=== PATIENT | female | born 1950 | race Caucasian/White ===

== ENCOUNTER 2017-04-06 11:09 | Inpatient (IN) | payer MEDICARE, SELFPAY ==
[2017-04-06] VITALS (12 sets, daily range): BP systolic 121–173; BP diastolic 50–71; PULSE 65–90; RESP 14–18; TEMP 36.4–37.3; O2SAT 91–98; BMI 51.0; BMI 53.0
--- NOTE | 2017-04-06 11:35 | CT_ITS ---
STUDY: CT ABDOMEN AND PELVIS WITH CONTRAST REASON FOR EXAM: Female, 67 years old. Right lower quadrant pain x3 days RADIATION DOSAGE (If Supplied By Facility): CTDIvol = ( 36.17 ) mGy, DLP = ( 1554.38 ) mGycm TECHNIQUE: Transaxial images were obtained from the dome of the diaphragm to the symphysis pubis without oral contrast. 100 ml of Isovue 300 contrast was administered. Sagittal and coronal images were reconstructed. Individualized dose optimization techniques were used for this CT. COMPARISON: Prior study of 12/05/2016 FINDINGS: The visualized lung bases are unremarkable. The visualized portions of the heart are within normal limits. Normal liver. There is non-visualization of the gallbladder, which may be secondary to either contraction or a prior cholecystectomy. Normal spleen. Normal pancreas. There is a 2.0 cm right adrenal nodule similar to the previous study. The left adrenal is normal. There is a 2.1 cm cyst of the posterior midpole of the right kidney. Normal left kidney. Normal visualized stomach. Normal small intestine. There are scattered colonic diverticuli with no evidence of associated diverticulitis. There is an umbilical hernia containing a knuckle of bowel. The bowel is nonobstructed, but there is noted edema of the hernia fat suggestive of strangulation. There is non-visualization of the appendix. Normal abdominal aorta. Normal inferior vena cava. Normal retroperitoneum. Normal urinary bladder. Normal visualized uterus. There is a grade 1 L5-S1 spondylolisthesis with bilateral L5 spondylolysis. There are diffuse degenerative changes of the visualized thoracolumbar spine. CT/Abdomen/Pelvis WITH Contrast IMPRESSION: Umbilical hernia containing nondistended knuckle of bowel as well as edematous fat. Findings are suggestive of strangulation. The gallbladder and appendix are not identified. Stable right adrenal nodule and right renal cyst. Scattered colonic diverticuli with no evidence of associated diverticulitis. There is no evidence of free intra-abdominal or intrapelvic air or fluid. Electronically Signed: Hai Alicea MD at 13:56 EST , Service support ,
--- NOTE | 2017-04-06 11:53 | ED.DCSUM_ITS ---
- ER Visit Summary Date of Service: 04/06/17 Chief Complaint: Abdominal pain History of Present Illness: The patient is a 67 F who states that last week she had an increase in the amount of reflux symptoms. She was using famotidine and Pepto-Bismol. On Friday she began to have vomiting. Today she woke with continued nausea vomiting as well as a right lower quadrant burning pain. Is worse with movement and touch. She notes that she has a large umbilical hernia and she tells me that is nontender. No fevers. No significant diarrhea. Physical Examination: Afebrile vital signs are stable Gen: Well-nourished well-developed morbidly obese Head: Normocephalic atraumatic Eyes: Perrl EOMI ENT: TMs clear no rhinorrhea moist mucous membranes Neck: Supple no lymphadenopathy no JVD nontender CVS: Regular rate rhythm no murmurs normal S1-S2 Respiratory: No distress clear to auscultation bilaterally chest nontender Abdomen: Soft mild tenderness to palpation in the right lower quadrant. There is a large umbilical hernia that is tender. I am able to partially reduce it though it is painful for the patient. It does come back. Nondistended normal bowel sounds no masses Back: Nontender Extremity: Nontender no edema Skin: Normal color no rash Neuro: alert orientated ?3 CN II-XII intact normal strength sensation reflexes gait cerebellar Psych: Normal affect normal mood Test Results: Basic labs were negative including lactate 1.3 and white blood cell count 6.9. CT the abdomen pelvis was concerning for a strangulated hernia. Please see radiology read for final details. Emergency Department Course and Treatment: Patient received IV fluids, morphine , Zofran. Clinically I think the patient's hernia abdominal wall were injured by vomiting. I spoke with Dr. Liz is come to the emergency department to evaluate the patient. She is planning to take the patient to the operating room. Impression: 1. Strangulated umbilical hernia This note was generated with [employer] dictation software. It may contain incorrect words, spelling, and punctuation that were not noted in review of the chart prior to signing ED Disposition - Plan for ED Patient: Chief Complaint: Abd Pain
[2017-04-06] MEDS: 0.9% Normal Saline 1,000 ML 125 ML IV ×2 (11:58→19:15)
[2017-04-06] MEDS: Ondansetron 4 MG/2 ML Vial IV (11:58)
[2017-04-06 12:09] LABS: Absolute Lymphocyte Count 1.65 X10^3/ul (0.83-4.51); Absolute Neutrophil Count 4.6 X10^3/uL (2.0-7.7); Basophil# 0.04 X10^3/uL; Basophil% 0.6 % (0-1); Eosinophil# 0.14 X10^3/uL; Hematocrit 41.1 % (37-47); Hemoglobin 13.2 g/dl (12.0-15.0); Lymphocyte # 1.65 X10^3/ul (4.0); Lymphocyte % 23.8 % (19-41); Mean Corp Hgb Conc 32.1 g/gl (32-36); Mean Corpuscular Hgb 29.1 pg (27.0-32.0); Mean Corpuscular Volume 90.7 fL (81-99); Monocyte# 0.49 X10^3/uL; Monocyte% 7.1 % (0-10); Neutrophil # 4.58 X10^3/uL (2.7-7.7); Neutrophil % 66.2 % (47-70); Platelet Count 234 K/mm3 (150-450); RBC Distribution Width CV 12.9 % (11.6-14.6); RBC Distribution Width SD 42.5 fl (35.1-43.9); Red Blood Count 4.53 M/mm3 (4.2-5.4); White Blood Count 6.9 K/mm3 (4.4-11.0)
[2017-04-06 12:10] LABS: POSITIVE COUNT NO; POSITIVE DIFFERENTIAL NO; POSITIVE MORPHOLOGY NO
[2017-04-06 12:24] LABS: ALB/GLOB Ratio 0.9 RATIO (0.9-2.4); AST(SGOT) 30 U/L (15-37); Alanine Aminotransfer ALT/SGPT 51 U/L (12-78); Albumin, Serum 3.5 g/dL (3.4-5.0); Alkaline Phosphatase 108 U/L (45-117); Anion Gap 9 (5-15); BUN 11 mg/dL (7-18); BUN/Creat Ratio 11.2 RATIO (10-20); Calcium,Total 9.2 mg/dL (8.5-10.1); Chloride 105 mmol/L (98-107); Creatinine, Serum 0.98 mg/dL (0.55-1.02); EST Glomerular Filtration Rate 60 mL/min (>60); Est Glom Filt Rate - Afr Amer 73 mL/min (>60); Estimated Creatinine Clearance 98.15 ml/min; Globulin 4.1 g/dL (2.2-4.2); Glucose 118 mg/dL (70-110); Lipase 103 U/L (73-393); Potassium 4.1 mmol/L (3.5-5.1); Protein, Total 7.6 g/dL (6.4-8.2); Sodium Level 139 mmol/L (136-145)
[2017-04-06 12:28] LABS: Lactic Acid 1.3 mmol/L (0.4-2.0)
[2017-04-06 15:08] LABS: Bacteria 0 SEEN /hpf (None Seen); Mucous, Urine 0 SEEN /hpf (<or=2+); Red Blood Cells-Urine 0 SEEN /hpf (0-5); White Blood Cells 0 SEEN /hpf (0-5)
[2017-04-06 15:18] LABS: Color, Urine Yellow (Yellow); Glucose, Dipstick Normal (Normal); Ketone-Dipstick Negative (Negative); Leukocyte Esterase-Dipstick Negative /ul (Negative); Nitrite-Dipstick Negative (Negative); Occult Blood-Urine Negative /ul (Negative); Protein-Dipstick Negative (Negative); Urine Bilirubin Dipstick Negative (Negative); Urine Clarity Clear (Clear); Urine Urobilinogen Normal (Normal)
--- NOTE | 2017-04-06 15:26 | EKG12_ITS ---
Test Reason : PREOP Blood Pressure : / mmHG Vent. Rate : 073 BPM Atrial Rate : 073 BPM P-R Int : 192 ms QRS Dur : 164 ms QT Int : 468 ms P-R-T Axes : 007 -05 088 degrees QTc Int : 515 ms Normal sinus rhythm Left bundle branch block Abnormal ECG Confirmed by SANDHYA OBRIEN, ALAINA ([id number]), makeup editor ETHEL CAMERON ([id number]) on 04/08/2017 10:41:21 AM Referred By: Confirmed By:ALAINA ARTHUR MD
[2017-04-06 15:27] LABS: Squamous Epithelial Cells - UA 0-5 SEEN /hpf (5-10)
--- NOTE | 2017-04-06 15:53 | HP.PCM_ITS ---
History and Physical Date of Admission: 04/06/17 Chief Complaint: abdominal pain History of Present Illness: 67 y/o WF presents with abdominal pain, nausea/emesis. Has pain to the right of the hernia - burning, aching pain. She has noted an umbilical hernia for years. Also complains of increased reflux symptoms Complains of increased intestinal gas Has had diarrhea for the past 2 weeks - 2-3 loose bowel movements per day. Has had nausea and dry retching in the past several days. 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 Past Surgical History: cholecystectomy csections appendectomy umbilical hernia repair Medications: norvasc eliquis lipitor vitamins famotidine losartan metformin potassium venlafaxine Allergies: Has no known drug allergies Social history: TOB use quit 40 years ago Review of Systems: General - denies fevers, denies weight loss, denies anorexia Cardiovascular denies chest pain, denies history of heart attack Pulmonary has shortness of breath with exertion, denies coughing up blood Gastrointestinal as per HPI, denies blood in stools, had colonoscopy 2015 Neurological denies numbness/weakness of extremities, denies seizures, denies history of stroke Genitourinary denies blood in urine Hematological denies spontaneous/prolonged bleeding, history of PE, factor V deficiency Skin denies open non healing wounds Musculoskeletal denies chronic back pain Endocrine has diabetes Psychological denies hallucinations Physical examination: Vital signs Ht: 4'11 Wt 251# Temp 99.1F RR 14 BP 165/62 HR 96 General WD/WN morbidly obese WF in apparent abdominal discomfort, alert and oriented, not septic appearing HEENT Normocephalic. EOM intact with sclera clear and no icterus noted. Neck is supple with no jugular venous distention noted. Trachea is midline. Lungs clear to auscultation. normal breath sounds in all lung gavin. No rales/rhonchi/wheezing noted. No labored breathing noted, such as retractions. . Heart normal S1 and S2 auscultated. No rubs/clicks/murmurs noted. Abdomen soft and obese, periumbilical tenderness to palpation with slight rebound. decreased bowel sounds. obvious ventral hernia that is not completely reducible, overlying skin is stretched out but not tense and slight erythematous in coloration, difficult to determine if any masses or organomegaly due to patient's body habitus Extremities no calf tenderness noted. No pitting edema noted. Genitourinary/Rectal deferred Skin normal skin integrity. Neurological non focal Psychological normal affect, patient is calm and appropriate WBC 6.9K, normal differential, lactic acid normal Impression: recurrent ventral hernia - incarcerated periumbilical abdominal pain morbid obesity multiple medical problems - hypertension, diabetes, hx of PE, factor V def Discussion/Plan: I have discussed the above with the patient and her son who is present with her. The patient has had this hernia for years, however, she states that the pain at present is worse than at any other time and that it also feels different. She states that she feels worse and that the pain is primarily centered around the hernia. This may be due to tension applied to the omentum in the area. Also there are inflammatory/strangulation changes noted on the CT scan. Therefore I have offered patient urgent recurrent ventral hernia repair today. I have counseled the patient as to the risks of the procedure, including but not limited to: infection, bleeding, injury to any blood vessels/nerves, scar tissue, injury to any intrabdominal organs, injury to kidney/ureters, injury to bowel/bladder, intraabdominal abscess/bleeding, recurrent hernia, wound infections, leaving the wound to heal by secondary intention, complications of anesthesia, postoperative pneumonia/cardiac problems/blood clots etc. the patient understands. At first, patient states that she wished to consult with her family physician. I counseled her that her family physician was not available at this time, and that her family physician would not be able to advise her on this surgical case. Also that if she delayed her surgery, she could possibly due greater harm to herself. The patient agrees to proceed with surgery. I will consult with the hospitalist for perioperative medical management of the patient's multiple medical problems I have answered all questions to the patient?s satisfaction and the patient has no further questions.
[2017-04-06 16:16] LABS: Bedside Glucose 115 mg/dL (70-110)
[2017-04-06] MEDS: Bupivacaine Mpf 0.5% 30 ML VIAL (16:20)
--- NOTE | 2017-04-06 16:33 | PCM.CONS.GEN ---
Problem List (1) CAD (coronary artery disease) Status: Acute (2) Incarcerated hernia Status: Chronic (3) Heterozygous factor V Leiden mutation Status: Chronic (4) LBBB (left bundle branch block) Status: Chronic (5) Pulmonary embolism Status: Chronic Reason for Consult Date of Consultation: 04/06/17 Reason for Consultation: consult requested by Dr. Liz for medical mgmt History of Present Illness: The patient is a 67 year old F who has a known h/o umbilical hernia. Since Friday, has been having vomiting and increased abdominal pain. Pt presented to ED and had a CT scan concerning for a strangulated hernia. Dr. Liz notified and being taken to surgery today. We were asked to see the patient in consultation for medical mgmt.[] Past Medical History Past Medical History (Chronic Problems): Chronic Problems LBBB (left bundle branch block) (Chronic) Pulmonary embolism (Chronic) Incarcerated hernia (Chronic) Heterozygous factor V Leiden mutation (Chronic) Allergies No Known Allergies Allergy (Verified 04/06/17 11:14) Home Medications: Ambulatory Orders Medication Instructions Recorded Amlodipine Besylate [Norvasc] 10 mg PO DAILY 07/05/16 Losartan Potassium [Cozaar] 50 mg PO BID 07/05/16 Metformin HCl [Glucophage] 500 mg PO BIDCM 07/05/16 Venlafaxine HCl [Venlafaxine HCl 75 mg PO DAILY 07/05/16 ER] Ergocalciferol [Vitamin D] 50,000 unit PO QMONTH 07/09/16 Apixaban [Eliquis] 5 mg PO BID #60 tablet 10/04/16 Atorvastatin Calcium [Lipitor] 40 mg PO QHS 04/06/17 Famotidine 40 mg PO DAILY 04/06/17 Famotidine/Ca Carb/Mag Hydrox 1 each PO 04/06/17 [Pepcid Complete Tablet Chew] Potassium Chloride [Klor-Con M20] 20 meq PO DAILY 04/06/17 Psychiatric History: No pertinent psych hx Smoking Status: Never smoker Tobacco Use: Non-smoker Alcohol: None Drugs: None - *Family History Maternal History Items: Heart Disease, - - 4 blokec arteries Paternal History Items: - - father 59 lung cancer Offspring History Items: - - PE and Factor V Leiden Deficiency in her son. Review of Systems Constitutional: Denies: Chills, Fever, Weight Change Eyes: Denies: Blurred vision, Double vision HEENT: Denies: Head Aches, Sinus Congestion, Sinus Drainage Cardiovascular: Denies: Chest Pain, Palpitations Respiratory: Denies: Cough, Shortness of breath at rest, Sputum production Gastrointestinal: Denies: Abdominal Pain, Nausea, Vomiting Genitourinary: Denies: Dysuria Musculoskeletal: Denies: Joint Pain, Joint Tenderness Skin: Denies: Rash, Wounds Neurological: Denies: Numbness, Tingling, Focal weakness Psychiatric: Reports: Homicidal Ideations, Suicidal Ideations. Denies: Anxiety, Depression Hematologic/ Lymphatic: Reports: Hx of blood clot. Denies: Easy Bruising, Easy Bleeding Patient Problems: Active and Suspected Problems CAD (coronary artery disease) (Acute) - Physical Exam General: Alert, Cooperative, No apparent distress HEENT: Atraumatic, Normocephalic Neck: No Nodes, Thyroid Normal Size and Texture Lungs: Clear to auscultation, Normal air movement, No rhonchi, No wheeze Cardiovascular: Regular rate, Regular Rhythm, Normal S1, Normal S2, No murmurs Abdomen: Non-Distended, Hypoactive Bowel Sounds, Obese, Tender Extremities: No edema, No Calf Tenderness Skin: No rashes, No breakdown Psych/Mental Status: Normal Affect, Appropriate Vital Signs Temp Pulse Resp BP Pulse Ox 37.3 C 69 16 121/50 H 93 04/06/17 11:10 04/06/17 16:13 04/06/17 16:13 04/06/17 16:13 04/06/17 16:13 Oxygen Delivery Method Room Air Weight: 114.759 kg Body Mass Index (BMI) 51.0 POC Glucose 04/06/17 16:04 POC Glucose 115 H Assessment/Plan Active and Suspected Problems CAD (coronary artery disease) (Acute) 1. Strangulated hernia emergent surgery and going today. further mgmt per Dr. Liz Pt with fair performance status and able to perform >4 METS of activity 2. DM2 hold metformin will place pt on Moderate dosing SSI (Novolog) Q6h, may change to QAC once diet initiated 3. VTE on chronic eliquis, which is being held for surgery. resume once ok'd by Dr. Liz. 4. DVT proph: SCDs until able to resume eliquis. Code Visit Inpatient E&M: 50969 Init Hosp L2
--- NOTE | 2017-04-06 16:43 | CON.PCM_ITS ---
Problem List (1) CAD (coronary artery disease) Status: Acute (2) Incarcerated hernia Status: Chronic (3) Heterozygous factor V Leiden mutation Status: Chronic (4) LBBB (left bundle branch block) Status: Chronic (5) Pulmonary embolism Status: Chronic Reason for Consult Date of Consultation: 04/06/17 Reason for Consultation: consult requested by Dr. Liz for medical mgmt History of Present Illness: The patient is a 67 year old F who has a known h/o umbilical hernia. Since Friday, has been having vomiting and increased abdominal pain. Pt presented to ED and had a CT scan concerning for a strangulated hernia. Dr. Liz notified and being taken to surgery today. We were asked to see the patient in consultation for medical mgmt.[] Past Medical History Past Medical History (Chronic Problems): Chronic Problems LBBB (left bundle branch block) (Chronic) Pulmonary embolism (Chronic) Incarcerated hernia (Chronic) Heterozygous factor V Leiden mutation (Chronic) Allergies No Known Allergies Allergy (Verified 04/06/17 11:14) Home Medications: Ambulatory Orders Medication Instructions Recorded Amlodipine Besylate [Norvasc] 10 mg PO DAILY 07/05/16 Losartan Potassium [Cozaar] 50 mg PO BID 07/05/16 Metformin HCl [Glucophage] 500 mg PO BIDCM 07/05/16 Venlafaxine HCl [Venlafaxine HCl 75 mg PO DAILY 07/05/16 ER] Ergocalciferol [Vitamin D] 50,000 unit PO QMONTH 07/09/16 Apixaban [Eliquis] 5 mg PO BID #60 tablet 10/04/16 Atorvastatin Calcium [Lipitor] 40 mg PO QHS 04/06/17 Famotidine 40 mg PO DAILY 04/06/17 Famotidine/Ca Carb/Mag Hydrox 1 each PO 04/06/17 [Pepcid Complete Tablet Chew] Potassium Chloride [Klor-Con M20] 20 meq PO DAILY 04/06/17 Psychiatric History: No pertinent psych hx Smoking Status: Never smoker Tobacco Use: Non-smoker Alcohol: None Drugs: None - *Family History Maternal History Items: Heart Disease, - - 4 blokec arteries Paternal History Items: - - father 59 lung cancer Offspring History Items: - - PE and Factor V Leiden Deficiency in her son. Review of Systems Constitutional: Denies: Chills, Fever, Weight Change Eyes: Denies: Blurred vision, Double vision HEENT: Denies: Head Aches, Sinus Congestion, Sinus Drainage Cardiovascular: Denies: Chest Pain, Palpitations Respiratory: Denies: Cough, Shortness of breath at rest, Sputum production Gastrointestinal: Denies: Abdominal Pain, Nausea, Vomiting Genitourinary: Denies: Dysuria Musculoskeletal: Denies: Joint Pain, Joint Tenderness Skin: Denies: Rash, Wounds Neurological: Denies: Numbness, Tingling, Focal weakness Psychiatric: Reports: Homicidal Ideations, Suicidal Ideations. Denies: Anxiety , Depression Hematologic/ Lymphatic: Reports: Hx of blood clot. Denies: Easy Bruising, Easy Bleeding Patient Problems: Active and Suspected Problems CAD (coronary artery disease) (Acute) - Physical Exam General: Alert, Cooperative, No apparent distress HEENT: Atraumatic, Normocephalic Neck: No Nodes, Thyroid Normal Size and Texture Lungs: Clear to auscultation, Normal air movement, No rhonchi, No wheeze Cardiovascular: Regular rate, Regular Rhythm, Normal S1, Normal S2, No murmurs Abdomen: Non-Distended, Hypoactive Bowel Sounds, Obese, Tender Extremities: No edema, No Calf Tenderness Skin: No rashes, No breakdown Psych/Mental Status: Normal Affect, Appropriate Vital Signs Temp Pulse Resp BP Pulse Ox 37.3 C 69 16 121/50 H 93 04/06/17 11:10 04/06/17 16:13 04/06/17 16:13 04/06/17 16:13 04/06/17 16:13 Oxygen Delivery Method Room Air Weight: 114.759 kg Body Mass Index (BMI) 51.0 POC Glucose 04/06/17 16:04 POC Glucose 115 H Assessment/Plan Active and Suspected Problems CAD (coronary artery disease) (Acute) 1. Strangulated hernia * emergent surgery and going today. * further mgmt per Dr. Liz * Pt with fair performance status and able to perform >4 METS of activity 2. DM2 * hold metformin * will place pt on Moderate dosing SSI (Novolog) Q6h, may change to QAC once diet initiated 3. VTE * on chronic eliquis, which is being held for surgery. * resume once ok'd by Dr. Liz. 4. DVT proph: * SCDs until able to resume eliquis. Code Visit Inpatient E&M: 92592 Init Hosp L2
--- NOTE | 2017-04-06 16:45 | HERN_PTH ---
PATIENT: CLARENCE CONNOR LOC: [facility]3 U#:[id number] AGE/SX: 67/F ROOM: MS305 RE04/06/[address]: Dr. Rosita Lim DO : 1950 BED: 1 DIS: 04/07/2017 SPEC #: [id number] RECD: 04/07/17 12:23 STATUS: MICHELINE REQ #: [id number] STEPHANIE: 04/06/17 16:[address]: Lorri Liz DEPT: SURGICAL PATHOLOGY RECD BY: Sedrick Rudolph ENTERED: 04/07/17 12:24 SP TYPE: Hernia OTHR DR: DO Dr. Luis Gil DO Dr. Tai Chi Kwok, MD Tissues: A - HERNIA B - HERNIA Procedures: Surgery Specimen Level II Surgery Specimen Level III Comments: @ Ordering doctor for [facility] edited from to DR.LWANG Beltran by CICI at 04/07/17 1524 @ Submitting doctor edited from to DR.LWANG Beltran by CICI at 04/07/17 1524 HEADER OPERATION: Recurrent strangulated hernia repair PRE-OP DIAGNOSIS: Recurrent ventral hernia ? strangulated TISSUE SUBMITTED: A ? Hernia sac, B ? Hernia skin MICROSCOPIC DIAGNOSIS A. Hernia sac: Mesothelial-lined fibroadipose and fibroconnective tissue, consistent with hernia sac with focal chronic inflammation and hemorrhage. B. Hernia skin: Pieces of skin, no pathologic diagnosis. JENNIFER:yousif 04/08/17 MICROSCOPIC DESCRIPTION Slides are reviewed. GROSS DESCRIPTION A - Received in fixative is one container labeled with the patient's name and designated hernia sac. The specimen consists of a glistening fragment of pink-yellow soft tissue measuring 5.5 x 3.5 x 1 cm. Dissection does not reveal mass lesions. Ross Lift Operator sections are submitted in one cassette. B - Received in fixative is one container labeled with the patient's name and designated hernia skin. The specimen consists of two irregular fragments of glistening, light pink-clifton skin. One fragment measures 7 x 3.5 x 0.3 cm. The other fragment measures 8 x 3.5 x 0.5 cm. No cutaneous lesions are identified. Ross Lift Operator sections from both fragments are submitted in one cassette. / AM:yousif 04/07/17 TC:5 CPT: 13006, 08386
[2017-04-06] MEDS: Cefazolin 2 GM in 0.9% Normal Saline 100 ML IV (16:50)
--- NOTE | 2017-04-06 18:00 | OP.PN_ITS ---
Immediate Post-Op Note Date of Procedure: 04/06/17 Primary Surgeon/Physician: Lorri Liz physician practice coordinator: NOT,DEFINED Pre-Operative Diagnosis: incarcerated recurrent ventral hernia, abdominal pain Post-Operative Diagnosis: same Surgery/Procedure Performed:: repair of incarcerated recurrent ventral hernia Description of Surgical Findings:: incarcerated recurrent ventral hernia, no necrotic bowel noted Estimated Blood Loss: 20 ml Specimen's removed: hernia sac, excess skin from hernia Drains: none Type of Anesthesia:: General ASA Class: ASA3 Plus Emergency - Admit VTE Documentation VTE Present on Admission: Yes VTE Mechan Device Prophylaxis: SCD's
--- NOTE | 2017-04-06 18:00 | PCM.OPRPT ---
Report of Operation Date of Procedure: 04/06/17 Pre-Operative Diagnosis: incarcerated recurrent ventral hernia, abdominal pain Post-Operative Diagnosis: same Surgery/Procedure Performed:: repair of incarcerated recurrent ventral hernia Description of Surgical Findings:: incarcerated recurrent ventral hernia, no necrotic bowel noted library services coordinator: NOT,DEFINED Type of Anesthesia:: General Anesthesiologist: Kasie Jeter Specimen's removed: hernia sac, excess skin from hernia Drains: none Estimated Blood Loss (mL): 20 ml Fluids Replaced: 1300 ml RL Description of Procedure: After informed consent was obtained, the patient was brought to the Operating Room and placed in the supine position. Appropriate time out protocol was followed. The patient was then placed under anesthesia. The abdomen was then prepped with a sterile surgical skin preparation. Sterile surgical drapes were placed. This skin and subcutaneous tissues were then widely infiltrated with the local anesthetic. A skin incision was then made with a 15 blade scalpel over the hernia site in a vertical fashion and carried down to the subcutaneous tissues using sharp dissection. Patient had redundant skin from the long standing hernia. Any hemorrhage was adequately controlled with electrocautery. Blunt dissection was done to separate the subcutaneous tissues from the hernia sac. The sac once freed of the subcutaneous tissues was then freed up from the fascial surface. The fascial defect was then properly outlined. The fascial defect was slightly superior to the umbilicus. The patient had attenuated fascia in this location. Her abdomen is obese. She has rectus diastasis. The sac was from the fascial opening. It was opened. There were incarcerated omentum and small bowel that were adhesed to the sac. These were using blunt dissection. Any hemorrhage was controlled with electrocoagulation. The patient did have oozing due to being on eliquis. The excess sac was transected. The opening in the peritoneum was then closed with running 3-0 vicryl. The fascial defect was then closed transversely with interrupted #1 prolene suture. Hemostasis was controlled with electrocautery. There was excess skin due to the redundant tissue that was resected. The subdermis was reapproximated with interrupted 3-0 vicryl sutures. The skin incision was reapproximated using skin chip. Sterile dressing was applied. Abdominal binder was placed. The patient was brought from to the Recovery Room in stable condition - Complications none noted - Admit VTE Documentation VTE Present on Admission: Yes VTE Mechan Device Prophylaxis: SCD's
[2017-04-06 18:10] LABS: Bedside Glucose 141 mg/dL (70-110)
[2017-04-06] MEDS: Losartan Potassium 50 MG Tablet PO (22:44)
[2017-04-06 23:51] LABS: Bedside Glucose 164 mg/dL (70-110)
[2017-04-07] MEDS: Scopolamine 1mg/72hr Patch 1 PATCH TD (00:18)
[2017-04-07] MEDS: 0.9% Normal Saline 1,000 ML 125 ML IV ×2 (02:55→10:57)
[2017-04-07 05:39] VITALS: BP 142/61; PULSE 61; RESP 18; TEMP 36.8; O2SAT 95
[2017-04-07 05:41] LABS: Bedside Glucose 129 mg/dL (70-110)
[2017-04-07 06:18] LABS: Absolute Lymphocyte Count 0.75 X10^3/ul (0.83-4.51); Absolute Neutrophil Count 8.6 X10^3/uL (2.0-7.7); Hematocrit 36.4 % (37-47); Hemoglobin 11.8 g/dl (12.0-15.0); Lymphocyte # 0.75 X10^3/ul (4.0); Lymphocyte % 7.7 % (19-41); Mean Corp Hgb Conc 32.4 g/gl (32-36); Mean Corpuscular Hgb 29.9 pg (27.0-32.0); Mean Corpuscular Volume 92.4 fL (81-99); Mean Platelet Vol. 11.3 fl (6.2-12.0); Monocyte# 0.45 X10^3/uL; Monocyte% 4.6 % (0-10); Neutrophil # 8.55 X10^3/uL (2.7-7.7); Neutrophil % 87.6 % (47-70); Platelet Count 257 K/mm3 (150-450); RBC Distribution Width CV 12.9 % (11.6-14.6); RBC Distribution Width SD 42.3 fl (35.1-43.9); Red Blood Count 3.94 M/mm3 (4.2-5.4); White Blood Count 9.8 K/mm3 (4.4-11.0)
[2017-04-07 06:28] LABS: POSITIVE COUNT NO; POSITIVE DIFFERENTIAL NO; POSITIVE MORPHOLOGY NO
[2017-04-07 06:36] LABS: Anion Gap 8 (5-15); BUN 9 mg/dL (7-18); BUN/Creat Ratio 11.3 RATIO (10-20); Calcium,Total 8.2 mg/dL (8.5-10.1); Chloride 105 mmol/L (98-107); EST Glomerular Filtration Rate 76 mL/min (>60); Est Glom Filt Rate - Afr Amer 92 mL/min (>60); Glucose 115 mg/dL (70-110); Potassium 4.5 mmol/L (3.5-5.1); Sodium Level 140 mmol/L (136-145)
--- NOTE | 2017-04-07 07:40 | PCM.PN.SRG ---
Patient Problems: Active and Suspected Problems CAD (coronary artery disease) (Acute) Subjective: Patient states that she only has incisional pain, initial presentation pain is resolved passing small amounts of flatus this morning feels hungry, wants to eat - Physical Exam General: Alert, Oriented x3 Oral: Moist Mucosa Neck: Supple Lungs: Normal air movement Abdomen: Soft, - - has abdominal binder in place, dressing intact Vital Signs Temp Pulse Resp BP Pulse Ox 98.2 F 61 18 142/61 H 95 04/07/17 05:39 04/07/17 05:39 04/07/17 05:39 04/07/17 05:39 04/07/17 05:39 Oxygen Flow Rate 2 Oxygen Delivery Method Nasal Cannula Weight: 119.4 kg Body Mass Index (BMI) 53.0 Finger Stick Blood Glucose 141 Intake and Output for Last 24 Hours 04/05/17 04/06/17 04/07/17 23:59 23:59 23:59 Intake Total 2175 / 2175 740 / 740 Balance 2175 / 2175 740 / 740 Laboratory Tests Past 24 Hrs 04/07/17 04/07/17 05:40 05:40 WBC 9.8 RBC 3.94 L Hgb 11.8 L Hct 36.4 L MCV 92.4 MCH 29.9 MCHC 32.4 RDW 12.9 RDW Differential 42.3 Plt Count 257 MPV 11.3 Immature Gran % (Auto) 0.100 Neut % (Auto) 87.6 H Lymph % (Auto) 7.7 L [place] % (Auto) 4.6 Eos % (Auto) 0.0 Baso % (Auto) 0.0 Absolute Neuts (auto) 8.6 H Absolute Lymphs (auto) 0.75 L Total Counted Not Reportable Sodium 140 Potassium 4.5 Chloride 105 Carbon Dioxide 27.0 Anion Gap 8 BUN 9 Creatinine 0.80 Estim Creat Clear Calc 125.10 Est GFR (MDRD) Af Amer 92 Est GFR (MDRD) Non-Af 76 BUN/Creatinine Ratio 11.3 Glucose 115 H Calcium 8.2 L POC Glucose 04/07/17 04/06/17 04/06/17 05:34 23:39 18:05 POC Glucose 129 H 164 H 141 H 04/06/17 16:04 POC Glucose 115 H Assessment/Plan Active and Suspected Problems CAD (coronary artery disease) (Acute) Impression: POD#1 s/p repair of incarcerated recurrent ventral hernia Plan: discharge to home
--- NOTE | 2017-04-07 07:54 | NURSING ---
BOWEL SOUNDS HEARD ONLY IN UPPER QUADS-ABDOMEN IS ROUNDED AND SLIGHTLY FIRM-ABDOMINAL BINDER IN PLACE-ABDOMINAL DRESSING D&I-ASSISTED TO BR SBA-INSTRUCTED AND STARTED USING I.S.
[2017-04-07] MEDS: Losartan Potassium 50 MG Tablet PO (08:21)
[2017-04-07] MEDS: HYDROcodone Bitartrate/Apap 5/325 Tablet PO ×2 (08:21→17:47)
[2017-04-07] MEDS: amLODIPine 10 MG Tablet PO (08:21)
--- NOTE | 2017-04-07 09:24 | CASEMGMT ---
SARTHAK BALL Face to Face with patient for initial transition planning/care coordination assessment. SARTHAK BALL introduced self and role at [facility]. Patient sitting in chair, alert and oriented, family at bedside. Patient willing to participate in assessment and is able to answer all questions appropriately. Care providers, pharmacy, and demographics verified. See link attached. Patient wishes to discharge home, denies need for home health at this time. Patient state that she will need a shower chair and requested script and family stated they would take care of it. SARTHAK BALL will obtain script for patient but informed patient that not sure if insurance would cover cost of shower chair. Patient states she has no further needs or concerns at this time. SARTHAK BALL obtained script for doctor and gave to patient. CM to follow for discharge planning needs that may arise. Disposition Plan: Patient to discharge home with family support and follow-up plans in place.
--- NOTE | 2017-04-07 09:34 | PCM.DC.HER ---
Discharge Diet: 1800 Calorie Control Diet - drink plenty of fluids Discharge Activity: Return to Normal Activity, May not drive while taking narcotic pain medications. Lifting Restrictions: no lifting greater than 10 pounds for one month Call your doctor if your incision/area has: Continuous Slow Oozing, Foul Smelling Discharge Additional Dressing/Incision Instructions:: Leave dressing in place. If want to shower, cover dressing with towel or plastic to avoid getting it wet. Otherwise, sponge bathe. Reapply abdominal binder as per needed Allergies/Adverse Reactions: Allergies No Known Allergies Allergy (Verified 04/06/17 11:14) Medications to take at Discharge Amlodipine Besylate [Norvasc] 10 mg PO DAILY 07/05/16 Losartan Potassium [Cozaar] 50 mg PO BID 07/05/16 Metformin HCl [Glucophage] 500 mg PO BIDCM 07/05/16 Venlafaxine HCl [Venlafaxine HCl ER] 75 mg PO DAILY 07/05/16 Ergocalciferol [Vitamin D] 50,000 unit PO QMONTH 07/09/16 Apixaban [Eliquis] 5 mg PO BID #60 tablet 10/04/16 Atorvastatin Calcium [Lipitor] 40 mg PO QHS 04/06/17 Famotidine 40 mg PO DAILY 04/06/17 Famotidine/Ca Carb/Mag Hydrox [Pepcid Complete Tablet Chew] 1 each PO 04/06/17 Potassium Chloride [Klor-Con M20] 20 meq PO DAILY 04/06/17 Hydrocodone/Acetaminophen [[place] 5-325 Tablet] 1 ea PO Q6H PRN PRN #20 tab 04/07/17 The following prescriptions were given: Hydrocodone/Acetaminophen [[place] 5-325 Tablet] 1 ea PO Q6H PRN PRN #20 tab PRN Reason: Pain Primary Care Physician: Duong Borja Chi, MD [Primary Care Provider] - Please Follow Up With: Lorri Liz MD - call When: to be seen in 7-10 days, please call for date and time, thank you
[2017-04-07 11:00] VITALS: PULSE 60
[2017-04-07 11:30] VITALS: BP 131/55; PULSE 60; RESP 18; TEMP 36.7; O2SAT 93
--- NOTE | 2017-04-07 11:34 | NURSING ---
PT TOLERATED CLEARS THIS AM AND RECENTLY HAD 1/2 BOWL OATMEAL AND IS TOLERATING OK-ENCOURAGED TO GET OUT AND WALK IN [place] D/T BLOATED FEELING
[2017-04-07 11:40] LABS: Bedside Glucose 124 mg/dL (70-110)
[2017-04-07 16:09] VITALS: BP 163/82; PULSE 73; RESP 18; TEMP 38.4; O2SAT 95
[2017-04-07 16:56] LABS: Bedside Glucose 155 mg/dL (70-110)
== END 2017-04-07 19:15 | disposition home or self-care (01) | DRG 354 ==
LOC: ED 11:38 → SDC 15:25 → AC 15:27 → MS3 15:53 → SDC 15:53
PROVIDERS: Admitting Provider Surgery; Emergency Provider Emergency Medicine; Family Provider Family Medicine Geriatric Medicine; PCP Family Medicine Geriatric Medicine; Visit Provider Internal Medicine
PROC: 0WQF0ZZ Repair Abdominal Wall, Open Approach (ICD-10-PCS; principal; 2017-04-06 16:45)
DX: K43.0 Incisional hernia with obstruction, without gangrene (principal); Z68.43 Body mass index [BMI] 50.0-59.9, adult; D68.51 Activated protein C resistance; D68.2 Hereditary deficiency of other clotting factors; E66.01 Morbid (severe) obesity due to excess calories; Z86.711 Personal history of pulmonary embolism; I10 Essential (primary) hypertension; E11.9 Type 2 diabetes mellitus without complications; Z79.02 Long term (current) use of antithrombotics/antiplatelets; Z79.84 Long term (current) use of oral hypoglycemic drugs; Z87.891 Personal history of nicotine dependence
CPT/HCPCS: 36415; 74177; 80048; 80053; 81001; 82962; 83605; 83690; 85025; 88302; 88304; 93005; 97802; 99284; J7030; Q9967; A4216; J2405

== ENCOUNTER → 2017-07-04 10:35 | Outpatient (CLI) | payer MEDICARE, SELFPAY ==
[2017-07-04 13:05] LABS: Vitamin D,25 Hydroxy 22.3 ng/mL (29.95-100.01)
[2017-07-04 13:11] LABS: ALB/GLOB Ratio 0.9 RATIO (0.9-2.4); AST(SGOT) 26 U/L (15-37); Alanine Aminotransfer ALT/SGPT 39 U/L (13-56); Albumin, Serum 3.6 g/dL (3.2-5.0); Alkaline Phosphatase 108 U/L (45-117); Anion Gap 11 (5-15); BUN 19 mg/dL (7-18); BUN/Creat Ratio 18.6 RATIO (10-20); Chloride 106 mmol/L (98-107); Creatinine, Serum 1.02 mg/dL (0.55-1.02); EST Glomerular Filtration Rate 57 mL/min (>60); Est Glom Filt Rate - Afr Amer 69 mL/min (>60); Globulin 3.9 g/dL (2.2-4.2); Glucose 148 mg/dL (74-106); Potassium 3.7 mmol/L (3.5-5.1); Protein, Total 7.5 g/dL (6.4-8.2); Sodium Level 141 mmol/L (136-145); Thyroid Stim Hormone (TSH) 1.38 uIU/mL (0.358-3.74)
[2017-07-04 13:24] LABS: Absolute Lymphocyte Count 2.01 X10^3/ul (0.83-4.51); Absolute Neutrophil Count 5.1 X10^3/uL (2.0-7.7); Basophil# 0.07 X10^3/uL; Basophil% 0.8 % (0-1); Eosinophil# 0.42 X10^3/uL; Eosinophils% 5.1 % (0-5); Hematocrit 39.2 % (37-47); Lymphocyte # 2.01 X10^3/ul (4.0); Lymphocyte % 24.3 % (19-41); Mean Corp Hgb Conc 33.2 g/gl (32-36); Mean Corpuscular Volume 90.3 fL (81-99); Mean Platelet Vol. 12.1 fl (6.2-12.0); Monocyte% 7.3 % (0-10); Neutrophil # 5.13 X10^3/uL (2.7-7.7); Neutrophil % 62.1 % (47-70); Platelet Count 290 K/mm3 (150-450); RBC Distribution Width CV 12.4 % (11.6-14.6); RBC Distribution Width SD 40.7 fl (35.1-43.9); Red Blood Count 4.34 M/mm3 (4.2-5.4); White Blood Count 8.3 K/mm3 (4.4-11.0)
[2017-07-04 13:28] LABS: POSITIVE COUNT NO; POSITIVE DIFFERENTIAL NO; POSITIVE MORPHOLOGY NO
[2017-07-07 12:29] LABS: Hep C Antibodies <0.1 s/co ratio (0.0-0.9)
== END ==
PROVIDERS: Family Provider Family Medicine Geriatric Medicine; PCP Family Medicine Geriatric Medicine; Visit Provider Family Medicine Geriatric Medicine
DX: E11.9 Type 2 diabetes mellitus without complications (principal); I10 Essential (primary) hypertension; E55.9 Vitamin D deficiency, unspecified; Z13.89 Encounter for screening for other disorder
CPT/HCPCS: 36415; 80053; 82306; 84443; 85025; 86803

== ENCOUNTER → 2017-11-12 12:53 | Outpatient (CLI) | payer MEDICARE, SELFPAY | PROVIDERS: Family Provider Family Medicine Geriatric Medicine; PCP Family Medicine Geriatric Medicine; Visit Provider Family Medicine Geriatric Medicine | DX: R06.02 Shortness of breath (principal) | CPT/HCPCS: 71275; Q9967 ==

== ENCOUNTER → 2017-12-31 16:29 | Outpatient (CLI) | payer MEDICARE, SELFPAY ==
--- NOTE | 2017-12-31 16:33 | RAD_ITS ---
STUDY: X-RAY - PELVIS AND RIGHT HIP REASON FOR EXAM: Female, 67 years old. Pain TECHNIQUE: Radiological exam, hip, unilateral, with pelvis when performed; 2 or 3 views. 3 views. COMPARISON: None. FINDINGS: There is a non-specific bowel gas pattern. Normal visualized soft tissue structures. There is diffuse demineralization of the osseous structures. There is narrowing with cortical sclerosis and osteophyte formation of the sacroiliac joint consistent with degenerative osteoarthritic changes. Normal bilateral superior and inferior pubic rami. Normal pubic symphysis. Normal bilateral ischial tuberosities. Normal visualized femoral head. Normal acetabulum. There is moderate articular joint space narrowing of the hip. RAD/HIP, UNI W/ Pelvis 2-3 Views IMPRESSION: Degenerative arthrosis, no demonstrated fracture or suspicious osseous lesion. Electronically Signed: Jeremy Rosales MD at 19:00 EDT , Service support ,
== END ==
PROVIDERS: Family Provider Family Medicine Geriatric Medicine; PCP Family Medicine Geriatric Medicine; Referring Provider Family Medicine Geriatric Medicine; Visit Provider Family Medicine Geriatric Medicine
DX: M25.551 Pain in right hip (principal)
CPT/HCPCS: 73502

== ENCOUNTER → 2018-01-02 10:08 | Outpatient (CLI) | payer MEDICARE, SELFPAY ==
[2018-01-02 12:03] LABS: Absolute Neutrophil Count 12.1 X10^3/uL (2.0-7.7); Basophil# 0.01 X10^3/uL; Basophil% 0.1 % (0-1); Eosinophil# 0.01 X10^3/uL; Eosinophils% 0.1 % (0-5); Hemoglobin 11.8 g/dl (12.0-15.0); Lymphocyte % 14.1 % (19-41); Mean Corp Hgb Conc 31.9 g/gl (32-36); Mean Corpuscular Hgb 29.1 pg (27.0-32.0); Mean Corpuscular Volume 91.4 fL (81-99); Mean Platelet Vol. 12.3 fl (6.2-12.0); Monocyte# 1.12 X10^3/uL; Monocyte% 7.2 % (0-10); Neutrophil % 77.8 % (47-70); Platelet Count 304 K/mm3 (150-450); RBC Distribution Width CV 12.7 % (11.6-14.6); RBC Distribution Width SD 41.2 fl (35.1-43.9); Red Blood Count 4.05 M/mm3 (4.2-5.4); White Blood Count 15.6 K/mm3 (4.4-11.0)
[2018-01-02 12:19] LABS: Vitamin D,25 Hydroxy 24.2 ng/mL (29.95-100.01)
[2018-01-02 12:25] LABS: POSITIVE COUNT NO; POSITIVE DIFFERENTIAL NO; POSITIVE MORPHOLOGY NO
[2018-01-02 12:28] LABS: ALB/GLOB Ratio 0.9 RATIO (0.9-2.4); AST(SGOT) 21 U/L (15-37); Alanine Aminotransfer ALT/SGPT 34 U/L (13-56); Albumin, Serum 3.6 g/dL (3.2-5.0); Alkaline Phosphatase 104 U/L (45-117); Anion Gap 9 (5-15); BUN 25 mg/dL (7-18); Calcium,Total 8.9 mg/dL (8.5-10.1); Chloride 106 mmol/L (98-107); Creatinine, Serum 1.04 mg/dL (0.55-1.02); EST Glomerular Filtration Rate 56 mL/min (>60); Est Glom Filt Rate - Afr Amer 67 mL/min (>60); Globulin 3.9 g/dL (2.2-4.2); Glucose 219 mg/dL (74-106); Potassium 4.1 mmol/L (3.5-5.1); Protein, Total 7.5 g/dL (6.4-8.2); Sodium Level 138 mmol/L (136-145); Thyroid Stim Hormone (TSH) 0.36 uIU/mL (0.358-3.74)
== END ==
PROVIDERS: Family Provider Family Medicine Geriatric Medicine; PCP Family Medicine Geriatric Medicine; Visit Provider Family Medicine Geriatric Medicine
DX: E55.9 Vitamin D deficiency, unspecified (principal); R53.83 Other fatigue
CPT/HCPCS: 36415; 80053; 82306; 84443; 85025

== ENCOUNTER 2018-03-20 12:00 | Outpatient (RCR) | payer MEDICARE, SELFPAY ==
--- NOTE | 2018-01-09 08:12 | HP.PTEVAL_ITS ---
Patient's Visit Information CLARENCE CONNOR is a 67 year old F referred to Physical Therapy by Duong Borja with a diagnosis of R hip OA. Date of Evaluation: 01/09/18 Physical Therapist: Brady Means, PT, - Visit Plan Frequency: 3x /Week Duration: 4 Weeks Plan: RFIL, R hip stretching and strengthening, core stab ex's, nustep, and HEP - Subjective Subjective: Pt reports her R hip has been sore for about 3 weeks. She has been taking 8-11 advil a day to control her pain. Pt reports she watches her grandson, and his house has a lot of steps which may have caused her pain. Pt also notes she waws sitting on the ground one day when her grandchild climbed on her back, which may have also contributed to her pain. Pt notes she has had xrays taken which revealed OA. Pt reports her pain is located in her R gluteal region, and down the lateral aspect of her R thigh. Pt denies LBP at this time. Pt notes sleep difficulty secondary to pain. Pt reports getting in/out of her car causes pain. Pt also notes getting dressed and in/out of her tub increases pain. pt reports icy hot helps to decrease her pain. 1/10 pain at rest, 9/10 pain at worst (walking after sitting down) - Pain R hip Pain Intensity (Out of 10): 1 Pain Intensity Range: 9 - Objective Neuro: B LE sensation is WNL to light touch. B Achilles reflex 1/3. Palpation: No pain with palpation. MMT: R hip flexion 4-/5, all other B LE motions are 5/5 throughout. ROM: L/S flexion and R SB are both moderately limited. Other LB motions are WNL. Repeated movements: RFIL decreased pain - Goals Goal 1:: Decrease R hip pain x 50% to aid with sleep Goal Time Frame: 2-4 Weeks Goal 2:: ncrease R LE flexibility x 1 grade to aid with decreasing R hip pain Goal Time Frame: 4-6 Weeks Goal 3:: Increase R hip strength to 5/5 throughout to aid with stair negotiation Goal Time Frame: 2-4 Weeks Goal 4:: I with HEP - Rehabilitation Potential Physical Therapy Diagnosis: R hip pain, limited flexibility, and limited L/S ROM secondary to deg changes in L/S and R hip Rehabilitation Potential: Good - Anticipated Interventions Patient/Client Instruction: Educate patient on: Condition, Plan of Care For the Purpose of:: To improve self management Therapeutic Exercise to Include: Strength training, Endurance training, Balance training, Postural training, Flexibilty training, Dynamic Lumbar Stabilization For the Purpose of:: To decrease pain, To increase ROM, To improve muscle performance and motor function IF ES: Yes For the Purpose of:: To decrease pain Thank you for the opportunity to evaluate your patient. For Medicare and Medicare HMO plans, please review the plan of care and approve it. It will need to be FAXED BACK to us at [phone] for Medicare purposes. Please let me know if there are questions or concerns regarding this plan of care. Physician Signature: Date:
[2018-02-18 15:54] LABS: Absolute Lymphocyte Count 1.26 X10^3/ul (0.83-4.51); Absolute Neutrophil Count 3.9 X10^3/uL (2.0-7.7); Basophil# 0.05 X10^3/uL; Basophil% 0.8 % (0-1); Eosinophil# 0.34 X10^3/uL; Eosinophils% 5.7 % (0-5); Hematocrit 37.8 % (37-47); Hemoglobin 11.8 g/dl (12.0-15.0); Lymphocyte # 1.26 X10^3/ul (4.0); Lymphocyte % 21.1 % (19-41); Mean Corp Hgb Conc 31.2 g/gl (32-36); Mean Corpuscular Hgb 28.5 pg (27.0-32.0); Mean Corpuscular Volume 91.3 fL (81-99); Mean Platelet Vol. 12.3 fl (6.2-12.0); Monocyte# 0.43 X10^3/uL; Monocyte% 7.2 % (0-10); Neutrophil # 3.87 X10^3/uL (2.7-7.7); Neutrophil % 64.9 % (47-70); Platelet Count 260 K/mm3 (150-450); RBC Distribution Width CV 13.2 % (11.6-14.6); RBC Distribution Width SD 43.6 fl (35.1-43.9); Red Blood Count 4.14 M/mm3 (4.2-5.4)
[2018-02-18 16:14] LABS: POSITIVE COUNT NO; POSITIVE DIFFERENTIAL NO; POSITIVE MORPHOLOGY NO
[2018-02-18 16:34] LABS: Anion Gap 6 (5-15); BUN 15 mg/dL (7-18); BUN/Creat Ratio 13.5 RATIO (10-20); Calcium,Total 9.4 mg/dL (8.5-10.1); Chloride 105 mmol/L (98-107); Creatinine, Serum 1.11 mg/dL (0.55-1.02); EST Glomerular Filtration Rate 52 mL/min (>60); Est Glom Filt Rate - Afr Amer 63 mL/min (>60); Glucose 193 mg/dL (74-106); Potassium 3.3 mmol/L (3.5-5.1); Sodium Level 141 mmol/L (136-145)
--- NOTE | 2018-02-20 15:28 | HP.PTREVAL ---
Duong Borja, It has been my pleasure to treat CLARENCE CONNOR over the last 4 visits for R hip OA. Please see the progress note below for an update on the physical therapy plan of care! Subjective: Pt reports a dull ache in her R hip today. Pt reports she thinks she would benefit from further PT Objective/Function: R hip MMT: 4+/5 throughout. R LE flexibility has remained about the same secondary to lack of compliancy with HEP. R post hip pain ranges from 3-7/10. Pt is now I with HEP Plan Plan: Attempt to get 12 more PT visits for helping to increase L LE and core strength to aid with decreasing pain Goals Goal 1:: Decrease R hip pain x 50% to aid with sleep Goal Time Frame: 2-4 Weeks Goal Progress: Progressing Goal 2:: ncrease R LE flexibility x 1 grade to aid with decreasing R hip pain Goal Time Frame: 4-6 Weeks Goal Progress: Progressing Goal 3:: Increase R hip strength to 5/5 throughout to aid with stair negotiation Goal Time Frame: 2-4 Weeks Goal Progress: Progressing Goal 4:: I with HEP Goal Progress: Goal Met Anticipated Interventions Patient/Client Instruction: Educate patient on: Condition, Plan of Care For the Purpose of:: To improve self management Therapeutic Exercise to Include: Strength training, Endurance training, Balance training, Postural training, Flexibilty training, Dynamic Lumbar Stabilization For the Purpose of:: To decrease pain, To increase ROM, To improve muscle performance and motor function IF ES: Yes For the Purpose of:: To decrease pain Please do not hesitate to contact me at [phone] by phone or if you have questions or concerns regarding this new plan of care! Sincerely, Brady Means, PT, ATC
--- NOTE | 2018-05-20 14:07 | HP.PT.NRP ---
HP - Discharge Summary (1) - Patient Information CLARENCE CONNOR was seen in my office for initial evaluation on 01/09/18. The following Plan of Care was established for this patient: Initial Frequency: 3x /Week Initial Duration: 4 Weeks - Anticipated Interventions Patient/Client Instruction: Educate patient on: Condition, Plan of Care For the Purpose of:: To improve self management Therapeutic Exercise to Include: Strength training, Endurance training, Balance training, Postural training, Flexibilty training, Dynamic Lumbar Stabilization For the Purpose of:: To decrease pain, To increase ROM, To improve muscle performance and motor function IF ES: Yes For the Purpose of:: To decrease pain This patient was last seen in our office . Pertinent comments regarding their Physical therapy will appear below: Pt was treated for R hip OA for 7 PT visits through the date of 03/20/18. Pt has not returned through todays date and is therefore discontinued at this time. At this point I will be discontinuing this patient from physical therapy. I would be happy to see this patient again in the future if found appropriate by the physician. Thank you! Brady Means, PT, ATC
== END 2018-03-20 17:00 | disposition home or self-care (01) ==
LOC: PT 12:00
PROVIDERS: Family Provider Family Medicine Geriatric Medicine; PCP Family Medicine Geriatric Medicine; Referring Provider Family Medicine Geriatric Medicine; Visit Provider Family Medicine Geriatric Medicine
DX: M25.559 Pain in unspecified hip (principal)
CPT/HCPCS: 36415; 80048; 85025; 97110; 97161; 97530

== ENCOUNTER → 2018-05-27 16:08 | Outpatient (CLI) | payer MEDICARE, SELFPAY ==
--- NOTE | 2018-05-27 16:35 | RAD_ITS ---
STUDY: X-RAY CHEST REASON FOR EXAM: Female, 68 years old. Shortness of breath TECHNIQUE: PA and lateral chest COMPARISON: 10/02/2016 x-ray chest. CT chest 11/12/2017. FINDINGS: The lungs are clear and expanded. Normal cardiomediastinal silhouette, alexsandra and pleural margins. No acute osseous or upper abdominal process. RAD/Chest PA and Lateral IMPRESSION: No acute cardiopulmonary process. Electronically Signed: Margarito Stokes MD at 17:45 EDT Tel , Service support ,
[2018-05-27 17:04] LABS: Basophil% 0.8 % (0-1); Eosinophils% 2.7 % (0-5); Hematocrit 39.1 % (37-47); Hemoglobin 12.3 g/dl (12.0-15.0); Lymphocyte % 26.2 % (19-41); Mean Corp Hgb Conc 31.5 g/gl (32-36); Mean Corpuscular Hgb 29.1 pg (27.0-32.0); Mean Corpuscular Volume 92.7 fL (81-99); Mean Platelet Vol. 11.1 fl (6.2-12.0); Monocyte% 7.1 % (0-10); Neutrophil % 62.9 % (47-70); POSITIVE COUNT NO; POSITIVE DIFFERENTIAL NO; POSITIVE MORPHOLOGY NO; Platelet Count 303 K/mm3 (150-450); RBC Distribution Width CV 12.6 % (11.6-14.6); RBC Distribution Width SD 41.2 fl (35.1-43.9); Red Blood Count 4.22 M/mm3 (4.2-5.4); White Blood Count 9.1 K/mm3 (4.4-11.0)
[2018-05-27 17:05] LABS: Absolute Lymphocyte Count 2.39 X10^3/ul (0.83-4.51); Absolute Neutrophil Count 5.7 X10^3/uL (2.0-7.7); Anion Gap 4 (5-15); BUN 16 mg/dL (7-18); BUN/Creat Ratio 16.2 RATIO (10-20); Basophil# 0.07 X10^3/uL; Calcium,Total 9.3 mg/dL (8.5-10.1); Chloride 106 mmol/L (98-107); Creatinine, Serum 0.99 mg/dL (0.55-1.02); EST Glomerular Filtration Rate 59 mL/min (>60); Eosinophil# 0.25 X10^3/uL; Est Glom Filt Rate - Afr Amer 72 mL/min (>60); Glucose 127 mg/dL (74-106); Lymphocyte # 2.39 X10^3/ul (4.0); Monocyte# 0.65 X10^3/uL; Neutrophil # 5.73 X10^3/uL (2.7-7.7); Potassium 3.9 mmol/L (3.5-5.1); Sodium Level 140 mmol/L (136-145)
[2018-05-27 17:12] LABS: BNP,B-Type NATRIURETIC PEPTIDE 45.3 pg/mL (0-100)
== END ==
LOC: POLAB3 16:08 → RAD 16:34
PROVIDERS: Family Provider Family Medicine Geriatric Medicine; PCP Family Medicine Geriatric Medicine; Referring Provider Family Medicine Geriatric Medicine; Visit Provider Family Medicine Geriatric Medicine
DX: I10 Essential (primary) hypertension (principal); R06.89 Other abnormalities of breathing
CPT/HCPCS: 36415; 71046; 80048; 83880; 85025

== ENCOUNTER → 2018-07-10 | Outpatient (CLI) | payer MEDICARE, SELFPAY ==
[2018-07-10 10:32] LABS: Absolute Lymphocyte Count 2.08 X10^3/ul (0.83-4.51); Absolute Neutrophil Count 5.4 X10^3/uL (2.0-7.7); Basophil# 0.07 X10^3/uL; Basophil% 0.8 % (0-1); Eosinophil# 0.33 X10^3/uL; Hemoglobin 12.1 g/dl (12.0-15.0); Lymphocyte # 2.08 X10^3/ul (4.0); Lymphocyte % 24.9 % (19-41); Mean Corp Hgb Conc 31.8 g/gl (32-36); Mean Corpuscular Hgb 28.8 pg (27.0-32.0); Mean Corpuscular Volume 90.5 fL (81-99); Mean Platelet Vol. 11.3 fl (6.2-12.0); Monocyte# 0.41 X10^3/uL; Monocyte% 4.9 % (0-10); Neutrophil # 5.43 X10^3/uL (2.7-7.7); Neutrophil % 65.2 % (47-70); Platelet Count 319 K/mm3 (150-450); RBC Distribution Width CV 12.9 % (11.6-14.6); RBC Distribution Width SD 42.4 fl (35.1-43.9); White Blood Count 8.3 K/mm3 (4.4-11.0)
[2018-07-10 10:36] LABS: POSITIVE COUNT NO; POSITIVE DIFFERENTIAL NO; POSITIVE MORPHOLOGY NO
[2018-07-10 10:53] LABS: AST(SGOT) 24 U/L (15-37); Alanine Aminotransfer ALT/SGPT 35 U/L (13-56); Albumin, Serum 3.7 g/dL (3.2-5.0); Alkaline Phosphatase 115 U/L (45-117); Anion Gap 6 (5-15); BUN 17 mg/dL (7-18); BUN/Creat Ratio 16.7 RATIO (10-20); Calcium,Total 9.1 mg/dL (8.5-10.1); Chloride 106 mmol/L (98-107); Creatinine, Serum 1.02 mg/dL (0.55-1.02); EST Glomerular Filtration Rate 57 mL/min (>60); Est Glom Filt Rate - Afr Amer 69 mL/min (>60); Globulin 3.8 g/dL (2.2-4.2); Glucose 169 mg/dL (74-106); Potassium 4.1 mmol/L (3.5-5.1); Protein, Total 7.5 g/dL (6.4-8.2); Sodium Level 140 mmol/L (136-145); Thyroid Stim Hormone (TSH) 2.39 uIU/mL (0.358-3.74)
[2018-07-10 11:11] LABS: Vitamin D,25 Hydroxy 27.1 ng/mL (29.95-100.01)
== END | disposition home or self-care (01) ==
LOC: POLAB3 09:19
PROVIDERS: Family Provider Family Medicine Geriatric Medicine; PCP Family Medicine Geriatric Medicine; Visit Provider Family Medicine Geriatric Medicine
DX: E11.9 Type 2 diabetes mellitus without complications (principal); E55.9 Vitamin D deficiency, unspecified; I10 Essential (primary) hypertension
CPT/HCPCS: 36415; 80053; 82306; 84443; 85025

== ENCOUNTER 2019-01-09 05:50 | Inpatient (IN) | payer MEDICARE, SELFPAY ==
[2019-01-09] VITALS (18 sets, daily range): BP systolic 115–156; BP diastolic 44–73; PULSE 61–74; RESP 16–18; TEMP 36.4–37.1; O2SAT 94–99; BMI 55.8; BMI 55.2
--- NOTE | 2019-01-09 05:58 | EKG12_ITS ---
Test Reason : Blood Pressure : / mmHG Vent. Rate : 066 BPM Atrial Rate : 066 BPM P-R Int : 186 ms QRS Dur : 176 ms QT Int : 520 ms P-R-T Axes : 049 004 107 degrees QTc Int : 545 ms Normal sinus rhythm Left bundle branch block Abnormal ECG Confirmed by SANDHYA OBRIEN, ALAINA ([id number]), school photograph editor MARIANELA SHEPHERD ([id number]) on 01/11/2019 9:48:35 AM Referred By: WILLI Confirmed By:ALAINA ARTHUR MD
--- NOTE | 2019-01-09 06:12 | ED.DCSUM_ITS ---
- ER Visit Summary Date of Service: 01/09/19 Chief Complaint: Fall, syncope History of Present Illness: The patient is a 68 F who presents after syncopal episode. She states that she felt nauseated and hot so she got up out of bed started walking on the hallway. States she remembers she was on the ground. Her current complains of some mild back pain. No chest pain or shortness of breath before or after the incident. She does feel little bit nauseous. She has a history of hypertension and diabetes. She denies a headache. No slurred speech or facial droop. No weakness of her arms or legs. Physical Examination: Vital signs reviewed. HEENT exam unremarkable. Heart is regular rate and rhythm without murmurs. Lungs are clear to auscultation bilaterally. Abdomen soft nontender. Extremities reveal no edema. Back exam reveals right thoracic paraspinal tenderness to palpation. Extremities have no edema. Neurologic exam normal. GCS 15. Test Results: [] Emergency Department Course and Treatment: Patient is back to her her normal state of health. EKG was sinus rhythm with a left bundle branch block. Rate of 66. Unchanged from previous from 2018. She was hydrated with normal saline. Laboratory studies are pending. Her back is tender in the muscular areas and I do not feel that xray is necessary at this time. She will take nsaids for this at home. Treatment Plan: [] Disposition: Pending Impression: Syncope, right thoracic strain This note was generated with PocketGuide dictation software. It may contain incorrect words, spelling, and punctuation that were not noted in review of the chart prior to signing ED Disposition - Plan for ED Patient: Disposition: Home or Assisted Living Instructions: SYNCOPE, Vasovagal Referrals: Duong Borja Chi, MD [Primary Care Provider] -
--- NOTE | 2019-01-09 06:32 | ED.DEP ---
ED Disposition - Plan for ED Patient: Disposition: Home or Assisted Living Instructions: SYNCOPE, Vasovagal Referrals: Duong Borja Chi, MD [Primary Care Provider] -
[2019-01-09 06:45] LABS: Absolute Lymphocyte Count 1.77 X10^3/uL (0.83-4.51); Absolute Neutrophil Count 6.6 X10^3/uL (2.0-7.7); Basophil# 0.06 X10^3/uL; Basophil% 0.6 % (0-1); Eosinophil# 0.21 X10^3/uL; Eosinophils% 2.3 % (0-5); Hematocrit 23.1 % (37-47); Hemoglobin 7.2 g/dL (12.0-15.0); Lymphocyte # 1.77 X10^3/ul (4.0); Lymphocyte % 19.1 % (19-41); Mean Corp Hgb Conc 31.2 g/dL (32-36); Mean Corpuscular Hgb 29.4 pg (27.0-32.0); Mean Corpuscular Volume 94.3 fL (81-99); Mean Platelet Vol. 11.4 fl (6.2-12.0); Monocyte# 0.44 X10^3/uL; Monocyte% 4.7 % (0-10); NRBC Flagged by Analyzer 0.3 % (0-5); Neutrophil # 6.62 X10^3/uL (2.7-7.7); Neutrophil % 71.3 % (47-70); Platelet Count 241 K/mm3 (150-450); RBC Distribution Width CV 13.3 % (11.6-14.6); Red Blood Count 2.45 M/mm3 (4.2-5.4); White Blood Count 9.3 K/mm3 (4.4-11.0)
[2019-01-09 07:02] LABS: Anion Gap 11 (5-15); BUN 46 mg/dL (7-18); BUN/Creat Ratio 42.6 RATIO (10-20); Calcium,Total 8.5 mg/dL (8.5-10.1); Chloride 103 mmol/L (98-107); Creatinine, Serum 1.08 mg/dL (0.55-1.02); EST Glomerular Filtration Rate 53 mL/min (>60); Est Glom Filt Rate - Afr Amer 64 mL/min (>60); Glucose 249 mg/dL (74-106); Potassium 3.7 mmol/L (3.5-5.1); Sodium Level 141 mmol/L (136-145)
--- NOTE | 2019-01-09 07:38 | ED.VISSUMM ---
- ER Visit Summary Date of Service: 01/09/19 Chief Complaint: [] History of Present Illness: The patient is a 68 F [] Physical Examination: [] Test Results: [ Laboratory Data 01/09/19 01/09/19 06:25 06:25 WBC 9.3 RBC 2.45 L Hgb 7.2 L Hct 23.1 L MCV 94.3 MCH 29.4 MCHC 31.2 L RDW Std Deviation 45.0 H RDW Coeff of [place] 13.3 Plt Count 241 MPV 11.4 Immature Gran % (Auto) 2.000 H Neut % (Auto) 71.3 H Lymph % (Auto) 19.1 [place] % (Auto) 4.7 Eos % (Auto) 2.3 Baso % (Auto) 0.6 Absolute Neuts (auto) 6.6 Absolute Lymphs (auto) 1.77 Nucleated RBC % 0.3 Sodium 141 Potassium 3.7 Chloride 103 Carbon Dioxide 27.0 Anion Gap 11 BUN 46 H Creatinine 1.08 H Estim Creat Clear Calc 89.60 Est GFR (MDRD) Af Amer 64 Est GFR (MDRD) Non-Af 53 L BUN/Creatinine Ratio 42.6 H Glucose 249 H Calcium 8.5 Troponin I 0.026 ] Emergency Department Course and Treatment: [Patient signed out to me by night physician. She had a syncopal episode and screening labs were ordered. Patient currently feels well. Patient is found to have anemia with hemoglobin of 7.2. She had a normal hemoglobin earlier this year. Patient is on Eliquis for history of PE. She notes for the past few days she has had darker stools and yesterday developed black stools. She denies any history of GI bleed. She denies ever requiring a blood transfusion. She is never had a colonoscopy but states that she had the mail in kit which came back normal. Patient is already receiving a liter of fluid. She is hemodynamically stable. On rectal exam she does have melena. Patient is typed and crossed for 2 units of packed red blood cells. She will require admission.] Treatment Plan: [Patient ordered 2 units of blood. Discussed case with her surgeon, Dr. Liz, who is comfortable with admission. Patient accepted by Dr. Raygoza to PCU. She is hemodynamically stable throughout her stay in the emergency room.] Disposition: Admission to PCU Impression: 1. Syncope 2. GI bleed 3. Symptomatic anemia 4. Chronic anticoagulation This note was generated with Fastnote dictation software. It may contain incorrect words, spelling, and punctuation that were not noted in review of the chart prior to signing ED Disposition - Plan for ED Patient: Disposition: Acute Care Hospital [facility] Referrals: Duong Borja Chi, MD [Primary Care Provider] -
[2019-01-09] MEDS: 0.9% Normal Saline 1,000 ML 75 ML IV (09:42)
[2019-01-09 11:31] LABS: Bedside Glucose 146 mg/dL (70-110)
--- NOTE | 2019-01-09 11:52 | PCM.CONS.B ---
- Consult Date of Consult: 01/09/19 - Reason for Consult Chief Complaint: fainting, low hgb, melena History of Present Illness: 68 y/o WF presents with diaphoresis and lightheadedness and fainting and fell. She was brought to the ED by family. Vital signs were stable in ED. She was found to have Hgb of 7.2, with previous Hgb around 12, several months ago. She states that she has several episodes of melena for the past few days. She does admit that she has been taking about 800 mg ibuprofen about 4 times per day. Denies obvious rectal bleeding. Never had a colonoscopy, but had a cologard test about 2 years ago which was negative. No colon cancer in the family known. She does have acid indigestion and heartburn for which she takes famotidine on a regular basis. Denies abdominal pain. 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 hyperlipidemia super morbid obesity hypertension LBBB obstructive sleep apnea history of PE Past Surgical History: incarcerated ventral hernia repair csection cholecystectomy Medications: amlodipine eliquis lipitor pepcid hctz ibuprofen losartan metformin paxil postassium supplementation Allergies: Has no known drug allergies Social history: TOB use denies Review of Systems: General - denies fevers, denies weight loss, denies anorexia Cardiovascular denies chest pain Pulmonary has shortness of breath with exertion, denies coughing up blood Gastrointestinal as per HPI, denies blood in stools Neurological had fainting/light headedness, denies seizures Genitourinary denies burning with urination, denies blood in urine Hematological hypercoagulable syndrome, on eliquis Skin denies open non healing wounds Musculoskeletal has back and joint pain Endocrine has diabetes, super morbid obesity with BMI of 55 Psychological denies hallucinations Physical examination: Vital signs Temp 98.2F RR 16 BP 150/54 Ht: 4'10 Wt: 255# BMI 55 General WD/WN obese WF in no apparent distress, alert and oriented, not septic appearing HEENT Normocephalic. EOM intact with sclera clear and no icterus noted. Neck is supple with no jugular venous distention noted. Trachea is midline. Lungs normal breath sounds in all lung gavin. No rales/rhonchi/wheezing noted. No labored breathing noted, such as retractions. No cough heard. Heart normal heart sounds. No rubs/clicks/murmurs noted. Abdomen soft and benign and obese. Normal bowel sounds. Difficult to determine if any masses or organomegaly due to body habitus Extremities no pitting edema noted. Genitourinary/Rectal deferred Skin normal skin integrity. Neurological no focal deficits noted. Psychological normal affect, patient is calm and appropriate Impression: melena anemia morbid obesity on eliquis Discussion/Plan: I have discussed the above with the patient. I have offered the patient the procedure of EGD, possible biopsies I have explained the procedure to the patient. I have counseled the patient as to the risks of the procedure, including but not limited to: infection, bleeding, injury to any blood vessels/nerves, scar tissue, injury to any intraabdominal such as the liver/spleen, perforation of the GI tract, complications of anesthesia, etc. the patient understands. The patient agrees. I have answered all questions to the patient?s satisfaction and the patient has no further questions. Discussed case with Dr. Morelos - will plan for EGD, possible biopsies on Friday. If precipitous drop in Hgb or clinically significant GI bleeding, will proceed with EGD urgently.
--- NOTE | 2019-01-09 15:59 | PCM.HP.STD ---
History of Present Illness Date of Admission: 01/09/19 Chief Complaint: Syncope The patient is a 68 year old F with a PMH as below who presents with an episode of syncope and melena. She states that she been feeling hot and nauseated today and she was a little bit nauseated yesterday, and she had noticed black stools on Friday and then just continued to be black. She never noticed any bright red blood per rectum and she has not had any hematemesis. Today she got up from bed and was walking on hallway and she got lightheaded and next remembers is that she wakes up on the ground. She does not think she hit her head but does have some back pain. She denies any headaches, or blurry vision. And she has no weakness in her upper or lower extremities. In the ER her hemoglobin came back at 7.21 and may have been above 12. Otherwise the remainder of her lab work was unremarkable. Past Medical History Past Medical History (Chronic Problems): Chronic Problems (Last Reviewed 12/16/17 @ 17:11 by Margarita Johnson) GERD (gastroesophageal reflux disease) (Chronic) Factor V deficiency (Chronic) Obstructive sleep apnea (Chronic) Hypertension (Chronic) Hyperlipidemia (Chronic) Atherosclerosis of coronary artery of [place] heart without angina pectoris (Chronic 10/04/16) Per [facility] done @[facility] by Dr. Marshall: Nonobstructive CAD: 50% prox D2, 30-40% Prox RCA Incarcerated hernia (Chronic) Pulmonary embolism (Chronic) LBBB (left bundle branch block) (Chronic) Heterozygous factor V Leiden mutation (Chronic) Medical History: Medical History (Last Reviewed 12/16/17 @ 17:11 by Margarita Johnson) GERD (gastroesophageal reflux disease) (Chronic) K21.9 Factor V deficiency (Chronic) D68.2 Obstructive sleep apnea (Chronic) G47.33 Hypertension (Chronic) I10 Hyperlipidemia (Chronic) E78.5 Atherosclerosis of coronary artery of [place] heart without angina pectoris (Chronic) Onset Date: 10/04/16 I25.10 Per [facility] done @[facility] by Dr. Marshall: Nonobstructive CAD: 50% prox D2, 30-40% Prox RCA Incarcerated hernia (Chronic) K46.0 Pulmonary embolism (Chronic) I26.99 LBBB (left bundle branch block) (Chronic) I44.7 Superficial thrombophlebitis of right leg (Acute) I80.01 Heterozygous factor V Leiden mutation (Chronic) D68.51 Morbid obesity E66.01 Allergies No Known Allergies Allergy (Verified 01/09/19 05:51) Home Medications: Ambulatory Orders Medication Instructions Recorded Amlodipine Besylate [Norvasc] 10 mg PO DAILY 01/09/19 Apixaban [Eliquis] 5 mg PO BID 01/09/19 Atorvastatin Calcium [Lipitor] 40 mg PO QHS 01/09/19 Famotidine [Pepcid] 40 mg PO DAILY 01/09/19 Hydrochlorothiazide [Hctz] 25 mg PO DAILY 01/09/19 Ibuprofen 4 tab PO 4X/DAY 01/09/19 Losartan Potassium 50 mg PO BID 01/09/19 Metformin HCl [Glucophage] 2 tab PO DAILY 01/09/19 Paroxetine [Paxil] 20 mg PO QHS 01/09/19 Potassium Chloride [Klor-Con M20] 20 meq PO DAILY 01/09/19 Surgical History: Surgical History (Last Reviewed 12/16/17 @ 17:11 by Margarita Johnson) H/O umbilical hernia repair Onset Date: ~03/2017 Z98.890, Z87.19 History of Z98.891 History of left heart catheterization Onset Date: 10/04/16 Z98.890 50% prox D2 and 30-40% Prox RCA Hx of cholecystectomy Z98.890, Z90.49 Psychiatric History: No pertinent psych hx Smoking Status: Former smoker Tobacco Use: Cigarettes Alcohol: None Drugs: None - *Family History Maternal Family History: Family History (Last Updated 12/16/17 @ 17:12 by Margarita Johnson) Mother Hypertension Heart disease Diabetes Father Cancer Sister Cancer Diabetes Thyroid disorder History Items: Heart Disease, - - 4 blokec arteries Paternal Family History: Family History (Last Updated 12/16/17 @ 17:12 by Margarita Johnson) Mother Hypertension Heart disease Diabetes Father Cancer Sister Cancer Diabetes Thyroid disorder History Items: - - father 59 lung cancer Offspring Family History: Family History (Last Updated 12/16/17 @ 17:12 by Margarita Johnson) Mother Hypertension Heart disease Diabetes Father Cancer Sister Cancer Diabetes Thyroid disorder History Items: - - PE and Factor V Leiden Deficiency in her son. Review of Systems Constitutional: Denies: Chills, Fever, Weight Change HEENT: Denies: Head Aches, Sinus Congestion, Sinus Drainage Cardiovascular: Reports: Syncope. Denies: Chest Pain, Palpitations Respiratory: Denies: Cough, Shortness of breath at rest, Sputum production Gastrointestinal: Reports: Melena. Denies: Abdominal Pain, Hematemesis, Hematochezia, Nausea, Vomiting Genitourinary: Denies: Dysuria Musculoskeletal: Denies: Joint Pain, Joint Tenderness Skin: Denies: Rash, Wounds Neurological: Denies: Numbness, Tingling, Focal weakness Psychiatric: Denies: Anxiety, Depression Hematologic/ Lymphatic: Denies: Easy Bruising, Easy Bleeding VTE Information - Inpt Only VTE Present on Admission: No - Physical Exam Vitals/I&O's: Vital Signs Temp Pulse Resp BP Pulse Ox 98.6 F 70 18 142/62 H 94 01/09/19 15:45 01/09/19 15:45 01/09/19 15:45 01/09/19 15:45 01/09/19 15:45 Oxygen Delivery Method Room Air Weight: 255 lb 15.307 oz Body Mass Index (BMI) 55.2 Finger Stick Blood Glucose 141 Intake and Output for Last 24 Hours 01/07/19 01/08/19 01/09/19 23:59 23:59 23:59 Intake Total 997.5 / 997.5 Balance 997.5 / 997.5 General: Alert, Oriented x3, Cooperative, No apparent distress HEENT: Atraumatic, PERRLA, EOMI, Normocephalic Oral: Moist Mucosa Neck: Supple, No JVD Lungs: Clear to auscultation, Normal air movement, No rhonchi, No wheeze, No rales, Diminished Cardiovascular: Regular rate, Regular Rhythm, Normal S1, Normal S2, No murmurs Abdomen: Soft, Non Tender, Non-Distended, No Hepato-splenomegaly, Obese Extremities: No edema, Capillary Refill Less than 3 Seconds Skin: No rashes, No breakdown Neurological: Neuro grossly intact, Sensory exam intact to light touch and pain Psych/Mental Status: Normal Affect, Appropriate Microbiology Past 72 Hours 01/09/19 07:30 Stool Stool Occult Blood (SABINO) - Final Occult Blood Positive Laboratory Results 01/09/19 06:25: WBC 9.3, RBC 2.45 L, Hgb 7.2 L, Hct 23.1 L, MCV 94.3, MCH 29.4, MCHC 31.2 L, RDW Std Deviation 45.0 H, RDW Coeff of Louis 13.3, Plt Count 241, MPV 11.4, Immature Gran % (Auto) 2.000 H, Neut % (Auto) 71.3 H, Lymph % (Auto) 19.1, [place] % (Auto) 4.7, Eos % (Auto) 2.3, Baso % (Auto) 0.6, Absolute Neuts (auto) 6.6, Absolute Lymphs (auto) 1.77, Nucleated RBC % 0.3 01/09/19 06:25: Sodium 141, Potassium 3.7, Chloride 103, Carbon Dioxide 27.0, Anion Gap 11, BUN 46 H, Creatinine 1.08 H, Estim Creat Clear Calc 89.60, Est GFR (MDRD) Af Amer 64, Est GFR (MDRD) Non-Af 53 L, BUN/Creatinine Ratio 42.6 H, Glucose 249 H, Calcium 8.5, Troponin I 0.026 01/09/19 07:46: Blood Type O POSITIVE, Antibody Screen NEGATIVE, Crossmatch See Detail 01/09/19 11:24: POC Glucose 146 H Current Medications Amlodipine Besylate (Norvasc) 10 mg PO DAILY [facility] Atorvastatin Calcium (Lipitor) 40 mg PO QHS [facility] Dextrose (D50w Syringe) 0 gm IV X1 PRN; Protocol PRN Reason: Hypoglycemia Glucagon () 1 mg IM .X1 PRN PRN Reason: Hypoglycemia Sodium Chloride () 1,000 mls @ 75 mls/hr IV .[id number] [facility] Last Infusion: 01/09/19 11:00 Dose: 0 mls/hr Documented by: Sodium Chloride () 500 mls @ 15 mls/hr IV PRN PRN PRN Reason: Blood Transfusion Pantoprazole Sodium 80 mg/ (Sodium Chloride) 100 mls @ 10 mls/hr CONT INF Q10H [facility] Last Admin: 01/09/19 12:20 Dose: 10 mls/hr Documented by: Insulin Human Lispro (Humalog Kwikpen (Bkc)) 0 unit SC ACHS [facility]; Protocol Last Admin: 01/09/19 12:25 Dose: Not Given Documented by: Losartan Potassium (Cozaar) 50 mg PO BID [facility] Paroxetine HCl (Paxil) 20 mg PO QHS I[facility] Sodium Chloride () 10 - 40 ml IV UD PRN PRN Reason: SALINE FLUSH Assessment/Plan All Active Problems (Last Reviewed 12/16/17 @ 17:11 by Margarita Johnson) Superficial thrombophlebitis of right leg (Acute) Abnormal stress test (Resolved) Chest pain (Resolved) 1. GI bleeding/acute blood loss anemia/syncope -Her BUN is elevated but it has been normal. This could either be secondary to an upper GI bleed or dehydration -Syncope is likely related to her blood loss -We will continue to resuscitate with IV fluids -She is receiving 2 units of packed red blood cells, will monitor with every 6 H&H -Continue with a PPI drip -Hold Eliquis and provide SCDs -Continue with clear liquid diet 2. Heterozygous factor V Leiden -Since she is heterozygous her risks are lower -Monitor with SCDs and restart anticoagulation when able 3. CAD/HTN/HLD -We will continue with Lipitor, losartan, Norvasc -Blood pressures are stable 4. Depression/anxiety -Stable -Continue with Paxil 5. DM 2/morbid obesity -BMI is 55.2, discussed weight loss and lifestyle modifications -Hold metformin and continue sliding scale insulin -Dariusu-[place] BRYANT at bedtime DVT: SCDs Code Visit Inpatient E&M: 15876 Init Hosp L3
[2019-01-09 16:35] LABS: Bedside Glucose 125 mg/dL (70-110)
[2019-01-09 18:30] LABS: Hematocrit 28.4 % (37-47); Hemoglobin 9.4 g/dL (12.0-15.0)
[2019-01-09] MEDS: Losartan Potassium 50 MG Tablet PO (21:44)
[2019-01-09] MEDS: Atorvastatin Calcium 40 MG Tablet PO (21:44)
[2019-01-09] MEDS: Paroxetine 20 MG Tablet PO (21:45)
[2019-01-09 22:25] LABS: Bedside Glucose 140 mg/dL (70-110)
[2019-01-10] VITALS (15 sets, daily range): BP systolic 103–150; BP diastolic 43–67; PULSE 56–65; RESP 16–20; TEMP 36.5–36.9; O2SAT 93–97; BMI 55.2
--- NOTE | 2019-01-10 | IMM_PTH ---
PATIENT: CLARENCE CONNOR LOC: [facility] U#:[id number] AGE/SX: 68/F ROOM: [facility] RE01/09/[address]: Dr. Letitia Roman MD : 1950 BED: 1 DIS: 01/12/2019 SPEC #: [id number] RECD: 01/12/19 11:29 STATUS: MICHELINE REQ #: [id number] STEPHANIE: 01/10/19 00:[address]: Lorri Liz DEPT: IMMUNOHISTOCHEMISTRY RECD BY: Allyssa Waller ENTERED: 01/12/19 11:30 SP TYPE: IMMUNO OTHR DR: MD Dr. Rachid Duarte MD Dr. Tai Chi Kwok, MD Tissues: Stomach, NOS Procedures: H Pylori (initial) PHYSICIAN & INSTITUTION [place] [id number] SPECIMEN INFORMATION: Tissue Source: Ulcer crater site, biopsy Clinical Info: GI bleed Specimen Number: [id number] CPT code: 78902 METHODOLOGY: Deparaffinized sections of prefer/formalin-fixed tissue or PAP/DQ stained slides are incubated with monoclonal/polyclonal antibodies/oligonucleotide probes. Localization is made via biotin free immunoperoxidase method. Appropriate controls are performed and reacted as expected. Results on target cell population are indicated in the following table: RESULTS: ANTIBODY / CLONE RESULT H Pylori (polyclonal) negative These tests were developed and their performance characteristics determined by [facility]. They may not have been cleared or approved by the [place]. Food and Drug Administration. The FDA has determined that such clearance or approval is not necessary. The above immunohistochemical/dualISH markers are ordered and reviewed by the Pathologist. INTERPRETATION: Ulcer crater site, biopsy: Negative for Helicobacter pylori organisms. SJ:yousif 01/13/19
[2019-01-10 00:28] LABS: Hematocrit 25.7 % (37-47); Hemoglobin 8.5 g/dL (12.0-15.0)
[2019-01-10 06:33] LABS: Absolute Lymphocyte Count 1.98 X10^3/uL (0.83-4.51); Absolute Neutrophil Count 4.5 X10^3/uL (2.0-7.7); Basophil# 0.06 X10^3/uL; Basophil% 0.8 % (0-1); Eosinophil# 0.15 X10^3/uL; Eosinophils% 2.1 % (0-5); Hematocrit 24.6 % (37-47); Hemoglobin 7.9 g/dL (12.0-15.0); Lymphocyte # 1.98 X10^3/ul (4.0); Lymphocyte % 27.3 % (19-41); Mean Corp Hgb Conc 32.1 g/dL (32-36); Mean Corpuscular Hgb 29.3 pg (27.0-32.0); Mean Corpuscular Volume 91.1 fL (81-99); Mean Platelet Vol. 11.5 fl (6.2-12.0); Monocyte# 0.54 X10^3/uL; Monocyte% 7.4 % (0-10); NRBC Flagged by Analyzer 0.3 % (0-5); Neutrophil # 4.45 X10^3/uL (2.7-7.7); Neutrophil % 61.3 % (47-70); Platelet Count 188 K/mm3 (150-450); RBC Distribution Width CV 14.8 % (11.6-14.6); RBC Distribution Width SD 46.7 fl (35.1-43.9); White Blood Count 7.3 K/mm3 (4.4-11.0)
[2019-01-10] MEDS: Acetaminophen 325 MG Tablet 650 MG PO (06:38)
[2019-01-10 06:40] LABS: Bedside Glucose 126 mg/dL (70-110)
[2019-01-10 06:47] LABS: Anion Gap 7 (5-15); BUN 22 mg/dL (7-18); BUN/Creat Ratio 25.6 RATIO (10-20); Calcium,Total 8.1 mg/dL (8.5-10.1); Chloride 110 mmol/L (98-107); Creatinine, Serum 0.86 mg/dL (0.55-1.02); EST Glomerular Filtration Rate 69 mL/min (>60); Est Glom Filt Rate - Afr Amer 84 mL/min (>60); Estimated Creatinine Clearance 111.56 ml/min; Glucose 137 mg/dL (74-106); Potassium 3.6 mmol/L (3.5-5.1); Sodium Level 146 mmol/L (136-145)
--- NOTE | 2019-01-10 08:17 | PN_ITS ---
Subjective: Feels better, no issues overnight. No abdominal pain Vitals/I&O's: Vital Signs Temp Pulse Resp BP Pulse Ox 98.4 F 57 L 18 131/47 H 93 01/10/19 03:30 01/10/19 06:55 01/10/19 03:30 01/10/19 03:30 01/10/19 03:30 Oxygen Delivery Method Room Air Weight: 255 lb 15.307 oz Body Mass Index (BMI) 55.2 Finger Stick Blood Glucose 141 Intake and Output for Last 24 Hours 01/08/19 01/09/19 01/10/19 23:59 23:59 22:59 Intake Total 1916.50 / 1916.50 45.17 / 45.17 Output Total 450 / 450 500 / 500 Balance 1466.50 / 1466.50 -454.83 / -454.83 General: Alert, Oriented x3, Cooperative, No apparent distress HEENT: Atraumatic, PERRLA, EOMI, Normocephalic Oral: Moist Mucosa Neck: Supple, No JVD Lungs: Clear to auscultation, Normal air movement, No rhonchi, No wheeze, No rales, Diminished Cardiovascular: Regular rate, Regular Rhythm, Normal S1, Normal S2, No murmurs Abdomen: Soft, Non Tender, Non-Distended, No Hepato-splenomegaly, Obese Extremities: No edema, Capillary Refill Less than 3 Seconds Skin: No rashes, No breakdown Neurological: Neuro grossly intact, Sensory exam intact to light touch and pain Psych/Mental Status: Normal Affect, Appropriate Microbiology Past 72 Hours 01/09/19 07:30 Stool Stool Occult Blood (SABINO) - Final Occult Blood Positive Laboratory Results 01/09/19 07:46: Blood Type O POSITIVE, Antibody Screen NEGATIVE, Crossmatch See Detail 01/09/19 11:24: POC Glucose 146 H 01/09/19 16:27: POC Glucose 125 H 01/09/19 18:00: Hgb 9.4 L, Hct 28.4 L 01/09/19 21:30: POC Glucose 140 H 01/09/19 23:58: Hgb 8.5 L, Hct 25.7 L 01/10/19 05:40: WBC 7.3, RBC 2.70 L, Hgb 7.9 L, Hct 24.6 L, MCV 91.1, MCH 29.3, MCHC 32.1, RDW Std Deviation 46.7 H, RDW Coeff of Louis 14.8 H, Plt Count 188, MPV 11.5, Immature Gran % (Auto) 1.100 H, Neut % (Auto) 61.3, Lymph % (Auto) 27.3, [place] % (Auto) 7.4, Eos % (Auto) 2.1, Baso % (Auto) 0.8, Absolute Neuts (auto) 4.5, Absolute Lymphs (auto) 1.98, Nucleated RBC % 0.3 01/10/19 05:40: Sodium 146 H, Potassium 3.6, Chloride 110 H, Carbon Dioxide 29.0, Anion Gap 7, BUN 22 H, Creatinine 0.86, Estim Creat Clear Calc 111.56, Est GFR (MDRD) Af Amer 84, Est GFR (MDRD) Non-Af 69, BUN/Creatinine Ratio 25.6 H, Glucose 137 H, Calcium 8.1 L 01/10/19 06:34: POC Glucose 126 H Current Medications Acetaminophen (Tylenol) 650 mg PO Q6H PRN PRN PRN Reason: Pain (-12/17) Last Admin: 01/10/19 06:38 Dose: 650 mg Documented by: Amlodipine Besylate (Norvasc) 10 mg PO DAILY [facility] Atorvastatin Calcium (Lipitor) 40 mg PO QHS [facility] Last Admin: 01/09/19 21:44 Dose: 40 mg Documented by: Dextrose (D50w Syringe) 0 gm IV X1 PRN; Protocol PRN Reason: Hypoglycemia Glucagon () 1 mg IM .X1 PRN PRN Reason: Hypoglycemia Sodium Chloride () 1,000 mls @ 75 mls/hr IV .[id number] [facility] Last Admin: 01/10/19 00:30 Dose: Not Given Documented by: Sodium Chloride () 500 mls @ 15 mls/hr IV PRN PRN PRN Reason: Blood Transfusion Pantoprazole Sodium 80 mg/ (Sodium Chloride) 100 mls @ 10 mls/hr CONT INF Q10H [facility] Last Admin: 01/10/19 03:30 Dose: 10 mls/hr Documented by: Insulin Human Lispro (Humalog Kwikpen (Bkc)) 0 unit SC ACHS [facility]; Protocol Last Admin: 01/10/19 06:39 Dose: Not Given Documented by: Losartan Potassium (Cozaar) 50 mg PO BID [facility] Last Admin: 01/09/19 21:44 Dose: 50 mg Documented by: Paroxetine HCl (Paxil) 20 mg PO QHS [facility] Last Admin: 01/09/19 21:45 Dose: 20 mg Documented by: Sodium Chloride () 10 - 40 ml IV UD PRN PRN Reason: SALINE FLUSH STROKE Vital Signs/Narrative: Vital Signs Pulse 01/10/19 06:55 57 L Medical Necessity - Tobacco Use Smoking Status: Former smoker Tobacco Use: Cigarettes Assessment/Plan All Active Problems (Last Reviewed 12/16/17 @ 17:11 by Margarita Johnson) Superficial thrombophlebitis of right leg (Acute) Abnormal stress test (Resolved) Chest pain (Resolved) 1. GI bleeding/acute blood loss anemia/syncope -Her BUN is elevated but it has been normal. This could either be secondary to an upper GI bleed or dehydration -Syncope is likely related to her blood loss -We will continue to resuscitate with IV fluids -She is received 2 units of packed red blood cells, Hgb increased to 9.4 and is down to 7.9 -Continue with a PPI drip -Hold Eliquis and provide SCDs -Make NPO for anticipated scopes today 2. Heterozygous factor V Leiden -Since she is heterozygous her risks are lower -Monitor with SCDs and restart anticoagulation when able 3. CAD/HTN/HLD -We will continue with Lipitor, losartan, Norvasc -Blood pressures are stable 4. Depression/anxiety -Stable -Continue with Paxil 5. DM 2/morbid obesity -BMI is 55.2, discussed weight loss and lifestyle modifications -Hold metformin and continue sliding scale insulin -Accu-Cheks AC at bedtime DVT: SCDs Code Visit Inpatient E&M: 60518 Subs Hosp L2
[2019-01-10] MEDS: 0.9% Normal Saline 1,000 ML 75 ML IV ×2 (08:58→21:31)
[2019-01-10 11:11] LABS: Bedside Glucose 128 mg/dL (70-110)
--- NOTE | 2019-01-10 11:35 | EGD_PTH ---
PATIENT: CLARENCE CONNOR LOC: [facility] U#:[id number] AGE/SX: 68/F ROOM: [facility] RE01/09/[address]: Dr. Letitia Roman MD : 1950 BED: 1 DIS: 01/12/2019 SPEC #: [id number] RECD: 01/10/19 12:26 STATUS: MICHELINE FLORIAN #: [id number] STEPHANIE: 01/10/19 11:[address]: Lorri Liz DEPT: SURGICAL PATHOLOGY RECD BY: Salome Rodriguez ENTERED: 01/11/19 08:50 SP TYPE: EGD BIOP[facility] DR: MD Dr. Duong Bradford Chi, MD Tissues: Gastric mucous membrane Procedures: Surgery Specimen Level IV HEADER OPERATION: EGD ([facility]) PRE-OP DIAGNOSIS: GI bleed TISSUE SUBMITTED: Biopsy of ulcer crater site MICROSCOPIC DIAGNOSIS Biopsy of ulcer crater site: Fragments of gastric mucosa with acute and chronic inflammation, congestion and reactive changes. A detached fragment of fibrinous exudate with acute inflammation, consistent with ulceration. See comment. JENNIFER:yousif 01/12/19 COMMENT The results of immunohistochemistry for Helicobacter pylori will be reported separately ([id number]). MICROSCOPIC DESCRIPTION Slides are reviewed. GROSS DESCRIPTION Received in fixative is one container labeled with the patient's name and designated biopsy of ulcer crater site. The specimen consists of multiple irregular fragments of light [place] soft tissue that in aggregate measure 0.3 x 0.3 x 0.1 cm. The specimen is totally submitted in one cassette. / JENNIFER:yousif 01/11/19 TC:2 CPT: 31736
[2019-01-10 11:36] LABS: Bedside Glucose 118 mg/dL (70-110)
--- NOTE | 2019-01-10 12:01 | OP.ENDO_ITS ---
01/10/2019 Duong Borja MD [address] [place] [address] Re : Upper GI endoscopy procedure for Joyce Bernard Dear Dr. Borja This procedure was performed on Thursday, January 10, 2019. My impressions and recommendations are as follows: Impressions : - Normal first portion of the duodenum and second portion of the duodenum. - Non-bleeding gastric ulcers with no stigmata of bleeding. Biopsied. - Small hiatal hernia. Recommendations : - Return patient to [facility] for ongoing care. - Continue present medications. My findings are described in the full procedure note, which is enclosed. If I can be of further assistance, please feel free to contact me at Doctor phone number(s): , Work: . Sincerely, MD Lorri Ramirez MD 01/10/2019 12:01:10 PM This report has been signed electronically.
--- NOTE | 2019-01-10 12:04 | PCM.PN.BLA ---
Progress Note EGD done - small craterous-appearing antral ulcers, biopsied However, no stigmata of bleeding. It may be that this is the source of the blood loss and that the PPI IV is working very well, however, I am not certain. Therefore, will proceed to colonoscopy tomorrow. Continue clear liquid diet, will start colon cleansing preparation, this afternoon I have discussed this with patient and she understands and wishes to proceed. Procedure tentatively around 3pm tomorrow afternoon. STROKE Vital Signs/Narrative: Vital Signs Temp Pulse Resp BP Pulse Ox 01/10/19 12:02 58 L 16 103/52 L 96 01/10/19 11:58 97.7 F L 57 L 16 124/58 H 97 01/10/19 11:15 98.0 F 65 16 150/56 H 97 01/10/19 08:52 98.3 F 58 L 16 143/67 H 97
[2019-01-10] MEDS: Losartan Potassium 50 MG Tablet PO ×2 (13:34→22:30)
[2019-01-10] MEDS: amLODIPine 10 MG Tablet PO (13:34)
[2019-01-10] MEDS: Electrolyte Solution/Peg's 4000 ML PO (15:58)
[2019-01-10 16:11] LABS: Bedside Glucose 108 mg/dL (70-110)
[2019-01-10 20:41] LABS: Hematocrit 27.7 % (37-47); Hemoglobin 8.9 g/dL (12.0-15.0)
[2019-01-10 21:08] LABS: Hemoglobin A1c 5.7 % (4.2-6.3)
[2019-01-10] MEDS: Paroxetine 20 MG Tablet PO (22:31)
[2019-01-10] MEDS: Atorvastatin Calcium 40 MG Tablet PO (22:32)
[2019-01-10 22:46] LABS: Bedside Glucose 119 mg/dL (70-110)
[2019-01-11] VITALS (19 sets, daily range): BP systolic 114–174; BP diastolic 35–72; PULSE 55–64; RESP 16–20; TEMP 36.1–37.3; O2SAT 94–97; BMI 55.2
--- NOTE | 2019-01-11 02:00 | NURSING ---
Pt completed Embuely.
[2019-01-11 06:10] LABS: Absolute Lymphocyte Count 1.71 X10^3/uL (0.83-4.51); Absolute Neutrophil Count 3.7 X10^3/uL (2.0-7.7); Basophil# 0.04 X10^3/uL; Basophil% 0.6 % (0-1); Eosinophil# 0.32 X10^3/uL; Eosinophils% 5.1 % (0-5); Hematocrit 23.6 % (37-47); Hemoglobin 7.6 g/dL (12.0-15.0); Lymphocyte # 1.71 X10^3/ul (4.0); Lymphocyte % 27.3 % (19-41); Mean Corp Hgb Conc 32.2 g/dL (32-36); Mean Corpuscular Hgb 29.9 pg (27.0-32.0); Mean Corpuscular Volume 92.9 fL (81-99); Mean Platelet Vol. 10.9 fl (6.2-12.0); Monocyte# 0.47 X10^3/uL; Monocyte% 7.5 % (0-10); NRBC Flagged by Analyzer 0.3 % (0-5); Neutrophil # 3.69 X10^3/uL (2.7-7.7); Neutrophil % 58.9 % (47-70); Platelet Count 173 K/mm3 (150-450); RBC Distribution Width CV 14.3 % (11.6-14.6); RBC Distribution Width SD 47.2 fl (35.1-43.9); Red Blood Count 2.54 M/mm3 (4.2-5.4); White Blood Count 6.3 K/mm3 (4.4-11.0)
[2019-01-11 06:20] LABS: International Normalized Ratio 1.1; Partial Thromboplast Time 23.5 Seconds (24.1-36.2); Prothrombin Time (Protime)PT. 14.1 SECONDS (11.7-14.9)
[2019-01-11 06:39] LABS: Anion Gap 6 (5-15); BUN 12 mg/dL (7-18); BUN/Creat Ratio 16.2 RATIO (10-20); Calcium,Total 7.5 mg/dL (8.5-10.1); Chloride 114 mmol/L (98-107); Creatinine, Serum 0.74 mg/dL (0.55-1.02); EST Glomerular Filtration Rate 82 mL/min (>60); Est Glom Filt Rate - Afr Amer 100 mL/min (>60); Estimated Creatinine Clearance 95.94 ml/min; Glucose 113 mg/dL (74-106); Potassium 3.3 mmol/L (3.5-5.1); Sodium Level 147 mmol/L (136-145)
[2019-01-11 06:51] LABS: Bedside Glucose 109 mg/dL (70-110)
--- NOTE | 2019-01-11 07:59 | PN_ITS ---
Subjective: Feels better, no issues overnight denies any abdominal pain. Had a EGD yesterday which she tolerated. Vitals/I&O's: Vital Signs Temp Pulse Resp BP Pulse Ox 98.8 F 64 18 124/35 H 94 01/11/19 03:53 01/11/19 07:10 01/11/19 03:53 01/11/19 03:53 01/11/19 03:53 Oxygen Delivery Method Room Air Weight: 255 lb 15.307 oz Body Mass Index (BMI) 55.2 Finger Stick Blood Glucose 141 Intake and Output for Last 24 Hours 01/10/19 01/10/19 01/11/19 00:59 23:59 23:59 Intake Total Output Total Balance General: Alert, Oriented x3, Cooperative, No apparent distress HEENT: Atraumatic, PERRLA, EOMI, Normocephalic Oral: Moist Mucosa Neck: Supple, No JVD Lungs: Clear to auscultation, Normal air movement, No rhonchi, No wheeze, No rales, Diminished Cardiovascular: Regular rate, Regular Rhythm, Normal S1, Normal S2, No murmurs Abdomen: Soft, Non Tender, Non-Distended, No Hepato-splenomegaly, Obese Extremities: No edema, Capillary Refill Less than 3 Seconds Skin: No rashes, No breakdown Neurological: Neuro grossly intact, Sensory exam intact to light touch and pain Psych/Mental Status: Normal Affect, Appropriate Microbiology Past 72 Hours 01/09/19 07:30 Stool Stool Occult Blood (SABINO) - Final Occult Blood Positive Laboratory Results 01/10/19 11:03: POC Glucose 128 H 01/10/19 11:23: POC Glucose 118 H 01/10/19 16:04: POC Glucose 108 01/10/19 20:20: Hgb 8.9 L, Hct 27.7 L 01/10/19 20:20: Hemoglobin A1c 5.7 01/10/19 22:18: POC Glucose 119 H 01/11/19 05:45: WBC 6.3, RBC 2.54 L, Hgb 7.6 L, Hct 23.6 L, MCV 92.9, MCH 29.9, MCHC 32.2, RDW Std Deviation 47.2 H, RDW Coeff of Louis 14.3, Plt Count 173, MPV 10.9, Immature Gran % (Auto) 0.600, Neut % (Auto) 58.9, Lymph % (Auto) 27.3, [place] % (Auto) 7.5, Eos % (Auto) 5.1 H, Baso % (Auto) 0.6, Absolute Neuts (auto) 3.7, Absolute Lymphs (auto) 1.71, Nucleated RBC % 0.3 01/11/19 05:45: Sodium 147 H, Potassium 3.3 L, Chloride 114 H, Carbon Dioxide 27.0, Anion Gap 6, BUN 12, Creatinine 0.74, Estim Creat Clear Calc 95.94, Est GFR (MDRD) Af Amer 100, Est GFR (MDRD) Non-Af 82, BUN/Creatinine Ratio 16.2, Glucose 113 H, Calcium 7.5 L 01/11/19 05:45: PT 14.1, INR 1.1, APTT 23.5 L 01/11/19 06:43: POC Glucose 109 Current Medications Acetaminophen (Tylenol) 650 mg PO Q6H PRN PRN PRN Reason: Pain () Last Admin: 01/10/19 06:38 Dose: 650 mg Documented by: Amlodipine Besylate (Norvasc) 10 mg PO DAILY [facility] Last Admin: 01/10/19 13:34 Dose: 10 mg Documented by: Atorvastatin Calcium (Lipitor) 40 mg PO QHS [facility] Last Admin: 01/10/19 22:32 Dose: 40 mg Documented by: Dextrose (D50w Syringe) 0 gm IV X1 PRN; Protocol PRN Reason: Hypoglycemia Glucagon () 1 mg IM .X1 PRN PRN Reason: Hypoglycemia Sodium Chloride () 1,000 mls @ 75 mls/hr IV .[id number] [facility] Last Admin: 01/10/19 21:31 Dose: 75 mls/hr Documented by: Sodium Chloride () 500 mls @ 15 mls/hr IV PRN PRN PRN Reason: Blood Transfusion Pantoprazole Sodium 80 mg/ (Sodium Chloride) 100 mls @ 10 mls/hr CONT INF Q10H [facility] Last Admin: 01/10/19 23:20 Dose: 10 mls/hr Documented by: Insulin Human Lispro (Humalog Kwikpen (Bkc)) 0 unit SC ACHS [facility]; Protocol Last Admin: 01/11/19 07:34 Dose: Not Given Documented by: Losartan Potassium (Cozaar) 50 mg PO BID [facility] Last Admin: 01/10/19 22:30 Dose: 50 mg Documented by: Paroxetine HCl (Paxil) 20 mg PO QHS [facility] Last Admin: 01/10/19 22:31 Dose: 20 mg Documented by: Sodium Chloride () 10 - 40 ml IV UD PRN PRN Reason: SALINE FLUSH STROKE Vital Signs/Narrative: Vital Signs Pulse 01/11/19 07:10 64 Medical Necessity - Tobacco Use Smoking Status: Former smoker Tobacco Use: Cigarettes Assessment/Plan All Active Problems (Last Reviewed 12/16/17 @ 17:11 by Margarita Johnson) Superficial thrombophlebitis of right leg (Acute) Abnormal stress test (Resolved) Chest pain (Resolved) 1. GI bleeding/acute blood loss anemia/syncope -Her BUN is elevated but it has been normal. This could either be secondary to an upper GI bleed or dehydration -Syncope is likely related to her blood loss -We will continue to resuscitate with IV fluids -She is received 2 units of packed red blood cells, Hgb increased to 9.4 and is down to 7.6 -Continue with a PPI drip -Hold Eliquis and provide SCDs -EGD showed ulcers but no recent stigmata of bleeding, this could potentially be a source however we will proceed with a colonoscopy since she is never had one. 2. Heterozygous factor V Leiden -Since she is heterozygous her risks are lower -Monitor with SCDs and restart anticoagulation when able 3. CAD/HTN/HLD -We will continue with Lipitor, losartan, Norvasc -Blood pressures are stable 4. Depression/anxiety -Stable -Continue with Paxil 5. DM 2/morbid obesity -BMI is 55.2, discussed weight loss and lifestyle modifications -Hold metformin and continue sliding scale insulin -Accu-Cheks AC at bedtime DVT: SCDs
[2019-01-11] MEDS: 0.9% Normal Saline 1,000 ML 75 ML IV (09:02)
--- NOTE | 2019-01-11 10:46 | CASEMGMT ---
RN CM Assessment Presentation: GIB Intro role of CM and purpose of RN CM assessment to patient in room. Pt is awake, alert, able to partcipate in assessment. Demographics, PCP and Pharmacy verified. Pt states she is independent @ home, does not use DME. No concerns at this time re: returning home. RN CM discussed PT/OT with pt and recommendation for further therapy. Pt states she is feeling tired and weak now, but does not feel she will need therapy once she returns home. RN CM let her know CM can follow and readdress if needed. PCP: Dr. Borja Specialists: Dr. Lorri Liz Preferred Pharmacy: [facility]. Denies difficulty getting prescriptions filled. Insurance: [employer] Prescription Benefit: yes LNOK: Moriah and Irene Bernard Living Arrangements: one story home, independent with ADL. Transportation: Drives, or family can assist with driving. DME: cane. Pt has not been using ambulatory device. HHC: none Patient DC goals: Home DC PLAN: Home on discharge. CM can readdress need for PT/OT if recommended on discharge. Eduardo TORRES RN ACM
--- NOTE | 2019-01-11 12:41 | CASEMGMT ---
Patient does not have a Healthcare POA or Healthcare LW. Kimber QUACH CURRICULUM ASSISTANT PRINCIPAL
--- NOTE | 2019-01-11 12:43 | CHAPLAIN ---
Type of Pastoral Visit _x__ Initial Visit ___ Follow-up Visit ___ On-call Visit ___ General Patient Visit ___ Spiritual Assessment ___ Family Conference ___ Bereavement ___ Rapid Response ___ Code Blue ___ Other (describe below) Pastoral Care Referral From _x__ Patient ___ Family ___ Nurse ___ Physician ___ Contact Person ___ Trap Operator ___ Other (describe below) Sacrament/Intervention _x__ Active listening ___ Anointing ___ Baptist ___ Bereavement ___ Communion _x__ Steffanie exploration ___ ___ Life review _x__ Prayer ___ Reconciliation ___ Sacrament of Sick ___ Supportive presence ___ Wedding ___ Other (describe below) Pastoral Comments
[2019-01-11] MEDS: amLODIPine 10 MG Tablet PO (14:04)
[2019-01-11] MEDS: Losartan Potassium 50 MG Tablet PO ×2 (14:04→21:42)
--- NOTE | 2019-01-11 15:47 | NURSING ---
report called to AC at this time
--- NOTE | 2019-01-11 15:49 | NURSING ---
Pt off floor for colonoscopy at this time
--- NOTE | 2019-01-11 16:38 | OP.ENDO_ITS ---
01/11/2019 Duong Borja MD [address] [place] [address] Re : Colonoscopy procedure for Joyce Bernard Dear Dr. Borja This procedure was performed on Friday, January 11, 2019. My impressions and recommendations are as follows: Impressions : - Diverticulosis in the entire examined colon. - Non-bleeding internal hemorrhoids. - No specimens collected. Recommendations : - Repeat colonoscopy in 5 years for surveillance for history of colon polyps - Return patient to hospital [facility] for ongoing care. - Continue present medications. My findings are described in the full procedure note, which is enclosed. If I can be of further assistance, please feel free to contact me at Doctor phone number(s): , Work: . Sincerely, MD Lorri Ramirez MD 01/11/2019 4:38:28 PM This report has been signed electronically.
--- NOTE | 2019-01-11 16:40 | PCM.PN.BLA ---
Progress Note Status post colonoscopy - no stigmata of bleeding noted No blood in colon, no masses seen Follow up as per hospitalists STROKE Vital Signs/Narrative: Vital Signs Temp Pulse Resp BP Pulse Ox 01/11/19 15:54 98.7 F 64 16 153/51 H 95 01/11/19 15:41 98.3 F 64 16 174/71 H 97 01/11/19 15:16 59 L 01/11/19 14:56 98.8 F 64 18 141/54 H 94 01/11/19 14:00 98.3 F 60 16 145/67 H 96 01/11/19 13:58 98.5 F 60 16 145/67 H 96 01/11/19 13:43 98.3 F 60 16 155/65 H 96
[2019-01-11 17:41] LABS: Bedside Glucose 93 mg/dL (70-110)
[2019-01-11 17:46] LABS: Bedside Glucose 112 mg/dL (70-110)
[2019-01-11 21:36] LABS: Bedside Glucose 96 mg/dL (70-110)
[2019-01-11] MEDS: Paroxetine 20 MG Tablet PO (21:42)
[2019-01-11] MEDS: Atorvastatin Calcium 40 MG Tablet PO (21:42)
[2019-01-11 21:51] LABS: Bedside Glucose 121 mg/dL (70-110)
[2019-01-12] MEDS: 0.9% Normal Saline 1,000 ML 75 ML IV (00:34)
[2019-01-12 03:00] VITALS: PULSE 54
[2019-01-12 03:30] VITALS: BP 153/47; PULSE 51; RESP 16; TEMP 37.2; O2SAT 95
[2019-01-12 06:27] LABS: Absolute Lymphocyte Count 1.43 X10^3/uL (0.83-4.51); Absolute Neutrophil Count 4.5 X10^3/uL (2.0-7.7); Basophil# 0.05 X10^3/uL; Basophil% 0.7 % (0-1); Eosinophil# 0.36 X10^3/uL; Eosinophils% 5.3 % (0-5); Hematocrit 26.9 % (37-47); Hemoglobin 8.6 g/dL (12.0-15.0); Lymphocyte # 1.43 X10^3/ul (4.0); Lymphocyte % 20.9 % (19-41); Mean Corpuscular Hgb 29.7 pg (27.0-32.0); Mean Corpuscular Volume 92.8 fL (81-99); Mean Platelet Vol. 11.2 fl (6.2-12.0); Monocyte# 0.52 X10^3/uL; Monocyte% 7.6 % (0-10); NRBC Flagged by Analyzer 0 % (0-5); Neutrophil # 4.46 X10^3/uL (2.7-7.7); Neutrophil % 65.2 % (47-70); Platelet Count 172 K/mm3 (150-450); RBC Distribution Width CV 14.1 % (11.6-14.6); RBC Distribution Width SD 46.7 fl (35.1-43.9); White Blood Count 6.8 K/mm3 (4.4-11.0)
[2019-01-12 06:45] LABS: Anion Gap 6 (5-15); BUN 8 mg/dL (7-18); BUN/Creat Ratio 10.3 RATIO (10-20); Calcium,Total 7.7 mg/dL (8.5-10.1); Chloride 114 mmol/L (98-107); Creatinine, Serum 0.78 mg/dL (0.55-1.02); EST Glomerular Filtration Rate 78 mL/min (>60); Est Glom Filt Rate - Afr Amer 94 mL/min (>60); Estimated Creatinine Clearance 95.94 ml/min; Glucose 113 mg/dL (74-106); Potassium 3.4 mmol/L (3.5-5.1); Sodium Level 146 mmol/L (136-145)
[2019-01-12 06:56] LABS: Bedside Glucose 115 mg/dL (70-110)
[2019-01-12 07:04] VITALS: PULSE 60
[2019-01-12 08:16] VITALS: BP 140/66; PULSE 62; RESP 16; TEMP 37.1; O2SAT 98
[2019-01-12] MEDS: amLODIPine 10 MG Tablet PO (08:21)
[2019-01-12] MEDS: Losartan Potassium 50 MG Tablet PO (08:21)
[2019-01-12] MEDS: Pantoprazole Sodium 40 MG Tablet PO (10:13)
--- NOTE | 2019-01-12 10:35 | CASEMGMT ---
This RN CM to room to discuss discharge plan with pt at this time. Pt states no concerns with going home at time of discharge. Pt states no need for OP or HHC therapy at this time. Pt states no further questions/concerns/needs at this time. SStavi DE LEÓN CM
--- NOTE | 2019-01-12 10:48 | DCINST_ITS ---
You will use the following diet at home:: Cardiac Your food should be the consistency of: Regular Your liquids should be the consistency of: Regular/Thin Discharge Activity: Return to Normal Activity Weight Bearing Status: Weight bearing as tolerated Call your doctor if you observe: Shortness of breath, Increased palpitations (irregular heartbeat), - - abdominal pain, lightheadedness, bleeding per rectum or vomiting blood, shashank stools Instructions: When You Have Gastrointestinal (GI) Bleeding, Lower GI Endoscopy, Upper GI Endoscopy Additional Instructions: please stop taking ibuprofen or other NSAIDs Allergies/Adverse Reactions: Allergies No Known Allergies Allergy (Verified 01/09/19 05:51) Medications to take at Discharge Amlodipine Besylate [Norvasc] 10 mg PO DAILY 01/09/19 Atorvastatin Calcium [Lipitor] 40 mg PO QHS 01/09/19 Hydrochlorothiazide [Hctz] 25 mg PO DAILY 01/09/19 Losartan Potassium 50 mg PO BID 01/09/19 Metformin HCl [Glucophage] 2 tab PO DAILY 01/09/19 Paroxetine [Paxil] 20 mg PO QHS 01/09/19 Potassium Chloride [Klor-Con M20] 20 meq PO DAILY 01/09/19 Apixaban [Eliquis] 5 mg PO BID #60 tab 01/12/19 Pantoprazole Sodium [Protonix] 40 mg PO BID #60 tab 01/12/19 The following prescriptions were given: Apixaban [Eliquis] 5 mg PO BID #60 tab Transmission Status: Pending to [facility]/pharmacy #[id number] Pantoprazole Sodium [Protonix] 40 mg PO BID #60 tab Transmission Status: Received by [facility]/pharmacy #[id number] Primary Care Physician: Duong Borja Chi, MD [Primary Care Provider] - Please follow up with your Primary Care Physician in: one week Test Results: Test results from this visit will be discussed in further detail at your follow- up appointment, if applicable. Please Follow Up With: Lorri Liz MD When: 2-3 weeks Proposed Discharge Date: 01/12/19
--- NOTE | 2019-01-12 10:50 | DS.PCM_ITS ---
Discharge Date and Diagnosis Date of Admission: 01/09/19 Date of Discharge: 01/12/19 - Primary Discharge Diagnosis syncope anemia due to acute blood loss - Secondary Discharge Diagnosis Chronic Problems (Last Reviewed 12/16/17 @ 17:11 by Margarita Johnson) GERD (gastroesophageal reflux disease) (Chronic) Factor V deficiency (Chronic) Obstructive sleep apnea (Chronic) Hypertension (Chronic) Hyperlipidemia (Chronic) Atherosclerosis of coronary artery of [place] heart without angina pectoris (Chronic 10/04/16) Per [facility] done @[facility] by Dr. Marshall: Nonobstructive CAD: 50% prox D2, 30-40% Prox RCA Incarcerated hernia (Chronic) Pulmonary embolism (Chronic) LBBB (left bundle branch block) (Chronic) Heterozygous factor V Leiden mutation (Chronic) Hospital Course and Treatment general surgery- Dr Liz Operations: None Procedures: Colonoscopy, EGD Summary of Care Provided: The patient is a 68 year old F with past medical history as outlined below. She was admitted through the ED on 01/09/2019 with complaint of syncope and melena stools. On day of admission she stated that she had been feeling hot and nauseated. She also noticed that she had black stools which persisted. She never noticed any bright red blood per rectum and had no hematemesis. On day of admission she got up and was walking in the hallway and got lightheaded and the next thing she realized she was on the ground. In the ED her hemoglobin was noted to be at 7.2. Lab work was otherwise unremarkable. She was admitted and managed for syncope likely due to acute GI bleed. She was started on IV fluids and transfused with 2 units of packed red blood cells. She was started on PPI drip and her Eliquis was held. General surgery was consulted. She had EGD on 01/10/2019 which showed small craterous appearing antral ulcers which were biopsied, and there was no stigmata of bleeding. She had colonoscopy on 01/11/2019 which showed no evidence of any bleeding. She remained stable and was transitioned to p.o. upwards of 40 mg twice daily. Per discussion with neurosurgery, her Eliquis was deemed safe to be resumed. On further questioning patient admitted to using a lot of ibuprofen at home. She was counseled that this was likely the cause of her ulcers and counseled strongly that it was very important that she stop taking ibuprofen and other NSAIDs. Patient was counseled to use Tylenol as a first choice of painkiller, although she was also counseled to use this sparingly. She was discharged home on 01/12/2019 and is follow-up with her primary care doctor and with general surgery. Eliquis was resumed and she was given a prescription for p.o. pantoprazole 40 mg twice daily. Patient seen and examined prior to discharge. She had no complaints and felt wel l. Review of systems is otherwise negative. Labs and vitals reviewed. Home medications reviewed and reconciled. o/e: Vital Signs Height 4 ft 9.09 in Weight: 255 lb 15.307 oz Weight in Pounds 256.0 lbs Pulse Ox 98 Temperature 98.8 F Pulse Rate 62 Respiratory Rate 16 Blood Pressure 140/66 Blood Pressure Position Semi-Fowlers - Physical Exam Vitals/I&O's: Vital Signs Temp Pulse Resp BP Pulse Ox 98.8 F 62 16 140/66 H 98 01/12/19 08:16 01/12/19 08:16 01/12/19 08:16 01/12/19 08:16 01/12/19 08:16 Oxygen Delivery Method Room Air Weight: 255 lb 15.307 oz Body Mass Index (BMI) 55.2 Finger Stick Blood Glucose 141 Intake and Output for Last 24 Hours 01/10/19 01/11/19 01/12/19 23:59 23:59 23:59 Intake Total 2673.25 / 2673.25 680.0 / 680.0 Output Total 800 / 800 Balance 1873.25 / 1873.25 680.0 / 680.0 General: Alert, Oriented x3, Cooperative, No apparent distress HEENT: Atraumatic, PERRLA, EOMI, Normocephalic Oral: Moist Mucosa Neck: Supple, No JVD, Negative Carotid Bruits Lungs: Clear to auscultation, Normal air movement, No rhonchi, No wheeze, No rales Cardiovascular: Regular rate, Regular Rhythm, Normal S1, Normal S2, No murmurs Abdomen: Bowel Sounds Present, Soft, Non Tender, Non-Distended Extremities: No clubbing, No cyanosis, No edema, Capillary Refill Less than 3 Seconds Skin: No rashes, No breakdown Musculoskeletal: No Tenderness to Palpation of Joints or Extremities Lymphatic: No Cervical, Supraclavicular, or Inguinal Adenopathy Neurological: Cranial nerves II-XII grossly intact, Neuro grossly intact, Motor Exam 5/5 strength throughout Psych/Mental Status: Normal Affect, Appropriate, Alert and oriented to time, place, person, mood and affect Microbiology Past 72 Hours 01/09/19 07:30 Stool Stool Occult Blood (SABINO) - Final Occult Blood Positive Laboratory Results 01/09/19 07:46: Crossmatch See Detail 01/11/19 13:22: POC Glucose 93 01/11/19 15:58: POC Glucose 112 H 01/11/19 17:40: POC Glucose 96 01/11/19 21:40: POC Glucose 121 H 01/12/19 05:50: WBC 6.8, RBC 2.90 L, Hgb 8.6 L, Hct 26.9 L, MCV 92.8, MCH 29.7, MCHC 32.0, RDW Std Deviation 46.7 H, RDW Coeff of Louis 14.1, Plt Count 172, MPV 11.2, Immature Gran % (Auto) 0.300, Neut % (Auto) 65.2, Lymph % (Auto) 20.9, Kerr % (Auto) 7.6, Eos % (Auto) 5.3 H, Baso % (Auto) 0.7, Absolute Neuts (auto) 4.5, Absolute Lymphs (auto) 1.43, Nucleated RBC % 0 01/12/19 05:50: Sodium 146 H, Potassium 3.4 L, Chloride 114 H, Carbon Dioxide 26.0, Anion Gap 6, BUN 8, Creatinine 0.78, Estim Creat Clear Calc 95.94, Est GFR (MDRD) Af Amer 94, Est GFR (MDRD) Non-Af 78, BUN/Creatinine Ratio 10.3, Glucose 113 H, Calcium 7.7 L 01/12/19 06:29: POC Glucose 115 H Current Medications Acetaminophen (Tylenol) 650 mg PO Q6H PRN PRN PRN Reason: Pain (-12/17) Last Admin: 01/10/19 06:38 Dose: 650 mg Documented by: Amlodipine Besylate (Norvasc) 10 mg PO DAILY [facility] Last Admin: 01/12/19 08:21 Dose: 10 mg Documented by: Atorvastatin Calcium (Lipitor) 40 mg PO QHS [facility] Last Admin: 01/11/19 21:42 Dose: 40 mg Documented by: Dextrose (D50w Syringe) 0 gm IV X1 PRN; Protocol PRN Reason: Hypoglycemia Glucagon () 1 mg IM .X1 PRN PRN Reason: Hypoglycemia Sodium Chloride () 500 mls @ 15 mls/hr IV PRN PRN PRN Reason: Blood Transfusion Insulin Human Lispro (Humalog Kwikpen (Bkc)) 0 unit SC ACHS [facility]; Protocol Last Admin: 01/12/19 06:35 Dose: Not Given Documented by: Losartan Potassium (Cozaar) 50 mg PO BID [facility] Last Admin: 01/12/19 08:21 Dose: 50 mg Documented by: Pantoprazole Sodium (Protonix) 40 mg PO BID [facility] Last Admin: 01/12/19 10:13 Dose: 40 mg Documented by: Paroxetine HCl (Paxil) 20 mg PO QHS [facility] Last Admin: 01/11/19 21:42 Dose: 20 mg Documented by: Sodium Chloride () 10 - 40 ml IV UD PRN PRN Reason: SALINE FLUSH Discharge Diet: Low fat/ Low Cholesterol Discharge Activity: Return to Normal Activity Weight Bearing Status: Weight bearing as tolerated Call your doctor if you observe: Shortness of breath, Increased palpitations (irregular heartbeat), - - abdominal pain, lightheadedness, bleeding per rectum or vomiting blood, shashank stools Home Medications: Medications to take at Discharge Amlodipine Besylate [Norvasc] 10 mg PO DAILY 01/09/19 Atorvastatin Calcium [Lipitor] 40 mg PO QHS 01/09/19 Hydrochlorothiazide [Hctz] 25 mg PO DAILY 01/09/19 Losartan Potassium 50 mg PO BID 01/09/19 Metformin HCl [Glucophage] 1,000 mg PO DAILY 01/09/19 Paroxetine [Paxil] 20 mg PO QHS 01/09/19 Potassium Chloride [Klor-Con M20] 20 meq PO DAILY 01/09/19 Apixaban [Eliquis] 5 mg PO BID #60 tab 01/12/19 Pantoprazole Sodium [Protonix] 40 mg PO BID #60 tab 01/12/19 Following Prescrptions Were Given to Patient: Apixaban [Eliquis] 5 mg PO BID #60 tab Transmission Status: Received by [facility]/pharmacy #[id number] Pantoprazole Sodium [Protonix] 40 mg PO BID #60 tab Transmission Status: Received by [facility]/pharmacy #[id number] Primary Care Physician: Duong Borja Chi, MD [Primary Care Provider] - Please follow up with your Primary Care Physician in: one week Please Follow Up With: Lorri Liz MD When: 2-3 weeks Patient Instructions: When You Have Gastrointestinal (GI) Bleeding, Lower GI Endoscopy, Upper GI Endoscopy Disposition: Home Minutes spent on discharge:: 45 Patient Condition:: Stable Medical Necessity - Tobacco Use Smoking Status: Former smoker Tobacco Use: Cigarettes Meaningful Use Info Meaningful Use Diagnoses (Choose all that apply): None applicable Code Visit Inpatient E&M: 85286 Disch Hosp
--- NOTE | 2019-01-12 11:44 | PHA.DC.MC ---
Pharmacy Service has performed discharge medication reconciliation and counseling for this patient. The patient's discharge medication list was reviewed for discrepancies and discrepancies were resolved. The patient was counseled on the following discharge medications and changes in medications for homegoing were reviewed. 1. PROTONIX 2. ELIQUIS The Reason for Use, instructions for use, and potential side effects were reviewed for all new medications. The patient's questions regarding all of their medications were answered. The patient was able to verbally demonstrate an understanding of their discharge medications. Home Medications Amlodipine Besylate [Norvasc] 10 mg PO DAILY 01/09/19 Atorvastatin Calcium [Lipitor] 40 mg PO QHS 01/09/19 Hydrochlorothiazide [Hctz] 25 mg PO DAILY 01/09/19 Losartan Potassium 50 mg PO BID 01/09/19 Metformin HCl [Glucophage] 1,000 mg PO DAILY 01/09/19 Paroxetine [Paxil] 20 mg PO QHS 01/09/19 Potassium Chloride [Klor-Con M20] 20 meq PO DAILY 01/09/19 Apixaban [Eliquis] 5 mg PO BID #60 tab 01/12/19 Pantoprazole Sodium [Protonix] 40 mg PO BID #60 tab 01/12/19
== END 2019-01-12 12:01 | disposition home or self-care (01) | DRG 378 ==
LOC: ED 08:37 → PCU 08:38
PROVIDERS: Surgery; Admitting Provider Family Medicine; Emergency Provider Emergency Medicine; Family Provider Family Medicine Geriatric Medicine; PCP Family Medicine Geriatric Medicine; Visit Provider Student in an Organized Health Care Education/Training Program
PROC: 0DJ08ZZ Inspection of Upper Intestinal Tract, Via Natural or Artificial Opening Endoscopic (ICD-10-PCS; CPT 43235; principal; 2019-01-10 11:30)
PROC: 0DJD8ZZ Inspection of Lower Intestinal Tract, Via Natural or Artificial Opening Endoscopic (ICD-10-PCS; CPT 45378; principal; 2019-01-11 15:25)
DX: K25.4 Chronic or unspecified gastric ulcer with hemorrhage (principal); D62 Acute posthemorrhagic anemia; D68.51 Activated protein C resistance; Z68.43 Body mass index [BMI] 50.0-59.9, adult; I10 Essential (primary) hypertension; E66.01 Morbid (severe) obesity due to excess calories; E11.9 Type 2 diabetes mellitus without complications; E78.5 Hyperlipidemia, unspecified; I25.10 Atherosclerotic heart disease of native coronary artery without angina pectoris; K44.9 Diaphragmatic hernia without obstruction or gangrene; K64.8 Other hemorrhoids; K57.30 Diverticulosis of large intestine without perforation or abscess without bleeding; R55 Syncope and collapse; K21.9 Gastro-esophageal reflux disease without esophagitis; G47.33 Obstructive sleep apnea (adult) (pediatric); I44.7 Left bundle-branch block, unspecified; Z79.84 Long term (current) use of oral hypoglycemic drugs; Z87.891 Personal history of nicotine dependence; Z79.01 Long term (current) use of anticoagulants; S29.012A Strain of muscle and tendon of back wall of thorax, initial encounter
CPT/HCPCS: 36415; 80048; 82274; 82962; 83036; 84484; 85014; 85018; 85025; 85610; 85730; 86850; 86900; 86901; 86920; 86922; 88305; 88342; 93005; 97162; 97166; 99285; J7030; J7040; P9016; A4216

== ENCOUNTER → 2019-01-13 | Outpatient (CLI) | payer MEDICARE, SELFPAY ==
[2019-01-11 15:54] VITALS: BMI 55.2
[2019-01-13 15:21] LABS: Absolute Lymphocyte Count 1.56 X10^3/uL (0.83-4.51); Absolute Neutrophil Count 6.4 X10^3/uL (2.0-7.7); Basophil# 0.05 X10^3/uL; Basophil% 0.6 % (0-1); Eosinophil# 0.32 X10^3/uL; Eosinophils% 3.5 % (0-5); Hematocrit 29.4 % (37-47); Hemoglobin 9.2 g/dL (12.0-15.0); Lymphocyte # 1.56 X10^3/ul (4.0); Lymphocyte % 17.3 % (19-41); Mean Corp Hgb Conc 31.3 g/dL (32-36); Mean Corpuscular Hgb 29.4 pg (27.0-32.0); Mean Corpuscular Volume 93.9 fL (81-99); Mean Platelet Vol. 11.9 fl (6.2-12.0); Monocyte# 0.65 X10^3/uL; Monocyte% 7.2 % (0-10); NRBC Flagged by Analyzer 0 % (0-5); Neutrophil # 6.41 X10^3/uL (2.7-7.7); Platelet Count 229 K/mm3 (150-450); RBC Distribution Width CV 14.6 % (11.6-14.6); RBC Distribution Width SD 47.9 fl (35.1-43.9); Red Blood Count 3.13 M/mm3 (4.2-5.4)
[2019-01-13 15:31] LABS: Vitamin D,25 Hydroxy 28.1 ng/mL (29.95-100.01)
[2019-01-13 15:37] LABS: ALB/GLOB Ratio 0.9 RATIO (0.9-2.4); AST(SGOT) 26 U/L (15-37); Alanine Aminotransfer ALT/SGPT 35 U/L (13-56); Albumin, Serum 2.9 g/dL (3.2-5.0); Alkaline Phosphatase 90 U/L (45-117); Anion Gap 7 (5-15); BUN 8 mg/dL (7-18); BUN/Creat Ratio 8.8 RATIO (10-20); Calcium,Total 8.6 mg/dL (8.5-10.1); Chloride 113 mmol/L (98-107); Creatinine, Serum 0.91 mg/dL (0.55-1.02); EST Glomerular Filtration Rate 65 mL/min (>60); Est Glom Filt Rate - Afr Amer 78 mL/min (>60); Globulin 3.4 g/dL (2.2-4.2); Glucose 109 mg/dL (74-106); Potassium 4.1 mmol/L (3.5-5.1); Protein, Total 6.3 g/dL (6.4-8.2); Sodium Level 144 mmol/L (136-145); Thyroid Stim Hormone (TSH) 1.57 uIU/mL (0.358-3.74)
== END | disposition home or self-care (01) ==
LOC: POLAB3 14:51
PROVIDERS: Family Provider Family Medicine Geriatric Medicine; PCP Family Medicine Geriatric Medicine; Visit Provider Family Medicine Geriatric Medicine
DX: E11.9 Type 2 diabetes mellitus without complications (principal); E55.9 Vitamin D deficiency, unspecified; I10 Essential (primary) hypertension
CPT/HCPCS: 36415; 80053; 82306; 84443; 85025

== ENCOUNTER → 2019-02-18 10:40 | Outpatient (CLI) | payer MEDICARE, SELFPAY ==
[2019-01-11 15:54] VITALS: BMI 55.2
[2019-02-18 11:03] LABS: Absolute Lymphocyte Count 1.94 X10^3/uL (0.83-4.51); Absolute Neutrophil Count 5.5 X10^3/uL (2.0-7.7); Basophil# 0.08 X10^3/uL; Eosinophil# 0.27 X10^3/uL; Eosinophils% 3.2 % (0-5); Hematocrit 34.8 % (37-47); Hemoglobin 10.7 g/dL (12.0-15.0); Lymphocyte # 1.94 X10^3/ul (4.0); Mean Corp Hgb Conc 30.7 g/dL (32-36); Mean Corpuscular Hgb 27.1 pg (27.0-32.0); Mean Corpuscular Volume 88.1 fL (81-99); Mean Platelet Vol. 10.8 fl (6.2-12.0); Monocyte# 0.58 X10^3/uL; Monocyte% 6.9 % (0-10); NRBC Flagged by Analyzer 0 % (0-5); Neutrophil # 5.51 X10^3/uL (2.7-7.7); Neutrophil % 65.4 % (47-70); Platelet Count 321 K/mm3 (150-450); RBC Distribution Width CV 13.5 % (11.6-14.6); RBC Distribution Width SD 43.2 fl (35.1-43.9); Red Blood Count 3.95 M/mm3 (4.2-5.4); White Blood Count 8.4 K/mm3 (4.4-11.0)
== END ==
LOC: LAB.FUTURE 10:42 → LAB 10:45
PROVIDERS: Family Provider Family Medicine Geriatric Medicine; PCP Family Medicine Geriatric Medicine; Referring Provider Family Medicine Geriatric Medicine; Visit Provider Family Medicine Geriatric Medicine
DX: D64.9 Anemia, unspecified (principal)
CPT/HCPCS: 36415; 85025

== ENCOUNTER → 2019-04-19 09:16 | Outpatient (CLI) | payer MEDICARE, SELFPAY ==
[2019-01-11 15:54] VITALS: BMI 55.2
[2019-04-19 12:17] LABS: Absolute Lymphocyte Count 2.29 X10^3/uL (0.83-4.51); Absolute Neutrophil Count 3.8 X10^3/uL (2.0-7.7); Basophil# 0.08 X10^3/uL; Basophil% 1.1 % (0-1); Eosinophil# 0.44 X10^3/uL; Hematocrit 37.8 % (37-47); Hemoglobin 11.5 g/dL (12.0-15.0); Lymphocyte # 2.29 X10^3/ul (4.0); Lymphocyte % 31.4 % (19-41); Mean Corp Hgb Conc 30.4 g/dL (32-36); Mean Corpuscular Hgb 26.2 pg (27.0-32.0); Mean Corpuscular Volume 86.1 fL (81-99); Mean Platelet Vol. 13.1 fl (6.2-12.0); Monocyte# 0.61 X10^3/uL; Monocyte% 8.4 % (0-10); NRBC Flagged by Analyzer 0 % (0-5); Neutrophil # 3.83 X10^3/uL (2.7-7.7); Neutrophil % 52.4 % (47-70); Platelet Count 278 K/mm3 (150-450); RBC Distribution Width CV 15.6 % (11.6-14.6); RBC Distribution Width SD 48.9 fl (35.1-43.9); Red Blood Count 4.39 M/mm3 (4.2-5.4); White Blood Count 7.3 K/mm3 (4.4-11.0)
[2019-04-19 12:38] LABS: BUN 13 mg/dL (7-18); Creatinine, Serum 0.98 mg/dL (0.55-1.02); EST Glomerular Filtration Rate 59 mL/min (>60); Glucose 213 mg/dL (74-106)
[2019-04-19 12:39] LABS: ALB/GLOB Ratio 0.9 RATIO (0.9-2.4); AST(SGOT) 20 U/L (15-37); Alanine Aminotransfer ALT/SGPT 36 U/L (13-56); Albumin, Serum 3.6 g/dL (3.2-5.0); Alkaline Phosphatase 129 U/L (45-117); Anion Gap 5 (5-15); BUN/Creat Ratio 13.3 RATIO (10-20); Calcium,Total 9.6 mg/dL (8.5-10.1); Chloride 107 mmol/L (98-107); Est Glom Filt Rate - Afr Amer 72 mL/min (>60); Globulin 4.1 g/dL (2.2-4.2); Protein, Total 7.7 g/dL (6.4-8.2); Sodium Level 140 mmol/L (136-145); Thyroid Stim Hormone (TSH) 1.73 uIU/mL (0.358-3.74)
[2019-04-19 12:40] LABS: Vitamin D,25 Hydroxy 23.9 ng/mL (29.95-100.01)
== END ==
PROVIDERS: PCP Family Medicine Geriatric Medicine; Visit Provider Family Medicine Geriatric Medicine
DX: I10 Essential (primary) hypertension (principal); E11.9 Type 2 diabetes mellitus without complications; E55.9 Vitamin D deficiency, unspecified
CPT/HCPCS: 36415; 80053; 82306; 84443; 85025

== ENCOUNTER → 2019-06-10 11:49 | Outpatient (CLI) | payer MEDICARE, SELFPAY ==
[2019-01-11 15:54] VITALS: BMI 55.2
[2019-06-10 12:35] LABS: Anion Gap 8 (5-15); BUN 21 mg/dL (7-18); BUN/Creat Ratio 14.2 RATIO (10-20); Chloride 100 mmol/L (98-107); Creatinine, Serum 1.48 mg/dL (0.55-1.02); EST Glomerular Filtration Rate 37 mL/min (>60); Est Glom Filt Rate - Afr Amer 45 mL/min (>60); Glucose 329 mg/dL (74-106); Sodium Level 133 mmol/L (136-145)
[2019-06-10 13:22] LABS: Absolute Lymphocyte Count 1.76 X10^3/uL (0.83-4.51); Absolute Neutrophil Count 5.8 X10^3/uL (2.0-7.7); Basophil% 1.1 % (0-1); Eosinophil# 0.34 X10^3/uL; Eosinophils% 3.9 % (0-5); Hematocrit 43.6 % (37-47); Hemoglobin 13.9 g/dL (12.0-15.0); Lymphocyte # 1.76 X10^3/ul (4.0); Lymphocyte % 20.2 % (19-41); Mean Corp Hgb Conc 31.9 g/dL (32-36); Mean Corpuscular Hgb 27.9 pg (27.0-32.0); Mean Corpuscular Volume 87.6 fL (81-99); Mean Platelet Vol. 11.9 fl (6.2-12.0); Monocyte# 0.71 X10^3/uL; Monocyte% 8.1 % (0-10); NRBC Flagged by Analyzer 0 % (0-5); Neutrophil # 5.77 X10^3/uL (2.7-7.7); Neutrophil % 66.1 % (47-70); POSITIVE COUNT YES; RBC Distribution Width CV 14.7 % (11.6-14.6); RBC Distribution Width SD 47.1 fl (35.1-43.9); Red Blood Count 4.98 M/mm3 (4.2-5.4); White Blood Count 8.7 K/mm3 (4.4-11.0)
[2019-06-10 14:29] LABS: Differential Indicated SCAN CRITERIA MET
[2019-06-10 14:30] LABS: Platelet Estimate ADEQUATE (ADEQ)
== END ==
PROVIDERS: PCP Family Medicine Geriatric Medicine; Visit Provider Family Medicine Geriatric Medicine
DX: D50.9 Iron deficiency anemia, unspecified (principal); N17.0 Acute kidney failure with tubular necrosis
CPT/HCPCS: 36415; 80048; 85025

== ENCOUNTER → 2019-10-20 10:36 | Outpatient (CLI) | payer MEDICARE, SELFPAY ==
[2019-01-11 15:54] VITALS: BMI 55.2
[2019-10-20 11:17] LABS: Absolute Lymphocyte Count 1.77 X10^3/uL (0.83-4.51); Absolute Neutrophil Count 4.4 X10^3/uL (2.0-7.7); Basophil% 1.4 % (0-1); Eosinophil# 0.47 X10^3/uL; Eosinophils% 6.4 % (0-5); Hematocrit 37.6 % (37-47); Hemoglobin 11.6 g/dL (12.0-15.0); Lymphocyte # 1.77 X10^3/ul (4.0); Lymphocyte % 23.9 % (19-41); Mean Corp Hgb Conc 30.9 g/dL (32-36); Mean Corpuscular Hgb 27.6 pg (27.0-32.0); Mean Corpuscular Volume 89.3 fL (81-99); Mean Platelet Vol. 11.4 fl (6.2-12.0); Monocyte# 0.59 X10^3/uL; NRBC Flagged by Analyzer 0 % (0-5); Neutrophil # 4.44 X10^3/uL (2.7-7.7); Neutrophil % 59.9 % (47-70); Platelet Count 301 K/mm3 (150-450); RBC Distribution Width CV 13.3 % (11.6-14.6); RBC Distribution Width SD 43.8 fl (35.1-43.9); Red Blood Count 4.21 M/mm3 (4.2-5.4); White Blood Count 7.4 K/mm3 (4.4-11.0)
[2019-10-20 11:57] LABS: Vitamin D,25 Hydroxy 39.5 ng/mL
[2019-10-20 12:02] LABS: ALB/GLOB Ratio 0.9 RATIO (0.9-2.4); AST(SGOT) 31 U/L (15-37); Alanine Aminotransfer ALT/SGPT 39 U/L (13-56); Albumin, Serum 3.5 g/dL (3.2-5.0); Alkaline Phosphatase 131 U/L (45-117); Anion Gap 9 (5-15); BUN 15 mg/dL (7-18); BUN/Creat Ratio 14.2 RATIO (10-20); Calcium,Total 8.9 mg/dL (8.5-10.1); Chloride 102 mmol/L (98-107); Creatinine, Serum 1.06 mg/dL (0.55-1.02); EST Glomerular Filtration Rate 54 mL/min (>60); Est Glom Filt Rate - Afr Amer 66 mL/min (>60); Globulin 4.1 g/dL (2.2-4.2); Glucose 153 mg/dL (74-106); Potassium 3.6 mmol/L (3.5-5.1); Protein, Total 7.6 g/dL (6.4-8.2); Sodium Level 138 mmol/L (136-145); Thyroid Stim Hormone (TSH) 1.51 uIU/mL (0.358-3.74)
== END ==
PROVIDERS: PCP Family Medicine Geriatric Medicine; Visit Provider Family Medicine Geriatric Medicine
DX: E11.9 Type 2 diabetes mellitus without complications (principal); E55.9 Vitamin D deficiency, unspecified; I10 Essential (primary) hypertension
CPT/HCPCS: 36415; 80053; 82306; 84443; 85025

== ENCOUNTER → 2019-12-31 09:17 | Outpatient (CLI) | payer MEDICARE, SELFPAY ==
[2019-01-11 15:54] VITALS: BMI 55.2
[2019-12-31 12:34] LABS: Absolute Lymphocyte Count 1.72 X10^3/uL (0.83-4.51); Absolute Neutrophil Count 3.6 X10^3/uL (2.0-7.7); Basophil% 1.5 % (0-1); Eosinophil# 0.54 X10^3/uL; Eosinophils% 8.3 % (0-5); Hematocrit 38.2 % (37-47); Lymphocyte # 1.72 X10^3/ul (4.0); Lymphocyte % 26.6 % (19-41); Mean Corp Hgb Conc 31.4 g/dL (32-36); Mean Corpuscular Hgb 28.2 pg (27.0-32.0); Mean Corpuscular Volume 89.7 fL (81-99); Mean Platelet Vol. 12.6 fl (6.2-12.0); Monocyte% 7.7 % (0-10); NRBC Flagged by Analyzer 0 % (0-5); Neutrophil # 3.58 X10^3/uL (2.7-7.7); Neutrophil % 55.4 % (47-70); Platelet Count 291 K/mm3 (150-450); RBC Distribution Width CV 13.7 % (11.6-14.6); RBC Distribution Width SD 45.1 fl (35.1-43.9); Red Blood Count 4.26 M/mm3 (4.2-5.4); White Blood Count 6.5 K/mm3 (4.4-11.0)
[2019-12-31 12:54] LABS: ALB/GLOB Ratio 0.8 RATIO (0.9-2.4); AST(SGOT) 40 U/L (15-37); Alanine Aminotransfer ALT/SGPT 50 U/L (13-56); Albumin, Serum 3.4 g/dL (3.2-5.0); Alkaline Phosphatase 138 U/L (45-117); Anion Gap 8 (5-15); BUN 13 mg/dL (7-18); BUN/Creat Ratio 12.9 RATIO (10-20); Calcium,Total 9.3 mg/dL (8.5-10.1); Chloride 107 mmol/L (98-107); Creatinine, Serum 1.01 mg/dL (0.55-1.02); EST Glomerular Filtration Rate 57 mL/min (>60); Est Glom Filt Rate - Afr Amer 69 mL/min (>60); Glucose 146 mg/dL (74-106); Potassium 3.9 mmol/L (3.5-5.1); Protein, Total 7.4 g/dL (6.4-8.2); Sodium Level 141 mmol/L (136-145); Thyroid Stim Hormone (TSH) 1.67 uIU/mL (0.358-3.74)
== END ==
PROVIDERS: PCP Family Medicine Geriatric Medicine; Visit Provider Family Medicine Geriatric Medicine
DX: R53.83 Other fatigue (principal); N39.0 Urinary tract infection, site not specified
CPT/HCPCS: 36415; 80053; 84443; 85025; 87086; 87088; 87186

== ENCOUNTER → 2020-01-19 11:31 | Outpatient (CLI) | payer MEDICARE, SELFPAY ==
[2019-01-11 15:54] VITALS: BMI 55.2
[2020-01-19 12:33] LABS: Absolute Lymphocyte Count 2.41 X10^3/uL (0.83-4.51); Absolute Neutrophil Count 4.9 X10^3/uL (2.0-7.7); Basophil# 0.09 X10^3/uL; Eosinophil# 0.54 X10^3/uL; Eosinophils% 6.2 % (0-5); Hemoglobin 12.2 g/dL (12.0-15.0); Lymphocyte # 2.41 X10^3/ul (4.0); Lymphocyte % 27.5 % (19-41); Mean Corp Hgb Conc 31.3 g/dL (32-36); Mean Corpuscular Hgb 27.6 pg (27.0-32.0); Mean Corpuscular Volume 88.2 fL (81-99); Mean Platelet Vol. 11.5 fl (6.2-12.0); Monocyte# 0.77 X10^3/uL; Monocyte% 8.8 % (0-10); NRBC Flagged by Analyzer 0 % (0-5); Neutrophil # 4.92 X10^3/uL (2.7-7.7); Platelet Count 308 K/mm3 (150-450); RBC Distribution Width CV 13.8 % (11.6-14.6); RBC Distribution Width SD 44.5 fl (35.1-43.9); Red Blood Count 4.42 M/mm3 (4.2-5.4); White Blood Count 8.8 K/mm3 (4.4-11.0)
[2020-01-19 12:55] LABS: Vitamin D,25 Hydroxy 33.8 ng/mL
[2020-01-19 13:24] LABS: ALB/GLOB Ratio 0.8 RATIO (0.9-2.4); AST(SGOT) 32 U/L (15-37); Alanine Aminotransfer ALT/SGPT 42 U/L (13-56); Albumin, Serum 3.5 g/dL (3.2-5.0); Alkaline Phosphatase 143 U/L (45-117); Anion Gap 12 (5-15); BUN 18 mg/dL (7-18); BUN/Creat Ratio 14.4 RATIO (10-20); Calcium,Total 9.5 mg/dL (8.5-10.1); Chloride 104 mmol/L (98-107); Creatinine, Serum 1.25 mg/dL (0.55-1.02); EST Glomerular Filtration Rate 45 mL/min (>60); Est Glom Filt Rate - Afr Amer 54 mL/min (>60); Globulin 4.4 g/dL (2.2-4.2); Glucose 130 mg/dL (74-106); Potassium 3.2 mmol/L (3.5-5.1); Protein, Total 7.9 g/dL (6.4-8.2); Sodium Level 139 mmol/L (136-145); Thyroid Stim Hormone (TSH) 1.55 uIU/mL (0.358-3.74)
== END ==
PROVIDERS: PCP Family Medicine Geriatric Medicine; Visit Provider Family Medicine Geriatric Medicine
DX: E11.9 Type 2 diabetes mellitus without complications (principal); E55.9 Vitamin D deficiency, unspecified; I10 Essential (primary) hypertension
CPT/HCPCS: 36415; 80053; 82306; 84443; 85025

== ENCOUNTER → 2020-04-19 10:12 | Outpatient (CLI) | payer MEDICARE, SELFPAY ==
[2019-01-11 15:54] VITALS: BMI 55.2
[2020-04-19 12:12] LABS: Absolute Lymphocyte Count 2.24 X10^3/uL (0.83-4.51); Absolute Neutrophil Count 4.6 X10^3/uL (2.0-7.7); Basophil# 0.12 X10^3/uL; Basophil% 1.4 % (0-1); Eosinophil# 0.64 X10^3/uL; Eosinophils% 7.7 % (0-5); Hematocrit 38.2 % (37-47); Hemoglobin 11.9 g/dL (12.0-15.0); Lymphocyte # 2.24 X10^3/ul (4.0); Lymphocyte % 26.8 % (19-41); Mean Corp Hgb Conc 31.2 g/dL (32-36); Mean Corpuscular Volume 89.9 fL (81-99); Mean Platelet Vol. 12.5 fl (6.2-12.0); Monocyte# 0.71 X10^3/uL; Monocyte% 8.5 % (0-10); NRBC Flagged by Analyzer 0 % (0-5); Neutrophil # 4.62 X10^3/uL (2.7-7.7); Neutrophil % 55.2 % (47-70); Platelet Count 295 K/mm3 (150-450); RBC Distribution Width CV 13.5 % (11.6-14.6); RBC Distribution Width SD 44.2 fl (35.1-43.9); Red Blood Count 4.25 M/mm3 (4.2-5.4); White Blood Count 8.4 K/mm3 (4.4-11.0)
[2020-04-19 12:35] LABS: ALB/GLOB Ratio 0.8 RATIO (0.9-2.4); AST(SGOT) 34 U/L (15-37); Alanine Aminotransfer ALT/SGPT 37 U/L (13-56); Albumin, Serum 3.5 g/dL (3.2-5.0); Alkaline Phosphatase 140 U/L (45-117); Anion Gap 7 (5-15); BUN 20 mg/dL (7-18); BUN/Creat Ratio 17.5 RATIO (10-20); Calcium,Total 9.3 mg/dL (8.5-10.1); Chloride 103 mmol/L (98-107); Creatinine, Serum 1.14 mg/dL (0.55-1.02); EST Glomerular Filtration Rate 50 mL/min (>60); Est Glom Filt Rate - Afr Amer 60 mL/min (>60); Globulin 4.4 g/dL (2.2-4.2); Glucose 174 mg/dL (74-106); Potassium 3.5 mmol/L (3.5-5.1); Protein, Total 7.9 g/dL (6.4-8.2); Sodium Level 139 mmol/L (136-145); Thyroid Stim Hormone (TSH) 2.04 uIU/mL (0.358-3.74)
== END ==
PROVIDERS: PCP Family Medicine Geriatric Medicine; Visit Provider Family Medicine Geriatric Medicine
DX: E11.9 Type 2 diabetes mellitus without complications (principal); E55.9 Vitamin D deficiency, unspecified; I10 Essential (primary) hypertension
CPT/HCPCS: 36415; 80053; 82306; 84443; 85025

== ENCOUNTER → 2020-07-17 12:03 | Outpatient (CLI) | payer MEDICARE, SELFPAY ==
[2019-01-11 15:54] VITALS: BMI 55.2
[2020-07-17 12:19] LABS: Absolute Lymphocyte Count 1.92 X10^3/uL (0.83-4.51); Basophil# 0.11 X10^3/uL; Basophil% 1.5 % (0-1); Eosinophil# 0.58 X10^3/uL; Eosinophils% 8.1 % (0-5); Hematocrit 38.4 % (37-47); Lymphocyte # 1.92 X10^3/ul (0.83-4.51); Lymphocyte % 26.7 % (19-41); Mean Corp Hgb Conc 31.3 g/dL (32-36); Mean Corpuscular Hgb 27.5 pg (27.0-32.0); Mean Corpuscular Volume 88.1 fL (81-99); Mean Platelet Vol. 12.2 fl (6.2-12.0); Monocyte# 0.57 X10^3/uL; Monocyte% 7.9 % (0-10); NRBC Flagged by Analyzer 0 % (0-5); Neutrophil # 3.97 X10^3/uL (2.7-7.7); Neutrophil % 55.4 % (47-70); Platelet Count 289 K/mm3 (150-450); RBC Distribution Width SD 41.9 fl (35.1-43.9); Red Blood Count 4.36 M/mm3 (4.2-5.4); White Blood Count 7.2 K/mm3 (4.4-11.0)
[2020-07-17 12:42] LABS: Vitamin D,25 Hydroxy 28.4 ng/mL
[2020-07-17 12:48] LABS: ALB/GLOB Ratio 0.8 RATIO (0.9-2.4); AST(SGOT) 30 U/L (15-37); Alanine Aminotransfer ALT/SGPT 40 U/L (13-56); Albumin, Serum 3.4 g/dL (3.2-5.0); Alkaline Phosphatase 132 U/L (45-117); Anion Gap 7 (5-15); BUN 14 mg/dL (7-18); BUN/Creat Ratio 13.2 RATIO (10-20); Calcium,Total 9.5 mg/dL (8.5-10.1); Chloride 104 mmol/L (98-107); Creatinine, Serum 1.06 mg/dL (0.55-1.02); EST Glomerular Filtration Rate 54 mL/min (>60); Est Glom Filt Rate - Afr Amer 66 mL/min (>60); Globulin 4.2 g/dL (2.2-4.2); Glucose 210 mg/dL (74-106); Potassium 3.6 mmol/L (3.5-5.1); Protein, Total 7.6 g/dL (6.4-8.2); Sodium Level 139 mmol/L (136-145); Thyroid Stim Hormone (TSH) 1.26 uIU/mL (0.358-3.74)
== END ==
PROVIDERS: PCP Family Medicine Geriatric Medicine; Visit Provider Family Medicine Geriatric Medicine
DX: E11.9 Type 2 diabetes mellitus without complications (principal); E55.9 Vitamin D deficiency, unspecified; I10 Essential (primary) hypertension
CPT/HCPCS: 36415; 80053; 82306; 84443; 85025

== ENCOUNTER 2020-07-31 14:16 | Emergency (ER) | payer MEDICARE, SELFPAY ==
[2019-01-11 15:54] VITALS: BMI 55.2
[2020-07-31 14:17] VITALS: BP 120/58; PULSE 68; RESP 15; TEMP 36.4; O2SAT 97; BMI 48.0
--- NOTE | 2020-07-31 14:53 | EDS_ITS ---
HPI History of Present Illness Chief Complaint: Laceration Informant: patient Narrative Narrative: Patient sustained a laceration to the right second MCP joint. This occurred 2 hours ago. She was doing dishes when she was cleaning a knife and it slipped and cut her on the second MCP joint area. She is on Coumadin for history of factor V Leiden and was unable to the bleeding controlled. She does not know when her last tetanus shot was. She denies any loss of function of the forefinger or thumb. She denies any other pain or lacerations. [facility] Medical History (Updated 07/31/20 @ 15:[address] Claude Villalba MD) Atherosclerosis of coronary artery of [place] heart without angina pectoris (10/04/16) Factor V deficiency GERD (gastroesophageal reflux disease) Heterozygous factor V Leiden mutation Hyperlipidemia Hypertension Incarcerated hernia LBBB (left bundle branch block) Morbid obesity Obstructive sleep apnea Pulmonary embolism Superficial thrombophlebitis of right leg Home Medications amlodipine 10 mg PO DAILY 01/09/19 [History Last Taken Unknown] atorvastatin 40 mg PO QHS 01/09/19 [History Last Taken Unknown] losartan 50 mg PO BID 01/09/19 [History Last Taken Unknown] metformin 1,000 mg PO DAILY 01/09/19 [History Last Taken Unknown] paroxetine HCl 20 mg PO QHS 01/09/19 [History Last Taken Unknown] potassium chloride 20 meq PO DAILY 01/09/19 [History Last Taken Unknown] apixaban 5 mg PO BID #60 tab 01/12/19 [Rx Last Taken Unknown] pantoprazole 40 mg PO BID #60 tab 01/12/19 [Rx Last Taken Unknown] hydrochlorothiazide 25 mg tablet 25 mg PO DAILY #90 tab 01/15/19 [Rx Last Taken Unknown] Allergy/AdvReac Type Severity Reaction Status Date / Time No Known Allergies Allergy Verified 07/31/20 14:19 Family History Mother Hypertension Heart disease Diabetes Father Cancer Sister Cancer Diabetes Thyroid disorder Surgical History H/O umbilical hernia repair (~03/2017) History of History of left heart catheterization (10/04/16) Hx of cholecystectomy Social History Smoking Status: Former smoker ROS ROS ED Constitutional Constitutional ED: Denies chills or fever(s) Eyes Eyes: Denies blurry vision, change in vision or diplopia ENT ENT ED: Denies ear pain, rhinorrhea or sore throat Cardiovascular Cardiovascular: Denies chest pain or palpitations Respiratory/Chest Respiratory/Chest: Denies cough, dyspnea or sputum Gastrointestinal Gastrointestinal: Denies abdominal pain, diarrhea, nausea or vomiting Genitourinary Genitourinary ED: Denies dysuria, hematuria or urinary frequency Musculoskeletal Musculoskeletal: Denies back pain or neck pain Integumentary Reports other Details: Laceration Neurologic Neurologic: Denies headache(s), numbness or weakness Psychiatric Psychiatric: Denies anxiety or depression Endocrine Endocrinology: Denies polydipsia or polyuria EXAM Physical Exam Const Vital Signs: 07/31/20 14:17 Temperature 97.6 F L Temperature Source Temporal Pulse Rate 68 Respiratory Rate 15 Blood Pressure 120/58 L Blood Pressure Mean 78 Pulse Ox 97 Oxygen Delivery Method Room Air Positive well nourished and well developed General Appearance ED: well developed HEENT atraumatic Eyes PERRL and EOMs intact bilaterally Neck full ROM Extremity Extremity Narrative: Right hand has full range of motion without loss of function. Neuro oriented x3 and moves all extremities Sensorium / Orientation: alert Psych mental status grossly normal Skin Skin Narrative: Patient has a 1.25 cm laceration on the right MCP, second joint. Bleeding is controlled. PROC Procedures Lacerations Right hand: Length: 0.49 in Depth: Skin Shape: Linear Prep: Chlorhexadine Number of Sutures/[place]: 2 Suture Information: Simple and 5-0 MDM MDM MDM Narrative Medical decision making narrative: The patient's tetanus immunization was updated. Laceration was repaired with 2 sutures. She will have this out in 7 to 10 days. Discharge Plan Triage Chief Complaint: Laceration ED Provider: Claude Villalba Dx/Rx/DC Orders Clinical Impression: Laceration of hand, right Instructions: ED Laceration: All Closures Prescriptions: No Action losartan 50 MG tablet 50 mg PO BID RF: 0 atorvastatin 40 MG tablet 40 mg PO QHS RF: 0 metformin 500 MG tablet 1,000 mg PO DAILY RF: 0 potassium chloride 20 MEQ tablet,ER particles/crystals 20 meq PO DAILY RF: 0 amlodipine 10 MG tablet 10 mg PO DAILY RF: 0 paroxetine HCl 20 MG tablet 20 mg PO QHS RF: 0 pantoprazole 40 MG tablet 40 mg PO BID Qty: 60 RF: 0 apixaban 5 MG tablet 5 mg PO BID Qty: 60 RF: 0 hydrochlorothiazide 25 mg tablet 25 mg PO DAILY Qty: 90 RF: 3 Primary Care Provider: Duong Borja Chi Referrals: Duong Borja Chi, MD [Primary Care Provider] - Disposition Disposition: Home, self care
[2020-07-31] MEDS: Lidocaine 1% (20 ml mdv) 20 ML Vial INFILT (14:55)
[2020-07-31] MEDS: Diphth,Pertuss(Acell),Tet Vac 0.5 ML Vial IM (15:15)
== END 2020-07-31 15:32 | disposition home or self-care (01) ==
PROVIDERS: Emergency Provider Emergency Medicine; PCP Family Medicine Geriatric Medicine
DX: S61.411A Laceration without foreign body of right hand, initial encounter (principal); I25.10 Atherosclerotic heart disease of native coronary artery without angina pectoris; E66.01 Morbid (severe) obesity due to excess calories; W26.0XXA Contact with knife, initial encounter; Z87.891 Personal history of nicotine dependence
CPT/HCPCS: 12001; 90471; 90715; 99283

== ENCOUNTER → 2020-10-16 11:37 | Outpatient (CLI) | payer MEDICARE, SELFPAY ==
[2020-10-16 12:38] LABS: Absolute Lymphocyte Count 1.81 X10^3/uL (0.83-4.51); Absolute Neutrophil Count 3.9 X10^3/uL (2.0-7.7); Basophil# 0.05 X10^3/uL; Basophil% 0.8 % (0-1); Eosinophil# 0.35 X10^3/uL; Eosinophils% 5.3 % (0-5); Hematocrit 37.1 % (37-47); Lymphocyte # 1.81 X10^3/ul (0.83-4.51); Lymphocyte % 27.4 % (19-41); Mean Corp Hgb Conc 32.3 g/dL (32-36); Mean Corpuscular Hgb 28.7 pg (27.0-32.0); Mean Corpuscular Volume 88.8 fL (81-99); Mean Platelet Vol. 12.8 fl (6.2-12.0); Monocyte# 0.51 X10^3/uL; Monocyte% 7.7 % (0-10); NRBC Flagged by Analyzer 0 % (0-5); Neutrophil # 3.87 X10^3/uL (2.7-7.7); Neutrophil % 58.5 % (47-70); Platelet Count 243 K/mm3 (150-450); RBC Distribution Width CV 13.8 % (11.6-14.6); RBC Distribution Width SD 44.8 fl (35.1-43.9); Red Blood Count 4.18 M/mm3 (4.2-5.4); White Blood Count 6.6 K/mm3 (4.4-11.0)
[2020-10-16 13:04] LABS: ALB/GLOB Ratio 0.8 RATIO (0.9-2.4); AST(SGOT) 33 U/L (15-37); Alanine Aminotransfer ALT/SGPT 49 U/L (13-56); Albumin, Serum 3.5 g/dL (3.2-5.0); Alkaline Phosphatase 128 U/L (45-117); Anion Gap 7 (5-15); BUN 18 mg/dL (7-18); Calcium,Total 9.6 mg/dL (8.5-10.1); Chloride 100 mmol/L (98-107); Creatinine, Serum 0.95 mg/dL (0.55-1.02); EST Glomerular Filtration Rate 62 mL/min (>60); Est Glom Filt Rate - Afr Amer 74 mL/min (>60); Globulin 4.2 g/dL (2.2-4.2); Glucose 127 mg/dL (74-106); Potassium 3.7 mmol/L (3.5-5.1); Protein, Total 7.7 g/dL (6.4-8.2); Sodium Level 137 mmol/L (136-145); Thyroid Stim Hormone (TSH) 1.02 uIU/mL (0.358-3.74)
== END ==
PROVIDERS: PCP Family Medicine Geriatric Medicine; Visit Provider Family Medicine Geriatric Medicine
DX: E55.9 Vitamin D deficiency, unspecified (principal); E11.9 Type 2 diabetes mellitus without complications; I10 Essential (primary) hypertension
CPT/HCPCS: 36415; 80053; 82306; 84443; 85025

== ENCOUNTER → 2021-01-02 08:23 | Outpatient (CLI) | payer MEDICARE, SELFPAY | PROVIDERS: PCP Family Medicine Geriatric Medicine; Referring Provider Family Medicine Geriatric Medicine; Visit Provider Family Medicine Geriatric Medicine | DX: R68.83 Chills (without fever) (principal) | CPT/HCPCS: 87635; 87804; 87807; C9803; U0005; U0003 ==

== ENCOUNTER → 2021-01-15 11:58 | Outpatient (CLI) | payer MEDICARE, SELFPAY ==
[2021-01-15 12:29] LABS: Absolute Lymphocyte Count 1.78 X10^3/uL (0.83-4.51); Absolute Neutrophil Count 4.1 X10^3/uL (2.0-7.7); Basophil# 0.08 X10^3/uL; Basophil% 1.2 % (0-1); Eosinophil# 0.21 X10^3/uL; Eosinophils% 3.1 % (0-5); Hematocrit 36.2 % (37-47); Hemoglobin 11.8 g/dL (12.0-15.0); Lymphocyte # 1.78 X10^3/ul (0.83-4.51); Lymphocyte % 25.9 % (19-41); Mean Corp Hgb Conc 32.6 g/dL (32-36); Mean Corpuscular Hgb 29.2 pg (27.0-32.0); Mean Corpuscular Volume 89.6 fL (81-99); Mean Platelet Vol. 12.7 fl (6.2-12.0); Monocyte# 0.63 X10^3/uL; Monocyte% 9.2 % (0-10); NRBC Flagged by Analyzer 0 % (0-5); Neutrophil # 4.09 X10^3/uL (2.7-7.7); Neutrophil % 59.6 % (47-70); Platelet Count 225 K/mm3 (150-450); RBC Distribution Width CV 13.6 % (11.6-14.6); RBC Distribution Width SD 44.5 fl (35.1-43.9); Red Blood Count 4.04 M/mm3 (4.2-5.4); White Blood Count 6.9 K/mm3 (4.4-11.0)
[2021-01-15 12:56] LABS: Vitamin D,25 Hydroxy 40.7 ng/mL
[2021-01-15 13:19] LABS: ALB/GLOB Ratio 0.8 RATIO (0.9-2.4); AST(SGOT) 36 U/L (15-37); Alanine Aminotransfer ALT/SGPT 51 U/L (13-56); Albumin, Serum 2.9 g/dL (3.2-5.0); Alkaline Phosphatase 119 U/L (45-117); Anion Gap 6 (5-15); BUN 17 mg/dL (7-18); BUN/Creat Ratio 17.1 RATIO (10-20); Calcium,Total 8.9 mg/dL (8.5-10.1); Chloride 104 mmol/L (98-107); EST Glomerular Filtration Rate 58 mL/min (>60); Est Glom Filt Rate - Afr Amer 70 mL/min (>60); Globulin 3.8 g/dL (2.2-4.2); Glucose 147 mg/dL (74-106); Potassium 3.4 mmol/L (3.5-5.1); Protein, Total 6.7 g/dL (6.4-8.2); Sodium Level 139 mmol/L (136-145); Thyroid Stim Hormone (TSH) 1.63 uIU/mL (0.358-3.74)
== END ==
PROVIDERS: PCP Family Medicine Geriatric Medicine; Visit Provider Family Medicine Geriatric Medicine
DX: E11.65 Type 2 diabetes mellitus with hyperglycemia (principal); E55.9 Vitamin D deficiency, unspecified; I10 Essential (primary) hypertension
CPT/HCPCS: 36415; 80053; 82306; 84443; 85025

== ENCOUNTER 2021-04-16 10:20 | Outpatient (CLI) | payer MEDICARE, SELFPAY ==
[2021-04-16 12:29] LABS: Absolute Lymphocyte Count 2.76 X10^3/uL (0.83-4.51); Absolute Neutrophil Count 5.1 X10^3/uL (2.0-7.7); Basophil# 0.09 X10^3/uL; Eosinophil# 0.43 X10^3/uL; Eosinophils% 4.7 % (0-5); Hematocrit 37.4 % (37-47); Hemoglobin 12.4 g/dL (12.0-15.0); Lymphocyte # 2.76 X10^3/ul (0.83-4.51); Lymphocyte % 30.2 % (19-41); Mean Corp Hgb Conc 33.2 g/dL (32-36); Mean Corpuscular Hgb 29.7 pg (27.0-32.0); Mean Corpuscular Volume 89.7 fL (81-99); Mean Platelet Vol. 11.9 fl (6.2-12.0); Monocyte# 0.69 X10^3/uL; Monocyte% 7.5 % (0-10); NRBC Flagged by Analyzer 0 % (0-5); Neutrophil # 5.12 X10^3/uL (2.7-7.7); Neutrophil % 55.9 % (47-70); Platelet Count 267 K/mm3 (150-450); RBC Distribution Width SD 42.5 fl (35.1-43.9); Red Blood Count 4.17 M/mm3 (4.2-5.4); White Blood Count 9.2 K/mm3 (4.4-11.0)
[2021-04-16 12:50] LABS: ALB/GLOB Ratio 0.8 RATIO (0.9-2.4); AST(SGOT) 26 U/L (15-37); Alanine Aminotransfer ALT/SGPT 39 U/L (13-56); Albumin, Serum 3.2 g/dL (3.2-5.0); Alkaline Phosphatase 109 U/L (45-117); Anion Gap 8 (5-15); BUN 14 mg/dL (7-18); BUN/Creat Ratio 13.7 RATIO (10-20); Calcium,Total 8.7 mg/dL (8.5-10.1); Chloride 105 mmol/L (98-107); Creatinine, Serum 1.02 mg/dL (0.55-1.02); EST Glomerular Filtration Rate 57 mL/min (>60); Est Glom Filt Rate - Afr Amer 68 mL/min (>60); Globulin 3.8 g/dL (2.2-4.2); Glucose 182 mg/dL (74-106); Potassium 3.5 mmol/L (3.5-5.1); Sodium Level 140 mmol/L (136-145); Thyroid Stim Hormone (TSH) 1.86 uIU/mL (0.358-3.74)
== END 2021-04-16 23:59 | disposition home or self-care (01) ==
LOC: POLAB3 10:21
PROVIDERS: PCP Family Medicine Geriatric Medicine; Visit Provider Family Medicine Geriatric Medicine
DX: E11.65 Type 2 diabetes mellitus with hyperglycemia (principal); E55.9 Vitamin D deficiency, unspecified; I10 Essential (primary) hypertension
CPT/HCPCS: 36415; 80053; 82306; 84443; 85025

== ENCOUNTER → 2021-07-23 | Outpatient (CLI) | payer MEDICARE, SELFPAY ==
[2021-07-23 12:32] LABS: Absolute Lymphocyte Count 2.16 X10^3/uL (0.83-4.51); Absolute Neutrophil Count 4.3 X10^3/uL (2.0-7.7); Basophil# 0.08 X10^3/uL; Eosinophil# 0.31 X10^3/uL; Eosinophils% 4.1 % (0-5); Hematocrit 37.1 % (37-47); Lymphocyte # 2.16 X10^3/ul (0.83-4.51); Lymphocyte % 28.2 % (19-41); Mean Corp Hgb Conc 32.3 g/dL (32-36); Mean Corpuscular Hgb 28.6 pg (27.0-32.0); Mean Corpuscular Volume 88.3 fL (81-99); Mean Platelet Vol. 12.6 fl (6.2-12.0); Monocyte# 0.72 X10^3/uL; Monocyte% 9.4 % (0-10); NRBC Flagged by Analyzer 0 % (0-5); Neutrophil # 4.33 X10^3/uL (2.7-7.7); Neutrophil % 56.6 % (47-70); Platelet Count 290 K/mm3 (150-450); RBC Distribution Width CV 13.8 % (11.6-14.6); RBC Distribution Width SD 44.1 fl (35.1-43.9); White Blood Count 7.7 K/mm3 (4.4-11.0)
[2021-07-23 12:54] LABS: ALB/GLOB Ratio 0.8 RATIO (0.9-2.4); AST(SGOT) 35 U/L (15-37); Alanine Aminotransfer ALT/SGPT 43 U/L (13-56); Albumin, Serum 3.3 g/dL (3.2-5.0); Alkaline Phosphatase 135 U/L (45-117); Anion Gap 8 (5-15); BUN 24 mg/dL (7-18); BUN/Creat Ratio 23.1 RATIO (10-20); Calcium,Total 9.1 mg/dL (8.5-10.1); Chloride 104 mmol/L (98-107); Creatinine, Serum 1.04 mg/dL (0.55-1.02); EST Glomerular Filtration Rate 55 mL/min (>60); Est Glom Filt Rate - Afr Amer 67 mL/min (>60); Globulin 3.9 g/dL (2.2-4.2); Glucose 154 mg/dL (74-106); Potassium 3.7 mmol/L (3.5-5.1); Protein, Total 7.2 g/dL (6.4-8.2); Sodium Level 137 mmol/L (136-145); Thyroid Stim Hormone (TSH) 1.53 uIU/mL (0.358-3.74)
[2021-07-23 13:12] LABS: Vitamin D,25 Hydroxy 40.2 ng/mL
== END | disposition home or self-care (01) ==
LOC: POLAB3 09:35
PROVIDERS: PCP Family Medicine Geriatric Medicine; Visit Provider Family Medicine Geriatric Medicine
DX: E11.9 Type 2 diabetes mellitus without complications (principal); E55.9 Vitamin D deficiency, unspecified; I10 Essential (primary) hypertension
CPT/HCPCS: 36415; 80053; 82306; 84443; 85025

== ENCOUNTER → 2021-10-24 | Outpatient (CLI) | payer MEDICARE, SELFPAY ==
[2021-10-24 12:38] LABS: Absolute Lymphocyte Count 1.91 X10^3/uL (0.83-4.51); Absolute Neutrophil Count 5.7 X10^3/uL (2.0-7.7); Basophil# 0.09 X10^3/uL; Eosinophil# 0.39 X10^3/uL; Eosinophils% 4.4 % (0-5); Hematocrit 38.1 % (37-47); Hemoglobin 12.2 g/dL (12.0-15.0); Lymphocyte # 1.91 X10^3/ul (0.83-4.51); Lymphocyte % 21.7 % (19-41); Mean Corpuscular Hgb 28.6 pg (27.0-32.0); Mean Corpuscular Volume 89.4 fL (81-99); Mean Platelet Vol. 12.5 fl (6.2-12.0); Monocyte# 0.69 X10^3/uL; Monocyte% 7.8 % (0-10); NRBC Flagged by Analyzer 0 % (0-5); Neutrophil # 5.67 X10^3/uL (2.7-7.7); Neutrophil % 64.6 % (47-70); Platelet Count 289 K/mm3 (150-450); RBC Distribution Width SD 45.5 fl (35.1-43.9); Red Blood Count 4.26 M/mm3 (4.2-5.4); White Blood Count 8.8 K/mm3 (4.4-11.0)
[2021-10-24 13:12] LABS: Vitamin D,25 Hydroxy 42.8 ng/mL
[2021-10-24 13:20] LABS: ALB/GLOB Ratio 0.8 RATIO (0.9-2.4); AST(SGOT) 24 U/L (15-37); Alanine Aminotransfer ALT/SGPT 34 U/L (13-56); Albumin, Serum 3.4 g/dL (3.2-5.0); Alkaline Phosphatase 114 U/L (45-117); Anion Gap 7 (5-15); BUN 14 mg/dL (7-18); BUN/Creat Ratio 12.5 RATIO (10-20); Calcium,Total 9.3 mg/dL (8.5-10.1); Chloride 104 mmol/L (98-107); Creatinine, Serum 1.12 mg/dL (0.55-1.02); EST Glomerular Filtration Rate 51 mL/min (>60); Est Glom Filt Rate - Afr Amer 61 mL/min (>60); Glucose 198 mg/dL (74-106); Protein, Total 7.4 g/dL (6.4-8.2); Sodium Level 140 mmol/L (136-145); Thyroid Stim Hormone (TSH) 1.53 uIU/mL (0.358-3.74)
== END | disposition home or self-care (01) ==
LOC: POLAB3 10:37
PROVIDERS: PCP Family Medicine Geriatric Medicine; Visit Provider Family Medicine Geriatric Medicine
DX: I10 Essential (primary) hypertension (principal); E11.9 Type 2 diabetes mellitus without complications; E55.9 Vitamin D deficiency, unspecified
CPT/HCPCS: 36415; 80053; 82306; 84443; 85025

== ENCOUNTER → 2022-01-03 | Outpatient (CLI) | payer MEDICARE, SELFPAY | END | disposition home or self-care (01) | LOC: PSN 14:03 | PROVIDERS: PCP Family Medicine Geriatric Medicine; Referring Provider Family Medicine Geriatric Medicine; Visit Provider Family Medicine Geriatric Medicine | DX: U07.1 COVID-19 (principal); R68.83 Chills (without fever) | CPT/HCPCS: 87635; 87804; 87807; C9803; U0003; U0005 ==

== ENCOUNTER → 2022-01-23 | Outpatient (CLI) | payer MEDICARE, SELFPAY ==
[2022-01-23 12:22] LABS: Absolute Lymphocyte Count 1.42 X10^3/uL (0.83-4.51); Absolute Neutrophil Count 3.5 X10^3/uL (2.0-7.7); Basophil# 0.07 X10^3/uL; Basophil% 1.2 % (0-1); Eosinophil# 0.34 X10^3/uL; Eosinophils% 5.9 % (0-5); Hematocrit 36.1 % (37-47); Hemoglobin 11.7 g/dL (12.0-15.0); Lymphocyte # 1.42 X10^3/ul (0.83-4.51); Lymphocyte % 24.5 % (19-41); Mean Corp Hgb Conc 32.4 g/dL (32-36); Mean Corpuscular Hgb 28.5 pg (27.0-32.0); Mean Platelet Vol. 12.9 fl (6.2-12.0); Monocyte# 0.44 X10^3/uL; Monocyte% 7.6 % (0-10); NRBC Flagged by Analyzer 0 % (0-5); Neutrophil # 3.49 X10^3/uL (2.7-7.7); Neutrophil % 60.3 % (47-70); Platelet Count 256 K/mm3 (150-450); RBC Distribution Width CV 13.8 % (11.6-14.6); RBC Distribution Width SD 44.3 fl (35.1-43.9); White Blood Count 5.8 K/mm3 (4.4-11.0)
[2022-01-23 12:40] LABS: Vitamin D,25 Hydroxy 41.4 ng/mL
[2022-01-23 13:17] LABS: ALB/GLOB Ratio 0.9 RATIO (0.9-2.4); AST(SGOT) 24 U/L (15-37); Alanine Aminotransfer ALT/SGPT 40 U/L (13-56); Albumin, Serum 3.3 g/dL (3.2-5.0); Alkaline Phosphatase 112 U/L (45-117); Anion Gap 9 (5-15); BUN 14 mg/dL (7-18); BUN/Creat Ratio 13.6 RATIO (10-20); Calcium,Total 9.2 mg/dL (8.5-10.1); Chloride 103 mmol/L (98-107); Creatinine, Serum 1.03 mg/dL (0.55-1.02); EST Glomerular Filtration Rate 56 mL/min (>60); Est Glom Filt Rate - Afr Amer 67 mL/min (>60); Globulin 3.7 g/dL (2.2-4.2); Glucose 209 mg/dL (74-106); Sodium Level 141 mmol/L (136-145); Thyroid Stim Hormone (TSH) 1.82 uIU/mL (0.358-3.74)
== END | disposition home or self-care (01) ==
LOC: POLAB3 09:15
PROVIDERS: PCP Family Medicine Geriatric Medicine; Visit Provider Family Medicine Geriatric Medicine
DX: E55.9 Vitamin D deficiency, unspecified (principal); E11.9 Type 2 diabetes mellitus without complications; I10 Essential (primary) hypertension
CPT/HCPCS: 36415; 80053; 82306; 84443; 85025

== ENCOUNTER → 2022-04-24 | Outpatient (CLI) | payer MEDICARE, SELFPAY ==
[2022-04-24 13:07] LABS: Absolute Lymphocyte Count 1.62 X10^3/uL (0.83-4.51); Absolute Neutrophil Count 4.3 X10^3/uL (2.0-7.7); Basophil# 0.08 X10^3/uL; Basophil% 1.1 % (0-1); Eosinophil# 0.48 X10^3/uL; Eosinophils% 6.8 % (0-5); Hematocrit 39.3 % (37-47); Hemoglobin 12.6 g/dL (12.0-15.0); Lymphocyte # 1.62 X10^3/ul (0.83-4.51); Lymphocyte % 22.8 % (19-41); Mean Corp Hgb Conc 32.1 g/dL (32-36); Mean Corpuscular Hgb 28.1 pg (27.0-32.0); Mean Corpuscular Volume 87.7 fL (81-99); Mean Platelet Vol. 13.7 fl (6.2-12.0); Monocyte# 0.58 X10^3/uL; Monocyte% 8.2 % (0-10); NRBC Flagged by Analyzer 0 % (0-5); Neutrophil # 4.29 X10^3/uL (2.7-7.7); Neutrophil % 60.5 % (47-70); Platelet Count 243 K/mm3 (150-450); RBC Distribution Width CV 13.5 % (11.6-14.6); RBC Distribution Width SD 43.3 fl (35.1-43.9); Red Blood Count 4.48 M/mm3 (4.2-5.4); White Blood Count 7.1 K/mm3 (4.4-11.0)
[2022-04-24 13:27] LABS: Vitamin D,25 Hydroxy 34.5 ng/mL
[2022-04-24 13:42] LABS: ALB/GLOB Ratio 0.8 RATIO (0.9-2.4); AST(SGOT) 23 U/L (15-37); Alanine Aminotransfer ALT/SGPT 29 U/L (13-56); Albumin, Serum 3.3 g/dL (3.2-5.0); Alkaline Phosphatase 122 U/L (45-117); Anion Gap 11 (5-15); BUN 11 mg/dL (7-18); BUN/Creat Ratio 9.9 RATIO (10-20); Calcium,Total 9.5 mg/dL (8.5-10.1); Chloride 103 mmol/L (98-107); Creatinine, Serum 1.11 mg/dL (0.55-1.02); EST Glomerular Filtration Rate 51 mL/min (>60); Est Glom Filt Rate - Afr Amer 62 mL/min (>60); Globulin 3.9 g/dL (2.2-4.2); Glucose 237 mg/dL (74-106); Potassium 3.5 mmol/L (3.5-5.1); Protein, Total 7.2 g/dL (6.4-8.2); Sodium Level 139 mmol/L (136-145); Thyroid Stim Hormone (TSH) 1.47 uIU/mL (0.358-3.74)
== END | disposition home or self-care (01) ==
LOC: POLAB3 09:37
PROVIDERS: PCP Family Medicine Geriatric Medicine; Visit Provider Family Medicine Geriatric Medicine
DX: E55.9 Vitamin D deficiency, unspecified (principal); E11.9 Type 2 diabetes mellitus without complications; I10 Essential (primary) hypertension
CPT/HCPCS: 36415; 80053; 82306; 84443; 85025

== ENCOUNTER → 2022-04-24 | Outpatient (CLI) | payer MEDICARE, SELFPAY | END | disposition home or self-care (01) | LOC: PSN 12:22 | PROVIDERS: PCP Family Medicine Geriatric Medicine; Visit Provider Family Medicine Geriatric Medicine | DX: R68.83 Chills (without fever) (principal); E11.9 Type 2 diabetes mellitus without complications; E55.9 Vitamin D deficiency, unspecified; I10 Essential (primary) hypertension | CPT/HCPCS: 36415; 80053; 82306; 84443; 85025; 87635; 87804; 87807; C9803; U0003; U0005 ==

== ENCOUNTER → 2022-10-28 | Outpatient (CLI) | payer MEDICARE, SELFPAY ==
[2022-10-28 15:41] LABS: Absolute Lymphocyte Count 2.41 X10^3/uL (0.83-4.51); Absolute Neutrophil Count 5.1 X10^3/uL (2.0-7.7); Basophil# 0.07 X10^3/uL; Basophil% 0.8 % (0-1); Eosinophil# 0.43 X10^3/uL; Eosinophils% 4.9 % (0-5); Hematocrit 40.1 % (37-47); Hemoglobin 12.7 g/dL (12.0-15.0); Lymphocyte # 2.41 X10^3/ul (0.83-4.51); Lymphocyte % 27.7 % (19-41); Mean Corp Hgb Conc 31.7 g/dL (32-36); Mean Corpuscular Hgb 28.9 pg (27.0-32.0); Mean Corpuscular Volume 91.1 fL (81-99); Mean Platelet Vol. 13.2 fl (6.2-12.0); Monocyte# 0.68 X10^3/uL; Monocyte% 7.8 % (0-10); NRBC Flagged by Analyzer 0 % (0-5); Neutrophil # 5.09 X10^3/uL (2.7-7.7); Neutrophil % 58.5 % (47-70); Platelet Count 246 K/mm3 (150-450); RBC Distribution Width CV 13.1 % (11.6-14.6); RBC Distribution Width SD 43.2 fl (35.1-43.9); White Blood Count 8.7 K/mm3 (4.4-11.0)
[2022-10-28 16:18] LABS: ALB/GLOB Ratio 0.9 RATIO (0.9-2.4); AST(SGOT) 32 U/L (15-37); Alanine Aminotransfer ALT/SGPT 36 U/L (13-56); Albumin, Serum 3.6 g/dL (3.2-5.0); Alkaline Phosphatase 137 U/L (45-117); Anion Gap 9 (5-15); BUN 17 mg/dL (7-18); BUN/Creat Ratio 12.8 RATIO (10-20); Calcium,Total 9.6 mg/dL (8.5-10.1); Chloride 107 mmol/L (98-107); Creatinine, Serum 1.33 mg/dL (0.55-1.02); EST Glomerular Filtration Rate 41 mL/min (>60); Est Glom Filt Rate - Afr Amer 50 mL/min (>60); Globulin 4.2 g/dL (2.2-4.2); Glucose 182 mg/dL (74-106); Potassium 3.7 mmol/L (3.5-5.1); Protein, Total 7.8 g/dL (6.4-8.2); Sodium Level 139 mmol/L (136-145)
[2022-10-28 20:50] LABS: Vitamin D,25 Hydroxy 40.4 ng/mL
== END | disposition home or self-care (01) ==
PROVIDERS: PCP Family Medicine Geriatric Medicine; Visit Provider Family Medicine Geriatric Medicine
DX: E11.65 Type 2 diabetes mellitus with hyperglycemia (principal); I10 Essential (primary) hypertension; E55.9 Vitamin D deficiency, unspecified
CPT/HCPCS: 36415; 80053; 82306; 84443; 85025

== ENCOUNTER → 2023-01-28 | Outpatient (CLI) | payer MEDICARE, SELFPAY ==
[2023-01-28 15:07] LABS: Absolute Lymphocyte Count 2.25 X10^3/uL (0.83-4.51); Absolute Neutrophil Count 4.5 X10^3/uL (2.0-7.7); Basophil# 0.06 X10^3/uL; Basophil% 0.8 % (0-1); Eosinophils% 5.1 % (0-5); Hematocrit 39.4 % (37-47); Hemoglobin 13.1 g/dL (12.0-15.0); Lymphocyte # 2.25 X10^3/ul (0.83-4.51); Lymphocyte % 28.8 % (19-41); Mean Corp Hgb Conc 33.2 g/dL (32-36); Mean Corpuscular Hgb 30.3 pg (27.0-32.0); Mean Platelet Vol. 12.6 fl (6.2-12.0); Monocyte# 0.58 X10^3/uL; Monocyte% 7.4 % (0-10); NRBC Flagged by Analyzer 0 % (0-5); Neutrophil # 4.48 X10^3/uL (2.7-7.7); Neutrophil % 57.4 % (47-70); Platelet Count 261 K/mm3 (150-450); RBC Distribution Width CV 13.2 % (11.6-14.6); RBC Distribution Width SD 43.7 fl (35.1-43.9); Red Blood Count 4.33 M/mm3 (4.2-5.4); White Blood Count 7.8 K/mm3 (4.4-11.0)
[2023-01-28 15:22] LABS: ALB/GLOB Ratio 0.8 RATIO (0.9-2.4); AST(SGOT) 31 U/L (15-37); Alanine Aminotransfer ALT/SGPT 41 U/L (13-56); Albumin, Serum 3.4 g/dL (3.2-5.0); Alkaline Phosphatase 114 U/L (45-117); Anion Gap 6 (5-15); BUN 15 mg/dL (7-18); BUN/Creat Ratio 14.2 RATIO (10-20); Calcium,Total 9.3 mg/dL (8.5-10.1); Chloride 106 mmol/L (98-107); Creatinine, Serum 1.06 mg/dL (0.55-1.02); EST Glomerular Filtration Rate 54 mL/min (>60); Est Glom Filt Rate - Afr Amer 65 mL/min (>60); Globulin 4.1 g/dL (2.2-4.2); Glucose 177 mg/dL (74-106); Potassium 3.5 mmol/L (3.5-5.1); Protein, Total 7.5 g/dL (6.4-8.2); Sodium Level 141 mmol/L (136-145); Thyroid Stim Hormone (TSH) 1.71 uIU/mL (0.358-3.74)
== END | disposition home or self-care (01) ==
LOC: POLAB3 13:34
PROVIDERS: PCP Family Medicine Geriatric Medicine; Visit Provider Family Medicine Geriatric Medicine
DX: E11.65 Type 2 diabetes mellitus with hyperglycemia (principal); I10 Essential (primary) hypertension; E55.9 Vitamin D deficiency, unspecified
CPT/HCPCS: 36415; 80053; 82306; 84443; 85025

== ENCOUNTER → 2023-04-29 | Outpatient (CLI) | payer MEDICARE, SELFPAY ==
[2023-04-29 12:19] LABS: Absolute Lymphocyte Count 1.62 X10^3/uL (0.83-4.51); Absolute Neutrophil Count 4.4 X10^3/uL (2.0-7.7); Basophil# 0.08 X10^3/uL; Basophil% 1.2 % (0-1); Eosinophil# 0.35 X10^3/uL; Eosinophils% 5.1 % (0-5); Hematocrit 39.7 % (37-47); Hemoglobin 13.1 g/dL (12.0-15.0); Lymphocyte # 1.62 X10^3/ul (0.83-4.51); Lymphocyte % 23.5 % (19-41); Mean Corpuscular Hgb 29.2 pg (27.0-32.0); Mean Corpuscular Volume 88.4 fL (81-99); Mean Platelet Vol. 12.8 fl (6.2-12.0); Monocyte# 0.41 X10^3/uL; NRBC Flagged by Analyzer 0 % (0-5); Neutrophil # 4.42 X10^3/uL (2.7-7.7); Neutrophil % 64.1 % (47-70); Platelet Count 266 K/mm3 (150-450); RBC Distribution Width CV 12.5 % (11.6-14.6); RBC Distribution Width SD 40.5 fl (35.1-43.9); Red Blood Count 4.49 M/mm3 (4.2-5.4); White Blood Count 6.9 K/mm3 (4.4-11.0)
--- OUTSIDE RECORDS SUMMARY | 2023-04-29 12:20 | XMS RPT_ITS | CCD ---
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 Name Role Phone Lindsay Kang Unavailable Unavailable Roof COVER CUTTER, Gus Rahman Lindsay Kang Unavailable Unavailable Lindsay Kang Unavailable Unavailable Medications Completed/Discontinued Medications Medication Drug Class(es) Dates Sig (Normalized) Sig (Original) amLODIPine 10 mg oral tablet (4 sources) Dihydropyridine Calcium Channel Celeste take 1 tablet by mouth once daily AMLODIPINE BESYLATE 10 MG TABS One tablet by mouth daily AMLODIPINE BESYLATE [id number] Tobin Lobato amLODIPine 10 mg / atorvastatin 40 mg oral tablet (7 sources) Dihydropyridine Calcium Channel Celeste, HMG-CoA Reductase Inhibitor End: 10-29-2016 take 1 tablet by mouth once daily AMLODIPINE-ATORVA STATIN 10-40 MG TABS One tablet by mouth daily AMLODIPINE-ATORVA STATIN [id number] Indira Conway apixaban 5 mg oral tablet (4 sources) Factor Xa Inhibitor take 1 tablet by mouth twice daily ELIQUIS 5 MG TABS One tablet by mouth twice daily APIXABAN [id number] Tobin Lobato aspirin 81 mg delayed release oral tablet (7 sources) Platelet Aggregation Inhibitor, Nonsteroidal Anti-inflammatory Drug Start: 10-29-2016 take 1 tablet by mouth once daily ASPIRIN EC 81 MG TBEC One tablet by mouth daily ASPIRIN [id number] Gus Beckett COVER CUTTER Problems Active Problems Problem Classification Problem Date Documented Da te Episodic/Chronic Anxiety disorders (4 sources) Anxiety disorder; Translations: [Anxiety disorder, unspecified] 12-19-2015 Chronic Coronary atherosclerosis and other heart disease (3 sources) Coronary atherosclerosis; Translations: [Atherosclerotic heart disease of [place] coronary artery without angina pectoris] Onset: 10-29-2016 10-29-2016 Chronic Diabetes mellitus without complication (4 sources) Type 1 diabetes mellitus without complications; Translations: [Type 1 diabetes mellitus without complications] 05-08-2016 Chronic Essential hypertension (4 sources) Hypertensive disorder; Translations: [Essential (primary) hypertension] 12-19-2015 Chronic Mood disorders (4 sources) Depressive disorder; Translations: [Other depressive episodes] 05-08-2016 Chronic Phlebitis; thrombophlebitis and thromboembolism (4 sources) Thrombosis of vein of lower limb; Translations: [Acute embolism and thrombosis of unspecified vein] Onset: 05-08-2016 05-08-2016 Chronic Unclassified (1 source) Screening for malignant neoplasm of colon ; Translations: [Encounter for screening for malignant neoplasm of colon] Onset: 12-19-2015 12-19-2015 Past or Other Problems Problem Classification Problem Date Documented Da te Episodic/Chronic Abdominal hernia (4 sources) Umbilical hernia; Translations: [Umbilical hernia without obstruction or gangrene] Onset: 12-19-2015 12-19-2015 Episodic Other lower respiratory disease (3 sources) Dyspnea on exertion; Translations: [Other forms of dyspnea] Onset: 10-29-2016 10-29-2016 Episodic Pulmonary heart disease (4 sources) H/O: pulmonary embolus; Translations: [Personal history of pulmonary embolism] Onset: 05-08-2016 05-08-2016 Episodic Results Test Name Value Interpretation Reference Range Facil ity Vital Signs Date Time Vital Sign Value Performing Clinician Yoli perea 10-29-2016 08:19-0400 BMI (Body Mass Index) 53.71 kg/m2 Lindsay Elliott [facility] Work Phone: 10-29-2016 08:19-0400 BP Diastolic 76 mm[Hg] Lindsay [facility] Work Phone: 10-29-2016 08:19-0400 BP Systolic 150 mm[Hg] Lindsay Elliott [facility] Work Phone: 10-29-2016 08:19-0400 Height 147.32 cm Lindsay Elliott [facility] Work Phone: 10-29-2016 08:19-0400 Pulse (Heart Rate) 59 /min Lindsay [facility] Work Phone: 10-29-2016 08:19-0400 Respiratory Rate 20 /min [facility] Work Phone: 10-29-2016 08:19-0400 Weight 116.58 kg Lindsay Kang [facility] Work Phone: 05-08-2016 14:31-0500 BMI (Body Mass Index) 53.12 kg/m2 Gus Beckett COVER CUTTER [facility] Work Phone: 05-08-2016 14:31-0500 Body Temperature 97.7 [degF] Gus Beckett COVER CUTTER [facility] Work Phone: 05-08-2016 14:31-0500 BP Diastolic 69 mm[Hg] Gus Beckett COVER CUTTER [facility] Work Phone: 05-08-2016 14:31-0500 BP Systolic 157 mm[Hg] Gus Beckett COVER CUTTER [facility] Work Phone: 05-08-2016 14:31-0500 BSA (Body Surface Area) 2.02 m2 Gus Beckett COVER CUTTER [facility] Work Phone: 05-08-2016 14:31-0500 Height 147.32 cm Gus Beckett COVER CUTTER [facility] Work Phone: 05-08-2016 14:31-0500 Pulse (Heart Rate) 61 /min Gus Beckett COVER CUTTER [facility] Work Phone: 05-08-2016 14:31-0500 Respiratory Rate 24 /min Gus Beckett COVER CUTTER [facility] Work Phone: 05-08-2016 14:31-0500 Weight 115.55 kg Gus Beckett COVER CUTTER [facility] Work Phone: 05-08-2016 14:31-0500 Weight 115.31 kg Gus Beckett COVER CUTTER [facility] Work Phone: 12-19-2015 11:07-0400 Height 147.32 cm Gus Beckett COVER CUTTER [facility] Work Phone: Encounters Encounter Date Encounter Type Care Provider Facility Start: 07-01-2018 Patient encounter procedure Facility:UNKNOWN Procedures Date Procedure Procedure Detail Performing Clinician Start: 10-29-2016 End: 10-29-2016 Dietary management education, guidance, and counseling Lindsay Kang Start: 10-29-2016 End: 10-29-2016 NIVIA Beckett COVER CUTTER Work Phone: Start: 10-29-2016 End: 10-29-2016 Follow Up Appt 6 months Gus Beckett COVER CUTTER Work Phone: Start: 05-09-2016 End: 05-14-2016 *MISC - Miscellaneous Lab Test #1 Yonas Davis MD Work Phone: Start: 05-09-2016 End: 05-14-2016 F2 gene mutations found [Identifier] in Blood or Tissue by Molecular genetics method Nominal Yonas Davis MD Work Phone: Start: 05-09-2016 End: 05-14-2016 Factor V (Leiden) Mutation Analysis Yonas Davis MD Work Phone: Start: 05-09-2016 End: 05-14-2016 Prostate specific Ag [Presence] in Tissue by Immune stain Yonas Davis MD Work Phone: Start: 05-09-2016 End: 05-14-2016 Protein C actual/normal in Platelet poor plasma by Coagulation assay Yonas Davis MD Work Phone: Start: 05-09-2016 End: 05-14-2016 Protein C Ag actual/normal in Platelet poor plasma by Immunoassay Yonas Davis MD Work Phone: Start: 05-08-2016 End: 05-08-2016 Dietary management education, guidance, and counseling Gus Beckett NP Start: 05-08-2016 End: 05-14-2016 *CBC w/Diff - oncology ONLY Yonas Davis MD Work Phone: Start: 05-08-2016 End: 05-14-2016 *CMP Complete Metabolic Panel Yonas Davis MD Work Phone: Start: 05-08-2016 End: 05-14-2016 aPTT Yonas Davis MD Work Phone: Start: 05-08-2016 End: 05-14-2016 Coagulation factor induced.INR assay in platelet poor plasma Yonas Davis MD Work Phone: Start: 05-08-2016 End: 05-14-2016 Homocysteine [Moles/volume] in Serum or Plasma Yonas Davis MD Work Phone: Start: 12-19-2015 Screening for malign ant neoplasm of colon Screening, colon ca Gus Beckett NP Plan of Treatment Date Care Activity Detail Author Start: 05-06-2017 End: 05-06-2017 Appointment Appointment [facility] Work Phone: Start: 10-29-2016 End: 10-29-2016 Appointment Appointment [facility] Work Phone: Start: 10-29-2016 End: 10-29-2016 NIVIA GONZÁLES [facility] Work Phone: Start: 10-29-2016 End: 10-30-2016 Echocardiography Echocardiogram (complete) [facility] Work Phone: Start: 10-29-2016 End: 10-29-2016 Follow Up Appt 6 months Follow Up Appt 6 months [facility] Work Phone: Start: 05-09-2016 End: 05-14-2016 *MISC - Miscellaneous Lab Test #1 *MISC - Miscellaneous Lab Test #1 [facility] Work Phone: Start: 05-09-2016 End: 05-14-2016 F2 gene mutations found [Identifier] in Blood or Tissue by Molecular genetics method Nominal *FACIID - Clotting Factor II [facility] Work Phone: Start: 05-09-2016 End: 05-14-2016 Factor V (Leiden) Mutation Analysis Factor V (Leiden) Mutation Analysis [facility] Work Phone: Start: 05-09-2016 End: 05-14-2016 Prostate specific Ag [Presence] in Tissue by Immune stain *PROS Protein S Antigen [id number] [facility] Work Phone: Start: 05-09-2016 End: 05-14-2016 Protein C actual/normal in Platelet poor plasma by Coagulation assay *PRCF Anticoag Proten C Activity [facility] Work Phone: Start: 05-09-2016 End: 05-14-2016 Protein C Ag actual/normal in Platelet poor plasma by Immunoassay *PRC Anticoag Proten C Antigen [facility] Work Phone: Start: 05-08-2016 End: 05-14-2016 *CBC w/Diff - oncology ONLY *CBC w/Diff - oncology ONLY [facility] Work Phone: Start: 05-08-2016 End: 05-14-2016 *CMP Complete Metabolic Panel *CMP Complete Metabolic Panel [facility] Work Phone: Start: 05-08-2016 End: 05-14-2016 aPTT *PTT-Partial Thromboplastin Time [facility] Work Phone: Start: 05-08-2016 End: 05-14-2016 aPTT Coag time (PPP) *PTT-Partial Thromboplastin Time [facility] Work Phone: Start: 05-08-2016 End: 05-14-2016 Coagulation factor induced.INR assay in platelet poor plasma *Prothrombin Time (PT) [facility] Work Phone: Start: 05-08-2016 End: 05-14-2016 Homocysteine *Homocystine [facility] Work Phone: Start: 05-08-2016 End: 05-10-2016 Office/outpatient visit, new, level 4 [id number] Ofc Vst, New Level IV [facility] Work Phone: Start: 12-19-2015 End: 12-19-2015 Diagnostic colonoscopy Colonoscopy [facility] Work Phone: Start: 12-19-2015 End: 12-19-2015 Follow-up visit Follow Up as needed [facility] Work Phone: Start: 12-19-2015 End: 01-02-2016 Primary Care Physician Primary Care Physician Duong Borja, [address], [address], [place], [address] [facility] Work Phone: Summary Purpose Family History No Family History Records FoundNo Family History Records Found Advance Directives No Advanced Directives Records FoundNo Advanced Directives Records Found Additional Source Comments INFORMATION SOURCE (unrecogn ized section and content) DATE CREATED AUTHOR AUTHOR'S DARREN CANDELARIA 01/30/2019 [facility] FOR RECORDS PERTAINING TO PATIENTS WHO ARE OR HAVE BEEN ENROLLED IN A CHEMICAL DEPENDENCY/SUBSTANCEABUSE PROGRAM, SOME INFORMATION MAY BE OMITTED. This clinical summary was aggregated from multiple sources. Caution should be exercised in using it in the provision of clinical care. This summary normalizes information from multiple sources, and as a consequence, information in this document may materially change the coding, format and clinical context of patient data. In addition, data may be omitted in some cases. CLINICAL DECISIONS SHOULD BE BASED ON THE PRIMARY CLINICAL RECORDS. [facility]. provides no warranty or guarantee of the accuracy or completeness of information in this document.
[2023-04-29 12:41] LABS: Vitamin D,25 Hydroxy 43.9 ng/mL
[2023-04-29 12:53] LABS: ALB/GLOB Ratio 0.9 RATIO (0.9-2.4); AST(SGOT) 24 U/L (15-37); Alanine Aminotransfer ALT/SGPT 31 U/L (13-56); Albumin, Serum 3.5 g/dL (3.2-5.0); Alkaline Phosphatase 115 U/L (45-117); Anion Gap 8 (5-15); BUN 14 mg/dL (7-18); BUN/Creat Ratio 11.7 RATIO (10-20); Calcium,Total 9.3 mg/dL (8.5-10.1); Chloride 106 mmol/L (98-107); EST Glomerular Filtration Rate 47 mL/min (>60); Est Glom Filt Rate - Afr Amer 56 mL/min (>60); Globulin 3.7 g/dL (2.2-4.2); Glucose 170 mg/dL (74-106); Potassium 3.3 mmol/L (3.5-5.1); Protein, Total 7.2 g/dL (6.4-8.2); Sodium Level 141 mmol/L (136-145); Thyroid Stim Hormone (TSH) 1.66 uIU/mL (0.358-3.74)
== END | disposition home or self-care (01) ==
LOC: POLAB3 11:36
PROVIDERS: PCP Family Medicine Geriatric Medicine; Visit Provider Family Medicine Geriatric Medicine
DX: E11.65 Type 2 diabetes mellitus with hyperglycemia (principal); E55.9 Vitamin D deficiency, unspecified; I10 Essential (primary) hypertension
CPT/HCPCS: 36415; 80053; 82306; 84443; 85025

== ENCOUNTER → 2023-05-05 | Outpatient (CLI) | payer MEDICARE, SELFPAY ==
[2023-05-05 15:27] LABS: Anion Gap 6 (5-15); BUN 18 mg/dL (7-18); BUN/Creat Ratio 16.5 RATIO (10-20); Calcium,Total 9.9 mg/dL (8.5-10.1); Chloride 108 mmol/L (98-107); Creatinine, Serum 1.09 mg/dL (0.55-1.02); EST Glomerular Filtration Rate 52 mL/min (>60); Est Glom Filt Rate - Afr Amer 63 mL/min (>60); Glucose 108 mg/dL (74-106); Potassium 3.7 mmol/L (3.5-5.1); Sodium Level 142 mmol/L (136-145)
== END | disposition home or self-care (01) ==
LOC: POLAB3 14:32
PROVIDERS: PCP Family Medicine Geriatric Medicine; Visit Provider Family Medicine Geriatric Medicine
DX: E78.5 Hyperlipidemia, unspecified (principal)
CPT/HCPCS: 36415; 80048

== ENCOUNTER → 2023-07-28 | Outpatient (CLI) | payer MEDICARE, SELFPAY ==
[2023-07-28 13:10] LABS: Absolute Lymphocyte Count 2.26 X10^3/uL (0.83-4.51); Absolute Neutrophil Count 3.9 X10^3/uL (2.0-7.7); Basophil# 0.07 X10^3/uL; Eosinophil# 0.53 X10^3/uL; Eosinophils% 7.3 % (0-5); Hematocrit 37.4 % (37-47); Hemoglobin 12.3 g/dL (12.0-15.0); Lymphocyte # 2.26 X10^3/ul (0.83-4.51); Lymphocyte % 31.1 % (19-41); Mean Corp Hgb Conc 32.9 g/dL (32-36); Mean Corpuscular Hgb 29.2 pg (27.0-32.0); Mean Corpuscular Volume 88.8 fL (81-99); Mean Platelet Vol. 12.2 fl (6.2-12.0); Monocyte# 0.49 X10^3/uL; Monocyte% 6.7 % (0-10); NRBC Flagged by Analyzer 0 % (0-5); Neutrophil % 53.6 % (47-70); Platelet Count 250 K/mm3 (150-450); RBC Distribution Width CV 12.9 % (11.6-14.6); RBC Distribution Width SD 41.6 fl (35.1-43.9); Red Blood Count 4.21 M/mm3 (4.2-5.4); White Blood Count 7.3 K/mm3 (4.4-11.0)
[2023-07-28 14:31] LABS: Vitamin D,25 Hydroxy 55.7 ng/mL
[2023-07-28 14:40] LABS: ALB/GLOB Ratio 1.1 RATIO (0.9-2.4); AST(SGOT) 22 U/L (15-37); Alanine Aminotransfer ALT/SGPT 29 U/L (13-56); Albumin, Serum 3.6 g/dL (3.2-5.0); Alkaline Phosphatase 96 U/L (45-117); Anion Gap 6 (5-15); BUN 15 mg/dL (7-18); Calcium,Total 9.4 mg/dL (8.5-10.1); Chloride 107 mmol/L (98-107); Cholesterol 114 mg/dL (200); Creatinine, Serum 1.15 mg/dL (0.55-1.02); EST Glomerular Filtration Rate 49 mL/min (>60); Est Glom Filt Rate - Afr Amer 59 mL/min (>60); Globulin 3.4 g/dL (2.2-4.2); Glucose 112 mg/dL (74-106); High Density Lipoprotein 59 mg/dL; Potassium 3.4 mmol/L (3.5-5.1); Sodium Level 140 mmol/L (136-145); Thyroid Stim Hormone (TSH) 1.39 uIU/mL (0.358-3.74); Triglycerides 99 mg/dL; Very Low Density Lipoprotein 20 mg/dL (5-40)
[2023-07-28 16:33] LABS: Hemoglobin A1c 6.4 % (3.8-5.6)
== END | disposition home or self-care (01) ==
LOC: LAB 12:22
PROVIDERS: PCP Family Medicine Geriatric Medicine; Referring Provider Family Medicine Geriatric Medicine; Visit Provider Family Medicine Geriatric Medicine
DX: E11.65 Type 2 diabetes mellitus with hyperglycemia (principal); E55.9 Vitamin D deficiency, unspecified; I10 Essential (primary) hypertension
CPT/HCPCS: 36415; 80053; 80061; 82306; 83036; 84443; 85025

== ENCOUNTER → 2023-10-21 | Outpatient (CLI) | payer MEDICARE, SELFPAY ==
[2023-10-21 11:07] LABS: Absolute Neutrophil Count 3.2 X10^3/uL (2.0-7.7); Basophil# 0.08 X10^3/uL; Basophil% 1.3 % (0-1); Eosinophil# 0.37 X10^3/uL; Hematocrit 38.6 % (37-47); Hemoglobin 12.5 g/dL (12.0-15.0); Lymphocyte % 32.3 % (19-41); Mean Corp Hgb Conc 32.4 g/dL (32-36); Mean Corpuscular Hgb 29.1 pg (27.0-32.0); Mean Platelet Vol. 11.8 fl (6.2-12.0); Monocyte% 8.1 % (0-10); NRBC Flagged by Analyzer 0 % (0-5); Neutrophil # 3.22 X10^3/uL (2.7-7.7); Platelet Count 255 K/mm3 (150-450); RBC Distribution Width CV 12.4 % (11.6-14.6); RBC Distribution Width SD 40.4 fl (35.1-43.9); Red Blood Count 4.29 M/mm3 (4.2-5.4); White Blood Count 6.2 K/mm3 (4.4-11.0)
[2023-10-21 15:27] LABS: ALB/GLOB Ratio 0.8 RATIO (0.9-2.4); AST(SGOT) 25 U/L (15-37); Alanine Aminotransfer ALT/SGPT 25 U/L (13-56); Albumin, Serum 3.3 g/dL (3.2-5.0); Alkaline Phosphatase 121 U/L (45-117); Anion Gap 9 (5-15); BUN 15 mg/dL (7-18); BUN/Creat Ratio 11.9 RATIO (10-20); Calcium,Total 8.8 mg/dL (8.5-10.1); Chloride 106 mmol/L (98-107); Creatinine, Serum 1.26 mg/dL (0.55-1.02); EST Glomerular Filtration Rate 44 mL/min (>60); Est Glom Filt Rate - Afr Amer 53 mL/min (>60); Globulin 3.9 g/dL (2.2-4.2); Glucose 236 mg/dL (74-106); Potassium 3.6 mmol/L (3.5-5.1); Protein, Total 7.2 g/dL (6.4-8.2); Sodium Level 141 mmol/L (136-145)
[2023-10-21 16:11] LABS: Vitamin D,25 Hydroxy 43.7 ng/mL
== END | disposition home or self-care (01) ==
LOC: POLAB3 10:56
PROVIDERS: PCP Family Medicine Geriatric Medicine; Visit Provider Family Medicine Geriatric Medicine
DX: E11.65 Type 2 diabetes mellitus with hyperglycemia (principal); E55.9 Vitamin D deficiency, unspecified; I10 Essential (primary) hypertension
CPT/HCPCS: 36415; 80053; 82306; 84443; 85025

== ENCOUNTER → 2024-01-20 | Outpatient (CLI) | payer MEDICARE, SELFPAY ==
[2024-01-20 11:35] LABS: Absolute Lymphocyte Count 2.24 X10^3/uL (0.83-4.51); Absolute Neutrophil Count 2.7 X10^3/uL (2.0-7.7); Basophil# 0.08 X10^3/uL; Basophil% 1.3 % (0-1); Eosinophil# 0.47 X10^3/uL; Eosinophils% 7.7 % (0-5); Hemoglobin 13.1 g/dL (12.0-15.0); Lymphocyte # 2.24 X10^3/ul (0.83-4.51); Lymphocyte % 36.8 % (19-41); Mean Corp Hgb Conc 32.8 g/dL (32-36); Mean Corpuscular Hgb 29.2 pg (27.0-32.0); Mean Corpuscular Volume 89.1 fL (81-99); Mean Platelet Vol. 11.8 fl (6.2-12.0); Monocyte# 0.55 X10^3/uL; NRBC Flagged by Analyzer 0 % (0-5); Neutrophil # 2.72 X10^3/uL (2.7-7.7); Neutrophil % 44.9 % (47-70); Platelet Count 263 K/mm3 (150-450); RBC Distribution Width CV 12.7 % (11.6-14.6); RBC Distribution Width SD 41.6 fl (35.1-43.9); Red Blood Count 4.49 M/mm3 (4.2-5.4); White Blood Count 6.1 K/mm3 (4.4-11.0)
[2024-01-20 12:03] LABS: Vitamin D,25 Hydroxy 35.8 ng/mL
[2024-01-20 12:08] LABS: ALB/GLOB Ratio 0.9 RATIO (0.9-2.4); AST(SGOT) 24 U/L (15-37); Alanine Aminotransfer ALT/SGPT 27 U/L (13-56); Albumin, Serum 3.6 g/dL (3.2-5.0); Alkaline Phosphatase 117 U/L (45-117); Anion Gap 8 (5-15); BUN 18 mg/dL (7-18); BUN/Creat Ratio 13.7 RATIO (10-20); Calcium,Total 9.5 mg/dL (8.5-10.1); Chloride 107 mmol/L (98-107); Creatinine, Serum 1.31 mg/dL (0.55-1.02); EST Glomerular Filtration Rate 42 mL/min (>60); Est Glom Filt Rate - Afr Amer 51 mL/min (>60); Globulin 3.9 g/dL (2.2-4.2); Glucose 137 mg/dL (74-106); Potassium 3.8 mmol/L (3.5-5.1); Protein, Total 7.5 g/dL (6.4-8.2); Sodium Level 141 mmol/L (136-145)
== END | disposition home or self-care (01) ==
LOC: POLAB3 11:20
PROVIDERS: PCP Family Medicine Geriatric Medicine; Visit Provider Family Medicine Geriatric Medicine
DX: E11.65 Type 2 diabetes mellitus with hyperglycemia (principal); I10 Essential (primary) hypertension; E55.9 Vitamin D deficiency, unspecified
CPT/HCPCS: 36415; 80053; 82306; 84443; 85025

== ENCOUNTER → 2024-04-30 | Outpatient (CLI) | payer MEDICARE, SELFPAY ==
[2024-04-30 12:46] LABS: Absolute Lymphocyte Count 2.29 X10^3/uL (0.83-4.51); Absolute Neutrophil Count 3.9 X10^3/uL (2.0-7.7); Basophil# 0.09 X10^3/uL; Basophil% 1.3 % (0-1); Eosinophil# 0.33 X10^3/uL; Eosinophils% 4.6 % (0-5); Hematocrit 37.6 % (37-47); Hemoglobin 12.4 g/dL (12.0-15.0); Lymphocyte # 2.29 X10^3/ul (0.83-4.51); Lymphocyte % 32.1 % (19-41); Mean Corpuscular Hgb 29.4 pg (27.0-32.0); Mean Corpuscular Volume 89.1 fL (81-99); Mean Platelet Vol. 11.5 fl (6.2-12.0); Monocyte# 0.49 X10^3/uL; Monocyte% 6.9 % (0-10); NRBC Flagged by Analyzer 0 % (0-5); Neutrophil # 3.91 X10^3/uL (2.7-7.7); Neutrophil % 54.7 % (47-70); Platelet Count 244 K/mm3 (150-450); RBC Distribution Width CV 12.9 % (11.6-14.6); RBC Distribution Width SD 41.5 fl (35.1-43.9); Red Blood Count 4.22 M/mm3 (4.2-5.4); White Blood Count 7.1 K/mm3 (4.4-11.0)
[2024-04-30 13:14] LABS: Vitamin D,25 Hydroxy 47.1 ng/mL
[2024-04-30 13:21] LABS: ALB/GLOB Ratio 0.8 RATIO (0.9-2.4); AST(SGOT) 23 U/L (15-37); Alanine Aminotransfer ALT/SGPT 27 U/L (13-56); Albumin, Serum 3.1 g/dL (3.2-5.0); Alkaline Phosphatase 125 U/L (45-117); Anion Gap 8 (5-15); BUN 16 mg/dL (7-18); BUN/Creat Ratio 15.7 RATIO (10-20); Calcium,Total 9.2 mg/dL (8.5-10.1); Chloride 109 mmol/L (98-107); Creatinine, Serum 1.02 mg/dL (0.55-1.02); EST Glomerular Filtration Rate 56 mL/min (>60); Est Glom Filt Rate - Afr Amer 68 mL/min (>60); Globulin 3.9 g/dL (2.2-4.2); Glucose 119 mg/dL (74-106); Potassium 3.6 mmol/L (3.5-5.1); Sodium Level 141 mmol/L (136-145)
== END | disposition home or self-care (01) ==
LOC: LAB 12:26
PROVIDERS: PCP Family Medicine Geriatric Medicine; Referring Provider Family Medicine Geriatric Medicine; Visit Provider Family Medicine Geriatric Medicine
DX: E11.65 Type 2 diabetes mellitus with hyperglycemia (principal); I10 Essential (primary) hypertension; E55.9 Vitamin D deficiency, unspecified
CPT/HCPCS: 36415; 80053; 82306; 84443; 85025

== ENCOUNTER → 2024-05-17 | Outpatient (CLI) | payer MEDICARE, SELFPAY | END | disposition home or self-care (01) | LOC: POLAB3 10:14 | PROVIDERS: PCP Family Medicine Geriatric Medicine; Visit Provider Family Medicine Geriatric Medicine | DX: R68.83 Chills (without fever) (principal) | CPT/HCPCS: 87631 ==

== ENCOUNTER 2024-07-07 11:45 | Day surgery (SDC) | payer MEDICARE, SELFPAY ==
--- NOTE | 2024-07-07 11:03 | PCM.HP.STD ---
HPI - General HPI Narrative Joyce Bernard is a delightful 74-year-old female with type 2 diabetes (A1c of 8) and a history of blood clots/pulmonary emboli (currently on Coumadin) who presents for a posterior left vertex scalp cyst. It has been there for several months but recently started bothering her and draining and scabbed over. It is currently inflamed and she was referred here. 25 June 2024: Improved pain on the doxycycline. No significant drainage. Doing well overall. Current Encounter (DATE OF SURGERY H&P UPDATE): I saw and examined the patient this morning in pre-operative holding. We discussed risks and benefits of today's surgery and they would like to proceed. NO CHANGE in health history since last seen and evaluated. Ready to proceed with surgery. [facility] Medical History MDD (major depressive disorder) Generalized anxiety disorder GERD (gastroesophageal reflux disease) Factor V deficiency Obstructive sleep apnea Morbid obesity Hypertension Hyperlipidemia Atherosclerosis of coronary artery of [place] heart without angina pectoris (10/04/16) Incarcerated hernia Pulmonary embolism LBBB (left bundle branch block) Superficial thrombophlebitis of right leg Heterozygous factor V Leiden mutation Home Medications ?Medication ?Instructions ?Recorded ?Last Taken ?Type amlodipine 10 mg tablet 10 mg PO DAILY 01/09/19 Unknown History atorvastatin 40 mg tablet 40 mg PO QHS 01/09/19 Unknown History losartan 50 mg tablet 50 mg PO BID 01/09/19 Unknown History metformin 500 mg tablet 1,000 mg PO DAILY DIABETES 01/09/19 Unknown History pantoprazole 40 mg tablet,delayed 40 mg PO BID #60 tabs 01/12/19 Unknown Rx release hydrochlorothiazide 25 mg tablet 25 mg PO DAILY #90 tabs 01/15/19 Unknown Rx warfarin 5 mg tablet 5 mg PO DAILY 07/01/22 Unknown History escitalopram oxalate 5 mg tablet 5 mg PO QDAY #30 tabs 06/08/24 Unknown Rx warfarin 3 mg tablet 3 mg PO QDAY 06/17/24 Unknown History bupropion HCl 300 mg 24 hr tablet, 300 mg PO DAILY 90 days #90 tabs 07/06/24 Unknown Rx extended release doxycycline hyclate 100 mg capsule 100 mg PO BID 7 days #14 caps 07/07/24 Unknown Rx oxycodone 5 mg tablet 5 mg PO DAILY PRN pain 5 days #5 07/07/24 Unknown Rx tabs Allergy/AdvReac Type Severity Reaction Status Date / Time No Known Allergies Allergy Verified 07/06/24 11:04 Family History Mother Hypertension Heart disease Diabetes Father Cancer Sister Cancer Diabetes Thyroid disorder Surgical History H/O umbilical hernia repair (~03/2017) History of Hx of cholecystectomy History of left heart catheterization (10/04/16) Social History Smoking Status: Former smoker alcohol intake: never substance use type: does not use additional social history: denies aspirin and ibuprofen use Physical Exam Narrative No neck lymphadenopathy Less inflammation and drainage since last week, and area of concern is still consistent with a mobile epidermal inclusion cyst. Scab is gone. The cyst is approximately 2 x 2 cm. Assessment & Plan Assessment/Plan (1) Epidermal inclusion cyst: PLAN: Plan Scalp cyst is indurated and appears to be slightly infected. We are going to place her on doxycycline 100 mg twice daily for 1 week to get the cyst to quiet down and then we will excise it. The area of scabbing also needs to heal. I am worried if we excise it right now the skin will breakdown and she will have a larger wound especially with her A1c of 8. I think getting the area to quiet down this week, and asking Dr. Daly her primary care doctor about taking her off of Coumadin in anticipation for cyst excision, is reasonable (would likely need a bridge). Plan for follow-up in 1 week. Patient happy with the plan Plan from 25 June 2024: Discussed with her improvement in the cyst appearance (less inflamed and does not appear infected at this time status post 1 week of doxycycline). I believe I can excise it and close it primarily at this point as the open wound portion of it has healed. I talked her about the risks, benefits, and alternatives to cyst excision, as well as the risks, benefits, and alternatives to stopping Coumadin before the procedure. After our discussion, our plan will be excision in the operating room in a controlled environment where we have a Bovie to stop bleeding, but we will plan for continuing her Coumadin. She understands the risk of bleeding. She understands the risk of wound healing complications especially in the setting of her high hemoglobin A1c/diabetes. She understands the risk of infection. Plan for excision of scalp cyst under local with primary closure. CPT codes for insurance prior authorization are as follows: 68845, [id number] INTERVAL H&P PLAN, DATE OF SURGERY: I talked to the patient extensively about the risks of surgery, including bleeding, infection, damage to surrounding structures, poor scaring, surgical site dehiscence and wound formation, need for wound care, need for repeat operations, failure to obtain the desired result, DVT/PE, and the risks of anesthesia including , including stroke (from low blood pressure/ischemia or clot). The benefits and alternatives of this surgery were also discussed. All of their questions were answered, and they agreed to proceed with surgery. We will proceed with surgery today. I marked the cyst and patient was in agreement.
[2024-07-07] MEDS: Cephalexin 500 MG Capsule PO (12:09)
[2024-07-07 12:13] VITALS: BP 169/58; PULSE 43; RESP 16; TEMP 36.8; O2SAT 100; BMI 44.6
[2024-07-07 12:17] VITALS: BP 116/33; BP 139/61; O2SAT 100; O2SAT 98
--- NOTE | 2024-07-07 12:49 | EKG12_ITS ---
Test Reason : ARRYTH Blood Pressure : */* mmHG Vent. Rate : 42 BPM Atrial Rate : 42 BPM P-R Int : 204 ms QRS Dur : 176 ms QT Int : 534 ms P-R-T Axes : 48 0 45 degrees QTcB Int : 445 ms Marked sinus bradycardia with sinus arrhythmia Left bundle branch block Abnormal ECG Confirmed by BRIGETTE OBRIEN, CRISTIANO ([id number]), desk editor MARIANELA SHEPHERD ([id number]) on 07/08/2024 1:26:04 PM Referred By: Javid Byrd Confirmed By: CRISTIANO MACHUCA MD
[2024-07-07 13:00] VITALS: BP 153/50; BP 169/58; PULSE 42; RESP 16; O2SAT 97
--- NOTE | 2024-07-07 13:04 | SUR.PHASEII ---
EKG COMPLETED AND REVIEWED BY DR DOWNEY WHO RECOMMENDS PATIENT BE EVALUATED IN ER
== END 2024-07-07 13:08 | disposition home or self-care (01) ==
LOC: SDC 11:45 → AC 11:52
PROVIDERS: PCP Family Medicine Geriatric Medicine; Referring Provider Surgery Plastic and Reconstructive Surgery; Visit Provider Surgery Plastic and Reconstructive Surgery
PROC: (CPT 11422; principal; 2024-07-07 12:30)
DX: L72.0 Epidermal cyst (principal); D68.2 Hereditary deficiency of other clotting factors; E11.9 Type 2 diabetes mellitus without complications; Z53.9 Procedure and treatment not carried out, unspecified reason; K21.9 Gastro-esophageal reflux disease without esophagitis; I10 Essential (primary) hypertension; Z87.891 Personal history of nicotine dependence; E78.5 Hyperlipidemia, unspecified; Z79.01 Long term (current) use of anticoagulants; I25.10 Atherosclerotic heart disease of native coronary artery without angina pectoris; Z86.711 Personal history of pulmonary embolism; Z79.899 Other long term (current) drug therapy; F41.1 Generalized anxiety disorder; R00.1 Bradycardia, unspecified; I44.7 Left bundle-branch block, unspecified; F32.9 Major depressive disorder, single episode, unspecified; G47.33 Obstructive sleep apnea (adult) (pediatric); Z86.72 Personal history of thrombophlebitis
CPT/HCPCS: 11422; 71046; 80048; 84439; 84443; 84481; 84484; 85025; 85610; 85730; 93005; 99284; A4216

== ENCOUNTER 2024-07-07 13:14 | Emergency (ER) | payer MEDICARE, SELFPAY ==
[2024-07-07] VITALS (15 sets, daily range): BP systolic 132–160; BP diastolic 51–78; PULSE 40–66; RESP 11–24; TEMP 36.6–36.8; O2SAT 97–100; BMI 46.2
--- NOTE | 2024-07-07 14:05 | RAD_ITS ---
PROCEDURE: CHEST PA AND LATERAL 07/07/2024 REASON FOR EXAM: BRADYCARDIA TECHNIQUE: Frontal and lateral views of the chest. COMPARISON: Chest radiograph 05/27/2018. FINDINGS: Hardware: None. Heart: The heart size is normal. Mediastinum: The mediastinal contour is stable. Lungs: Findings of emphysema with bibasilar atelectasis/scarring. No focal consolidation, pleural effusion or pneumothorax. Bones: Degenerative changes are identified within the thoracic spine. RAD/Chest PA and Lateral IMPRESSION: No acute findings. Mild emphysema. Reading Location: [id number]
--- NOTE | 2024-07-07 14:15 | EKG12_ITS ---
Test Reason : Blood Pressure : */* mmHG Vent. Rate : 39 BPM Atrial Rate : 39 BPM P-R Int : 194 ms QRS Dur : 176 ms QT Int : 574 ms P-R-T Axes : 12 -2 67 degrees QTcB Int : 462 ms Marked sinus bradycardia with Premature supraventricular complexes Left bundle branch block Abnormal ECG When compared with ECG of 09-Jan-2019 06:09, Premature supraventricular complexes are now Present Vent. rate has decreased by 27 bpm QT has shortened Confirmed by BRIGETTE OBRIEN, CRISTIANO ([id number]), supervising film or videotape editor FRANCISCO DAVENPORT ([id number]) on 07/09/2024 6:39:36 AM Referred By: NASREEN Confirmed By: CRISTIANO MACHUCA MD
[2024-07-07 14:20] LABS: Absolute Lymphocyte Count 1.92 X10^3/uL (0.83-4.51); Absolute Neutrophil Count 3.5 X10^3/uL (2.0-7.7); Basophil# 0.07 X10^3/uL; Basophil% 1.1 % (0-1); Eosinophil# 0.22 X10^3/uL; Eosinophils% 3.5 % (0-5); Hematocrit 36.4 % (37-47); Hemoglobin 12.1 g/dL (12.0-15.0); Lymphocyte # 1.92 X10^3/ul (0.83-4.51); Lymphocyte % 30.6 % (19-41); Mean Corp Hgb Conc 33.2 g/dL (32-36); Mean Corpuscular Hgb 29.9 pg (27.0-32.0); Mean Corpuscular Volume 89.9 fL (81-99); Mean Platelet Vol. 12.6 fl (6.2-12.0); Monocyte# 0.53 X10^3/uL; Monocyte% 8.4 % (0-10); NRBC Flagged by Analyzer 0 % (0-5); Neutrophil # 3.52 X10^3/uL (2.7-7.7); Neutrophil % 56.1 % (47-70); Platelet Count 206 K/mm3 (150-450); RBC Distribution Width CV 13.6 % (11.6-14.6); RBC Distribution Width SD 44.6 fl (35.1-43.9); Red Blood Count 4.05 M/mm3 (4.2-5.4); White Blood Count 6.3 K/mm3 (4.4-11.0)
--- NOTE | 2024-07-07 14:20 | EX.ED.DYSGE1 ---
HPI History of Present Illness Chief Complaint: Chest Other Narrative Narrative: Patient is a 74-year-old female with a past medical history of factor V deficiency, pulm embolism on warfarin, left bundle branch block, KHADRA, GERD who presents to the emergency department with a chief complaint of low heart rate. Patient states that she was scheduled to have a cyst removed today and they noted that preoperatively that her heart rate was low therefore they sent her here for further evaluation management. Patient states that yesterday she was getting a prescreening exam and her heart rate was low then as well but she denies any symptoms with this. In the triage note it states that she has tingling in her fingers however she states that this has been going on for months this is not new. Patient states that she has been compliant with her warfarin outside of holding it recently for her procedure. Patient otherwise is asymptomatic and has no complaints. [facility] Medical History MDD (major depressive disorder) Generalized anxiety disorder GERD (gastroesophageal reflux disease) Factor V deficiency Obstructive sleep apnea Morbid obesity Hypertension Hyperlipidemia Atherosclerosis of coronary artery of [place] heart without angina pectoris (10/04/16) Incarcerated hernia Pulmonary embolism LBBB (left bundle branch block) Superficial thrombophlebitis of right leg Heterozygous factor V Leiden mutation Home Medications ?Medication ?Instructions ?Recorded ?Last Taken ?Type amlodipine 10 mg tablet 10 mg PO DAILY 01/09/19 07/06/24 History atorvastatin 40 mg tablet 40 mg PO QHS 01/09/19 07/06/24 History losartan 50 mg tablet 50 mg PO BID 01/09/19 07/07/24 History metformin 500 mg tablet 1,000 mg PO DAILY DIABETES 01/09/19 Unknown History hydrochlorothiazide 25 mg tablet 25 mg PO DAILY #90 tabs 01/15/19 07/07/24 Rx escitalopram oxalate 5 mg tablet 5 mg PO QDAY #30 tabs 06/08/24 07/07/24 Rx warfarin 3 mg tablet 3 mg PO QDAY 06/17/24 07/05/24 History bupropion HCl 300 mg 24 hr tablet, 300 mg PO DAILY 90 days #90 tabs 07/06/24 07/07/24 Rx extended release cholecalciferol (vitamin D3) 25 25 mcg PO DAILY 07/07/24 07/06/24 History mcg (1,000 unit) tablet pantoprazole 40 mg tablet,delayed 40 mg PO DAILY 07/07/24 07/07/24 History release Allergy/AdvReac Type Severity Reaction Status Date / Time No Known Allergies Allergy Verified 07/07/24 13:16 Family History Mother Hypertension Heart disease Diabetes Father Cancer Sister Cancer Diabetes Thyroid disorder Surgical History H/O umbilical hernia repair (~03/2017) History of Hx of cholecystectomy History of left heart catheterization (10/04/16) Social History Smoking Status: Former smoker alcohol intake: never substance use type: does not use additional social history: denies aspirin and ibuprofen use ROS ROS ED ROS Narrative Constitutional: Denies any fevers, chills, headaches, legs, dizziness Eyes: That she has been double vision blurry vision Cardiovascular: Denies chest pain or palpitations Respiratory: Denies coughing wheezing shortness of breath Abdomen: Denies abdominal pain nausea vomit diarrhea : Denies urinary symptoms Neurological: Denies any numbness, aches, tingling currently Musculoskeletal: Denies back pain Skin: Denies rashes or lesions EXAM Physical Exam Narrative Exam Narrative: General: Patient is lying in bed rest comfortably did not appear to be acute distress Head: Atraumatic, normocephalic Eyes: PERRL bilaterally, EOMI bilaterally, no conjunctival injection noted Neck: Soft, supple, trachea midline Cardiovascular: Patient bradycardic with a regular rhythm no murmurs gallops rubs noted Respiratory: Clear to auscultation bilaterally Abdomen: Soft, nondistended, nontender to palpation Extremities: +5/5 strength noted in the bilateral upper and lower extremities, radial pulses +2/4 in the bilateral extremities, no pedal edema exam Neurological: Patient following commands knew that she was at [facility] year is 2024 Skin: Warm, dry, intact no rashes or lesions noted Const Vital Signs: 07/07/24 13:16 07/07/24 13:22 07/07/24 14:07 Temperature 98 F Temperature Source Oral Pulse Rate 48 L Respiratory Rate 24 H Respiratory Effort Normal Blood Pressure 154/66 H Blood Pressure Mean 95 Pulse Ox 97 Oxygen Delivery Method Room Air Room Air 07/07/24 14:15 07/07/24 14:16 07/07/24 14:27 Temperature Temperature Source Pulse Rate 45 L Respiratory Rate 16 Respiratory Effort Blood Pressure 160/53 H 160/78 H Blood Pressure Mean 82 105 Pulse Ox 98 97 Oxygen Delivery Method Room Air 07/07/24 14:30 07/07/24 14:45 07/07/24 15:00 Temperature Temperature Source Pulse Rate 45 L 45 L 41 L Respiratory Rate 18 17 16 Respiratory Effort Blood Pressure 159/54 H Blood Pressure Mean 81 Pulse Ox 99 97 99 Oxygen Delivery Method Room Air Room Air 07/07/24 15:12 07/07/24 15:15 07/07/24 15:30 Temperature Temperature Source Pulse Rate 40 L 66 42 L Respiratory Rate 17 15 11 L Respiratory Effort Blood Pressure 142/52 H 154/61 H 150/53 H Blood Pressure Mean 75 87 79 Pulse Ox 98 98 97 Oxygen Delivery Method Room Air Room Air 07/07/24 15:45 07/07/24 16:00 Temperature Temperature Source Pulse Rate 46 L 59 L Respiratory Rate 14 13 Respiratory Effort Blood Pressure 148/54 H 140/54 H Blood Pressure Mean 78 77 Pulse Ox 99 98 Oxygen Delivery Method Room Air MDM MDM MDM Narrative Medical decision making narrative: Patient is a 74-year-old female who presented to the emergency department with a chief complaint of bradycardia. Patient will get workup performed here on the differential diagnosis includes but not limited to asymptomatic bradycardia, ACS, pneumothorax, pneumonia, Wenke Bach, third-degree heart block. Once workup is obtained and reviewed she will be reevaluated. Patient CBC was reviewed and showed no evidence leukocytosis white blood count normal at 6.3, hemoglobin 12.1, plate count was noted be 206. Patient's INR is 2, PT of 22.8, sodium was normal 141, potassium 4.1, creatinine was 1.11. Patient's troponin was 17 with a delta troponin of 16. Patient's EKG showed sinus bradycardia with a rate of 42 bpm this was compared to EKG from January 09, 2019 at that point in time showed sinus rhythm with evidence of left bundle branch block she does have left bundle branch block again on EKG today., TSH normal at 1.74, free T4 and T3 were normal at 1.40 and 2.6 respectively. Patient's chest x-ray reviewed by myself and by radiology showed no acute cardiopulmonary findings mild emphysema noted. Called and discussed case with on-call goat driver Dr. Carr who states that the patient will be placed on a Holter monitor and follow-up with them in the outpatient setting. She is also advised to follow-up with her primary care physician. She is encouraged to return with worsening symptoms or concerns. She is agreeable this plan all question concerns answered she is discharged home in stable condition. Lab Data Labs: Laboratory Results - last 24 hr 07/07/24 07/07/24 13:21 15:18 WBC 6.3 RBC 4.05 L Hgb 12.1 Hct 36.4 L MCV 89.9 MCH 29.9 MCHC 33.2 RDW Std Deviation 44.6 H RDW Coeff of [place] 13.6 Plt Count 206 MPV 12.6 H Immature Gran % (Auto) 0.300 Neut % (Auto) 56.1 Lymph % (Auto) 30.6 [place] % (Auto) 8.4 Eos % (Auto) 3.5 Baso % (Auto) 1.1 H Absolute Neuts (auto) 3.5 Absolute Lymphs (auto) 1.92 Nucleated RBC % 0 PT 22.8 H INR 2.0 APTT 29.9 Sodium 141 Potassium 4.1 Chloride 105 Carbon Dioxide 25.4 Anion Gap 11 BUN 20 H Creatinine 1.11 Estim Creat Clear Calc 45.89 L Est GFR (MDRD) Non-Af 52 L BUN/Creatinine Ratio 18.0 Glucose 106 H Calcium 9.4 Troponin T High Sens 17 H Troponin T Hi Sens 2 Hr 16 H TSH 1.740 Free T4 1.40 Free T3 pg/dL 2.6 Radiography Diagnostic Testing: Clinical Impression(s) from Imaging Studies Chest X-Ray 07/07/24 14:05 IMPRESSION: No acute findings. Mild emphysema. Reading Location: [facility] Discharge Plan Triage Chief Complaint: Chest Other ED Provider: Jaison Hardy Dx/Rx/DC Orders Clinical Impression: Bradycardia Prescriptions: No Action bupropion HCl 300 mg tablet extended release 24 hr 300 mg PO DAILY 90 Days Qty: 90 1RF warfarin 3 mg tablet 3 mg PO QDAY losartan 50 MG tablet 50 mg PO BID atorvastatin 40 MG tablet 40 mg PO QHS metformin 500 MG tablet 1,000 mg PO DAILY Patient Comments: pt has not taken for a few months but said pcp told her she should be taking it amlodipine 10 MG tablet 10 mg PO DAILY cholecalciferol (vitamin D3) 25 mcg (1,000 unit) tablet 25 mcg PO DAILY pantoprazole 40 MG tablet 40 mg PO DAILY hydrochlorothiazide 25 mg tablet 25 mg PO DAILY Qty: 90 3RF escitalopram oxalate 5 mg tablet 5 mg PO QDAY Qty: 30 2RF Primary Care Provider: Duong Borja Chi Referrals: Duong Borja Chi, MD [Primary Care Provider] - Hernan Carr MD [Med Staff - Active Staff] - Activity Restrictions/Additional Instructions: Wear Holter monitor as prescribed. Follow-up with the cardiology team in the outpatient setting that you referred to and follow-up with your primary care physician. If you develop lightheadedness, feel like you are in a pass out, low blood pressure with your low heart rate you should return to the emergency department immediately. Return with any other concerns as well. Print Language: Vietnamese Disposition Disposition: Home, Self Care
[2024-07-07 14:30] LABS: Partial Thromboplast Time 29.9 Seconds (24.1-36.2); Prothrombin Time (Protime)PT. 22.8 SECONDS (11.7-14.9)
--- NOTE | 2024-07-07 15:13 | ED.RN ---
LAB CALLED FOR OUTSTANDING BMP. RESPONSE, IT SHOULD BE DONE IN 10 MINUTES
[2024-07-07 15:32] LABS: Anion Gap 11 (5-15); BUN 20 mg/dL (4-19); Calcium,Total 9.4 mg/dL (7.6-11.0); Carbon Dioxide 25.4 mmol/L (21.0-32.0); Chloride 105 mmol/L (98-108); Creatinine, Serum 1.11 mg/dL (0.70-1.20); EST Glomerular Filtration Rate 52 (>60); Estimated Creatinine Clearance 45.89 ml/min (50-250); Free T3 2.6 pg/mL (2.18-3.98); Glucose 106 mg/dL (70-99); Potassium 4.1 mmol/L (3.3-5.1); Sodium Level 141 mmol/L (133-145); Troponin T High Sensitivity 17 ng/L (<=14)
[2024-07-07 16:03] LABS: Troponin T High Sens 2 HR 16 ng/L (<=14)
== END 2024-07-07 16:50 | disposition home or self-care (01) ==
PROVIDERS: Emergency Provider Emergency Medicine; PCP Family Medicine Geriatric Medicine; Visit Provider Emergency Medicine
DX: R00.1 Bradycardia, unspecified (principal); D68.2 Hereditary deficiency of other clotting factors; I10 Essential (primary) hypertension; I44.7 Left bundle-branch block, unspecified; F32.9 Major depressive disorder, single episode, unspecified; F41.1 Generalized anxiety disorder; K21.9 Gastro-esophageal reflux disease without esophagitis; E78.5 Hyperlipidemia, unspecified; I25.10 Atherosclerotic heart disease of native coronary artery without angina pectoris; G47.33 Obstructive sleep apnea (adult) (pediatric); Z86.72 Personal history of thrombophlebitis; Z79.01 Long term (current) use of anticoagulants; Z86.711 Personal history of pulmonary embolism; Z79.899 Other long term (current) drug therapy; Z87.891 Personal history of nicotine dependence
CPT/HCPCS: 71046; 80048; 84439; 84443; 84481; 84484; 85025; 85610; 85730; 93005; A4216

== ENCOUNTER 2024-07-10 09:00 | Emergency (ER) | payer MEDICARE, SELFPAY ==
[2024-07-10 09:01] VITALS: BP 174/72; PULSE 68; RESP 19; TEMP 36.2; O2SAT 97; BMI 44.6
--- NOTE | 2024-07-10 09:20 | EDS_ITS ---
HPI HPI - GI History of Present Illness Chief Complaint: Abd Pain Narrative Narrative: 74-year-old female past medical history of of hernia repair by Dr. Liz approximately 9 years ago, presents with abdominal pain, nausea and vomiting since 8 PM yesterday. She relates history that she had a hernia repair. She reports that mesh was not used because the surgeon does not like to use mesh. She had this repaired 9 to 10 years ago, but another hernia developed. She states that she was trying to be careful when she bent over yesterday evening around 8 PM, approximately 13 hours ago. However, she felt like her hernia came out. She states that she tried to push it back in, and thinks she was successful but is still having pain in that area of her hernia or even more towards the right. Other past abdominal surgeries include cholecystectomy and appendectomy. She states she had a bowel movement this morning but it was slightly loose. She denies any fevers or chills. She states that she experienced nausea and vomiting all night, but did not want to come in because of the rain. She is concerned that her hernia is still out. [facility] Medical History BPPV (benign paroxysmal positional vertigo) Stage 3a chronic kidney disease (CKD) Chronic deep vein thrombosis (DVT) Diabetes mellitus, type II Bradycardia MDD (major depressive disorder) Generalized anxiety disorder GERD (gastroesophageal reflux disease) Factor V deficiency Obstructive sleep apnea Morbid obesity Hypertension Hyperlipidemia Atherosclerosis of coronary artery of [place] heart without angina pectoris (10/04/16) Incarcerated hernia Pulmonary embolism LBBB (left bundle branch block) Heterozygous factor V Leiden mutation Home Medications ?Medication ?Instructions ?Recorded ?Last Taken ?Type amlodipine 10 mg tablet 10 mg PO DAILY 01/09/1905/04 History atorvastatin 40 mg tablet 40 mg PO QHS 01/09/19 History losartan 50 mg tablet 50 mg PO BID 01/09/19 History hydrochlorothiazide 25 mg tablet 25 mg PO DAILY #90 ta bs 01/15/19 07/09/24 Rx cholecalciferol (vitamin D3) 25 25 mcg PO DAILY 07/09/24 History mcg (1,000 unit) tablet pantoprazole 40 mg tablet,delayed 40 mg PO DAILY 07/0707/09/24 History release bupropion HCl 300 mg 24 hr tablet, 300 mg PO DAILY 05/0407/09/24 History extended release mecobalamin (vitamin B12) 1,000 1,000 mcg PO DAILY 05/04 Unknown History mcg lozenges metformin 500 mg tablet 500 mg PO BID DIABETES 07/09 Unknown History ropinirole 0.25 mg tablet 0.25 mg PO DAILY PRN restles s 07/09/24 Unknown History leg(s) warfarin 3 mg tablet 3 mg PO DAILY 07/09/2407/09 History albuterol sulfate 90 mcg/actuation 2 puff inhalation Q 4H PRN 07/10/24 Unknown History aerosol inhaler shortness of breath or wheez ing escitalopram oxalate 5 mg tablet 5 mg PO DAILY 5 07/09/24 History ondansetron 4 mg disintegrating 4 mg PO Q8H PRN PRN Na usea #10 tabs 07/10/24 Unknown Rx tablet tramadol 50 mg tablet 50 mg PO BID PRN pain #6 tab s 07/10/24 Unknown Rx Allergy/AdvReac Type Severity Reaction Status Date / Time No Known Allergies Allergy Verified 07/10/24 09:01 Family History Mother Hypertension Heart disease Diabetes Myocardial infarction CHF (congestive heart failure) Father Cancer Sister Cancer Diabetes Thyroid disorder Surgical History H/O umbilical hernia repair (~03/2017) History of Hx of cholecystectomy History of left heart catheterization (10/04/16) Social History Smoking Status: Former smoker alcohol intake: never substance use type: does not use additional social history: denies aspirin and ibuprofen use ROS ROS ED ROS Narrative Constitutional: No fever, no chills. Cardiovascular: No chest pain. No palpitations. No pedal edema. Respiratory: No cough, no shortness of breath. Abdominal: Positive midline to right lower quadrant abdominal pain. Positive nausea and vomiting. Loose stool this morning. Genitourinary: No dysuria. No hematuria. EXAM Physical Exam Narrative Exam Narrative: Afebrile. Vital signs noted. Nontoxic-appearing. Cardiovascular examination reveals regular rate and rhythm. Lungs are clear to auscultation bilaterally. The abdomen is soft, obese, with reducible hernia more towards her right lower quadrant. No induration. No guarding or rebound. Const
--- NOTE | 2024-07-10 09:20 | CT_ITS ---
PROCEDURE: ABDOMEN/PELVIS W IV CONT ONLY 07/10/2024 REASON FOR EXAM: PERIUMBILICAL TO RIGHT LOWER QUADRANT PAIN TECHNIQUE: Abdomen and pelvis CT with intravenous contrast. Coronal and Sagittal reconstruction series were provided. PATIENT PREPARATION: Per protocol ORAL CONTRAST TYPE: None. AMOUNT: mL One or more dose reduction techniques were used (e.g., Automated exposure control, adjustment of the mA and/or kV according to patient size, use of iterative reconstruction technique. FINDINGS: Lung bases: Lung bases are clear. Liver: Normal size. No mass. Gallbladder: Unremarkable. Spleen: Normal size. Pancreas: Normal size without evidence of mass surrounding inflammation or ductal dilation. Adrenals: Right adrenal nodule consistent with an adenoma Kidneys: 4 cm cyst in the mid section of the right kidney. Bladder: Unremarkable. Reproductive Organs: Unremarkable. Bowel: Colonic diverticulosis without diverticulitis. Appendix: The appendix is not identified. There is no inflammatory process identified in the right lower quadrant to suggest appendicitis. Lymph nodes: Unremarkable. Vasculature: The abdominal aorta and IVC are normal. Peritoneum / Retroperitoneum: 5 cm umbilical hernia with incarceration of a loop of small bowel and a tiny amount of fluid but no bowel dilatation to suggest bowel obstruction. Bones: Degenerative changes of the spine. CT/Abdomen/Pelvis W IV Cont ONLY IMPRESSION: 5 cm umbilical hernia with incarceration of a loop of small bowel with some flu id but no bowel obstruction. Reading Location: [id number]
--- NOTE | 2024-07-10 09:20 | ED.VIS.GI ---
HPI HPI - GI History of Present Illness Chief Complaint: Abd Pain Narrative Narrative: 74-year-old female past medical history of of hernia repair by Dr. Liz approximately 9 years ago, presents with abdominal pain, nausea and vomiting since 8 PM yesterday. She relates history that she had a hernia repair. She reports that mesh was not used because the surgeon does not like to use mesh. She had this repaired 9 to 10 years ago, but another hernia developed. She states that she was trying to be careful when she bent over yesterday evening around 8 PM, approximately 13 hours ago. However, she felt like her hernia came out. She states that she tried to push it back in, and thinks she was successful but is still having pain in that area of her hernia or even more towards the right. Other past abdominal surgeries include cholecystectomy and appendectomy. She states she had a bowel movement this morning but it was slightly loose. She denies any fevers or chills. She states that she experienced nausea and vomiting all night, but did not want to come in because of the rain. She is concerned that her hernia is still out. [facility] Medical History BPPV (benign paroxysmal positional vertigo) Stage 3a chronic kidney disease (CKD) Chronic deep vein thrombosis (DVT) Diabetes mellitus, type II Bradycardia MDD (major depressive disorder) Generalized anxiety disorder GERD (gastroesophageal reflux disease) Factor V deficiency Obstructive sleep apnea Morbid obesity Hypertension Hyperlipidemia Atherosclerosis of coronary artery of [place] without angina pectoris (10/04/16) Incarcerated hernia Pulmonary embolism LBBB (left bundle branch block) Heterozygous factor V Leiden mutation Home Medications ?Medication ?Instructions ?Recorded ?Last Taken ?Type amlodipine 10 mg tablet 10 mg PO DAILY 01/09/19 07/09/24 History atorvastatin 40 mg tablet 40 mg PO QHS 01/09/19 07/09/24 History losartan 50 mg tablet 50 mg PO BID 01/09/19 07/09/24 History hydrochlorothiazide 25 mg tablet 25 mg PO DAILY #90 tabs 01/15/19 07/09/24 Rx cholecalciferol (vitamin D3) 25 25 mcg PO DAILY 07/07/24 07/09/24 History mcg (1,000 unit) tablet pantoprazole 40 mg tablet,delayed 40 mg PO DAILY 07/07/24 07/09/24 History release bupropion HCl 300 mg 24 hr tablet, 300 mg PO DAILY 07/09/24 07/09/24 History extended release mecobalamin (vitamin B12) 1,000 1,000 mcg PO DAILY 07/09/24 Unknown History mcg lozenges metformin 500 mg tablet 500 mg PO BID DIABETES 07/09/24 Unknown History ropinirole 0.25 mg tablet 0.25 mg PO DAILY PRN restless 07/09/24 Unknown History leg(s) warfarin 3 mg tablet 3 mg PO DAILY 07/09/24 07/09/24 History albuterol sulfate 90 mcg/actuation 2 puff inhalation Q4H PRN 07/10/24 Unknown History aerosol inhaler shortness of breath or wheezing escitalopram oxalate 5 mg tablet 5 mg PO DAILY 07/10/24 07/09/24 History ondansetron 4 mg disintegrating 4 mg PO Q8H PRN PRN Nausea #10 tabs 07/10/24 Unknown Rx tablet tramadol 50 mg tablet 50 mg PO BID PRN pain #6 tabs 07/10/24 Unknown Rx Allergy/AdvReac Type Severity Reaction Status Date / Time No Known Allergies Allergy Verified 07/10/24 09:01 Family History Mother Hypertension Heart disease Diabetes Myocardial infarction CHF (congestive heart failure) Father Cancer Sister Cancer Diabetes Thyroid disorder Surgical History H/O umbilical hernia repair (~03/2017) History of Hx of cholecystectomy History of left heart catheterization (10/04/16) Social History Smoking Status: Former smoker alcohol intake: never substance use type: does not use additional social history: denies aspirin and ibuprofen use ROS ROS ED ROS Narrative Constitutional: No fever, no chills. Cardiovascular: No chest pain. No palpitations. No pedal edema. Respiratory: No cough, no shortness of breath. Abdominal: Positive midline to right lower quadrant abdominal pain. Positive nausea and vomiting. Loose stool this morning. Genitourinary: No dysuria. No hematuria. EXAM Physical Exam Narrative Exam Narrative: Afebrile. Vital signs noted. Nontoxic-appearing. Cardiovascular examination reveals regular rate and rhythm. Lungs are clear to auscultation bilaterally. The abdomen is soft, obese, with reducible hernia more towards her right lower quadrant. No induration. No guarding or rebound. Const Vital Signs: 07/10/24 09:01 07/10/24 11:01 Temperature 97.2 F L Temperature Source Temporal Pulse Rate 68 89 Respiratory Rate 19 H 16 Blood Pressure 174/72 H 139/76 H Blood Pressure Mean 106 97 Pulse Ox 97 98 Oxygen Delivery Method Room Air Room Air MDM MDM MDM Narrative Medical decision making narrative: Differential diagnosis includes but not limited to incarcerated hernia versus reducible hernia versus bowel obstruction versus diverticulitis. Patient states that she had cholecystectomy and appendectomy remotely. Comprehensive workup was pursued. She was bolused normal saline and administered morphine and ondansetron. I do feel that CT imaging is indicated to check the size of the hernia as she may have made her hernia larger which is why she is having more pain, I reviewed her laboratory work and she has normal white count 9.3, hemoglobin 13.0, hematocrit 39.4 with platelet count normal at 230. BUN elevated at 23 with creatinine 1.26. In review of prior laboratory work she has chronic kidney disease. Glucose elevated at 186 with a normal anion gap of 12. LFTs grossly unremarkable. Lipase normal at 19 so I doubt pancreatitis as a cause of her nausea and vomiting. I reviewed the radiology report of the CT of the abdomen and pelvis with IV contrast. There is an incarcerated hernia the ports of right lower quadrant that does show a small bowel loop with fluid but no evidence of obstruction. I have attempted multiple times to reduce this hernia. It remains soft and without erythema or induration. However, upon release, the hernia returns and cannot fully be reduced. I discussed patient with Dr. Rush. Given the patient's clinical picture, and his review of the CT scan, it was thought that she probably has chronically incarcerated hernia. Without evidence of obstruction, was not felt that she needed to go to the OR and that she could follow-up as an outpatient. I stressed the importance of follow-up with general surgery with the patient and her family. They are agreeable to the plan. She was written a prescription for 6 tramadol tablets. Additionally, she requested antinausea medication. Of note, I reviewed her prior problem list and she has a listed incarcerated hernia. Return instructions to the emergency department were reviewed. Disposition is discharged home in stable condition. History & Record Review Discussion w/independent historian: Patient and Family Lab Data Attestation: I reviewed the patient's lab results. Labs: Laboratory Results - last 24 hr 07/10/24 09:30 WBC 9.3 RBC 4.40 Hgb 13.0 Hct 39.4 MCV 89.5 MCH 29.5 MCHC 33.0 RDW Std Deviation 44.8 H RDW Coeff of Louis 13.5 Plt Count 230 MPV 11.2 Immature Gran % (Auto) 0.300 Neut % (Auto) 88.3 H Lymph % (Auto) 8.8 L [place] % (Auto) 2.2 Eos % (Auto) 0.1 Baso % (Auto) 0.3 Absolute Neuts (auto) 8.2 H Absolute Lymphs (auto) 0.82 L Nucleated RBC % 0 Sodium 140 Potassium 4.2 Chloride 106 Carbon Dioxide 23.0 Anion Gap 12 BUN 23 H Creatinine 1.26 H Estim Creat Clear Calc 39.61 L Est GFR (MDRD) Non-Af 44 L BUN/Creatinine Ratio 18.1 Glucose 186 H Calcium 9.4 Total Bilirubin 0.68 AST 24 ALT 21 Alkaline Phosphatase 103 Total Protein 6.9 Albumin 3.9 Globulin 3.0 Albumin/Globulin Ratio 1.3 Lipase 19 Radiography Diagnostic Testing: Clinical Impression(s) from Imaging Studies Abdomen/Pelvis CT 07/10/24 09:20 IMPRESSION: 5 cm umbilical hernia with incarceration of a loop of small bowel with some fluid but no bowel obstruction. Reading Location: [facility] Discharge Plan Triage Chief Complaint: Abd Pain ED Provider: Chase Yancey Dx/Rx/DC Orders Clinical Impression: Hernia, Hypertension, Nausea and vomiting Instructions: ED Hernia (Adult) Prescriptions: New tramadol 50 mg tablet 50 mg PO BID PRN (Reason: pain) Qty: 6 0RF ondansetron 4 mg tablet,disintegrating 4 mg PO Q8H PRN PRN (Reason: Nausea) Qty: 10 0RF No Action warfarin 3 mg tablet 3 mg PO DAILY Rx Instructions: Managed by PCP bupropion HCl 300 mg tablet extended release 24 hr 300 mg PO DAILY ropinirole 0.25 mg tablet 0.25 mg PO DAILY PRN (Reason: restless leg(s)) mecobalamin (vitamin B12) 1,000 mcg lozenge 1,000 mcg PO DAILY Patient Comments: PT HAS NOT REALLY BEEN TAKING Rx Instructions: allow to dissolve in mouth OR may chew lightly before swallowing losartan 50 MG tablet 50 mg PO BID atorvastatin 40 MG tablet 40 mg PO QHS amlodipine 10 MG tablet 10 mg PO DAILY metformin 500 mg tablet 500 mg PO BID Patient Comments: PT SAID I'M SUPPOSE TO TAKE HAS NOT TAKEN IN MONTHS cholecalciferol (vitamin D3) 25 mcg (1,000 unit) tablet 25 mcg PO DAILY pantoprazole 40 MG tablet 40 mg PO DAILY albuterol sulfate 90 mcg/actuation HFA aerosol inhaler 2 puff inhalation Q4H PRN (Reason: shortness of breath or wheezing) escitalopram oxalate 5 mg tablet 5 mg PO DAILY hydrochlorothiazide 25 mg tablet 25 mg PO DAILY Qty: 90 3RF Primary Care Provider: Duong Borja Chi Referrals: Sukumar Rush MD [Med Staff - Active Staff] - 3-5 Days Duong Borja Chi, MD [Primary Care Provider] - Activity Restrictions/Additional Instructions: Return to the emergency department with increased nausea and vomiting, increased pain. Firmness and/or redness to the area of your hernia, loss of flatulence, new or worsening symptoms. Your hernia may be chronically incarcerated. It is important for you to follow-up with general surgery in the next 3 to 5 days. Print Language: Nepalese Disposition Disposition: Home, Self Care
[2024-07-10] MEDS: 0.9% Normal Saline (1000mL) 1,000 ML 999 ML IV (09:32)
[2024-07-10] MEDS: Morphine 4 MG/ML Syringe IV (09:32)
[2024-07-10] MEDS: Ondansetron 4 MG/2 ML Vial IV (09:32)
[2024-07-10 09:38] LABS: Absolute Lymphocyte Count 0.82 X10^3/uL (0.83-4.51); Absolute Neutrophil Count 8.2 X10^3/uL (2.0-7.7); Basophil# 0.03 X10^3/uL; Basophil% 0.3 % (0-1); Eosinophil# 0.01 X10^3/uL; Eosinophils% 0.1 % (0-5); Hematocrit 39.4 % (37-47); Lymphocyte # 0.82 X10^3/ul (0.83-4.51); Lymphocyte % 8.8 % (19-41); Mean Corpuscular Hgb 29.5 pg (27.0-32.0); Mean Corpuscular Volume 89.5 fL (81-99); Mean Platelet Vol. 11.2 fl (6.2-12.0); Monocyte% 2.2 % (0-10); NRBC Flagged by Analyzer 0 % (0-5); Neutrophil # 8.21 X10^3/uL (2.7-7.7); Neutrophil % 88.3 % (47-70); Platelet Count 230 K/mm3 (150-450); RBC Distribution Width CV 13.5 % (11.6-14.6); RBC Distribution Width SD 44.8 fl (35.1-43.9); White Blood Count 9.3 K/mm3 (4.4-11.0)
[2024-07-10 10:13] LABS: ALB/GLOB Ratio 1.3 RATIO (0.9-2.4); AST(SGOT) 24 U/L (<=31); Alanine Aminotransfer ALT/SGPT 21 U/L (<=34); Albumin, Serum 3.9 g/dL (3.4-4.8); Alkaline Phosphatase 103 U/L (35-104); Anion Gap 12 (5-15); BUN 23 mg/dL (4-19); BUN/Creat Ratio 18.1 RATIO (10-20); Calcium,Total 9.4 mg/dL (7.6-11.0); Chloride 106 mmol/L (98-108); Creatinine, Serum 1.26 mg/dL (0.70-1.20); EST Glomerular Filtration Rate 44 (>60); Estimated Creatinine Clearance 39.61 ml/min (50-250); Glucose 186 mg/dL (70-99); Lipase 19 U/L (13-75); Potassium 4.2 mmol/L (3.3-5.1); Protein, Total 6.9 g/dL (5.9-8.4); Sodium Level 140 mmol/L (133-145); Total Bilirubin 0.68 mg/dL (0.00-1.30)
[2024-07-10 11:01] VITALS: BP 139/76; PULSE 89; RESP 16; O2SAT 98
[2024-07-10 11:49] VITALS: BP 141/78; PULSE 64; RESP 18; TEMP 37.1; O2SAT 99
== END 2024-07-10 11:51 | disposition home or self-care (01) ==
PROVIDERS: Emergency Provider Emergency Medicine; PCP Family Medicine Geriatric Medicine; Visit Provider Emergency Medicine
DX: K42.0 Umbilical hernia with obstruction, without gangrene (principal); E11.22 Type 2 diabetes mellitus with diabetic chronic kidney disease; N18.31 Chronic kidney disease, stage 3a; R11.2 Nausea with vomiting, unspecified; F41.1 Generalized anxiety disorder; F32.9 Major depressive disorder, single episode, unspecified; K21.9 Gastro-esophageal reflux disease without esophagitis; E78.5 Hyperlipidemia, unspecified; I12.9 Hypertensive chronic kidney disease with stage 1 through stage 4 chronic kidney disease, or unspecified chronic kidney disease; I25.10 Atherosclerotic heart disease of native coronary artery without angina pectoris; D68.51 Activated protein C resistance; H81.10 Benign paroxysmal vertigo, unspecified ear; G47.33 Obstructive sleep apnea (adult) (pediatric); Z90.49 Acquired absence of other specified parts of digestive tract; Z79.01 Long term (current) use of anticoagulants; Z79.84 Long term (current) use of oral hypoglycemic drugs; Z86.718 Personal history of other venous thrombosis and embolism; Z86.711 Personal history of pulmonary embolism; Z79.899 Other long term (current) drug therapy; Z87.891 Personal history of nicotine dependence
CPT/HCPCS: 74177; 80053; 83690; 85025; 96361; 96374; 96375; 99283; Q9967; A4216; J2405

== ENCOUNTER → 2024-07-20 | Outpatient (CLI) | payer MEDICARE, SELFPAY | END | disposition home or self-care (01) | LOC: PSN 10:58 | PROVIDERS: PCP Family Medicine Geriatric Medicine; Referring Provider Emergency Medicine; Visit Provider Emergency Medicine | DX: R00.1 Bradycardia, unspecified (principal) | CPT/HCPCS: 93225; 93226 ==

== ENCOUNTER → 2024-07-26 | Outpatient (CLI) | payer MEDICARE, SELFPAY ==
[2024-07-26 13:10] LABS: Absolute Lymphocyte Count 1.95 X10^3/uL (0.83-4.51); Absolute Neutrophil Count 4.4 X10^3/uL (2.0-7.7); Basophil# 0.06 X10^3/uL; Basophil% 0.8 % (0-1); Eosinophil# 0.27 X10^3/uL; Eosinophils% 3.7 % (0-5); Hematocrit 39.6 % (37-47); Lymphocyte # 1.95 X10^3/ul (0.83-4.51); Mean Corp Hgb Conc 32.8 g/dL (32-36); Mean Corpuscular Hgb 29.8 pg (27.0-32.0); Mean Corpuscular Volume 90.8 fL (81-99); Mean Platelet Vol. 11.8 fl (6.2-12.0); Monocyte# 0.49 X10^3/uL; Monocyte% 6.8 % (0-10); NRBC Flagged by Analyzer 0 % (0-5); Neutrophil # 4.43 X10^3/uL (2.7-7.7); Neutrophil % 61.3 % (47-70); Platelet Count 282 K/mm3 (150-450); RBC Distribution Width SD 43.2 fl (35.1-43.9); Red Blood Count 4.36 M/mm3 (4.2-5.4); White Blood Count 7.2 K/mm3 (4.4-11.0)
[2024-07-26 13:58] LABS: ALB/GLOB Ratio 1.2 RATIO (0.9-2.4); AST(SGOT) 24 U/L (<=31); Alanine Aminotransfer ALT/SGPT 16 U/L (<=34); Albumin, Serum 3.9 g/dL (3.4-4.8); Alkaline Phosphatase 105 U/L (35-104); Anion Gap 11 (5-15); BUN 22 mg/dL (4-19); BUN/Creat Ratio 19.2 RATIO (10-20); Calcium,Total 9.8 mg/dL (7.6-11.0); Carbon Dioxide 23.5 mmol/L (21.0-32.0); Chloride 106 mmol/L (98-108); Creatinine, Serum 1.16 mg/dL (0.70-1.20); EST Glomerular Filtration Rate 49 (>60); Globulin 3.2 g/dL (2.2-4.2); Glucose 88 mg/dL (70-99); Potassium 3.6 mmol/L (3.3-5.1); Protein, Total 7.1 g/dL (5.9-8.4); Sodium Level 141 mmol/L (133-145); Total Bilirubin 0.52 mg/dL (0.00-1.30); Vitamin D,25 Hydroxy 33.3 ng/mL (30-100)
== END | disposition home or self-care (01) ==
LOC: LAB 12:07
PROVIDERS: PCP Family Medicine Geriatric Medicine; Referring Provider Family Medicine Geriatric Medicine; Visit Provider Family Medicine Geriatric Medicine
DX: E11.65 Type 2 diabetes mellitus with hyperglycemia (principal); I10 Essential (primary) hypertension; E55.9 Vitamin D deficiency, unspecified
CPT/HCPCS: 36415; 80053; 82306; 84443; 85025

== ENCOUNTER → 2024-08-19 | Outpatient (CLI) | payer MEDICARE, SELFPAY ==
--- NOTE | 2024-08-19 07:41 | ECHOD_ITS ---
Reason For Study Reason For Study: LBBB Procedure This was a 2D Doppler, Color Flow transthoracic echocardiogram. Exam performed in department. Left Ventricle Normal LV size. The left ventricular ejection fraction is 50 %. Stage 1 diastolic dysfunction. Septal motion consistent with bundle branch block. There is mild global hypokinesis of the left ventricle. Right Ventricle Normal RV size. Normal systolic function. Atria Normal left atrium. Mitral Valve Normal mitral valve. Tricuspid Valve Normal tricuspid valve. Aortic Valve Trisinus/trileaflet aortic valve. Mild focal aortic valve thickening. Pulmonic Valve Normal pulmonic valve. Great Vessels Normal aortic root. Pericardium/Pleural No pericardial effusion. MMode/2D Measurements & Calculations RVDd: 3.6 cm LVOT diam: 1.9 cm Ao root diam: 3.6 cm LVOT area: 2.9 cm2 LAV(MOD-bp): 67.4 ml SV(MOD-sp4): 46.9 ml LVAd ap4: 30.6 cm2 LAV(MOD-bp) Indexed: 36.6 ml/m2 LVLd ap4: 7.5 cm SI(MOD-sp4): 25.5 ml/m2 LAV(MOD-sp2): 74.7 ml EDV(MOD-sp4): 101.0 ml LAV(MOD-sp4): 54.7 ml EDV(sp4-el): 106.5 ml LVAs ap4: 20.8 cm2 LVLs ap4: 6.6 cm ESV(MOD-sp4): 54.1 ml ESV(sp4-el): 55.7 ml EF(MOD-sp4): 46.4 % EF(sp4-el): 47.7 % SV(sp4-el): 50.8 ml LA A4 area: 18.4 cm2 LA dimension(2D): 4.7 cm RA A4 area: 15.0 cm2 Time Measurements MV dec time: 0.28 sec Doppler Measurements & Calculations MV E max kerwin: 91.7 cm/sec Lat Peak E' [place]: 8.5 cm/sec Med Peak E' [place]: 5.7 cm/sec MV A max kerwin: 105.8 cm/sec E/E' lat: 10.8 E/E' med: 16.1 MV E/A: 0.87 MV V2 max: 106.2 cm/sec MV dec slope: 332.4 cm/sec2 Ao V2 max: 178.7 cm/sec MV max P.5 mmHg Ao max P.8 mmHg MV V2 mean: 69.3 cm/sec Ao V2 mean: 127.3 cm/sec MV mean P.1 mmHg Ao mean P.4 mmHg MV V2 VTI: 48.9 cm Ao V2 VTI: 50.1 cm MVA(VTI): 2.4 cm2 AV (velocity ratio): 0.80 DAWNA(I,D): 2.3 cm2 DAWNA(V,D): 2.4 cm2 LV V1 max: 150.7 cm/sec SV(LVOT): 115.7 ml PA V2 max: 110.3 cm/sec LV V1 max P.1 mmHg PA V2 mean: 77.2 cm/sec LV V1 mean P.5 mmHg LV V1 mean: 111.5 cm/sec LV V1 VTI: 40.1 cm ECHO/Echo Complete Interpretation Summary Normal LV size. The left ventricular ejection fraction is 50 %. Stage 1 diastolic dysfunction. Septal motion consistent with bundle branch block. Ordering Physician: Hernan Carr Referring Physician: Hernan Carr Performed By: Jackie Ramirez RCS
== END | disposition home or self-care (01) ==
LOC: CVS 07:36
PROVIDERS: PCP Family Medicine Geriatric Medicine; Referring Provider Internal Medicine Cardiovascular Disease; Visit Provider Internal Medicine Cardiovascular Disease
DX: I44.7 Left bundle-branch block, unspecified (principal)
CPT/HCPCS: 93306

== ENCOUNTER → 2024-09-06 | Outpatient (CLI) | payer MEDICARE, SELFPAY ==
--- NOTE | 2024-09-07 06:37 | STRESSREP ---
Stress Test Report Exercise stress test. 74-year-old lady with a history of chest pain Stress protocol: Resting EKG demonstrates junctional rhythm with a rate of 44 bpm resting blood pressure is 130/68 mmHg. The patient exercised according to the regular Amado protocol for a total duration of 1 minute and 59 seconds attaining a maximum heart rate of 115 bpm in sinus rhythm which was 79% of maximum predicted heart rate; the maximum workload was 4.6 metabolic equivalents. At rest there were no ST or T wave changes noted to suggest ischemia and at peak exercise upsloping ST changes only were noted which did not meet the criteria for ischemia. No clinical angina was noted the test was terminated due to the target heart rate being achieved/fatigue. The peak blood pressure was 190/68 mmHg. Rate-pressure product was 17,300. Conclusion: Exercise stress test with baseline junctional rhythm with sinus tachycardia present. No evidence of chronotropic incompetence present. Functional aerobic impairment.
== END | disposition home or self-care (01) ==
LOC: CVS 09:51
PROVIDERS: PCP Family Medicine Geriatric Medicine; Referring Provider Student in an Organized Health Care Education/Training Program; Visit Provider Student in an Organized Health Care Education/Training Program
DX: I25.10 Atherosclerotic heart disease of native coronary artery without angina pectoris (principal); R00.1 Bradycardia, unspecified
CPT/HCPCS: 93017

== ENCOUNTER 2024-09-07 07:12 | Day surgery (SDC) | payer MEDICARE, SELFPAY ==
--- OUTSIDE RECORDS SUMMARY | 2024-09-07 07:16 | XMS RPT_ITS | CCD ---
Author Organization [facility] Care Team Providers Care Clinical Support Tech Name Role Phone Lindsay Kang Unavailable Unavailable Roof HOPPER OPERATOR, Gus Guerrero Unavailable Mary Kay Kangi Unavailable Unavailable Kang Lindsay Unavailable Unavailable Jonh, Duong Chi Primary Care Unavailable Jonh, Duong Chi Referring Unavailable Sukumar Rush Attending Unavailable Jonh, Duong Chi Primary Care Unavailable Sukumar Palmer Attending Unavailable Jonh, Duong Chi Primary Care Unavailable Sukumar Palmer Attending Unavailable Jonh, Duong Chi Primary Care Unavailable DemiterDaljit Attending Unavailable Jonh, Duong Chi Referring Unavailable Jonh, Duong Chi Primary Care Unavailable Stephaniiter, Daljit Referring Unavailable Stephaniiter Daljit Attending Unavailable Siska Javid Attending Unavailable Jonh, Duong Chi Primary Care Unavailable Jonh, Duong Chi Attending Unavailable Jonh, Duong Chi Primary Care Unavailable Jonh, Duong Chi Attending Unavailable Jonh, Duong Chi Primary Care Unavailable Jonh, Duong Chi Primary Care Unavailable Jaison Hardy Attending Unavailable Jonh, Duong Chi Primary Care Unavailable Jonh, Duong Chi Referring Unavailable Bruno, Hernan Attending Unavailable Jonh, Duong Chi Primary Care Unavailable Bruno, Hernan Attending Unavailable Jonh, Duong Chi Primary Care Unavailable Antonieta Daniel NP Attending Unavailable Jonh, Duong Chi Primary Care Unavailable Jaison Hardy Referring Unavailable Bruno, Hernan Attending Unavailable Sonyaka Javid Consulting Unavailable Siska Javid Referring Unavailable Siska Javid Attending Unavailable Jonh, Duong Chi Primary Care Unavailable Siska Javid Attending Unavailable Jonh, Duong Chi Primary Care Unavailable Jonh, Duong Chi Referring Unavailable Siska Javid Attending Unavailable Jonh, Duong Chi Primary Care Unavailable Jonh, Duong Chi Referring Unavailable Jonh, Duong Chi Primary Care Unavailable Chase Yancey Attending Unavailable Jonh, Duong Chi Primary Care Unavailable Bruno, Hernan Referring Unavailable Bruno, Strawberry Attending Unavailable Jonh, Duong Chi Attending Unavailable Jonh, Duong Chi Primary Care Unavailable Jonh, Duong Chi Referring Unavailable Jonh, Duong Chi Primary Care Unavailable Jonh, Duong Chi Attending Unavailable Jonh, Duong Chi Referring Unavailable Jonh, Duong Chi Primary Care Unavailable Bruno, Strawberry Consulting Unavailable Jaison Hardy Referring Unavailable Jaison Hardy Attending Unavailable SiskaJavid Referring Unavailable Javid Byrd Attending Unavailable Jonh, Duong Chi Primary Care Unavailable Jonh, Duong Chi Attending Unavailable Jonh, Duong Chi Primary Care Unavailable Jonh, Duong Chi Primary Care Unavailable Sukumar Palmer Attending Unavailable Medications Current Medications Medication Drug Class(es) Dates Sig (Normalized) Sig (Original) amLODIPine 10 mg oral tablet (8 sources) Dihydropyridine Calcium Channel Celeste Start: 01-09-2019 take 10 mg by mouth once daily Amlodipine Active 10 MG PO DAILY January 08, 2019 11:00pm take 1 tablet by mouth once mary y AMLODIPINE BESYLATE 10 MG TABS One tablet by mouth daily AMLODIPINE BESYLATE [id number] Tobin Lobato apixaban 5 mg oral tablet (16 sources) Factor Xa Inhibitor Start: 01-09-2019 End: 01-12-2019 take 5 mg by mouth twice daily Apixaban Active 5 MG PO TWICE A DAY 60 January 12, 2019 12:00am Start: 10-04-2016 End: 06-13-2017 take 5 mg by mouth twice daily Apixaban Discontinued 5 MG PO TWICE A DAY 60 October 03, 2016 11:00pm June 13, 2017 12:24pm atorvastatin 40 mg oral tablet (20 sources) HMG-CoA Reductase Inhibitor Start: 01-09-2019 take 40 mg by mouth at bedtime Atorvastatin Active 40 MG PO AT BEDTIME January 08, 2019 11:00pm Start: 04-06-2017 End: 12-16-2017 take 40 mg by mouth at bedtime Atorvastatin Discontinu ed 40 MG PO AT BEDTIME April 06, 2017 11:31am December 16, 2017 4:07pm Start: 10-29-2016 take 1 tablet by clary th once daily ATORVASTATIN CALCIUM 40 MG TABS One tablet by mouth daily ATORVASTATIN CALCIUM [id number] Gus Beckett NP Start: 07-09-2016 End: 04-06-2017 take 20 mg by mouth at bedtime Atorvastatin Discontinu ed 20 MG PO AT BEDTIME October 04, 2016 1:53pm April 06, 2017 11:31am hydroCHLOROthiazide 25 mg oral tablet (15 sources) Thiazide Diuretic Start: 01-09-2019 End: 01-15-2019 take 25 mg by mouth once daily Hydrochlorothiazide Active 25 MG PO DAILY 90 January 15, 2019 5:03pm Start: 06-13-2017 End: 01-26-2018 take 25 mg by mouth once daily in the morning Hydrochlorothiazide Discontinued 25 MG PO EVERY MORNING June 12, 2017 11:00pm January 26, 2018 1:33pm Start: 10-29-2016 take 1 tablet by clary th once daily HYDROCHLOROTHIAZIDE 25 MG TABS One tablet by mouth daily. HYDROCHLOROTHIAZIDE [id number] Gus Beckett HOPPER OPERATOR losartan potassium 50 mg oral tablet (8 sources) Angiotensin 2 Receptor Celeste Start: 01-09-2019 take 50 mg by mouth twice daily Losartan Active 50 MG PO TWICE A DAY January 08, 2019 11:00pm take 1 tablet by mouth twice rashawn ly LOSARTAN POTASSIUM 50 MG TABS One tablet by mouth twice daily LOSARTAN POTASSIUM [id number] Tobin Lobato metFORMIN hydrochloride 500 mg oral tablet (8 sources) Biguanide Start: 01-09-2019 take 1000 mg by mouth once daily Metformin Active 1000 MG PO DAILY January 08, 2019 11:00pm take 1 tablet by mouth twice rashawn ly METFORMIN HCL 500 MG TABS One tablet by mouth twice daily METFORMIN HCL [id number] Indira Conway pantoprazole 40 mg delayed release oral tablet (4 sources) Proton Pump Inhibitor Start: 01-12-2019 take 40 mg by mouth twice daily Pantoprazole Active 40 MG PO TWICE A DAY 60 January 12, 2019 12:00am PARoxetine hydrochloride 20 mg oral tablet (4 sources) Serotonin Reuptake Inhibitor Start: 01-09-2019 take 20 mg by mouth at bedtime Paroxetine Hcl Active 20 MG PO AT BEDTIME January 08, 2019 11:00pm microencapsulated potassium chloride 20 meq extended release oral tablet (12 sources) Start: 01-09-2019 take 20 mEq by mouth once daily Potassium Chloride Active 20 MEQ PO DAILY January 08, 2019 11:00pm Start: 04-06-2017 End: 07-20-2018 take 20 mEq by mouth once daily Potassium Chloride Discontinued 20 MEQ PO DAILY June 13, 2017 12:27pm July 20, 2018 6:17pm Completed/Discontinued Medications Medication Drug Class(es) Dates Sig (Normalized) Sig (Original) amLODIPine 10 mg / atorvastatin 40 mg oral tablet (7 sources) Dihydropyridine Calcium Channel Celeste, HMG-CoA Reductase Inhibitor End: 10-29-2016 take 1 tablet by mouth once daily AMLODIPINE-ATORVA STATIN 10-40 MG TABS One tablet by mouth daily AMLODIPINE-ATORVA STATIN [id number] Indira Bernard [place] aspirin 325 mg oral tablet (15 sources) Platelet Aggregation Inhibitor, Nonsteroidal Anti-inflammatory Drug Start: 06-13-2017 End: 12-16-2017 take 325 mg by mouth once daily Aspirin Discontinued 325 MG PO daily June 12, 2017 11:00pm December 16, 2017 4:07pm Start: 10-29-2016 take 1 tablet by clary th once daily ASPIRIN EC 81 MG TBEC One tablet by mouth daily ASPIRIN [id number] Gus Beckett HOPPER OPERATOR Start: 07-05-2016 End: 07-29-2016 take 1 tablet by mouth once daily Aspirin (Lo-Dose Aspirin Ec) 81 MG Tablet.Dr Discontinued 81 MG PO DAILY July 04, 2016 11:00pm July 29, 2016 1:20pm take 1 tablet by clary th once daily ASPIRIN ADULT LOW STRENGTH 81 MG TBEC One tablet by mouth daily ASPIRIN [id number] Tobin Lobato citalopram 20 mg oral tablet (8 sources) Serotonin Reuptake Inhibitor End: 05-08-2016 take 1 tablet by mouth once daily CELEXA 20 MG TABS One tablet by mouth daily CITALOPRAM HYDROBROMIDE [id number] Indira M Zoraida Ergocalciferol (4 sources) Provitamin D2 Compound VITAMIN D2 TABS 5000 unit cap once mothly ERGOCALCIFEROL TABS [id number] Tobin Lobato famotidine 40 mg oral tablet (7 sources) Histamine-2 Receptor Antagonist Start: 01-09-2019 End: 01-12-2019 take 40 mg by mouth once daily Famotidine Discontinued 40 MG PO DAILY January 08, 2019 11:00pm January 12, 2019 10:08am Start: 10-29-2016 take 1 tablet by clary th once daily as needed PEPCID AC 10 MG CHEW One tablet by mouth daily PRN FAMOTIDINE [id number] Gus Beckett NP Start: 10-29-2016 take 1 tablet by clary th once daily as needed PEPCID AC 10 MG CHEW One tablet by mouth daily PRN FAMOTIDINE [id number] Gus Beckett NP furosemide 40 mg oral tablet (8 sources) Loop Diuretic End: 05-08-2016 take 1 tablet by mouth once daily FUROSEMIDE 40 MG TABS One tablet by mouth daily FUROSEMIDE [id number] Yonas Davis MD ibuprofen 200 mg oral capsule (15 sources) Nonsteroidal Anti-inflammatory Drug Start: 01-09-2019 End: 01-12-2019 take 4 tablets by mouth four times daily Ibuprofen Discontinued 4 TABLET PO 4 TIMES DAILY January 08, 2019 11:00pm January 12, 2019 10:09am Start: 07-05-2016 End: 10-04-2016 Ibuprofen (Motrin Ib) 200 MG tablet Discontinued 600 MG PO TWICE A DAY July 04, 2016 11:00pm October 04, 2016 1:54pm End: 10-29-2016 IBUPROFEN 200 MG CAPS Take t hree tabs (600 MG) twice daily as needed IBUPROFEN [id number] Gus Beckett NP 24 hr venlafaxine 75 mg extended release oral capsule (4 sources) Serotonin and Norepinephrine Reuptake Inhibitor take 1 tablet by mouth once daily VENLAFAXINE HCL ER 75 MG [id number] Take one tab by mouth daily VENLAFAXINE HCL [id number] Yonas Davis MD Problems Active Problems Problem Classification Problem Date Documented Da te Episodic/Chronic Abdominal hernia (8 sources) Umbilical hernia; Translations: [Hernia of abdominal cavity] Onset: 6 12-19-2015 Episodic Abdominal pain (1 source) Unspecified abdominal pain; Translations: [Unspecified abdominal pain] Onset: 5 Episodic Anxiety disorders (5 sources) Anxiety disorder; Translations: [Generalized anxiety disorder] Onset: 5 12-19-2015 Chronic Cardiac dysrhythmias (1 source) Bradycardia, unspecified; Translations: [Bradycardia, unspecified] Onset: 5 Episodic Coagulation and hemorrhagic disorders (8 sources) Factor V deficiency; 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 Conditions associated with dizziness or vertigo (1 source) Benign paroxysmal vertigo, unspecified ear; Translations: [Benign paroxysmal vertigo, unspecified ear] Onset: 5 Episodic Conduction disorders (5 sources) Left bundle branch block; Translations: [Left bundle-branch block, unspecified] Onset: 5 Chronic Coronary atherosclerosis and other heart disease (9 sources) Coronary atherosclerosis; Translations: [Atherosclerotic heart disease of [place] coronary artery without angina pectoris] Onset: 7 10-29-2016 Chronic Diabetes mellitus with complications (1 source) Type 2 diabetes mellitus with hyperglycemia; Translations: [Type 2 diabetes mellitus with hyperglycemia] Onset: 5 Chronic Diabetes mellitus without complication (4 sources) Type 1 diabetes mellitus without complications; Translations: [Type 1 diabetes mellitus without complications] 05-08-2016 Chronic Disorders of lipid metabolism (5 sources) Hyperlipidemia; Translations: [Hyperlipidemia, unspecified] Onset: 5 Chronic Esophageal disorders (4 sources) Gastroesophageal reflux disease; Translations: [Gastro-esophageal reflux disease without esophagitis] Chronic Essential hypertension (9 sources) Hypertensive disorder; Translations: [Essential (primary) hypertension] Onset: 5 12-19-2015 Chronic Mood disorders (5 sources) Depressive disorder; Translations: [Major depressive disorder, single episode, unspecified] Onset: 5 05-08-2016 Chronic Nonspecific chest pain (4 sources) Chest pain; Translations: [Chest pain, unspecified] Episodic Open wounds of extremities (4 sources) Laceration of hand; Translations: [Laceration without foreign body of right hand, initial encounter] Episodic Other screening for suspected conditions (not mental disorders or infectious disease) (4 sources) Cardiovascular stress test abnormal; Translations: [Abnormal result of other cardiovascular function study] Episodic Other skin disorders (2 sources) Epidermal cyst; Translations: [Epidermal cyst] Onset: 5 Episodic Other skin disorders (1 source) Other atrophic disorders of skin; Translations: [Other atrophic disorders of skin] Onset: 5 Episodic Phlebitis; thrombophlebitis and thromboembolism (4 sources) Thrombosis of vein of lower limb; Translations: [Acute embolism and thrombosis of unspecified vein] Onset: 7 05-08-2016 Chronic Phlebitis; thrombophlebitis and thromboembolism (4 sources) Thrombophlebitis of superficial vein of right lower limb; Translations: [Phlebitis and thrombophlebitis of superficial vessels of right lower extremity] Episodic Pulmonary heart disease (4 sources) Pulmonary embolism; Translations: [Other pulmonary embolism without acute cor pulmonale] Episodic Residual codes; unclassified (4 sources) Obstructive sleep apnea syndrome; Translations: [Obstructive sleep apnea (adult) (pediatric)] Chronic Unclassified (1 source) Screening for malignant neoplasm of colon ; Translations: [Encounter for screening for malignant neoplasm of colon] Onset: 12-19-2015 Past or Other Problems Problem Classification Problem Date Documented Da te Episodic/Chronic Other lower respiratory disease (3 sources) Dyspnea on exertion; Translations: [Other forms of dyspnea] Onset: 10-29-2016 10-29-2016 Episodic Pulmonary heart disease (4 sources) H/O: pulmonary embolus; Translations: [Personal history of pulmonary embolism] Onset: 05-08-2016 05-08-2016 Episodic Residual codes; unclassified (1 source) Chills (without fever); Translations: [Chills (without fever)] Onset: 05-26-2024 Episodic Results Test Name Value Interpretation Reference Range Facility Echo Complete 08-19-2024 Echo [facility] [address] [place] [address] Echo Complete 08/19/24 0811 MR#: [id number] Acct: [id number] Name: JOYCE CONNOR Rep #: [id number] : 1950 74 From: Hernan Carr MD Attending Dr: Dr. Hernan Carr MD Status: REG C Ordering Dr: Hernan Carr MD Date: 08/19/24 Location: [facility] Sex: F C Admitted: Reason For Study Reason For Study: LBBB Procedure This was a 2D Doppler, Color Flow transthoracic echocardiogram. Exam performed in department. Left Ventricle Normal LV size. The left ventricular ejection fraction is 50 %. Stage 1 diastolic dysfunction. Septal motion consistent with bundle branch block. There is mild global hypokinesis of the left ventricle. Right Ventricle Normal RV size. Normal systolic function. Atria Normal left atrium. Mitral Valve Normal mitral valve. Tricuspid Valve Normal tricuspid valve. Aortic Valve Trisinus/trileaflet aortic valve. Mild focal aortic valve thickening. Pulmonic Valve Normal pulmonic valve. Great Vessels Normal aortic root. Pericardium/Pleural No pericardial effusion. MMode/2D Measurements Calculations RVDd: 3.6 cm LVOT diam: 1.9 cm Ao root diam: 3.6 cm LVOT area: 2.9 cm2 LAV(MOD-bp): 67.4 ml SV(MOD-sp4): 46.9 ml LVAd ap4: 30.6 cm2 LAV(MOD-bp) Indexed: 36.6 ml/m2 LVLd ap4: 7.5 cm SI(MOD-sp4): 25.5 ml/m2 LAV(MOD-sp2): 74.7 ml EDV(MOD-sp4): 101.0 ml LAV(MOD-sp4): 54.7 ml EDV(sp4-el): 106.5 ml LVAs ap4: 20.8 cm2 LVLs ap4: 6.6 cm ESV(MOD-sp4): 54.1 ml ESV(sp4-el): 55.7 ml EF(MOD-sp4): 46.4 % EF(sp4-el): 47.7 % SV(sp4-el): 50.8 ml LA A4 area: 18.4 cm2 LA dimension(2D): 4.7 cm RA A4 area: 15.0 cm2 Time Measurements MV dec time: 0.28 sec Doppler Measurements Calculations MV E max sancho: 91.7 cm/sec Lat Peak E' Sancho: 8.5 cm/sec Med Peak E' Sancho: 5.7 cm/sec MV A max sancho: 105.8 cm/sec E/E' lat: 10.8 E/E' med: 16.1 MV E/A: 0.87 MV V2 max: 106.2 cm/sec MV dec slope: 332.4 cm/sec2 Ao V2 max: 178.7 cm/sec MV max P.5 mmHg Ao max P.8 mmHg MV V2 mean: 69.3 cm/sec Ao V2 mean: 127.3 cm/sec MV mean P.1 mmHg Ao mean P.4 mmHg MV V2 VTI: 48.9 cm Ao V2 VTI: 50.1 cm MVA(VTI): 2.4 cm2 AV (velocity ratio): 0.80 DAWNA(I,D): 2.3 cm2 DAWNA(V,D): 2.4 cm2 LV V1 max: 150.7 cm/sec SV(LVOT): 115.7 ml PA V2 max: 110.3 cm/sec LV V1 max P.1 mmHg PA V2 mean: 77.2 cm/sec LV V1 mean P.5 mmHg LV V1 mean: 111.5 cm/sec LV V1 VTI: 40.1 cm ECHO/Echo Complete Interpretation Summary Normal LV size. The left ventricular ejection fraction is 50 %. Stage 1 diastolic dysfunction. Septal motion consistent with bundle branch block. Ordering Physician: Hernan Carr Referring Physician: Hernan Carr Performed By: Jackie Ramirez RCS 08/23/241925 Date Hernan Carr MD CC: Dr. Hernan Carr MD; Dr. Duong Borja MD Date Dictated: 08/19/24810 Date Transcribed: 08/23/241925 Die Sinker: Signed Normal [facility] Cardiology Visit Reporton Cardiology Visit Report [facility] [address] [place], [place] [address] OFFICE VISIT Date of Service: 08/16/24 MR#: [id number] Acct: [id number] Name: JOYCE CONNOR Rep #: [id number] : 1950 Provider: GUADALUPE Zuniga Age/Sex: 74/F [place] [facility] [place] Status: Signed HPI HPI History of Present Illness Details: Joyce Connor is a 74-year-old female who presents today for follow-up for monitoring of her cardiovascular health. Patient has a history of factor V Leiden deficiency, nonobstructive coronary artery disease, hypertension, hyperlipidemia, history of PE in 2016, DM and obesity. Patient underwent heart catheterization in 2017 that demonstrated mild coronary artery disease. She was noted to have evidence of a left bundle branch block in 2018. Patient presented to the emergency department for concerns of bradycardia as she was undergoing workup for hernia and cyst operation. She underwent an EKG that demonstrated sinus bradycardia with a left bundle branch block with a rate of 42 bpm. Patient was last seen in office 07/14/2024 for concerns documented above and 48-hour Holter monitor along with echocardiogram were ordered. 48-hour Holter monitor completed 07/20 - 07/22/2024 demonstrated average heart rate 47 bpm, minimum heart rate 31 bpm in sinus bradycardia and maximum heart rate 92 bpm and normal sinus rhythm. 48-hour Holter monitor did not demonstrate any atrial fibrillation, significant pauses, or heart blocks. This demonstrated sinus bradycardia with left bundle branch block. Her echocardiogram is scheduled for 08/19/2024. Upon presentation to office today, patient reports feeling well. She reports noticing increase in her lower extremity edema about 1 week ago that resolved with elevation and denies any significant recurrence since. She notices shortness of breath with activity that has been ongoing and is unchanged. Further ROS below. Intake Vital Signs 07/14/24 09:37 08/16/24 06:52 08/16/24 10:31 Height 4 ft 10 in 4 ft 10 in Weight: 212 lb BMI 44.3 BP 146/77 H 136/64 H Blood Pressure Location Lt brachial Lt brachial Position Sitting Sitting Respiration 20 H Pulse 60 Pulse Source Monitor Pulse Oximetry (%) 97 Intake Visit Reasons: 1 M Spine Specialist Required: No Is patient in pain?: No Allergies No Known Allergies Allergy (Verified 08/16/24 09:46) Medications ???Medication ???Instructions ???Recorded ???Confirmed ???Type amlodipine 10 mg tablet 10 mg PO DAILY 01/09/19 08/16/24 H istory atorvastatin 40 mg tablet 40 mg PO QHS 01/09/19 08/16/24 His tory losartan 50 mg tablet 50 mg PO BID 01/09/19 08/16/24 His tory hydrochlorothiazide 25 mg tablet 25 mg PO DAILY #90 tabs 01/15/19 0 08/16/24 Rx cholecalciferol (vitamin D3) 25 25 mcg PO DAILY 07/07/24 08/16/24 History mcg (1,000 unit) tablet pantoprazole 40 mg tablet,delayed 40 mg PO DAILY 07/07/24 08/16/24 History release bupropion HCl 300 mg 24 hr tablet, 300 mg PO DAILY 07/09/24 5 History extended release metformin 500 mg tablet 500 mg PO BID DIABETES 07/09/24 History ropinirole 0.25 mg tablet 0.25 mg PO DAILY PRN restless 05/0408/16/24 History leg(s) warfarin 3 mg tablet 3 mg PO DAILY 07/09/24 08/16/24 Hi story albuterol sulfate 90 mcg/actuation 2 puff inhalation Q4H PRN 08/16/24 History aerosol inhaler shortness of breath or wheezing escitalopram oxalate 5 mg tablet 5 mg PO DAILY 07/10/24 08/16/24 Hi story Ejection fraction %: 50 Have you fallen in the past year?: No PFSH Medical History Hernia Nausea and vomiting Sinus bradycardia by electrocardiogram BPPV (benign paroxysmal positional vertigo) Stage 3a chronic kidney disease (CKD) Chronic deep vein thrombosis (DVT) Diabetes mellitus, type II Bradycardia MDD (major depressive disorder) Generalized anxiety disorder GERD (gastroesophageal reflux disease) Factor V deficiency Obstructive sleep apnea Morbid obesity Hypertension Hyperlipidemia Atherosclerosis of coronary artery of [place] heart without angina pectoris (10/04/16) Incarcerated hernia Pulmonary embolism LBBB (left bundle branch block) Heterozygous factor V Leiden mutation Surgical History H/O umbilical hernia repair ( 03/2017) History of Hx of cholecystectomy History of left heart catheterization (10/04/16) Family History Mother Hypertension Heart disease Diabetes Myocardial infarction CHF (congestive heart failure) Father Cancer Sister Cancer Diabetes Thyroid disorder Social History ... Normal [facility] CBC W/Diff, Automatedon 05- Absolute Lymph 1.95 X10 3/uL Normal 0.83-4.51 [facility] Comment on above: Performed By: #### L 100.0100, L506.1001, L500.4050, L501.9520 ####[facility] [address] [place], [address] Absolute Neut 4.4 X10 3/uL Normal 2.0-7.7 [facility] Comment on above: Performed By: #### L 100.0100, L506.1001, L500.4050, L501.9520 ####[facility] [address] [place], [address] Basophils/100 WBC (Bld) 0.8 % Normal 0-1 [facility] Comment on above: Performed By: #### L 100.0100, L506.1001, L500.4050, L501.9520 ####[facility] [address] [place], [address] Eosinophils/100 WBC (Bld) 3.7 % Normal 0-5 [facility] Comment on above: Performed By: #### L 100.0100, L506.1001, L500.4050, L501.9520 ####[facility] [address] [place], [address] Erythrocyte distribution width (RBC) [Ratio] 13.0 % Normal 11.6-14.6 [facility] Comment on above: Performed By: #### L 100.0100, L506.1001, L500.4050, L501.9520 ####[facility] [address] [place], [address] Hematocrit (Bld) [Volume fraction] 39.6 % Normal 37-47 [facility] Comment on above: Performed By: #### L 100.0100, L506.1001, L500.4050, L501.9520 ####[facility] [address] [place], [address] Hemoglobin (Bld) [Mass/Vol] 13.0 g/dL Normal 12.0-15.0 [facility] Comment on above: Performed By: #### L 100.0100, L506.1001, L500.4050, L501.9520 ####[facility] [address] [place], [address] IG% 0.400 Normal 0.0-0.9 [facility] Comment on above: Result Comment: IG% - Immature Granulocytes (promyelocytes, myelocytes and metamyelocytes) > 1% indicates that a LEFT SHIFT is Present. Performed By: #### L 100.0100, L506.1001, L500.4050, L501.9520 ####[facility] [address] [place], [address] Lymphocytes/100 WBC (Bld) 27.0 % Normal 19-41 [facility] Comment on above: Performed By: #### L 100.0100, L506.1001, L500.4050, L501.9520 ####[facility] [address] [place], [address] MCH (RBC) [Entitic mass] 29.8 pg Normal 27.0-32.0 [facility] Comment on above: Performed By: #### L 100.0100, L506.1001, L500.4050, L501.9520 ####[facility] [address] [place], [address] MCHC (RBC) [Mass/Vol] 32.8 g/dL Normal 32-36 [facility] Comment on above: Performed By: #### L 100.0100, L506.1001, L500.4050, L501.9520 ####[facility] [address] [place], [address] MCV (RBC) [Entitic vol] 90.8 fL Normal 81-99 [facility] Comment on above: Performed By: #### L 100.0100, L506.1001, L500.4050, L501.9520 ####[facility] [address] [place], [address] Monocytes/100 WBC (Bld) 6.8 % Normal 0-10 [facility] Comment on above: Performed By: #### L 100.0100, L506.1001, L500.4050, L501.9520 ####[facility] [address] [place], [address] Neutrophils/100 WBC (Bld) 61.3 % Normal 47-70 [facility] Comment on above: Performed By: #### L 100.0100, L506.1001, L500.4050, L501.9520 ####[facility] [address] [place], [address] Nucleated RBC (Bld) [#/Vol] 0 10*3/uL Normal 0-5 [facility] Comment on above: Performed By: #### L 100.0100, L506.1001, L500.4050, L501.9520 ####[facility] [address] [place], [address] Platelet mean volume (Bld) [Entitic vol] 11.8 fL Normal 6.2-12.0 [facility] Comment on above: Performed By: #### L 100.0100, L506.1001, L500.4050, L501.9520 ####[facility] [address] [place], [address] Platelets (Bld) [#/Vol] 282 10*3/uL Normal 150-450 [facility] Comment on above: Performed By: #### L 100.0100, L506.1001, L500.4050, L501.9520 ####[facility] [address] [place], [address] RBC (Bld) [#/Vol] 4.36 10*6/uL Normal 4.2-5.4 [facility] Comment on above: Performed By: #### L 100.0100, L506.1001, L500.4050, L501.9520 ####[facility] [address] [place], [address] RDW SD 43.2 fl Normal 35.1-43.9 [facility] Comment on above: Performed By: #### L 100.0100, L506.1001, L500.4050, L501.9520 ####[facility] [address] [place], [address] WBC (Bld) [#/Vol] 7.2 10*3/uL Normal 4.4-11.0 [facility] Comment on above: Performed By: #### L 100.0100, L506.1001, L500.4050, L501.9520 ####[facility] [address] [place], [address] Comprehensive Metabolic Prof [facility] 07-26-2024 Albumin [Mass/Vol] 3.9 g/dL Normal 3.4-4.8 [facility] Comment on above: Performed By: #### L 100.0100, L506.1001, L500.4050, L501.9520 ####[facility] [address] [place], [address] Albumin/Globulin [Mass ratio] 1.2 {ratio} Normal 0.9-2.4 [facility] Comment on above: Performed By: #### L 100.0100, L506.1001, L500.4050, L501.9520 ####[facility] [address] [place], [address] ALK PHOS 105 U/L High 35-104 [facility] Comment on above: Performed By: #### L 100.0100, L506.1001, L500.4050, L501.9520 ####[facility] [address] [place], [address] ALT [Catalytic activity/Vol] 16 U/L Normal <=34 [facility] Comment on above: Performed By: #### L 100.0100, L506.1001, L500.4050, L501.9520 ####[facility] [address] [place], [address] AST [Catalytic activity/Vol] 24 U/L Normal <=31 [facility] Comment on above: Performed By: #### L 100.0100, L506.1001, L500.4050, L501.9520 ####[facility] [address] [place], [address] Bilirubin [Mass/Vol] 0.52 mg/dL Normal 0.00-1.30 [facility] Comment on above: Performed By: #### L 100.0100, L506.1001, L500.4050, L501.9520 ####[facility] [address] [place], [address] BUN/CRE 19.2 RATIO Normal 10-20 [facility] Comment on above: Performed By: #### L 100.0100, L506.1001, L500.4050, L501.9520 ####[facility] [address] [place], [address] Calcium [Mass/Vol] 9.8 mg/dL Normal 7.6-11.0 [facility] Comment on above: Performed By: #### L 100.0100, L506.1001, L500.4050, L501.9520 ####[facility] [address] [place], [address] Chloride [Moles/Vol] 106 mmol/L Normal 98-108 [facility] Comment on above: Performed By: #### L 100.0100, L506.1001, L500.4050, L501.9520 ####[facility] [address] [place], [address] CO2 [Moles/Vol] 23.5 mmol/L Normal 21.0-32.0 [facility] Comment on above: Performed By: #### L 100.0100, L506.1001, L500.4050, L501.9520 ####[facility] [address] [place], [address] Creatinine [Mass/Vol] 1.16 mg/dL Normal 0.70-1.20 [facility] Comment on above: Performed By: #### L 100.0100, L506.1001, L500.4050, L501.9520 ####[facility] [address] [place], [address] GAP 11 Normal 5-15 [facility] Comment on above: Performed By: #### L 100.0100, L506.1001, L500.4050, L501.9520 ####[facility] [address] [place], [address] GFR/1.73 sq M.predicted among non-blacks MDRD (S/P/Bld) [Vol rate/Area] 49 mL/min/{1.73_m2} Low >60 [facility] Comment on above: Result Comment: mL/m in/1.73m2 CKD-EPI Creatinine Equation (2020) Performed By: #### L 100.0100, L506.1001, L500.4050, L501.9520 ####[facility] [address] [place], [address] Globulin (S) [Mass/Vol] 3.2 g/dL Normal 2.2-4.2 [facility] Comment on above: Performed By: #### L 100.0100, L506.1001, L500.4050, L501.9520 ####[facility] [address] [place], [address] Glucose [Mass/Vol] 88 mg/dL Normal 70-99 [facility] Comment on above: Performed By: #### L 100.0100, L506.1001, L500.4050, L501.9520 ####[facility] [address] [place], [address] Potassium [Moles/Vol] 3.6 mmol/L Normal 3.3-5.1 [facility] Comment on above: Performed By: #### L 100.0100, L506.1001, L500.4050, L501.9520 ####[facility] [address] [place], [address] Sodium [Moles/Vol] 141 mmol/L Normal 133-145 [facility] Comment on above: Performed By: #### L 100.0100, L506.1001, L500.4050, L501.9520 ####[facility] [address] [place], [address] T PROT 7.1 g/dL Normal 5.9-8.4 [facility] Comment on above: Performed By: #### L 100.0100, L506.1001, L500.4050, L501.9520 ####[facility] [address] [place], [address] Urea nitrogen [Mass/Vol] 22 mg/dL High 06-26 [facility] Comment on above: Performed By: #### L 100.0100, L506.1001, L500.4050, L501.9520 ####[facility] [address] [place], [address] Thyroid Stim Hormone (TSH)on 07-26-2024 TSH 2.160 uIU/mL Normal 0.300-4.200 [facility] Comment on above: Performed By: #### L 100.0100, L506.1001, L500.4050, L501.9520 ####[facility] [address] [place], [address] Vitamin D,25 Hydroxyon 07-26 Vitamin D 25-OH 33.3 ng/mL Normal 30-100 [facility] Comment on above: Result Comment: Becki min D Status Deficiency: <20 ng/mL (50nmol/L) Insufficiency: 20-30 ng/mL (50-75 nmol/L) Sufficiency: 30-100 ng/mL (75-250 nmol/L) Toxicity: >100 ng/mL (>250 nmol/L) Performed By: #### L 100.0100, L506.1001, L500.4050, L501.9520 ####[facility] [address] [place], [address] Surgery Visit Reporton 07-15 Surgery Visit Report [facility] [address] [place] [address] OFFICE VISIT Date of Service: 07/15/24 MR#: [id number] Acct: [id number] Name: JOYCE CONNOR Rep #: [id number] : 1950 Provider: Dr. Sukumar chappell MD Age/Sex: 74/F Location: [facility] Status: Signed Intake Vital Signs 07/10/24 09:01 07/14/24 09:37 07/15/24 13:34 Height 4 ft 10 in 4 ft 10 in 4 ft 10 in Weight: 209 lb 209 lb 4 oz BMI 43.7 43.7 BP 157/68 H 152/70 H Blood Pressure Location Lt brachial Rt brachial Position Sitting Sitting Respiration 16 18 Pulse 42 L 52 L Pulse Source Monitor Monitor Temp 97.4 F L Temp Source Temporal Pulse Oximetry (%) 97 Oxygen Delivery Method room air Intake Visit Reasons: ER F/U - HERNIA Chief Complaint: ER F/U Hernia Spine Specialist Required: No Accompanied by: Unknown Is patient in pain?: No Allergies No Known Allergies Allergy (Verified 07/15/24 13:35) Medications ???Medication ???Instructions ???Recorded ???Confirmed ???Type amlodipine 10 mg tablet 10 mg PO DAILY 01/09/19 07/15/24 H istory atorvastatin 40 mg tablet 40 mg PO QHS 01/09/19 07/15/24 His tory losartan 50 mg tablet 50 mg PO BID 01/09/19 07/15/24 His tory hydrochlorothiazide 25 mg tablet 25 mg PO DAILY #90 tabs 01/15/19 0 07/15/24 Rx cholecalciferol (vitamin D3) 25 25 mcg PO DAILY 07/07/24 07/15/24 History mcg (1,000 unit) tablet pantoprazole 40 mg tablet,delayed 40 mg PO DAILY 07/07/24 07/15/24 History release bupropion HCl 300 mg 24 hr tablet, 300 mg PO DAILY 07/09/24 5 History extended release metformin 500 mg tablet 500 mg PO BID DIABETES 07/09/24 History ropinirole 0.25 mg tablet 0.25 mg PO DAILY PRN restless 05/0407/15/24 History leg(s) warfarin 3 mg tablet 3 mg PO DAILY 07/09/24 07/15/24 Hi story albuterol sulfate 90 mcg/actuation 2 puff inhalation Q4H PRN 07/15/24 History aerosol inhaler shortness of breath or wheezing escitalopram oxalate 5 mg tablet 5 mg PO DAILY 07/10/24 07/15/24 Hi story Have you fallen in the past year?: No PFSH Medical History (Updated 07/15/24 @ 13:33 by Krista Cuellar) Hernia Nausea and vomiting Sinus bradycardia by electrocardiogram BPPV (benign paroxysmal positional vertigo) Stage 3a chronic kidney disease (CKD) Chronic deep vein thrombosis (DVT) Diabetes mellitus, type II Bradycardia MDD (major depressive disorder) Generalized anxiety disorder GERD (gastroesophageal reflux disease) Factor V deficiency Obstructive sleep apnea Morbid obesity Hypertension Hyperlipidemia Atherosclerosis of coronary artery of [place] heart without angina pectoris (10/04/16) Incarcerated hernia Pulmonary embolism LBBB (left bundle branch block) Heterozygous factor V Leiden mutation Surgical History H/O umbilical hernia repair ( 03/2017) History of Hx of cholecystectomy History of left heart catheterization (10/04/16) Family History Mother Hypertension Heart disease Diabetes Myocardial infarction CHF (congestive heart failure) Father Cancer Sister Cancer Diabetes Thyroid disorder Social History Smoking Status: Former smoker alcohol intake: never substance use type: does not use additional social history: denies aspirin and ibuprofen use HPI HPI HPI: The patient is a 74-year-old female who presents today with ventral hernia. She presented to the emergency department with pain just above the umbilicus. She states that she had a previous hernia repair about 5 to 10 years ago in the similar region although this was probably a bit lower. She states that over the weekend she bent forward and noticed a pinching pain just above the umbilicus. She was seen in the emergency room and was diagnosed with a hernia. She was not aware of this hernia previously. This was soft and easily reducible. It was nonobstructing. She was discharged to home with plans to follow-up. She states that is still a little bit tender but overall seems to be improving and not worsening. It was however noted that she had fairly profound bradycardia recently had its currently undergoing cardiac workup which is still in its early stages. She will certainly need cardiac clearance prior to any surgery ROS General General: No weight change, appetite, fatigue, colon cancer, breast cancer or weakness HEENT HEENT: No difficulty swallowing, eye injury, eye surgery, swollen glands or hoarseness Endo Endocrine: No thyroid disease, diabetes mellitus, thyroid cancer, Hair loss, heat intolerance or cold intolerance Skin Skin: No rash or changing moles B (more content not included)... Normal [facility] 12 Lead EKG performed by [facility] on 07-14-2024 12 Lead EKG performed by [facility] [address] [place] [address] 12 Lead EKG performed by [facility] 07/14/24 0937 MR#: [id number] Acct: [id number] Name: JOYCE CONNOR Rep #: [id number] : 1950 74 From: Hernan Carr MD Attending Dr: Dr. Hernan Carr MD Status: DEP A KENDRA Ordering Dr: Hernan Carr MD Date: 07/14/24 [place] [facility] Sex: F C Admitted: BMS/12 Lead EKG performed by [facility] ECG Report Interpretation -----Marked sinus Bradycardia -With rate variation cv = 11.-Left bundle branch block. ABNORMAL Electronically signed on 07/20/2024 at 08:20 by Hernan Carr [employer] Version [id number] 07/20/24 0826 Date Hernan Carr MD CC: Dr. Duong Borja MD Date Dictated: 07/14/2437 Date Transcribed: 07/14/24936 Die Sinker: CO Signed Normal [facility] Cardiology Visit Reporton Cardiology Visit Report [facility] [address] [place], [place] [address] OFFICE VISIT Date of Service: 07/14/24 MR#: [id number] Acct: [id number] Name: JOYCE CONNOR Rep #: [id number] : 1950 Provider: Dr. Hernan Carr MD Age/Sex: 74/F Location[place] [facility] Status: Signed HPI HPI History of Present Illness Details: 74-year-old lady with a history of factor V Leiden deficiency a previous history of nonobstructive coronary disease, hypertension, hyperlipidemia, history of pulmonary embolism in 2016, diabetes mellitus and obesity. She was noted in 2017 to have mild coronary artery disease from a heart catheterization at that time. She also was noted in 2018 to have evidence of a left bundle branch block. She was recently in the emergency room due to a hernia that she wanted taking care of as well as a cyst on her head. As part of her workup an EKG was done which demonstrated sinus bradycardia with a left bundle branch block with a rate of 42 bpm. She is completely asymptomatic denying any chest pain or shortness of breath or paroxysmal nocturnal dyspnea or pedal edema she has had no neck arm or jaw discomfort suggest angina. She has been compliant with all her medications. She is eager to get her hernia taken care of. Her physical exam demonstrates clear lung gavin regular rate and rhythm no pedal edema her electrocardiogram demonstrates sinus bradycardia with a left bundle branch block and a rate of 45 bpm. Intake Vital Signs 07/07/24 13:16 07/10/24 09:01 07/14/24 09:37 Height 4 ft 10 in 4 ft 10 in 4 ft 10 in Weight: 209 lb BMI 43.7 BP 157/68 H Blood Pressure Location Lt brachial Position Sitting Respiration 16 Pulse 42 L Pulse Source Monitor Intake Visit Reasons: S/P [facility] 07/07 ([facility] ER) Spine Specialist Required: No Accompanied by: Son Is patient in pain?: No Allergies No Known Allergies Allergy (Verified 07/14/24 09:41) Medications ???Medication ???Instructions ???Recorded ???Confirmed ???Type amlodipine 10 mg tablet 10 mg PO DAILY 01/09/19 07/14/24 H istory atorvastatin 40 mg tablet 40 mg PO QHS 01/09/19 07/14/24 His tory losartan 50 mg tablet 50 mg PO BID 01/09/19 07/14/24 His tory hydrochlorothiazide 25 mg tablet 25 mg PO DAILY #90 tabs 01/15/19 0 07/14/24 Rx cholecalciferol (vitamin D3) 25 25 mcg PO DAILY 07/07/24 07/14/24 History mcg (1,000 unit) tablet pantoprazole 40 mg tablet,delayed 40 mg PO DAILY 07/07/24 07/14/24 History release bupropion HCl 300 mg 24 hr tablet, 300 mg PO DAILY 07/09/24 5 History extended release metformin 500 mg tablet 500 mg PO BID DIABETES 07/09/24 History ropinirole 0.25 mg tablet 0.25 mg PO DAILY PRN restless 05/0407/14/24 History leg(s) warfarin 3 mg tablet 3 mg PO DAILY 07/09/24 07/14/24 Hi story albuterol sulfate 90 mcg/actuation 2 puff inhalation Q4H PRN 07/14/24 History aerosol inhaler shortness of breath or wheezing escitalopram oxalate 5 mg tablet 5 mg PO DAILY 07/10/24 07/14/24 Hi story Have you fallen in the past year?: No PFSH Medical History Atherosclerosis of coronary artery of [place] heart without angina pectoris (10/04/16) BPPV (benign paroxysmal positional vertigo) Bradycardia Chronic deep vein thrombosis (DVT) Diabetes mellitus, type II Factor V deficiency Generalized anxiety disorder GERD (gastroesophageal reflux disease) Heterozygous factor V Leiden mutation Hyperlipidemia Hypertension Incarcerated hernia LBBB (left bundle branch block) MDD (major depressive disorder) Morbid obesity Obstructive sleep apnea Pulmonary embolism Stage 3a chronic kidney disease (CKD) Surgical History H/O umbilical hernia repair ( 03/2017) History of History of left heart catheterization (10/04/16) Hx of cholecystectomy Family History Mother Hypertension Heart disease Diabetes Myocardial infarction CHF (congestive heart failure) Father Cancer Sister Cancer Diabetes Thyroid disorder Social History Smoking Status: Former smoker alcohol intake: never substance use type: does not use additional social history: denies aspirin and ibuprofen use ROS Const Const: Negative for fatigue, weakness, headache(s), daytime sleepiness or difficulty sleeping ENT ENT: Negative for headache(s), dizziness or Nosebleed/epistaxis Cardio Chest Pain: No Palpitations: No Edema: Bilateral (BLE at times) Resp Respiratory: Positive for SOB with activity; Negative for SOB at rest, SOB orthopnea SOB lying down or Cough GI GI: Nega (more content not included)... Normal [facility] Abdomen/Pelvis W IV Cont ONL Yon 07-10-2024 Abdomen/Pelvis W IV Cont ONLY [facility] [address] [place], [place] [id number] Abdomen/Pelvis W IV Cont ONLY MR#: [id number] Acct: [id number] Name: GEETAJOYCE Hernandez Rep #: [id number] : 1950 F 74 From: Margarito Urena MD PCP: Dr. Duong Borja MD Status: REG ER Study: Abdomen/Pelvis W IV Cont ONLY Date of Exam: Exam# [id number] Ordering Dr: Chase Yancey MD PROCEDURE: ABDOMEN/PELVIS W IV CONT ONLY 07/10/2024 REASON FOR EXAM: PERIUMBILICAL TO RIGHT LOWER QUADRANT PAIN TECHNIQUE: Abdomen and pelvis CT with intravenous contrast. Coronal and Sagittal reconstruction series were provided. PATIENT PREPARATION: Per protocol ORAL CONTRAST TYPE: None. AMOUNT: mL One or more dose reduction techniques were used (e.g., Automated exposure control, adjustment of the mA and/or kV according to patient size, use of iterative reconstruction technique. FINDINGS: Lung bases: Lung bases are clear. Liver: Normal size. No mass. Gallbladder: Unremarkable. Spleen: Normal size. Pancreas: Normal size without evidence of mass surrounding inflammation or ductal dilation. Adrenals: Right adrenal nodule consistent with an adenoma Kidneys: 4 cm cyst in the mid section of the right kidney. Bladder: Unremarkable. Reproductive Organs: Unremarkable. Bowel: Colonic diverticulosis without diverticulitis. Appendix: The appendix is not identified. There is no inflammatory process identified in the right lower quadrant to suggest appendicitis. Lymph nodes: Unremarkable. Vasculature: The abdominal aorta and IVC are normal. Peritoneum / Retroperitoneum: 5 cm umbilical hernia with incarceration of a loop of small bowel and a tiny amount of fluid but no bowel dilatation to suggest bowel obstruction. Bones: Degenerative changes of the spine. CT/Abdomen/Pelvis W IV Cont ONLY IMPRESSION: 5 cm umbilical hernia with incarceration of a loop of small bowel with some fluid but no bowel obstruction. Reading Location: [id number] CC: Dr. Chase Yancey MD; Dr. Duong Borja MD Die Sinker: Signed Normal [facility] CBC W/Diff, Automatedon 05-0 Absolute Lymph 0.82 X10 3/uL Low 0.83-4.51 [facility] Comment on above: Performed By: #### L 500.4050, L100.0100, L501.2450 ####[facility] [address] [place], [address] Absolute Neut 8.2 X10 3/uL High 2.0-7.7 [facility] Comment on above: Performed By: #### L 500.4050, L100.0100, L501.2450 ####[facility] [address] [place], [address] Basophils/100 WBC (Bld) 0.3 % Normal 0-1 [facility] Comment on above: Performed By: #### L 500.4050, L100.0100, L501.2450 ####[facility] [address] [place], [address] Eosinophils/100 WBC (Bld) 0.1 % Normal 0-5 [facility] Comment on above: Performed By: #### L 500.4050, L100.0100, L501.2450 ####[facility] [address] [place], [address] Erythrocyte distribution width (RBC) [Ratio] 13.5 % Normal 11.6-14.6 [facility] Comment on above: Performed By: #### L 500.4050, L100.0100, L501.2450 ####[facility] [address] [place], [address] Hematocrit (Bld) [Volume fraction] 39.4 % Normal 37-47 [facility] Comment on above: Performed By: #### L 500.4050, L100.0100, L501.2450 ####[facility] [address] [place], [address] Hemoglobin (Bld) [Mass/Vol] 13.0 g/dL Normal 12.0-15.0 [facility] Comment on above: Performed By: #### L 500.4050, L100.0100, L501.2450 ####[facility] [address] [place], [address] IG% 0.300 Normal 0.0-0.9 [facility] Comment on above: Result Comment: IG% - Immature Granulocytes (promyelocytes, myelocytes and metamyelocytes) > 1% indicates that a LEFT SHIFT is Present. Performed By: #### L 500.4050, L100.0100, L501.2450 ####[facility] [address] [place], [address] Lymphocytes/100 WBC (Bld) 8.8 % Low 19-41 [facility] Comment on above: Performed By: #### L 500.4050, L100.0100, L501.2450 ####[facility] [address] [place], [address] MCH (RBC) [Entitic mass] 29.5 pg Normal 27.0-32.0 [facility] Comment on above: Performed By: #### L 500.4050, L100.0100, L501.2450 ####[facility] [address] [place], [address] MCHC (RBC) [Mass/Vol] 33.0 g/dL Normal 32-36 [facility] Comment on above: Performed By: #### L 500.4050, L100.0100, L501.2450 ####[facility] [address] [place], [address] MCV (RBC) [Entitic vol] 89.5 fL Normal 81-99 [facility] Comment on above: Performed By: #### L 500.4050, L100.0100, L501.2450 ####[facility] [address] [place], [address] Monocytes/100 WBC (Bld) 2.2 % Normal 0-10 [facility] Comment on above: Performed By: #### L 500.4050, L100.0100, L501.2450 ####[facility] [address] [place], [address] Neutrophils/100 WBC (Bld) 88.3 % High 47-70 [facility] Comment on above: Performed By: #### L 500.4050, L100.0100, L501.2450 ####[facility] [address] [place], [address] Nucleated RBC (Bld) [#/Vol] 0 10*3/uL Normal 0-5 [facility] Comment on above: Performed By: #### L 500.4050, L100.0100, L501.2450 ####[facility] [address] [place], [address] Platelet mean volume (Bld) [Entitic vol] 11.2 fL Normal 6.2-12.0 [facility] Comment on above: Performed By: #### L 500.4050, L100.0100, L501.2450 ####[facility] [address] [place], [address] Platelets (Bld) [#/Vol] 230 10*3/uL Normal 150-450 [facility] Comment on above: Performed By: #### L 500.4050, L100.0100, L501.2450 ####[facility] [address] [place], [address] RBC (Bld) [#/Vol] 4.40 10*6/uL Normal 4.2-5.4 [facility] Comment on above: Performed By: #### L 500.4050, L100.0100, L501.2450 ####[facility] [address] [place], [address] RDW SD 44.8 fl High 35.1-43.9 [facility] Comment on above: Performed By: #### L 500.4050, L100.0100, L501.2450 ####[facility] [address] [place], [address] WBC (Bld) [#/Vol] 9.3 10*3/uL Normal 4.4-11.0 [facility] Comment on above: Performed By: #### L 500.4050, L100.0100, L501.2450 ####[facility] [address] [place], [address] Comprehensive Metabolic Prof ilon 07-10-2024 Albumin [Mass/Vol] 3.9 g/dL Normal 3.4-4.8 [facility] Comment on above: Performed By: #### L 500.4050, L100.0100, L501.2450 ####[facility] [address] [place], [address] Albumin/Globulin [Mass ratio] 1.3 {ratio} Normal 0.9-2.4 [facility] Comment on above: Performed By: #### L 500.4050, L100.0100, L501.2450 ####[facility] [address] [place], [address] ALK PHOS 103 U/L Normal 35-104 [facility] Comment on above: Performed By: #### L 500.4050, L100.0100, L501.2450 ####[facility] [address] [place], [address] ALT [Catalytic activity/Vol] 21 U/L Normal <=34 [facility] Comment on above: Performed By: #### L 500.4050, L100.0100, L501.2450 ####[facility] [address] [place], [address] AST [Catalytic activity/Vol] 24 U/L Normal <=31 [facility] Comment on above: Performed By: #### L 500.4050, L100.0100, L501.2450 ####[facility] [address] [place], [address] Bilirubin [Mass/Vol] 0.68 mg/dL Normal 0.00-1.30 [facility] Comment on above: Performed By: #### L 500.4050, L100.0100, L501.2450 ####[facility] [address] [place], [address] BUN/CRE 18.1 RATIO Normal 10-20 [facility] Comment on above: Performed By: #### L 500.4050, L100.0100, L501.2450 ####[facility] [address] [place], [address] Calcium [Mass/Vol] 9.4 mg/dL Normal 7.6-11.0 [facility] Comment on above: Performed By: #### L 500.4050, L100.0100, L501.2450 ####[facility] [address] [place], [address] Chloride [Moles/Vol] 106 mmol/L Normal 98-108 [facility] Comment on above: Performed By: #### L 500.4050, L100.0100, L501.2450 ####[facility] [address] [place], [address] CO2 [Moles/Vol] 23.0 mmol/L Normal 21.0-32.0 [facility] Comment on above: Performed By: #### L 500.4050, L100.0100, L501.2450 ####[facility] [address] [place], [address] Creatinine [Mass/Vol] 1.26 mg/dL High 0.70-1.20 [facility] Comment on above: Performed By: #### L 500.4050, L100.0100, L501.2450 ####[facility] [address] [place], [address] ECRCL 39.61 ml/min Low 50-250 [facility] Comment on above: Performed By: #### L 500.4050, L100.0100, L501.2450 ####[facility] [address] [place], [address] GAP 12 Normal 5-15 [facility] Comment on above: Performed By: #### L 500.4050, L100.0100, L501.2450 ####[facility] [address] [place], [address] GFR/1.73 sq M.predicted among non-blacks MDRD (S/P/Bld) [Vol rate/Area] 44 mL/min/{1.73_m2} Low >60 [facility] Comment on above: Result Comment: mL/m in/1.73m2 CKD-EPI Creatinine Equation (2020) Performed By: #### L 500.4050, L100.0100, L501.2450 ####[facility] [address] [place], [address] Globulin (S) [Mass/Vol] 3.0 g/dL Normal 2.2-4.2 [facility] Comment on above: Performed By: #### L 500.4050, L100.0100, L501.2450 ####[facility] [address] [place], [address] Glucose [Mass/Vol] 186 mg/dL High 70-99 [facility] Comment on above: Performed By: #### L 500.4050, L100.0100, L501.2450 ####[facility] [address] [place], [address] Potassium [Moles/Vol] 4.2 mmol/L Normal 3.3-5.1 [facility] Comment on above: Performed By: #### L 500.4050, L100.0100, L501.2450 ####[facility] [address] [place], [address] Sodium [Moles/Vol] 140 mmol/L Normal 133-145 [facility] Comment on above: Performed By: #### L 500.4050, L100.0100, L501.2450 ####[facility] [address] [place], [address] T PROT 6.9 g/dL Normal 5.9-8.4 [facility] Comment on above: Performed By: #### L 500.4050, L100.0100, L501.2450 ####[facility] [address] [place], [address] Urea nitrogen [Mass/Vol] 23 mg/dL High 4-19 [facility] Comment on above: Performed By: #### L 500.4050, L100.0100, L501.2450 ####[facility] [address] [place], [address] Emergency Department Summary on 07-10-2024 Emergency Department Summary [facility] [address] [place] [address] Emergency Department Summary 07/10/24 MR#: [id number] Acct: [id number] Name: JOYCE CONNOR Rep #: [id number] : 1950 74 From: Chase Yancey MD PCP: Dr. Duong Borja MD Status:DEP ER Location: ED HPI HPI - GI History of Present Illness Chief Complaint: Abd Pain Narrative Narrative: 74-year-old female past medical history of of hernia repair by Dr. Liz approximately 9 years ago, presents with abdominal pain, nausea and vomiting since 8 PM yesterday. She relates history that she had a hernia repair. She reports that mesh was not used because the surgeon does not like to use mesh. She had this repaired 9 to 10 years ago, but another hernia developed. She states that she was trying to be careful when she bent over yesterday evening around 8 PM, approximately 13 hours ago. However, she felt like her hernia came out. She states that she tried to push it back in, and thinks she was successful but is still having pain in that area of her hernia or even more towards the right. Other past abdominal surgeries include cholecystectomy and appendectomy. She states she had a bowel movement this morning but it was slightly loose. She denies any fevers or chills. She states that she experienced nausea and vomiting all night, but did not want to come in because of the rain. She is concerned that her hernia is still out. [facility] Medical History BPPV (benign paroxysmal positional vertigo) Stage 3a chronic kidney disease (CKD) Chronic deep vein thrombosis (DVT) Diabetes mellitus, type II Bradycardia MDD (major depressive disorder) Generalized anxiety disorder GERD (gastroesophageal reflux disease) Factor V deficiency Obstructive sleep apnea Morbid obesity Hypertension Hyperlipidemia Atherosclerosis of coronary artery of [place] heart without angina pectoris (10/04/16) Incarcerated hernia Pulmonary embolism LBBB (left bundle branch block) Heterozygous factor V Leiden mutation Home Medications ???Medication ???Instructions ???Recorded ???Last Taken ???Type amlodipine 10 mg tablet 10 mg PO DAILY 01/09/19 07/09/24 H istory atorvastatin 40 mg tablet 40 mg PO QHS 01/09/19 07/09/24 His tory losartan 50 mg tablet 50 mg PO BID 01/09/19 07/09/24 His tory hydrochlorothiazide 25 mg tablet 25 mg PO DAILY #90 tabs 01/15/19 0 07/09/24 Rx cholecalciferol (vitamin D3) 25 25 mcg PO DAILY 07/07/24 07/09/24 History mcg (1,000 unit) tablet pantoprazole 40 mg tablet,delayed 40 mg PO DAILY 07/07/24 07/09/24 History release bupropion HCl 300 mg 24 hr tablet, 300 mg PO DAILY 07/09/24 5 History extended release mecobalamin (vitamin B12) 1,000 1,000 mcg PO DAILY 07/09/24 Unknow n History mcg lozenges metformin 500 mg tablet 500 mg PO BID DIABETES 07/09/24 Un known History ropinirole 0.25 mg tablet 0.25 mg PO DAILY PRN restless 05/04 Unknown History leg(s) warfarin 3 mg tablet 3 mg PO DAILY 07/09/24 07/09/24 Hi story albuterol sulfate 90 mcg/actuation 2 puff inhalation Q4H PRN Unknown History aerosol inhaler shortness of breath or wheezing escitalopram oxalate 5 mg tablet 5 mg PO DAILY 07/10/24 07/09/24 Hi story ondansetron 4 mg disintegrating 4 mg PO Q8H PRN PRN Nausea #10 tab s 07/10/24 Unknown Rx tablet tramadol 50 mg tablet 50 mg PO BID PRN pain #6 tabs 06/01 Unknown Rx Allergy/AdvReac Type Severity Reaction Status Date / Time No Known Allergies Allergy Verified 07/10/24 09:01 Family History Mother Hypertension Heart disease Diabetes Myocardial infarction CHF (congestive heart failure) Father Cancer Sister Cancer Diabetes Thyroid disorder Surgical History H/O umbilical hernia repair ( 03/2017) History of Hx of cholecystectomy History of left heart catheterization (10/04/16) Social History Smoking Status: Former smoker alcohol intake: never substance use type: does not use additional social history: denies aspirin and ibuprofen use ROS ROS ED ROS Narrative Constitutional: No fever, no chills. Cardiovascular: No chest pain. No palpitations. No pedal edema. Respiratory: No cough, no shortness of breath. Abdominal: Positive midline to right lower quadrant abdominal pain. Positive nausea and vomiting. Loose stool this morning. Genitourinary: No dysuria. No hematuria. EXAM Physical Exam Narrative Exam Narrative: Afebrile. Vital signs noted. Nontoxic-appearing. Cardiovascular examination reveals regular rate and rhythm. Lungs are clear to auscultation bilaterally. The (more content not included)... Normal [facility] Lipaseon 07-10-2024 Lipase [Catalytic activity/Vol] 19 U/L Normal 13-75 [facility] Comment on above: Result Comment: Augusta coello note: LIPASE revised reference range effective 22. New Lipase methodology. Expected to produce lower values than the previous assay method. NEW Reference Range: 13 - 75 U/L Performed By: #### L 500.4050, L100.0100, L501.2450 ####[facility] [address] [place], [address] 12 Lead EKGon 07-07-2024 12 Lead EKG [facility] Cardiovascular Services [address] [place] [address] 12 Lead EKG 07/07/24 1256 MR#: [id number] Acct: [id number] Name: JOYCE CONNOR Rep #: [id number] : 1950 74 From: Hernan Carr MD Attending Dr: Status: DEP ER Ordering Dr: Jaison Hardy DO Date: 07/07/24 Location: ED Sex: F C Admitted: Test Reason : Blood Pressure : */* mmHG Vent. Rate : 39 BPM Atrial Rate : 39 BPM P-R Int : 194 ms QRS Dur : 176 ms QT Int : 574 ms P-R-T Axes : 12 -2 67 degrees QTcB Int : 462 ms Marked sinus bradycardia with Premature supraventricular complexes Left bundle branch block Abnormal ECG When compared with ECG of 09-Jan-2019 06:09, Premature supraventricular complexes are now Present Vent. rate has decreased by 27 bpm QT has shortened Confirmed by HERNAN CARR MD ([id number]), editor managing newspaper FRANCISCO DAVENPORT ([id number]) on 07/09/2024 6:39:36 AM Referred By: NASREEN Confirmed By: HERNAN CARR MD 07/09/24 0639 Date Hernan Carr MD CC: Dr. Duong Borja MD; Dr. Jaison Hardy DO Signed Normal [facility] 12 Lead EKG [facility] Cardiovascular Services [address] [place] [address] 12 Lead EKG 07/07/24 1324 MR#: [id number] Acct: [id number] Name: JOYCE CONNOR Rep #: [id number] : 1950 74 From: Hernan Carr MD Attending Dr: Dr. Javid Byrd MD Status: DEP [facility] [place]: Tyrell Lundy MD Date: 07/07/24 [place] [facility] [place] Sex: F C Admitted: Test Reason : ARRYTH Blood Pressure : */* mmHG Vent. Rate : 42 BPM Atrial Rate : 42 BPM P-R Int : 204 ms QRS Dur : 176 ms QT Int : 534 ms P-R-T Axes : 48 0 45 degrees QTcB Int : 445 ms Marked sinus bradycardia with sinus arrhythmia Left bundle branch block Abnormal ECG Confirmed by HERNAN CARR MD ([id number]), editor managing newspaper MARIANELA SHEPHERD ([id number]) on 07/08/2024 1:26:04 PM Referred By: Javid Byrd Confirmed By: HERNAN CARR MD 07/08/24 1326 Date Hernan Carr MD CC: Dr. Tyrell Lundy MD; Dr. Javid Byrd MD; Dr. Duong Borja MD Signed Normal [facility] Basic Metabolic Profile (BMP )on 07-07-2024 BUN/CRE 18.0 RATIO Normal 10-20 [facility] Comment on above: Performed By: #### L 100.0100, L300.4310, L506.0400, L500.2500, L501.9520, L300.3900, L501.38617, L501.4021 ####[facility] [address] [place], [address] Calcium [Mass/Vol] 9.4 mg/dL Normal 7.6-11.0 [facility] Comment on above: Performed By: #### L 100.0100, L300.4310, L506.0400, L500.2500, L501.9520, L300.3900, L501.76944, L501.4021 ####[facility] [address] [place], [address] Chloride [Moles/Vol] 105 mmol/L Normal 98-108 [facility] Comment on above: Performed By: #### L 100.0100, L300.4310, L506.0400, L500.2500, L501.9520, L300.3900, L501.91316, L501.4021 ####[facility] [address] [place], [address] CO2 [Moles/Vol] 25.4 mmol/L Normal 21.0-32.0 [facility] Comment on above: Performed By: #### L 100.0100, L300.4310, L506.0400, L500.2500, L501.9520, L300.3900, L501.95093, L501.4021 ####[facility] [address] [place], [address] Creatinine [Mass/Vol] 1.11 mg/dL Normal 0.70-1.20 [facility] Comment on above: Performed By: #### L 100.0100, L300.4310, L506.0400, L500.2500, L501.9520, L300.3900, L501.46813, L501.4021 ####[facility] [address] [place], [address] ECRCL 45.89 ml/min Low 50-250 [facility] Comment on above: Performed By: #### L 100.0100, L300.4310, L506.0400, L500.2500, L501.9520, L300.3900, L501.48381, L501.4021 ####[facility] [address] [place], [address] GAP 11 Normal 5-15 [facility] Comment on above: Performed By: #### L 100.0100, L300.4310, L506.0400, L500.2500, L501.9520, L300.3900, L501.72660, L501.4021 ####[facility] [address] [place], [address] GFR/1.73 sq M.predicted among non-blacks MDRD (S/P/Bld) [Vol rate/Area] 52 mL/min/{1.73_m2} Low >60 [facility] Comment on above: Result Comment: mL/m in/1.73m2 CKD-EPI Creatinine Equation (2020) Performed By: #### L 100.0100, L300.4310, L506.0400, L500.2500, L501.9520, L300.3900, L501.78081, L501.4021 ####[facility] [address] [place], [address] Glucose [Mass/Vol] 106 mg/dL High 70-99 [facility] Comment on above: Performed By: #### L 100.0100, L300.4310, L506.0400, L500.2500, L501.9520, L300.3900, L501.61409, L501.4021 ####[facility] [address] [place], [address] Potassium [Moles/Vol] 4.1 mmol/L Normal 3.3-5.1 [facility] Comment on above: Performed By: #### L 100.0100, L300.4310, L506.0400, L500.2500, L501.9520, L300.3900, L501.94326, L501.4021 ####[facility] [address] [place], [address] Sodium [Moles/Vol] 141 mmol/L Normal 133-145 [facility] Comment on above: Performed By: #### L 100.0100, L300.4310, L506.0400, L500.2500, L501.9520, L300.3900, L501.28800, L501.4021 ####[facility] [address] [place], [address] Urea nitrogen [Mass/Vol] 20 mg/dL High 4-19 [facility] Comment on above: Performed By: #### L 100.0100, L300.4310, L506.0400, L500.2500, L501.9520, L300.3900, L501.20417, L501.4021 ####[facility] [address] [place], [address] CBC W/Diff, Automatedon 04-3 0-2025 Absolute Lymph 1.92 X10 3/uL Normal 0.83-4.51 [facility] Comment on above: Performed By: #### L 100.0100, L300.4310, L506.0400, L500.2500, L501.9520, L300.3900, L501.09154, L501.4021 ####[facility] [address] [place], [address] Absolute Neut 3.5 X10 3/uL Normal 2.0-7.7 [facility] Comment on above: Performed By: #### L 100.0100, L300.4310, L506.0400, L500.2500, L501.9520, L300.3900, L501.83415, L501.4021 ####[facility] [address] [place], [address] Basophils/100 WBC (Bld) 1.1 % High 0-1 [facility] Comment on above: Performed By: #### L 100.0100, L300.4310, L506.0400, L500.2500, L501.9520, L300.3900, L501.56845, L501.4021 ####[facility] [address] [place], [address] Eosinophils/100 WBC (Bld) 3.5 % Normal 0-5 [facility] Comment on above: Performed By: #### L 100.0100, L300.4310, L506.0400, L500.2500, L501.9520, L300.3900, L501.81523, L501.4021 ####[facility] [address] [place], [address] Erythrocyte distribution width (RBC) [Ratio] 13.6 % Normal 11.6-14.6 [facility] Comment on above: Performed By: #### L 100.0100, L300.4310, L506.0400, L500.2500, L501.9520, L300.3900, L501.78690, L501.4021 ####[facility] [address] [place], [address] Hematocrit (Bld) [Volume fraction] 36.4 % Low 37-47 [facility] Comment on above: Performed By: #### L 100.0100, L300.4310, L506.0400, L500.2500, L501.9520, L300.3900, L501.43565, L501.4021 ####[facility] [address], [address] Hemoglobin (Bld) [Mass/Vol] 12.1 g/dL Normal 12.0-15.0 [facility] Comment on above: Performed By: #### L 100.0100, L300.4310, L506.0400, L500.2500, L501.9520, L300.3900, L501.95588, L501.4021 ####[facility] [address] [place], [address] IG% 0.300 Normal 0.0-0.9 [facility] Comment on above: Result Comment: IG% - Immature Granulocytes (promyelocytes, myelocytes and metamyelocytes) > 1% indicates that a LEFT SHIFT is Present. Performed By: #### L 100.0100, L300.4310, L506.0400, L500.2500, L501.9520, L300.3900, L501.28100, L501.4021 ####[facility] [address] [place], [address] Lymphocytes/100 WBC (Bld) 30.6 % Normal 19-41 [facility] Comment on above: Performed By: #### L 100.0100, L300.4310, L506.0400, L500.2500, L501.9520, L300.3900, L501.28190, L501.4021 ####[facility] [address] [place], [address] MCH (RBC) [Entitic mass] 29.9 pg Normal 27.0-32.0 [facility] Comment on above: Performed By: #### L 100.0100, L300.4310, L506.0400, L500.2500, L501.9520, L300.3900, L501.89021, L501.4021 ####[facility] [address] [place], [address] MCHC (RBC) [Mass/Vol] 33.2 g/dL Normal 32-36 [facility] Comment on above: Performed By: #### L 100.0100, L300.4310, L506.0400, L500.2500, L501.9520, L300.3900, L501.64128, L501.4021 ####[facility] [address] [place], [address] MCV (RBC) [Entitic vol] 89.9 fL Normal 81-99 [facility] Comment on above: Performed By: #### L 100.0100, L300.4310, L506.0400, L500.2500, L501.9520, L300.3900, L501.99565, L501.4021 ####[facility] [address] [place], [address] Monocytes/100 WBC (Bld) 8.4 % Normal 0-10 [facility] Comment on above: Performed By: #### L 100.0100, L300.4310, L506.0400, L500.2500, L501.9520, L300.3900, L501.30042, L501.4021 ####[facility] [address] [place], [address] Neutrophils/100 WBC (Bld) 56.1 % Normal 47-70 [facility] Comment on above: Performed By: #### L 100.0100, L300.4310, L506.0400, L500.2500, L501.9520, L300.3900, L501.25173, L501.4021 ####[facility] [address] [place], [address] Nucleated RBC (Bld) [#/Vol] 0 10*3/uL Normal 0-5 [facility] Comment on above: Performed By: #### L 100.0100, L300.4310, L506.0400, L500.2500, L501.9520, L300.3900, L501.53315, L501.4021 ####[facility] [address] [place], [address] Platelet mean volume (Bld) [Entitic vol] 12.6 fL High 6.2-12.0 [facility] Comment on above: Performed By: #### L 100.0100, L300.4310, L506.0400, L500.2500, L501.9520, L300.3900, L501.15518, L501.4021 ####[facility] [address] [place], [address] Platelets (Bld) [#/Vol] 206 10*3/uL Normal 150-450 [facility] Comment on above: Performed By: #### L 100.0100, L300.4310, L506.0400, L500.2500, L501.9520, L300.3900, L501.47624, L501.4021 ####[facility] [address] [place], [address] RBC (Bld) [#/Vol] 4.05 10*6/uL Low 4.2-5.4 [facility] Comment on above: Performed By: #### L 100.0100, L300.4310, L506.0400, L500.2500, L501.9520, L300.3900, L501.42864, L501.4021 ####[facility] [address] [place], [address] RDW SD 44.6 fl High 35.1-43.9 [facility] Comment on above: Performed By: #### L 100.0100, L300.4310, L506.0400, L500.2500, L501.9520, L300.3900, L501.40392, L501.4021 ####[facility] [address], [address] WBC (Bld) [#/Vol] 6.3 10*3/uL Normal 4.4-11.0 [facility] Comment on above: Performed By: #### L 100.0100, L300.4310, L506.0400, L500.2500, L501.9520, L300.3900, L501.19724, L501.4021 ####[facility] [address] [place], [address] Chest PA and Lateralon 07-07 Chest PA and Lateral [facility] Imaging Services [address] [place] [address] Chest PA and Lateral MR#: [id number] Acct: [id number] Name: JOYCE CONNOR Rep #: [id number] : 1950 F 74 From: Sherri Bah nd, MD PCP: Dr. Duong Borja MD Status: REG ER Study: Chest PA and Lateral Date of Exam: 07/07/24 Exam# [id number] Ordering Dr: Jaison Hardy DO PROCEDURE: CHEST PA AND LATERAL 07/07/2024 REASON FOR EXAM: BRADYCARDIA TECHNIQUE: Frontal and lateral views of the chest. COMPARISON: Chest radiograph 05/27/2018. FINDINGS: Hardware: None. Heart: The heart size is normal. Mediastinum: The mediastinal contour is stable. Lungs: Findings of emphysema with bibasilar atelectasis/scarring. No focal consolidation, pleural effusion or pneumothorax. Bones: Degenerative changes are identified within the thoracic spine. RAD/Chest PA and Lateral IMPRESSION: No acute findings. Mild emphysema. Reading Location: [facility] CC: Dr. Duong Borja MD; Dr. Jaison Hardy DO Die Sinker: Signed Normal [facility] Emergency Department Summary on 07-07-2024 Emergency Department Summary [facility] Records Department [address] [place] [address] Emergency Department Summary 07/07/24 MR#: [id number] Acct: [id number] Name: JOYCE CONNOR Rep #: [id number] : 1950 74 From: Jaison Hardy DO PCP: Dr. Duong Borja MD Status:REG ER Location: ED HPI History of Present Illness Chief Complaint: Chest Other Narrative Narrative: Patient is a 74-year-old female with a past medical history of factor V deficiency, pulm embolism on warfarin, left bundle branch block, KHADRA, GERD who presents to the emergency department with a chief complaint of low heart rate. Patient states that she was scheduled to have a cyst removed today and they noted that preoperatively that her heart rate was low therefore they sent her here for further evaluation management. Patient states that yesterday she was getting a prescreening exam and her heart rate was low then as well but she denies any symptoms with this. In the triage note it states that she has tingling in her fingers however she states that this has been going on for months this is not new. Patient states that she has been compliant with her warfarin outside of holding it recently for her procedure. Patient otherwise is asymptomatic and has no complaints. [facility] Medical History MDD (major depressive disorder) Generalized anxiety disorder GERD (gastroesophageal reflux disease) Factor V deficiency Obstructive sleep apnea Morbid obesity Hypertension Hyperlipidemia Atherosclerosis of coronary artery of [place] heart without angina pectoris (10/04/16) Incarcerated hernia Pulmonary embolism LBBB (left bundle branch block) Superficial thrombophlebitis of right leg Heterozygous factor V Leiden mutation Home Medications ???Medication ???Instructions ???Recorded ???Last Taken ???Type amlodipine 10 mg tablet 10 mg PO DAILY 01/09/19 07/06/24 H istory atorvastatin 40 mg tablet 40 mg PO QHS 01/09/19 07/06/24 His tory losartan 50 mg tablet 50 mg PO BID 01/09/19 07/07/24 His tory metformin 500 mg tablet 1,000 mg PO DAILY DIABETES 9 Unknown History hydrochlorothiazide 25 mg tablet 25 mg PO DAILY #90 tabs 01/15/19 0 07/07/24 Rx escitalopram oxalate 5 mg tablet 5 mg PO QDAY #30 tabs 06/08/24 Rx warfarin 3 mg tablet 3 mg PO QDAY 06/17/24 07/05/24 His tory bupropion HCl 300 mg 24 hr tablet, 300 mg PO DAILY 90 days #90 tabs 07/06/24 07/07/24 Rx extended release cholecalciferol (vitamin D3) 25 25 mcg PO DAILY 07/07/24 07/06/24 History mcg (1,000 unit) tablet pantoprazole 40 mg tablet,delayed 40 mg PO DAILY 07/07/24 07/07/24 History release Allergy/AdvReac Type Severity Reaction Status Date / Time No Known Allergies Allergy Verified 07/07/24 13:16 Family History Mother Hypertension Heart disease Diabetes Father Cancer Sister Cancer Diabetes Thyroid disorder Surgical History H/O umbilical hernia repair ( 03/2017) History of Hx of cholecystectomy History of left heart catheterization (10/04/16) Social History Smoking Status: Former smoker alcohol intake: never substance use type: does not use additional social history: denies aspirin and ibuprofen use ROS ROS ED ROS Narrative Constitutional: Denies any fevers, chills, headaches, legs, dizziness Eyes: That she has been double vision blurry vision Cardiovascular: Denies chest pain or palpitations Respiratory: Denies coughing wheezing shortness of breath Abdomen: Denies abdominal pain nausea vomit diarrhea : Denies urinary symptoms Neurological: Denies any numbness, aches, tingling currently Musculoskeletal: Denies back pain Skin: Denies rashes or lesions EXAM Physical Exam Narrative Exam Narrative: General: Patient is lying in bed rest comfortably did not appear to be acute distress Head: Atraumatic, normocephalic Eyes: PERRL bilaterally, EOMI bilaterally, no conjunctival injection noted Neck: Soft, supple, trachea midline Cardiovascular: Patient bradycardic with a regular rhythm no murmurs gallops rubs noted Respiratory: Clear to auscultation bilaterally Abdomen: Soft, nondistended, nontender to palpation Extremities: +5/5 strength noted in the bilateral upper and lower extremities, radial pulses +2/4 in the bilateral extremities, no pedal edema exam Neurological: Patient following commands knew that she was at [facility] year is 2024 Skin: Warm, dry, intact no rashes or lesions noted Const Vital Signs: 07/07/24 13:16 07/07/24 13:22 07/07/24 14:07 Temperature 98 F Temperature Source Oral Pulse Rate 48 L R (more content not included)... Normal [facility] Free T3on 07-07-2024 Free T3 [Mass/Vol] 2.6 pg/mL Normal 2.18-3.98 [facility] Comment on above: Performed By: #### L 100.0100, L300.4310, L506.0400, L500.2500, L501.9520, L300.3900, L501.82153, L501.4021 ####[facility] [address] [place], [address] H AND P Exam - Surgicalon H&P Exam - Surgical [facility] [address] [place] [address] H P Exam - Surgical 07/07/24 1103 MR#: [id number] Acct: [id number] Name: JOYCE CONNOR Rep #: [id number] : 1950 74 From: Javid Byrd MD PCP: Dr. Duong Borja MD [place] [place]: [place] [address]- HPI - General HPI Narrative Joyce Connor is a delightful 74-year-old female with type 2 diabetes (A1c of 8) and a history of blood clots/pulmonary emboli (currently on Coumadin) who presents for a posterior left vertex scalp cyst. It has been there for several months but recently started bothering her and draining and scabbed over. It is currently inflamed and she was referred here. 25 June 2024: Improved pain on the doxycycline. No significant drainage. Doing well overall. Current Encounter (DATE OF SURGERY H P UPDATE): I saw and examined the patient this morning in pre- operative holding. We discussed risks and benefits of today's surgery and they would like to proceed. NO CHANGE in health history since last seen and evaluated. Ready to proceed with surgery. [facility] Medical History MDD (major depressive disorder) Generalized anxiety disorder GERD (gastroesophageal reflux disease) Factor V deficiency Obstructive sleep apnea Morbid obesity Hypertension Hyperlipidemia Atherosclerosis of coronary artery of [place] heart without angina pectoris (10/04/16) Incarcerated hernia Pulmonary embolism LBBB (left bundle branch block) Superficial thrombophlebitis of right leg Heterozygous factor V Leiden mutation Home Medications ???Medication ???Instructions ???Recorded ???Last Taken ???Type amlodipine 10 mg tablet 10 mg PO DAILY 01/09/19 Unknown Hi story atorvastatin 40 mg tablet 40 mg PO QHS 01/09/19 Unknown Hist ory losartan 50 mg tablet 50 mg PO BID 01/09/19 Unknown Hist ory metformin 500 mg tablet 1,000 mg PO DAILY DIABETES 9 Unknown History pantoprazole 40 mg tablet,delayed 40 mg PO BID #60 tabs 01/12/19 Un known Rx release hydrochlorothiazide 25 mg tablet 25 mg PO DAILY #90 tabs 01/15/19 U nknown Rx warfarin 5 mg tablet 5 mg PO DAILY 07/01/22 Unknown His tory escitalopram oxalate 5 mg tablet 5 mg PO QDAY #30 tabs 06/08/24 Unk nown Rx warfarin 3 mg tablet 3 mg PO QDAY 06/17/24 Unknown Hist ory bupropion HCl 300 mg 24 hr tablet, 300 mg PO DAILY 90 days #90 tabs 07/06/24 Unknown Rx extended release doxycycline hyclate 100 mg capsule 100 mg PO BID 7 days #14 caps Unknown Rx oxycodone 5 mg tablet 5 mg PO DAILY PRN pain 5 days #5 0 07/07/24 Unknown Rx tabs Allergy/AdvReac Type Severity Reaction Status Date / Time No Known Allergies Allergy Verified 07/06/24 11:04 Family History Mother Hypertension Heart disease Diabetes Father Cancer Sister Cancer Diabetes Thyroid disorder Surgical History H/O umbilical hernia repair ( 03/2017) History of Hx of cholecystectomy History of left heart catheterization (10/04/16) Social History Smoking Status: Former smoker alcohol intake: never substance use type: does not use additional social history: denies aspirin and ibuprofen use Physical Exam Narrative No neck lymphadenopathy Less inflammation and drainage since last week, and area of concern is still consistent with a mobile epidermal inclusion cyst. Scab is gone. The cyst is approximately 2 x 2 cm. Assessment Plan Assessment/Plan (1) Epidermal inclusion cyst: PLAN: Plan Scalp cyst is indurated and appears to be slightly infected. We are going to place her on doxycycline 100 mg twice daily for 1 week to get the cyst to quiet down and then we will excise it. The area of scabbing also needs to heal. I am worried if we excise it right now the skin will breakdown and she will have a larger wound especially with her A1c of 8. I think getting the area to quiet down this week, and asking Dr. Daly her primary care doctor about taking her off of Coumadin in anticipation for cyst excision, is reasonable (would likely need a bridge). Plan for follow-up in 1 week. Patient happy with the plan Plan from 25 June 2024: Discussed with her improvement in the cyst appearance (less inflamed and does not appear infected at this time status post 1 week of doxycycline). I believe I can excise it and close it primarily at this point as the open wound portion of it has healed. I talked her about the risks, benefits, and alternatives to cyst excision, as well as the risks, benefits, and alternatives to stopping Coumadin before the procedure. After our discussion, our plan will be excision in the operating room in a controlled envi (more content not included)... Normal [facility] L499.0042on 07-07-2024 Trop T High Sen 16 ng/L High <=14 [facility] Comment on above: Performed By: #### L 499.0042 ####[facility] [address]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 CONNOR Rep #: [id number] : 1950 Provider: Dr. Sukumar Valencia se, DO Age/Sex: 74/F Location: [facility].BP Status: Signed Intake Vital Signs 11/06/23 09:29 04/07/24 10:49 Height 4 ft 11 in 4 ft 11 in Weight: 216 lb 213 lb BMI 43.6 43.0 BP 126/62 H 163/77 H Blood Pressure Location Rt brachial Lt radial Position Sitting Sitting Respiration 16 16 Pulse 52 L 56 L Pulse Source Monitor Monitor Pulse Oximetry (%) 99 Oxygen Delivery Method room air Comment Pt states has not taken meds yet today BP Intake Visit Reasons: follow up Accompanied by: Self Allergies No Known Allergies Allergy (Verified 04/07/24 10:52) Medications ???Medication ???Instructions ???Recorded ???Confirmed ???Type amlodipine 10 mg tablet 10 mg PO DAILY 01/09/19 04/07/24 History atorvastatin 40 mg tablet 40 mg PO QHS 01/09/19 04/07/24 History losartan 50 mg tablet 50 mg PO BID 01/09/19 04/07/24 History metformin 500 mg tablet 1,000 mg PO DAILY DIABETES 01/09/19 04/07/24 History pantoprazole 40 mg tablet,delayed 40 mg PO BID #60 tabs 01/12/19 04/07/24 Rx release hydrochlorothiazide 25 mg tablet 25 mg PO DAILY #90 tabs 01/15/19 04/07/24 Rx warfarin 5 mg tablet 5 mg PO DAILY 07/01/22 04/07/24 History bupropion HCl 300 mg 24 hr tablet, 300 mg PO DAILY 90 days #90 tabs 01/26/24 04/07/24 Rx extended release escitalopram oxalate 5 mg tablet 5 mg PO QDAY #30 tabs 04/07/24 04/07/24 Rx Have you fallen in the past year?: No PFSH Medical History Generalized anxiety disorder GERD (gastroesophageal reflux disease) Factor V deficiency Obstructive sleep apnea Morbid obesity Hypertension Hyperlipidemia Atherosclerosis of coronary artery of [place] heart without angina pectoris (10/04/16) Incarcerated hernia Pulmonary embolism LBBB (left bundle branch block) Superficial thrombophlebitis of right leg Heterozygous factor V Leiden mutation Surgical History H/O umbilical hernia repair ( 03/2017) History of Hx of cholecystectomy History of left heart catheterization (10/04/16) Family History Mother Hypertension Heart disease Diabetes Father Cancer Sister Cancer Diabetes Thyroid disorder Social History Smoking Status: Former smoker alcohol intake: never substance use type: does not use HPI History of Present Illness History provided by: patient HPI: Joyce Connor is a 74 year old female who presents today for follow up evaluation. Patient reports to having good days and bad days. Upon further questioning, does feel like she has more bad days. Got a new great granddaughter in January, named Celina. Oldest son, grandson, Grand daughter/her boyfriend and and great-granddaughter do live with patient. Patient reports that she does spend a lot of time in her room alone from everyone else. Son has not had many jobs for his business so he has not made much progress on moving out. Her oldest son will be moving to [place] to be closer to friends. Has been in the house for the past year but nothing much has changed. Has not been wanting to go anywhere recently, partially due to weather but largely due to just not wanting to go. Did got to [employer] last Friday as a way to get out of house. Has not engaged in any therapy. Review of Systems Constitutional Reports: fatigue Eyes Denies: change in vision or blurry vision Cardiovascular Reports: dyspnea Respiratory Reports: dyspnea; Denies: wheezing Gastrointestinal Reports: heartburn, bloating and excessive flatus Genitourinary Denies: dysuria or urinary frequency Musculoskeletal Reports: joint pain (achiness) and other (Restless leg ) Integumentary/Breast Denies: rash or new lesions Neurological Denies: headache(s) or confusion Endocrine Reports: fatigue Hematologic/Lymphatic Reports: easy bruising Allergic/Immunologic Denies: wheezing Exam Mental Status Exam - Psych Appearance adequately groomed and obese Attitude guarded Activity/Motor Behavior MSE activity/motor behavior finding no adventitious movements Speech regular volume, regular prosody and slow Mood depressed Affect other (actually somewhat brighter today) Thought Process linear, logical and coherent Thought Content no delusions and no hallucinations Suicidal Ideation none Homicidal Ideation none Attention intact Concentration intact Sensorium/Orientation awake, alert and oriented x3 Memory/Cog (more content not included)... Normal [facility] CBC W/Diff, Automatedon 11- Absolute Lymph 2.24 X10 3/uL Normal 0.83-4.51 [facility] Comment on above: Performed By: #### L 500.4050, L501.9520, L506.1000, L100.0100 #### [facility] [address] [place], [address] Absolute Neut 2.7 X10 3/uL Normal 2.0-7.7 [facility] Comment on above: Performed By: #### L 500.4050, L501.9520, L506.1000, L100.0100 #### [facility] [address] [place], [address] Basophils/100 WBC (Bld) 1.3 % High 0-1 [facility] Comment on above: Performed By: #### L 500.4050, L501.9520, L506.1000, L100.0100 #### [facility] [address] [place], [address] Eosinophils/100 WBC (Bld) 7.7 % High 0-5 [facility] Comment on above: Performed By: #### L 500.4050, L501.9520, L506.1000, L100.0100 #### [facility] [address] [place], [address] Erythrocyte distribution width (RBC) [Ratio] 12.7 % Normal 11.6-14.6 [facility] Comment on above: Performed By: #### L 500.4050, L501.9520, L506.1000, L100.0100 #### [facility] [address] [place], [address] Hematocrit (Bld) [Volume fraction] 40.0 % Normal 37-47 [facility] Comment on above: Performed By: #### L 500.4050, L501.9520, L506.1000, L100.0100 #### [facility] [address] [place], [address] Hemoglobin (Bld) [Mass/Vol] 13.1 g/dL Normal 12.0-15.0 [facility] Comment on above: Performed By: #### L 500.4050, L501.9520, L506.1000, L100.0100 #### [facility] [address] [place], [address] IG% 0.300 Normal 0.0-0.9 [facility] Comment on above: Result Comment: IG% - Immature Granulocytes (promyelocytes, myelocytes and metamyelocytes) > 1% indicates that a LEFT SHIFT is Present. Performed By: #### L 500.4050, L501.9520, L506.1000, L100.0100 #### [facility] [address], [address] Lymphocytes/100 WBC (Bld) 36.8 % Normal 19-41 [facility] Comment on above: Performed By: #### L 500.4050, L501.9520, L506.1000, L100.0100 #### [facility] [address] [place], [address] MCH (RBC) [Entitic mass] 29.2 pg Normal 27.0-32.0 [facility] Comment on above: Performed By: #### L 500.4050, L501.9520, L506.1000, L100.0100 #### [facility] [address] [place], [address] MCHC (RBC) [Mass/Vol] 32.8 g/dL Normal 32-36 [facility] Comment on above: Performed By: #### L 500.4050, L501.9520, L506.1000, L100.0100 #### [facility] [address] [place], [address] MCV (RBC) [Entitic vol] 89.1 fL Normal 81-99 [facility] Comment on above: Performed By: #### L 500.4050, L501.9520, L506.1000, L100.0100 #### [facility] [address] [place], [address] Monocytes/100 WBC (Bld) 9.0 % Normal 0-10 [facility] Comment on above: Performed By: #### L 500.4050, L501.9520, L506.1000, L100.0100 #### [facility] [address] [place], [address] Neutrophils/100 WBC (Bld) 44.9 % Low 47-70 [facility] Comment on above: Performed By: #### L 500.4050, L501.9520, L506.1000, L100.0100 #### [facility] [address] [place], [address] Nucleated RBC (Bld) [#/Vol] 0 10*3/uL Normal 0-5 [facility] Comment on above: Performed By: #### L 500.4050, L501.9520, L506.1000, L100.0100 #### [facility] [address] [place], [address] Platelet mean volume (Bld) [Entitic vol] 11.8 fL Normal 6.2-12.0 [facility] Comment on above: Performed By: #### L 500.4050, L501.9520, L506.1000, L100.0100 #### [facility] [address] [place], [address] Platelets (Bld) [#/Vol] 263 10*3/uL Normal 150-450 [facility] Comment on above: Performed By: #### L 500.4050, L501.9520, L506.1000, L100.0100 #### [facility] [address] [place], [address] RBC (Bld) [#/Vol] 4.49 10*6/uL Normal 4.2-5.4 [facility] Comment on above: Performed By: #### L 500.4050, L501.9520, L506.1000, L100.0100 #### [facility] [address] [place], [address] RDW SD 41.6 fl Normal 35.1-43.9 [facility] Comment on above: Performed By: #### L 500.4050, L501.9520, L506.1000, L100.0100 #### [facility] [address] [place], [address] WBC (Bld) [#/Vol] 6.1 10*3/uL Normal 4.4-11.0 [facility] Comment on above: Performed By: #### L 500.4050, L501.9520, L506.1000, L100.0100 #### [facility] [address] [place], [address] Comprehensive Metabolic [facility] 01-20-2024 Albumin [Mass/Vol] 3.6 g/dL Normal 3.2-5.0 [facility] Comment on above: Performed By: #### L 500.4050, L501.9520, L506.1000, L100.0100 #### [facility] [address] [place], [address] Albumin/Globulin [Mass ratio] 0.9 {ratio} Normal 0.9-2.4 [facility] Comment on above: Performed By: #### L 500.4050, L501.9520, L506.1000, L100.0100 #### [facility] [address] [place], [address] ALK P 117 U/L Normal 45-117 [facility] Comment on above: Performed By: #### L 500.4050, L501.9520, L506.1000, L100.0100 #### [facility] [address] [place], [address] ALT [Catalytic activity/Vol] 27 U/L Normal 13-56 [facility] Comment on above: Performed By: #### L 500.4050, L501.9520, L506.1000, L100.0100 #### [facility] [address] [place], [address] AST [Catalytic activity/Vol] 24 U/L Normal 15-37 [facility] Comment on above: Performed By: #### L 500.4050, L501.9520, L506.1000, L100.0100 #### [facility] [address] [place], [address] Bilirubin [Mass/Vol] 0.80 mg/dL Normal 0.20-1.00 [facility] Comment on above: Result Comment: For patients on eltrombopag therapy, use of Dimension [place] TBIL is not recommended. Performed By: #### L 500.4050, L501.9520, L506.1000, L100.0100 #### [facility] [address] [place], [address] BUN/CRE 13.7 RATIO Normal 10-20 [facility] Comment on above: Performed By: #### L 500.4050, L501.9520, L506.1000, L100.0100 #### [facility] [address] [place], [address] CA,Total 9.5 mg/dL Normal 8.5-10.1 [facility] Comment on above: Performed By: #### L 500.4050, L501.9520, L506.1000, L100.0100 #### [facility] [address] [place], [address] Chloride [Moles/Vol] 107 mmol/L Normal 98-107 [facility] Comment on above: Performed By: #### L 500.4050, L501.9520, L506.1000, L100.0100 #### [facility] [address] [place], [address] CO2 [Moles/Vol] 26.0 mmol/L Normal 21.0-32.0 [facility] Comment on above: Performed By: #### L 500.4050, L501.9520, L506.1000, L100.0100 #### [facility] [address] [place], [address] Creatinine [Mass/Vol] 1.31 mg/dL High 0.55-1.02 [facility] Comment on above: Result Comment: The validity of the calculated GFR GFRAA in patients over 70 years has not been determined. Clinical correlation is essential. Performed By: #### L 500.4050, L501.9520, L506.1000, L100.0100 #### [facility] [address] [place], [address] EST GFR - AA 51 mL/min Low >60 [facility] Comment on above: Result Comment: Afri can [place] GFR Calc Performed By: #### L 500.4050, L501.9520, L506.1000, L100.0100 #### [facility] [address] [place], [address] GAP 8 Normal 5-15 [facility] Comment on above: Performed By: #### L 500.4050, L501.9520, L506.1000, L100.0100 #### [facility] [address] [place], [address] GFR/1.73 sq M.predicted among non-blacks MDRD (S/P/Bld) [Vol rate/Area] 42 mL/min/{1.73_m2} Low >60 [facility] Comment on above: Result Comment: Non- GFR Calc Performed By: #### L 500.4050, L501.9520, L506.1000, L100.0100 #### [facility] [address] [place], [address] Globulin (S) [Mass/Vol] 3.9 g/dL Normal 2.2-4.2 [facility] [facility] Comment on above: Performed By: #### L 500.4050, L501.9520, L506.1000, L100.0100 #### [facility] [address] [place], [address] Glucose [Mass/Vol] 137 mg/dL High 74-106 [facility] Comment on above: Result Comment: Fast ing Glucose result greater than or equal to 126 mg/dL suggests DIABETES MELLITUS per A.D.A. criteria. Performed By: #### L 500.4050, L501.9520, L506.1000, L100.0100 #### [facility] [address] [place], [address] Potassium [Moles/Vol] 3.8 mmol/L Normal 3.5-5.1 [facility] Comment on above: Performed By: #### L 500.4050, L501.9520, L506.1000, L100.0100 #### [facility] [address] [place], [address] Sodium [Moles/Vol] 141 mmol/L Normal 136-145 [facility] Comment on above: Performed By: #### L 500.4050, L501.9520, L506.1000, L100.0100 #### [facility] [address] [place], [address] T PROT 7.5 g/dL Normal 6.4-8.2 [facility] Comment on above: Performed By: #### L 500.4050, L501.9520, L506.1000, L100.0100 #### [facility] [address], [address] Urea nitrogen [Mass/Vol] 18 mg/dL Normal 7-18 [facility] Comment on above: Performed By: #### L 500.4050, L501.9520, L506.1000, L100.0100 #### [facility] [address] [place], [address] Thyroid Stim Hormone (TSH)on 01-20-2024 TSH 1.310 uIU/mL Normal 0.358-3.740 [facility] Comment on above: Performed By: #### L 500.4050, L501.9520, L506.1000, L100.0100 ####[facility] [address] [place], [address] Vitamin D,25 Hydroxyon 01-19 Vitamin D 25-OH 35.8 ng/mL Normal [facility] Comment on above: Result Comment: Becki min D 25(OH) Status Range Deficiency <20 ng/mL (50nmol/L) Insufficiency 20 - 30 ng/mL (50 - 75 nmol/L) Sufficiency 30 - 100 ng/mL (75 - 250 nmol/L) Toxicity >100 ng/mL (>250 nmol/L) Performed By: #### L 500.4050, L501.9520, L506.1000, L100.0100 #### [facility] [address] [place], [address] MR/on 11-06-2023 MR/ [address], [address] [place] [address] OFFICE VISIT Date of Service: 11/06/23 MR#: [id number] Acct: [id number] Name: JOYCE CONNOR Rep #: [id number] : 1950 Provider: Dr. Sukumar Valencia se, DO Age/Sex: 73/F Location: [facility] Status: Signed Intake Vital Signs 06/10/23 11:25 11/06/23 09:27 11/06/23 09:29 Height 4 ft 10 in 4 ft 10 in 4 ft 11 in Weight: 216 lb BMI 43.6 BP 126/62 H Blood Pressure Location Rt brachial Position Sitting Respiration 16 Pulse 52 L Pulse Source Monitor Pulse Oximetry (%) 99 Oxygen Delivery Method room air BP Intake Visit Reasons: follow up Accompanied by: Self Is patient in pain?: No Allergies No Known Allergies Allergy (Verified 11/06/23 09:28) Medications ???Medication ???Instructions ???Recorded ???Confirmed ???Type amlodipine 10 mg tablet 10 mg PO DAILY 01/09/19 11/06/23 History atorvastatin 40 mg tablet 40 mg PO QHS 01/09/19 11/06/23 History losartan 50 mg tablet 50 mg PO BID 01/09/19 11/06/23 History metformin 500 mg tablet 1,000 mg PO DAILY DIABETES 01/09/19 11/06/23 History pantoprazole 40 mg tablet,delayed 40 mg PO BID #60 tabs 01/12/19 11/06/23 Rx release hydrochlorothiazide 25 mg tablet 25 mg PO DAILY #90 tabs 01/15/19 11/06/23 Rx warfarin 5 mg tablet 5 mg PO DAILY 07/01/22 11/06/23 History bupropion HCl 300 mg 24 hr tablet, 300 mg PO DAILY 90 days #90 tabs 10/08/23 11/06/23 Rx extended release Have you fallen in the past year?: No PFSH Medical History Generalized anxiety disorder GERD (gastroesophageal reflux disease) Factor V deficiency Obstructive sleep apnea Morbid obesity Hypertension Hyperlipidemia Atherosclerosis of coronary artery of [place] heart without angina pectoris (10/04/16) Incarcerated hernia Pulmonary embolism LBBB (left bundle branch block) Superficial thrombophlebitis of right leg Heterozygous factor V Leiden mutation Surgical History H/O umbilical hernia repair ( 03/2017) History of Hx of cholecystectomy History of left heart catheterization (10/04/16) Family History Mother Hypertension Heart disease Diabetes Father Cancer Sister Cancer Diabetes Thyroid disorder Social History Smoking Status: Former smoker alcohol intake: never substance use type: does not use HPI History of Present Illness History provided by: patient HPI: Joyce Connor is a 73 year old female who presents today for follow up evaluation. Patient reports that she is doing not too good. Continues to live with her son in his trailer with his children. Her things largely remains packed up in boxes. Plans to give situation up to a year before she attempts to find somewhere else to live. Has been doing a lot of running around for her grandchildren. Her son never paid the gas bill so their gas was shut off. Is worried about the winter being so cold as it had been last winter. Her 18 year old granddaughter is now expecting and her boyfriend moved in to the trailer as well. She is very anxious about this situation.Not only that she also recently bought a puppy. Is considering moving in with her other son in the future. Has still not engaged in therapy, but does have a list of therapist in the area. Has not yet called. Unsure how beneficial meds are to this point because she is not feeling much better. Denies any SI HI or AVH. Still has not had anyone over to her house as she is somewhat embarrassed of the living situation. Review of Systems Constitutional Reports: fatigue Eyes Denies: change in vision or blurry vision Cardiovascular Reports: dyspnea Respiratory Reports: dyspnea; Denies: wheezing Gastrointestinal Reports: heartburn, bloating and excessive flatus Genitourinary Denies: dysuria or urinary frequency Musculoskeletal Reports: joint pain (achiness) and other (Restless leg ) Integumentary/Breast Denies: rash or new lesions Neurological Denies: headache(s) or confusion Endocrine Reports: fatigue Hematologic/Lymphatic Reports: easy bruising Allergic/Immunologic Denies: wheezing Exam Mental Status Exam - Psych Appearance adequately groomed and obese Attitude guarded Activity/Motor Behavior MSE activity/motor behavior finding no adventitious movements Speech regular volume, regular prosody and slow Mood depressed Affect restricted Thought Process linear, logical and coherent Thought Content no delusions and no hallucinations Suicidal Ideation none Homicidal Ideation none Attention intact Concentration intact Sensorium/Orientation carlos a (more content not included)... Normal [facility] CBC W/Diff, Automatedon 10-08 Absolute Lymph 2.00 X10 3/uL Normal 0.83-4.51 [facility] Comment on above: Performed By: #### L 501.9520, L500.4050, L506.1000, L100.0100 #### [facility] [address] [place], [address] Absolute Neut 3.2 X10 3/uL Normal 2.0-7.7 [facility] Comment on above: Performed By: #### L 501.9520, L500.4050, L506.1000, L100.0100 #### [facility] [address] [place], [address] Basophils/100 WBC (Bld) 1.3 % High 0-1 [facility] Comment on above: Performed By: #### L 501.9520, L500.4050, L506.1000, L100.0100 #### [facility] [address] [place], [address] Eosinophils/100 WBC (Bld) 6.0 % High 0-5 [facility] Comment on above: Performed By: #### L 501.9520, L500.4050, L506.1000, L100.0100 #### [facility] [address] [place], [address] Erythrocyte distribution width (RBC) [Ratio] 12.4 % Normal 11.6-14.6 [facility] Comment on above: Performed By: #### L 501.9520, L500.4050, L506.1000, L100.0100 #### [facility] [address] [place], [address] Hematocrit (Bld) [Volume fraction] 38.6 % Normal 37-47 [facility] Comment on above: Performed By: #### L 501.9520, L500.4050, L506.1000, L100.0100 #### [facility] [address] [place], [address] Hemoglobin (Bld) [Mass/Vol] 12.5 g/dL Normal 12.0-15.0 [facility] Comment on above: Performed By: #### L 501.9520, L500.4050, L506.1000, L100.0100 #### [facility] [address], [address] IG% 0.300 Normal 0.0-0.9 [facility] Comment on above: Result Comment: IG% - Immature Granulocytes (promyelocytes, myelocytes and metamyelocytes) > 1% indicates that a LEFT SHIFT is Present. Performed By: #### L 501.9520, L500.4050, L506.1000, L100.0100 #### [facility] [address] [place], [address] Lymphocytes/100 WBC (Bld) 32.3 % Normal 19-41 [facility] Comment on above: Performed By: #### L 501.9520, L500.4050, L506.1000, L100.0100 #### [facility] [address] [place], [address] MCH (RBC) [Entitic mass] 29.1 pg Normal 27.0-32.0 [facility] Comment on above: Performed By: #### L 501.9520, L500.4050, L506.1000, L100.0100 #### [facility] [address] [place], [address] MCHC (RBC) [Mass/Vol] 32.4 g/dL Normal 32-36 [facility] Comment on above: Performed By: #### L 501.9520, L500.4050, L506.1000, L100.0100 #### [facility] [address] [place], [address] MCV (RBC) [Entitic vol] 90.0 fL Normal 81-99 [facility] Comment on above: Performed By: #### L 501.9520, L500.4050, L506.1000, L100.0100 #### [facility] [address] [place], [address] Monocytes/100 WBC (Bld) 8.1 % Normal 0-10 [facility] Comment on above: Performed By: #### L 501.9520, L500.4050, L506.1000, L100.0100 #### [facility] [address] [place], [address] Neutrophils/100 WBC (Bld) 52.0 % Normal 47-70 [facility] Comment on above: Performed By: #### L 501.9520, L500.4050, L506.1000, L100.0100 #### [facility] [address] [place], [address] Nucleated RBC (Bld) [#/Vol] 0 10*3/uL Normal 0-5 [facility] Comment on above: Performed By: #### L 501.9520, L500.4050, L506.1000, L100.0100 #### [facility] [address] [place], [address] Platelet mean volume (Bld) [Entitic vol] 11.8 fL Normal 6.2-12.0 [facility] Comment on above: Performed By: #### L 501.9520, L500.4050, L506.1000, L100.0100 #### [facility] [address] [place], [address] Platelets (Bld) [#/Vol] 255 10*3/uL Normal 150-450 [facility] Comment on above: Performed By: #### L 501.9520, L500.4050, L506.1000, L100.0100 #### [facility] [address] [place], [address] RBC (Bld) [#/Vol] 4.29 10*6/uL Normal 4.2-5.4 [facility] Comment on above: Performed By: #### L 501.9520, L500.4050, L506.1000, L100.0100 #### [facility] [address] [place], [address] RDW SD 40.4 fl Normal 35.1-43.9 [facility] Comment on above: Performed By: #### L 501.9520, L500.4050, L506.1000, L100.0100 #### [facility] [address] [place], [address] WBC (Bld) [#/Vol] 6.2 10*3/uL Normal 4.4-11.0 [facility] Comment on above: Performed By: #### L 501.9520, L500.4050, L506.1000, L100.0100 #### [facility] [address] [place], [address] Comprehensive Metabolic Prof [facility] 10-21-2023 Albumin [Mass/Vol] 3.3 g/dL Normal 3.2-5.0 [facility] Comment on above: Performed By: #### L 501.9520, L500.4050, L506.1000, L100.0100 #### [facility] [address] [place], [address] Albumin/Globulin [Mass ratio] 0.8 {ratio} Low 0.9-2.4 [facility] Comment on above: Performed By: #### L 501.9520, L500.4050, L506.1000, L100.0100 #### [facility] [address] [place], [address] ALK P 121 U/L High 45-117 [facility] Comment on above: Performed By: #### L 501.9520, L500.4050, L506.1000, L100.0100 #### [facility] [address] [place], [address] ALT [Catalytic activity/Vol] 25 U/L Normal 13-56 [facility] Comment on above: Performed By: #### L 501.9520, L500.4050, L506.1000, L100.0100 #### [facility] [address] [place], [address] AST [Catalytic activity/Vol] 25 U/L Normal 15-37 [facility] Comment on above: Performed By: #### L 501.9520, L500.4050, L506.1000, L100.0100 #### [facility] [address] [place], [address] Bilirubin [Mass/Vol] 0.60 mg/dL Normal 0.20-1.00 [facility] Comment on above: Result Comment: For patients on eltrombopag therapy, use of Dimension [place] TBIL is not recommended. Performed By: #### L 501.9520, L500.4050, L506.1000, L100.0100 #### [facility] [address] [place], [address] BUN/CRE 11.9 RATIO Normal 10-20 [facility] Comment on above: Performed By: #### L 501.9520, L500.4050, L506.1000, L100.0100 #### [facility] [address] [place], [address] CA,Total 8.8 mg/dL Normal 8.5-10.1 [facility] Comment on above: Performed By: #### L 501.9520, L500.4050, L506.1000, L100.0100 #### [facility] [address] [place], [address] Chloride [Moles/Vol] 106 mmol/L Normal 98-107 [facility] Comment on above: Performed By: #### L 501.9520, L500.4050, L506.1000, L100.0100 #### [facility] [address] [place], [address] CO2 [Moles/Vol] 26.0 mmol/L Normal 21.0-32.0 [facility] Comment on above: Performed By: #### L 501.9520, L500.4050, L506.1000, L100.0100 #### [facility] [address] [place], [address] Creatinine [Mass/Vol] 1.26 mg/dL High 0.55-1.02 [facility] Comment on above: Result Comment: The validity of the calculated GFR GFRAA in patients over 70 years has not been determined. Clinical correlation is essential. Performed By: #### L 501.9520, L500.4050, L506.1000, L100.0100 #### [facility] [address] [place], [address] EST GFR - AA 53 mL/min Low >60 [facility] Comment on above: Result Comment: Afri can [place] GFR Calc Performed By: #### L 501.9520, L500.4050, L506.1000, L100.0100 #### [facility] [address] [place], [address] GAP 9 Normal 5-15 [facility] Comment on above: Performed By: #### L 501.9520, L500.4050, L506.1000, L100.0100 #### [facility] [address] [place], [address] GFR/1.73 sq M.predicted among non-blacks MDRD (S/P/Bld) [Vol rate/Area] 44 mL/min/{1.73_m2} Low >60 [facility] Comment on above: Result Comment: Non- GFR Calc Performed By: #### L 501.9520, L500.4050, L506.1000, L100.0100 #### [facility] [address] [place], [address] Globulin (S) [Mass/Vol] 3.9 g/dL Normal 2.2-4.2 [facility] Comment on above: Performed By: #### L 501.9520, L500.4050, L506.1000, L100.0100 #### [facility] [address] [place], [address] Glucose [Mass/Vol] 236 mg/dL High 74-106 [facility] Comment on above: Result Comment: Gluc ose result greater than or equal to 200 mg/dL suggests DIABETES MELLITUS per A.D.A. criteria. Performed By: #### L 501.9520, L500.4050, L506.1000, L100.0100 #### [facility] [address] [place], [address] Potassium [Moles/Vol] 3.6 mmol/L Normal 3.5-5.1 [facility] Comment on above: Performed By: #### L 501.9520, L500.4050, L506.1000, L100.0100 #### [facility] [address] [place], [address] Sodium [Moles/Vol] 141 mmol/L Normal 136-145 [facility] Comment on above: Performed By: #### L 501.9520, L500.4050, L506.1000, L100.0100 #### [facility] [address] [place], [address] T PROT 7.2 g/dL Normal 6.4-8.2 [facility] Comment on above: Performed By: #### L 501.9520, L500.4050, L506.1000, L100.0100 #### [facility] [address] [place], [address] Urea nitrogen [Mass/Vol] 15 mg/dL Normal 7-18 [facility] Comment on above: Performed By: #### L 501.9520, L500.4050, L506.1000, L100.0100 #### [facility] [address] [place], [address] Thyroid Stim Hormone (TSH)on 10-21-2023 TSH 1.820 uIU/mL Normal 0.358-3.740 [facility] Comment on above: Performed By: #### L 501.9520, L500.4050, L506.1000, L100.0100 #### [facility] [address] [place], [address] Vitamin D,25 Hydroxyon 10-20 Vitamin D 25-OH 43.7 ng/mL Normal [facility] Comment on above: Result Comment: Becki min D 25(OH) Status Range Deficiency <20 ng/mL (50nmol/L) Insufficiency 20 - 30 ng/mL (50 - 75 nmol/L) Sufficiency 30 - 100 ng/mL (75 - 250 nmol/L) Toxicity >100 ng/mL (>250 nmol/L) Performed By: #### L 501.9520, L500.4050, L506.1000, L100.0100 #### [facility] [address] [place], [address] Absolute lymphocyte counton 01-23-2022 Lymphocytes Auto (Unsp spec) [#/Vol] 1.42 10*3/uL 0.83-4.51 [facility] Work Phone: Basophil percentageon 2021 Basophils/100 WBC (Bld) 1.2 % 0-1 [facility] Work Phone: Bilirubin [Mass/Vol] 0.50 mg/dL 0.20-1.00 [facility] Work Phone: Comment on above: For patients on eltr ombopag therapy, use of Dimension [place] TBIL is not recommended. Chloride [Moles/Vol] 103 mmol/L 98-107 [facility] Work Phone: Eosinophils/100 WBC (Bld) 5.9 % 0-5 [facility] Work Phone: Glucose [Mass/Vol] 209 mg/dL 74-106 [facility] Work Phone: Comment on above: Glucose result great er than or equal to 200 mg/dLsuggests DIABETES MELLITUS per A.D.A. criteria. Neutrophils (Bld) [#/Vol] 3.5 10*3/uL 2.0-7.7 [facility] Work Phone: Neutrophils/100 WBC (Bld) 60.3 % 47-70 [facility] Work Phone: Potassium [Moles/Vol] 3.0 mmol/L 3.5-5.1 [facility] Work Phone: Protein [Mass/Vol] 7.0 g/dL 6.4-8.2 [facility] Work Phone: Sodium [Moles/Vol] 141 mmol/L 136-145 [facility] Work Phone: WBC (Bld) [#/Vol] 5.8 10*3/uL 4.4-11.0 [facility] Work Phone: Blood erythrocytes count (nu mber/volume)on 01-23-2022 RBC (Bld) [#/Vol] 4.10 10*6/uL 4.2-5.4 [facility] Work Phone: Blood hemoglobin measurement (mass/volume)on 01-23-2022 Hemoglobin (Bld) [Mass/Vol] 11.7 g/dL 12.0-15.0 [facility] Work Phone: Blood lymphocytes/100 leukoc yteson 01-23-2022 Lymphocytes/100 WBC (Bld) 24.5 % 19-41 [facility] Work Phone: Blood monocytes/100 leukocyt eson 01-23-2022 Monocytes/100 WBC (Bld) 7.6 % 0-10 [facility] Work Phone: Blood platelet mean volumeon 01-23-2022 Platelet mean volume (Bld) [Entitic vol] 12.9 fL 6.2-12.0 [facility] Work Phone: Determination of erythrocyte mean corpuscular volume (MCV)on 01-23-2022 MCV (RBC) [Entitic vol] 88.0 fL 81-99 [facility] Work Phone: Hematocrit Auto (Bld) [Volum e fraction]on 01-23-2022 Hematocrit (Bld) [Volume fraction] 36.1 % 37-47 [facility] Work Phone: Laboratory - Chemistry and C hemistry - challengeon 01-23-2022 ALP [Catalytic activity/Vol] 112 U/L 45-117 [facility] Work Phone: ALT [Catalytic activity/Vol] 40 U/L 13-56 [facility] Work Phone: CO2 [Moles/Vol] 29.0 mmol/L 21.0-32.0 [facility] Work Phone: Globulin (S) [Mass/Vol] 3.7 g/dL 2.2-4.2 [facility] Work Phone: Urea nitrogen/Creatinine [Mass ratio] 13.6 mg/mg 10-20 [facility] Work Phone: Laboratory - Hematology and Cell countson 01-23-2022 Erythrocyte distribution width (RBC) [Entitic vol] 44.3 fL 35.1-43.9 [facility] Work Phone: Erythrocyte distribution width (RBC) [Ratio] 13.8 % 11.6-14.6 [facility] Work Phone: Immature granulocytes/100 WBC (Bld) 0.500 % 0.0-0.9 [facility] Work Phone: Comment on above: IG% - Immature Granu locytes (promyelocytes, myelocytes and metamyelocytes) > 1% indicates that a LEFT SHIFT is Present. MCH (RBC) [Entitic mass] 28.5 pg 27.0-32.0 [facility] Work Phone: Nucleated RBC/100 WBC (Bld) [Ratio] 0 % 0-5 [facility] Work Phone: MCHC Auto (RBC) [Mass/Vol]on 01-23-2022 MCHC (RBC) [Mass/Vol] 32.4 g/dL 32-36 [facility] Work Phone: No Panel Informationon 01-23 Estimated GFR (MDRD) Amer 67 mL/min >60 [facility] Work Phone: Comment on above: GFR Calc Estimated GFR (MDRD) Non-Af Amer 56 mL/min >60 [facility] Work Phone: Comment on above: Non- GFR Calc Thyroid Stimulating Hormone (TSH) 1.82 uIU/mL 0.358-3.74 [facility] Work Phone: Vitamin D 25-Hydroxy 41.4 ng/mL [facility] Work Phone: Comment on above: Vitamin D 25([place]) Sta tus Range Deficiency <20 ng/mL (50nmol/L) Insufficiency 20 - 30 ng/mL (50 - 75 nmol/L) Sufficiency 30 - 100 ng/mL (75 - 250 nmol/L) Toxicity >100 ng/mL (>250 nmol/L) Platelets bldon 01-23-2022 Platelets (Bld) [#/Vol] 256 10*3/uL 150-450 [facility] Work Phone: Serum or plasma albumin kim urement (mass/volume)on 01-23-2022 Albumin [Mass/Vol] 3.3 g/dL 3.2-5.0 [facility] Work Phone: Serum or plasma albumin/glob ulin mass ratioon 01-23-2022 Albumin/Globulin [Mass ratio] 0.9 {ratio} 0.9-2.4 [facility] Work Phone: Serum or plasma calcium kim urement (mass/volume)on 01-23-2022 Calcium [Mass/Vol] 9.2 mg/dL 8.5-10.1 [facility] Work Phone: Serum or plasma creatinine m easurement (mass/volume)on 01-23-2022 Creatinine [Mass/Vol] 1.03 mg/dL 0.55-1.02 [facility] Work Phone: Comment on above: The validity of the calculated GFR & GFRAA in patients over 70 years has not been determined. Clinical correlation is essential. Serum or plasma urea nitroge n measurement (mass/volume)on 01-23-2022 Urea nitrogen [Mass/Vol] 14 mg/dL 7-18 [facility] Work Phone: Thin prep Papanicolaou smear with manual screeningon 01-23-2022 Thin prep Papanicolaou smear with manual screening 24 U/L 15-37 [facility] Work Phone: Thin prep Papanicolaou smear with manual screening 9 5-15 [facility] Work Phone: Laboratory - Microbiology an d Antimicrobial susceptibilityon 01-03-2022 SARS-CoV-2 (COVID-19) RNA BRENT+probe Ql (Unsp spec) Detected Not Detect [facility] Work Phone: Comment on above: Normal Reference Ran ge: Not DetectedMethod:(RT-PCR) real-time reverse transcriptase PCRLuminex VISHNU Instrument*The Food and Drug Administration (FDA) has issued an Emergency Use Authorization (EAU) for the VISHNU SARS-CoV-2 Assay for the rapid detection of the virus that causes COVID-19. This test has been validated, but the [facility] independent review of this validation is pending.*Negative results do not preclude infection and should not be used as the sole basis for treatment or patient management. Optimum specimen types and timing for peak viral levels during infections caused by SARS-CoV-2 have not been determined. Collection of multiple specimens from the same patient may be necessary to detect the virus. The possibility of a false negative result should be considered if the patient has clinical presentation or has had recent exposure. Absolute lymphocyte counton 10-24-2021 Lymphocytes Auto (Unsp spec) [#/Vol] 1.91 10*3/uL 0.83-4.51 [facility] Work Phone: [phone] Basophil percentageon 2021 Basophils/100 WBC (Bld) 1.0 % 0-1 [facility] Work Phone: [phone] Bilirubin [Mass/Vol] 0.50 mg/dL 0.20-1.00 [facility] Work Phone: [phone] Comment on above: For patients on eltr ombopag therapy, use of Dimension [place] TBIL is not recommended. Chloride [Moles/Vol] 104 mmol/L 98-107 [facility] Work Phone: [phone] Eosinophils/100 WBC (Bld) 4.4 % 0-5 [facility] Work Phone: [phone] Glucose [Mass/Vol] 198 mg/dL 74-106 [facility] Work Phone: Comment on above: Fasting Glucose resu lt greater than or equal to 126 mg/dL suggests DIABETES MELLITUS per A.D.A. criteria. Neutrophils (Bld) [#/Vol] 5.7 10*3/uL 2.0-7.7 [facility] Work Phone: Neutrophils/100 WBC (Bld) 64.6 % 47-70 [facility] Work Phone: [phone] Potassium [Moles/Vol] 4.0 mmol/L 3.5-5.1 [facility] Work Phone: Protein [Mass/Vol] 7.4 g/dL 6.4-8.2 [facility] Work Phone: Sodium [Moles/Vol] 140 mmol/L 136-145 [facility] Work Phone: WBC (Bld) [#/Vol] 8.8 10*3/uL 4.4-11.0 [facility] Work Phone: Blood erythrocytes count (nu mber/volume)on 10-24-2021 RBC (Bld) [#/Vol] 4.26 10*6/uL 4.2-5.4 [facility] Work Phone: Blood hemoglobin measurement (mass/volume)on 10-24-2021 Hemoglobin (Bld) [Mass/Vol] 12.2 g/dL 12.0-15.0 [facility] Work Phone: Blood lymphocytes/100 leukoc yteson 10-24-2021 Lymphocytes/100 WBC (Bld) 21.7 % 19-41 [facility] Work Phone: Blood monocytes/100 leukocyt eson 10-24-2021 Monocytes/100 WBC (Bld) 7.8 % 0-10 [facility] Work Phone: Blood platelet mean volumeon 10-24-2021 Platelet mean volume (Bld) [Entitic vol] 12.5 fL 6.2-12.0 [facility] Work Phone: Determination of erythrocyte mean corpuscular volume (MCV)on 10-24-2021 MCV (RBC) [Entitic vol] 89.4 fL 81-99 [facility] Work Phone: Hematocrit Auto (Bld) [Volum e fraction]on 10-24-2021 Hematocrit (Bld) [Volume fraction] 38.1 % 37-47 [facility] Work Phone: Laboratory - Chemistry and C hemistry - challengeon 10-24-2021 ALP [Catalytic activity/Vol] 114 U/L 45-117 [facility] Work Phone: ALT [Catalytic activity/Vol] 34 U/L 13-56 [facility] Work Phone: CO2 [Moles/Vol] 29.0 mmol/L 21.0-32.0 [facility] Work Phone: Globulin (S) [Mass/Vol] 4.0 g/dL 2.2-4.2 [facility] Work Phone: Urea nitrogen/Creatinine [Mass ratio] 12.5 mg/mg 10-20 [facility] Work Phone: Laboratory - Hematology and Cell countson 10-24-2021 Erythrocyte distribution width (RBC) [Entitic vol] 45.5 fL 35.1-43.9 [facility] Work Phone: Erythrocyte distribution width (RBC) [Ratio] 14.0 % 11.6-14.6 [facility] Work Phone: Immature granulocytes/100 WBC (Bld) 0.500 % 0.0-0.9 [facility] Work Phone: Comment on above: IG% - Immature Granu locytes (promyelocytes, myelocytes and metamyelocytes) > 1% indicates that a LEFT SHIFT is Present. MCH (RBC) [Entitic mass] 28.6 pg 27.0-32.0 [facility] Work Phone: Nucleated RBC/100 WBC (Bld) [Ratio] 0 % 0-5 [facility] Work Phone: MCHC Auto (RBC) [Mass/Vol]on 10-24-2021 MCHC (RBC) [Mass/Vol] 32.0 g/dL 32-36 [facility] Work Phone: No Panel Informationon 10-24 Estimated GFR (MDRD) Amer 61 mL/min >60 [facility] Work Phone: Comment on above: GFR Calc Estimated GFR (MDRD) Non-Af Amer 51 mL/min >60 [facility] Work Phone: Comment on above: Non- GFR Calc Thyroid Stimulating Hormone (TSH) 1.53 uIU/mL 0.358-3.74 [facility] Work Phone: Vitamin D 25-Hydroxy 42.8 ng/mL [facility] Work Phone: Comment on above: Vitamin D 25(OH) Sta tus Range Deficiency <20 ng/mL (50nmol/L) Insufficiency 20 - 30 ng/mL (50 - 75 nmol/L) Sufficiency 30 - 100 ng/mL (75 - 250 nmol/L) Toxicity >100 ng/mL (>250 nmol/L) Platelets bldon 10-24-2021 Platelets (Bld) [#/Vol] 289 10*3/uL 150-450 [facility] Work Phone: Serum or plasma albumin kim urement (mass/volume)on 10-24-2021 Albumin [Mass/Vol] 3.4 g/dL 3.2-5.0 [facility] Work Phone: Serum or plasma albumin/glob ulin mass ratioon 10-24-2021 Albumin/Globulin [Mass ratio] 0.8 {ratio} 0.9-2.4 [facility] Work Phone: Serum or plasma calcium kim urement (mass/volume)on 10-24-2021 Calcium [Mass/Vol] 9.3 mg/dL 8.5-10.1 [facility] Work Phone: Serum or plasma creatinine m easurement (mass/volume)on 10-24-2021 Creatinine [Mass/Vol] 1.12 mg/dL 0.55-1.02 [facility] Work Phone: Comment on above: The validity of the calculated GFR & GFRAA in patients over 70 years has not been determined. Clinical correlation is essential. Serum or plasma urea nitroge n measurement (mass/volume)on 10-24-2021 Urea nitrogen [Mass/Vol] 14 mg/dL 7-18 [facility] Work Phone: Thin prep Papanicolaou smear with manual screeningon 10-24-2021 Thin prep Papanicolaou smear with manual screening 24 U/L 15-37 [facility] Work Phone: Thin prep Papanicolaou smear with manual screening 7 5-15 [facility] Work Phone: Absolute lymphocyte counton 07-23-2021 Lymphocytes Auto (Unsp spec) [#/Vol] 2.16 10*3/uL 0.83-4.51 [facility] Work Phone: Basophil percentageon 2021 Basophils/100 WBC (Bld) 1.0 % 0-1 [facility] Work Phone: Bilirubin [Mass/Vol] 0.30 mg/dL 0.20-1.00 [facility] Work Phone: Comment on above: For patients on eltr ombopag therapy, use of Dimension [place] TBIL is not recommended. Chloride [Moles/Vol] 104 mmol/L 98-107 [facility] Work Phone: Eosinophils/100 WBC (Bld) 4.1 % 0-5 [facility] Work Phone: Glucose [Mass/Vol] 154 mg/dL 74-106 [facility] Work Phone: Comment on above: Fasting Glucose resu lt greater than or equal to 126 mg/dL suggests DIABETES MELLITUS per A.D.A. criteria. Neutrophils (Bld) [#/Vol] 4.3 10*3/uL 2.0-7.7 [facility] Work Phone: [phone] Neutrophils/100 WBC (Bld) 56.6 % 47-70 [facility] Work Phone: [phone] Potassium [Moles/Vol] 3.7 mmol/L 3.5-5.1 [facility] Work Phone: Protein [Mass/Vol] 7.2 g/dL 6.4-8.2 [facility] Work Phone: [phone] Sodium [Moles/Vol] 137 mmol/L 136-145 [facility] Work Phone: WBC (Bld) [#/Vol] 7.7 10*3/uL 4.4-11.0 [facility] Work Phone: Blood erythrocytes count (nu mber/volume)on 07-23-2021 RBC (Bld) [#/Vol] 4.20 10*6/uL 4.2-5.4 [facility] Work [facility]: Blood hemoglobin measurement (mass/volume)on 07-23-2021 Hemoglobin (Bld) [Mass/Vol] 12.0 g/dL 12.0-15.0 [facility] Work Phone: Blood lymphocytes/100 leukoc yteson 07-23-2021 Lymphocytes/100 WBC (Bld) 28.2 % 19-41 [facility] Work Phone: Blood monocytes/100 leukocyt eson 07-23-2021 Monocytes/100 WBC (Bld) 9.4 % 0-10 [facility] Work Phone: Blood platelet mean volumeon 07-23-2021 Platelet mean volume (Bld) [Entitic vol] 12.6 fL 6.2-12.0 [facility] Work Phone: Determination of erythrocyte mean corpuscular volume (MCV)on 07-23-2021 MCV (RBC) [Entitic vol] 88.3 fL 81-99 [facility] Work Phone: Hematocrit Auto (Bld) [Volum e fraction]on 07-23-2021 Hematocrit (Bld) [Volume fraction] 37.1 % 37-47 [facility] Work Phone: Laboratory - Chemistry and C hemistry - challengeon 07-23-2021 ALP [Catalytic activity/Vol] 135 U/L 45-117 [facility] Work Phone: ALT [Catalytic activity/Vol] 43 U/L 13-56 [facility] Work Phone: CO2 [Moles/Vol] 25.0 mmol/L 21.0-32.0 [facility] Work Phone: Globulin (S) [Mass/Vol] 3.9 g/dL 2.2-4.2 [facility] Work Phone: Urea nitrogen/Creatinine [Mass ratio] 23.1 mg/mg 10-20 [facility] Work Phone: Laboratory - Hematology and Cell countson 07-23-2021 Erythrocyte distribution width (RBC) [Entitic vol] 44.1 fL 35.1-43.9 [facility] Work Phone: Erythrocyte distribution width (RBC) [Ratio] 13.8 % 11.6-14.6 [facility] Work Phone: Immature granulocytes/100 WBC (Bld) 0.700 % 0.0-0.9 [facility] Work Phone: Comment on above: IG% - Immature Granu locytes (promyelocytes, myelocytes and metamyelocytes) > 1% indicates that a LEFT SHIFT is Present. MCH (RBC) [Entitic mass] 28.6 pg 27.0-32.0 [facility] Work Phone: Nucleated RBC/100 WBC (Bld) [Ratio] 0 % 0-5 [facility] Work Phone: MCHC Auto (RBC) [Mass/Vol]on 07-23-2021 MCHC (RBC) [Mass/Vol] 32.3 g/dL 32-36 [facility] Work Phone: No Panel Informationon 07-23 Estimated GFR (MDRD) Amer 67 mL/min >60 [facility] Work Phone: Comment on above: GFR Calc Estimated GFR (MDRD) Non-Af Amer 55 mL/min >60 [facility] Work Phone: Comment on above: Non- GFR Calc Thyroid Stimulating Hormone (TSH) 1.53 uIU/mL 0.358-3.74 [facility] Work Phone: Vitamin D 25-Hydroxy 40.2 ng/mL [facility] Work Phone: Comment on above: Vitamin D 25(OH) Sta tus Range Deficiency <20 ng/mL (50nmol/L) Insufficiency 20 - 30 ng/mL (50 - 75 nmol/L) Sufficiency 30 - 100 ng/mL (75 - 250 nmol/L) Toxicity >100 ng/mL (>250 nmol/L) Platelets bldon 07-23-2021 Platelets (Bld) [#/Vol] 290 10*3/uL 150-450 [facility] Work Phone: Serum or plasma albumin kim urement (mass/volume)on 07-23-2021 Albumin [Mass/Vol] 3.3 g/dL 3.2-5.0 [facility] Work Phone: Serum or plasma albumin/glob ulin mass ratioon 07-23-2021 Albumin/Globulin [Mass ratio] 0.8 {ratio} 0.9-2.4 [facility] Work Phone: Serum or plasma calcium kim urement (mass/volume)on 07-23-2021 Calcium [Mass/Vol] 9.1 mg/dL 8.5-10.1 [facility] Work Phone: Serum or plasma creatinine m easurement (mass/volume)on 07-23-2021 Creatinine [Mass/Vol] 1.04 mg/dL 0.55-1.02 [facility] Work Phone: Comment on above: The validity of the calculated GFR & GFRAA in patients over 70 years has not been determined. Clinical correlation is essential. Serum or plasma urea nitroge n measurement (mass/volume)on 07-23-2021 Urea nitrogen [Mass/Vol] 24 mg/dL 7-18 [facility] Work Phone: Thin prep Papanicolaou smear with manual screeningon 07-23-2021 Thin prep Papanicolaou smear with manual screening 35 U/L 15-37 [facility] Work Phone: Thin prep Papanicolaou smear with manual screening 8 5-15 [facility] Work Phone: Absolute lymphocyte counton 04-16-2021 Lymphocytes Auto (Unsp spec) [#/Vol] 2.76 10*3/uL 0.83-4.51 [facility] Work Phone: Basophil percentageon 2021 Basophils/100 WBC (Bld) 1.0 % 0-1 [facility] Work Phone: Bilirubin [Mass/Vol] 0.40 mg/dL 0.20-1.00 [facility] Work Phone: Comment on above: For patients on eltr ombopag therapy, use of Dimension [place] TBIL is not recommended. Chloride [Moles/Vol] 105 mmol/L 98-107 [facility] Work Phone: Eosinophils/100 WBC (Bld) 4.7 % 0-5 [facility] Work Phone: Glucose [Mass/Vol] 182 mg/dL 74-106 [facility] Work Phone: Comment on above: Fasting Glucose resu lt greater than or equal to 126 mg/dL suggests DIABETES MELLITUS per A.D.A. criteria. Neutrophils (Bld) [#/Vol] 5.1 10*3/uL 2.0-7.7 [facility] Work Phone: Neutrophils/100 WBC (Bld) 55.9 % 47-70 [facility] Work Phone: Potassium [Moles/Vol] 3.5 mmol/L 3.5-5.1 [facility] Work Phone: Protein [Mass/Vol] 7.0 g/dL 6.4-8.2 [facility] Work Phone: Sodium [Moles/Vol] 140 mmol/L 136-145 [facility] Work Phone: WBC (Bld) [#/Vol] 9.2 10*3/uL 4.4-11.0 [facility] Work Phone: Blood erythrocytes count (nu mber/volume)on 04-16-2021 RBC (Bld) [#/Vol] 4.17 10*6/uL 4.2-5.4 [facility] Work [facility]: Blood hemoglobin measurement (mass/volume)on 04-16-2021 Hemoglobin (Bld) [Mass/Vol] 12.4 g/dL 12.0-15.0 [facility] Work Phone: Blood lymphocytes/100 leukoc yteson 04-16-2021 Lymphocytes/100 WBC (Bld) 30.2 % 19-41 [facility] Work Phone: Blood monocytes/100 leukocyt eson 04-16-2021 Monocytes/100 WBC (Bld) 7.5 % 0-10 [facility] Work Phone: Blood platelet mean volumeon 04-16-2021 Platelet mean volume (Bld) [Entitic vol] 11.9 fL 6.2-12.0 [facility] Work Phone: Determination of erythrocyte mean corpuscular volume (MCV)on 04-16-2021 MCV (RBC) [Entitic vol] 89.7 fL 81-99 [facility] Work Phone: Hematocrit Auto (Bld) [Volum e fraction]on 04-16-2021 Hematocrit (Bld) [Volume fraction] 37.4 % 37-47 [facility] Work Phone: Laboratory - Chemistry and C hemistry - challengeon 04-16-2021 ALP [Catalytic activity/Vol] 109 U/L 45-117 [facility] Work Phone: ALT [Catalytic activity/Vol] 39 U/L 13-56 [facility] Work Phone: CO2 [Moles/Vol] 27.0 mmol/L 21.0-32.0 [facility] Work Phone: Globulin (S) [Mass/Vol] 3.8 g/dL 2.2-4.2 [facility] Work Phone: Urea nitrogen/Creatinine [Mass ratio] 13.7 mg/mg 10-20 [facility] Work Phone: Laboratory - Hematology and Cell countson 04-16-2021 Erythrocyte distribution width (RBC) [Entitic vol] 42.5 fL 35.1-43.9 [facility] Work Phone: Erythrocyte distribution width (RBC) [Ratio] 13.0 % 11.6-14.6 [facility] Work Phone: Immature granulocytes/100 WBC (Bld) 0.700 % 0.0-0.9 [facility] Work Phone: Comment on above: IG% - Immature Granu locytes (promyelocytes, myelocytes and metamyelocytes) > 1% indicates that a LEFT SHIFT is Present. MCH (RBC) [Entitic mass] 29.7 pg 27.0-32.0 [facility] Work Phone: Nucleated RBC/100 WBC (Bld) [Ratio] 0 % 0-5 [facility] Work Phone: MCHC Auto (RBC) [Mass/Vol]on 04-16-2021 MCHC (RBC) [Mass/Vol] 33.2 g/dL 32-36 [facility] Work Phone: No Panel Informationon 04-16 Estimated GFR (MDRD) Amer 68 mL/min >60 [facility] Work Phone: Comment on above: GFR Calc Estimated GFR (MDRD) Non-Af Amer 57 mL/min >60 [facility] Work Phone: Comment on above: Non- GFR Calc Thyroid Stimulating Hormone (TSH) 1.86 uIU/mL 0.358-3.74 [facility] Work Phone: Vitamin D 25-Hydroxy 31.0 ng/mL [facility] Work Phone: Comment on above: Vitamin D 25(OH) Sta tus Range Deficiency <20 ng/mL (50nmol/L) Insufficiency 20 - 30 ng/mL (50 - 75 nmol/L) Sufficiency 30 - 100 ng/mL (75 - 250 nmol/L) Toxicity >100 ng/mL (>250 nmol/L) Platelets bldon 04-16-2021 Platelets (Bld) [#/Vol] 267 10*3/uL 150-450 [facility] Work Phone: Serum or plasma albumin kim urement (mass/volume)on 04-16-2021 Albumin [Mass/Vol] 3.2 g/dL 3.2-5.0 [facility] Work Phone: Serum or plasma albumin/glob ulin mass ratioon 04-16-2021 Albumin/Globulin [Mass ratio] 0.8 {ratio} 0.9-2.4 [facility] Work Phone: Serum or plasma calcium kim urement (mass/volume)on 04-16-2021 Calcium [Mass/Vol] 8.7 mg/dL 8.5-10.1 [facility] Work Phone: Serum or plasma creatinine m easurement (mass/volume)on 04-16-2021 Creatinine [Mass/Vol] 1.02 mg/dL 0.55-1.02 [facility] Work Phone: Comment on above: The validity of the calculated GFR & GFRAA in patients over 70 years has not been determined. Clinical correlation is essential. Serum or plasma urea nitroge n measurement (mass/volume)on 04-16-2021 Urea nitrogen [Mass/Vol] 14 mg/dL 7-18 [facility] Work Phone: Thin prep Papanicolaou smear with manual screeningon 04-16-2021 Thin prep Papanicolaou smear with manual screening 26 U/L 15-37 [facility] Work Phone: Thin prep Papanicolaou smear with manual screening 8 5-15 [facility] Work Phone: CNOVon 01-27-2019 CNOV Office Visit (APOLONIAS ) GEETAJOYCE David ([id number]) 1950 F Date Time Provider Department 01/27/19 2:20 PM LORRI LIZ During your visit today, we recorded the following information about you: Ana Lindquist LPN 01/30/2019 8:50 PM Signed + Lorri Liz MD 01/30/2019 8:50 PM Signed Here for follow up of EGD for bleeding gastric ulcer. History of Present Illness: 68 y/o WF who was admitted to [facility] for anemia. She underwent EGD 01/10/19 and was found to have a gastric ulcer which were not actively bleeding She tolerated this well. Biopsies done at the time: EGD 01/10/19 - gastric ulcer Biopsy of ulcer crater site: Fragments of gastric mucosa with acute and chronic inflammation, congestion and reactive changes. A detached fragment of fibrinous exudate with acute inflammation, consistent with ulceration. Negative for H pylori She had also undergone colonoscopy, no bleeding noted - Recommend follow up colonoscopy in 5 years. No colon cancer known in family. 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 hyperlipidemia super morbid obesity hypertension LBBB obstructive sleep apnea history of PE Past Surgical History: incarcerated ventral hernia repair csection cholecystectomy Medications: amlodipine eliquis lipitor pepcid hctz ibuprofen losartan metformin paxil postassium supplementation Allergies: Has no known drug allergies Social history: TOB use denies Review of Systems: General - denies fevers, denies weight loss, denies anorexia Cardiovascular denies chest pain Pulmonary has shortness of breath with exertion, denies coughing up blood Gastrointestinal as per HPI, denies blood in stools Neurological had fainting/light headedness, denies seizures Genitourinary denies burning with urination, denies blood in urine Hematological hypercoagulable syndrome, on eliquis Skin denies open non healing wounds Musculoskeletal has back and joint pain Endocrine has diabetes, super morbid obesity with BMI of 55 Psychological denies hallucinations Physical examination: Vital signs Temp 98.2F RR 16 BP 150/54 Ht: 4'10 Wt: 255# BMI 55 General WD/WN obese WF in no apparent distress, alert and oriented, not septic appearing HEENT Normocephalic. EOM intact with sclera clear and no icterus noted. Neck is supple with no jugular venous distention noted. Trachea is midline. Lungs normal breath sounds in all lung gavin. No rales/rhonchi/wheezin g noted. No labored breathing noted, such as retractions. No cough heard. Heart normal heart sounds. No rubs/clicks/murmurs noted. Abdomen soft and benign and obese. Normal bowel sounds. Difficult to determine if any masses or organomegaly due to body habitus Extremities no pitting edema noted. Genitourinary/Rectal deferred Skin normal skin integrity. Neurological no focal deficits noted. Psychological normal affect, patient is calm and appropriate Impression: History of gastric ulcer Discussion/Plan: I have discussed the above with the patient. H pylori was negative - no treatment required for this. Continue PPI use. Follow up with me in Mar 2019 for consideration for follow up EGD to check status of healing of gastric ulcers. Needs repeat EGD after the holidays to see healing of gastric ulcer Patient wants bariatric surgery [facility] refer [facility] . Referring Provider: LORRI LIZ [[id number]] Allergies As of Date: 01/27/2019 (No Known Allergies) Date Reviewed: 01/27/2019 Reviewed by: Ana Lindquist LPN - Fully Assessed Reason for Visit: Hospital Follow Up [177] Primary Visit Diagnosis:History of gastric ulcer [Z87.19] Prescriptions as of 01/27/2019 Sig: AMLODIPINE 10 MG TABLET Take 10 mg by mouth once mary* ELIQUIS 5 MG TABLET Take 5 mg by mouth twice mary* ATORVASTATIN 40 MG TABLET Take 40 mg by mouth daily at * ESCITALOPRAM 10 MG TABLET Take 10 mg by mouth once mary* DICLOFENAC SODIUM 50 MG TABLE* Take 50 mg by mouth twice rashawn* HYDROCHLOROTHIAZIDE 25 MG TAB* TAKE 1 TABLET BY MOUTH IN THE* FUROSEMIDE 40 MG TABLET TAKE 1 TABLET BY MOUTH EVERY * LOSARTAN 50 MG TABLET Take 50 mg by mouth twice rashawn* METFORMIN 500 MG TABLET Take 500 mg by mouth twice da* PANTOPRAZOLE 40 MG TABLET,DEL* Take 40 mg by mouth twice rashawn* PAROXETINE 20 MG TABLET TAKE 1 TABLET BY MOUTH EVERYD* KLOR-CON M20 MEQ TABLET,EXTEN* Take 20 mEq by mouth once rashawn* BETAMETHASONE DIPROPIONATE 0.* Apply 1 application to affect* MUPIROCIN 2 % TOPICAL OINTMENT Apply 1 application to affect* Problem List As Of Date 01/27/2019 Noted Resolved Pilar cyst [L72.11] 07/04/2011 Encounter Status:Closed by MD LORRI LIZ on 01/30/19 [facility] PROGRESSon 01-27-2019 PROGRESS HNO ID: [id number] Author: Lorri Liz Service: ? Author Type: Physician Type: Progress Notes Filed: 01/30/2019 8:50 PM Note Text: Here for follow up of EGD for bleeding gastric ulcer. History of Present Illness: 68 y/o WF who was admitted to [facility] for anemia. She underwent EGD 01/10/19 and was found to have a gastric ulcer which were not actively bleeding She tolerated this well. Biopsies done at the time: EGD 01/10/19 - gastric ulcer Biopsy of ulcer crater site: Fragments of gastric mucosa with acute and chronic inflammation, congestion and reactive changes. A detached fragment of fibrinous exudate with acute inflammation, consistent with ulceration. Negative for H pylori She had also undergone colonoscopy, no bleeding noted - Recommend follow up colonoscopy in 5 years. No colon cancer known in family. 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 hyperlipidemia super morbid obesity hypertension LBBB obstructive sleep apnea history of PE Past Surgical History: incarcerated ventral hernia repair csection cholecystectomy Medications: amlodipine eliquis lipitor pepcid hctz ibuprofen losartan metformin paxil postassium supplementation Allergies: Has no known drug allergies Social history: TOB use denies Review of Systems: General - denies fevers, denies weight loss, denies anorexia Cardiovascular denies chest pain Pulmonary has shortness of breath with exertion, denies coughing up blood Gastrointestinal as per HPI, denies blood in stools Neurological had fainting/light headedness, denies seizures Genitourinary denies burning with urination, denies blood in urine Hematological hypercoagulable syndrome, on eliquis Skin denies open non healing wounds Musculoskeletal has back and joint pain Endocrine has diabetes, super morbid obesity with BMI of 55 Psychological denies hallucinations Physical examination: Vital signs Temp 98.2F RR 16 BP 150/54 Ht: 4'10 Wt: 255# BMI 55 General WD/WN obese WF in no apparent distress, alert and oriented, not septic appearing HEENT Normocephalic. EOM intact with sclera clear and no icterus noted. Neck is supple with no jugular venous distention noted. Trachea is midline. Lungs normal breath sounds in all lung gavin. No rales/rhonchi/wheezin g noted. No labored breathing noted, such as retractions. No cough heard. Heart normal heart sounds. No rubs/clicks/murmurs noted. Abdomen soft and benign and obese. Normal bowel sounds. Difficult to determine if any masses or organomegaly due to body habitus Extremities no pitting edema noted. Genitourinary/Rectal deferred Skin normal skin integrity. Neurological no focal deficits noted. Psychological normal affect, patient is calm and appropriate Impression: History of gastric ulcer Discussion/Plan: I have discussed the above with the patient. H pylori was negative - no treatment required for this. Continue PPI use. Follow up with me in Mar 2019 for consideration for follow up EGD to check status of healing of gastric ulcers. Needs repeat EGD after the holidays to see healing of gastric ulcer Patient wants bariatric surgery will refer to Kiana Yanes . Normal [facility] PROGRESS HNO ID: [id number] Author: Ana Lindquist LPN Service: ? Author Type: ? Type: Progress Notes Filed: 01/30/2019 8:50 PM Note Text: + Normal [facility] Office Visit: Taran 10-30-19 Dietary management education, guidance, and counseling (procedure) yes Invalid Interpretation Code [facility] Work Phone: Documentation of current medications (procedure) Done Invalid Interpretation Code [facility] Work Phone: [phone] Fall risk assessment No [facility] Work Phone: [phone] Protein mass conc Done [facility] Work Phone: [phone] Tobacco smoking status NHIS Never [facility] Work Phone: [phone] Tobacco smoking status NHIS Former smoker [facility] Work Phone: [phone] Tobacco use [facility] Former smoker Invalid Interpretation Code [facility] Work Phone: [phone] Lab Report: Anticardiolipin IgA,G,Mon 05-20-2016 Cardiolipin IgG IA Qn (S) < 9 [facility] Work Phone: [phone] Cardiolipin IgM IA Qn (S) < 9 [facility] Work Phone: [phone] Lab Report: Fact V Leiden Mu tationon 05-20-2016 FACTOR V LEIDEN Abnormal [facility] Work Phone: [phone] factor V Leiden, DNA testing by PCR, whole blood Abnormal Invalid Interpretation Code [facility] Work Phone: [phone] Lab Report: Factor II, DNA A nalysison 05-20-2016 Protein mass conc Negative [facility] Work Phone: [phone] prothrombin [id number] mutation, DNA testing by PCR, whole blood Negative Invalid Interpretation Code [facility] Work Phone: [phone] Lab Report: Protein C Defic. Profileon 05-20-2016 protein C antigen, plasma 113 (?) Invalid Interpretation Code [facility] Work Phone: [phone] Protein mass conc 113 (?) [facility] Work Phone: [phone] Lab Report: Protein S Antige non 05-20-2016 GE use only - for [employer] import when terms are not otherwise specified 81 Invalid Interpretation Code [facility] Work Phone: [phone] PROTEIN S, FREE 81 [facility] Work Phone: [phone] Lab Report: CBC W/Diff, Auto - EPLAB Onlyon 05-14-2016 Basophils/100 leukocytes 1.5 % High 0-1 [facility] Work Phone: [phone] Basophils/100 WBC (Bld) 1.5 % High 0-1 [facility] Work Phone: [phone] Eosinophils/100 leukocytes 9.7 % High 0-5 [facility] Work Phone: [phone] Eosinophils/100 WBC (Bld) 9.7 % High 0-5 [facility] Work Phone: [phone] Erythrocyte distribution width Ratio (RBC) 12.2 % 11.6-14.6 [facility] Work Phone: [phone] Erythrocytes (RBC) 4.22 10*6/uL Invalid Interpretation Code 4.2-5.4 [facility] Work Phone: [phone] Hematocrit (HCT) 39.0 % Invalid Interpretation Code 37-47 [facility] Work Phone: [phone] Hematocrit Volume Fraction (Bld) 39.0 % 37-47 [facility] Work Phone: [phone] Hemoglobin mass conc (Bld) 12.6 g/dL 12.0-15.0 [facility] Work Phone: [phone] Lymphocytes 1.79 X10 3/UL Invalid Interpretation Code 0.83-4.51 [facility] Work Phone: [phone] Lymphocytes #/vol (Bld) 1.79 X10 3/UL 0.83-4.51 [facility] Work Phone: [phone] Lymphocytes/100 leukocytes 25.7 % Invalid Interpretation Code 19-41 [facility] Work Phone: [phone] Lymphocytes/100 WBC (Bld) 25.7 % 19-41 [facility] Work Phone: [phone] MCH 29.9 pg Invalid Interpretation Code 27.0-32.0 [facility] Work Phone: [phone] MCH Entitic mass (RBC) 29.9 pg 27.0-32.0 [facility] Work Phone: [phone] MCHC 32.4 g/dL Invalid Interpretation Code 32-36 [facility] Work Phone: [phone] MCHC mass conc (RBC) 32.4 g/dL 32-[address] [facility] Work Phone: [phone] MCV 92.3 fL Invalid Interpretation Code 81-99 [facility] Work Phone: [phone] MCV Entitic volume (RBC) 92.3 fL 81-99 [facility] Work Phone: [phone] Monocytes/100 leukocytes 5.0 % Invalid Interpretation Code 0-10 [facility] Work Phone: [phone] Monocytes/100 WBC (Bld) 5.0 % 0-10 [facility] Work Phone: [phone] neutrophil count, blood 4.1 X10 3/UL Invalid Interpretation Code 2.0-7.7 [facility] Work Phone: [phone] Neutrophils #/vol (Bld) 4.1 X10 3/UL 2.0-7.7 [facility] Work [phone] Neutrophils/100 leukocytes 58.1 % Invalid Interpretation Code 47-70 [facility] Work Phone: [phone] Neutrophils/100 WBC (Bld) 58.1 % 47-70 [facility] Work Phone: [phone] Platelet mean volume Entitic volume (Bld) 7.7 fL 6.2-12.0 [facility] Work Phone: [phone] Platelets 236 10*3/mm3 Invalid Interpretation Code 150-450 [facility] Work Phone: [phone] Platelets #/vol (Bld) 236 10*3/mm3 150-450 [facility] Work Phone: [phone] PMV by [place] 7.7 fL Invalid Interpretation Code 6.2-12.0 [facility] Work Phone: [phone] RBC #/vol (Bld) 4.22 10*6/uL 4.2-5.4 [facility] Work Phone: [phone] RDW-CA 12.2 % Invalid Interpretation Code 11.6-14.6 [facility] Work Phone: [phone] WBC #/vol (Bld) 7.0 10*3/uL 4.4-11.0 [facility] Work Phone: [phone] WBC (Leukocytes) 7.0 10*3/uL Invalid Interpretation Code 4.4-11.0 [facility] Work Phone: [phone] Lab Report: Comprehensive [facility] Profilon 05-14-2016 Albumin mass conc 3.5 g/dL 3.4-5.0 [facility] Work Phone: [phone] Albumin/Globulin mass ratio 0.9 {ratio} 0.9-2.4 [facility] Work Phone: [phone] Alkaline phosphatase (ALP) 104 U/L Invalid Interpretation Code 45-117 [facility] Work Phone: [phone] ALP enzyme act/vol (Bld) 104 U/L 45-117 [facility] Work Phone: [phone] ALT enzyme act/vol 36 U/L 12-78 [facility] Work Phone: [phone] Anion gap 8 mmol/L Invalid Interpretation Code 5-15 [facility] Work Phone: [phone] Anion gap molar conc 8 mmol/L 5-[address] [facility] Work Phone: [phone] AST enzyme act/vol 26 U/L 15-37 [facility] Work Phone: [phone] Bilirubin mass conc 0.60 mg/dL 0.20-1.00 [facility] Work Phone: [phone] Calcium mass conc 8.8 mg/dL 8.5-10.1 [facility] Work Phone: [phone] Chloride molar conc 108 mmol/L High 98-107 [facility] Work Phone: [phone] CO2 25.0 mmol/L Invalid Interpretation Code 21.0-32.0 [facility] Work Phone: [phone] CO2 ppres (BldV) 25.0 mmol/L 21.0-32.0 [facility] Work Phone: [phone] Creatinine mass conc 0.80 mg/dL 0.55-1.[address] [facility] Work Phone: [phone] eGFR (non-black) 92 mL/min/{1.73_m2} Invalid Interpretation Code >60 [facility] Work Phone: [phone] EST GFR - AA 92 mL/min >60 [facility] Work Phone: [phone] GFR/1.73 sq M predicted among non-blacks MDRD vol rate/area (S/P/Bld) 76 mL/min/{1.73_m2} >60 [facility] Work Phone: [phone] Globulin 3.8 g/dL High 2.3-3.5 [facility] Work Phone: [phone] Globulin mass conc (S) 3.8 g/dL High 2.3-3.5 [facility] Work Phone: [phone] Glucose 164 mg/dL High 70-110 [facility] Work Phone: [phone] Glucose mass conc 164 mg/dL High 70-110 [facility] Work Phone: [phone] Potassium molar conc 4.0 mmol/L 3.5-5.[address] [facility] Work Phone: [phone] Protein mass conc 7.3 g/dL 6.4-8.2 [facility] Work Phone: [phone] Sodium molar conc 141 mmol/L 136-145 [facility] Work Phone: [phone] Urea nitrogen mass conc 11 mg/dL 7-18 [facility] Work Phone: [phone] Urea nitrogen/Creatinine mass ratio 13.8 RATIO 10-20 [facility] Work Phone: [phone] Lab Report: Partial Thrombop last Timeon 05-14-2016 aPTT Coag time (Bld) 24.1 s 24.1-36.[address] [facility] Work Phone: [phone] Lab Report: Prothrombin Time w/INRon 05-14-2016 INR Coag RelTime (PPP) 0.9 {INR} [facility] Work Phone: [phone] INR in blood by coagulation 0.9 {INR} Invalid Interpretation Code [facility] Work Phone: [phone] Prothrombin time (PT) Coag time (PPP) 11.7 s 11.7-14.9 [facility] Work Phone: [phone] Office Visit: Initial Consul tation - Pulmonary Embolismon 05-08-2016 Protein mass conc Done [facility] Work Phone: [phone] Tobacco smoking status NHIS Former smoker [facility] Work Phone: [phone] Tobacco smoking status NHIS Never [facility] Work Phone: [phone] Office Visit: New patient um bilical hernia consulton 03-18-2011 General categories Cyto stain Interp (Cervical or vaginal smear or scraping) Normal [facility] Work Phone: [phone] MG Breast screening Normal Bilateral [facility] Work Phone: [phone] Panel Information Influenza Types A,B Direct FA ([facility]) [facility] Work Phone: Vital Signs Date Time Vital Sign Value Performing Clinician Yoli perea 10-29-2016 08:19-0400 BMI (Body Mass Index) 53.71 kg/m2 [facility] Jorge Luis [facility] Work Phone: 10-29-2016 08:19-0400 BP Diastolic 76 mm[Hg] [facility] Work Phone: 10-29-2016 08:19-0400 BP Systolic 150 mm[Hg] [facility] Work Phone: 10-29-2016 08:19-0400 Height 147.32 cm [facility] Work Phone: 10-29-2016 08:19-0400 Pulse (Heart Rate) 59 /min [facility] Work Phone: 10-29-2016 08:19-0400 Respiratory Rate 20 /min [facility] Work Phone: 10-29-2016 08:19-0400 Weight 116.58 kg [facility] Work Phone: 05-08-2016 14:31-0500 BMI (Body Mass Index) 53.12 kg/m2 Gus Beckett NP [facility] Work Phone: 05-08-2016 14:31-0500 Body Temperature 97.7 [degF] Gus Beckett NP [facility] Work Phone: 05-08-2016 14:31-0500 BP Diastolic 69 mm[Hg] Gus Beckett NP [facility] Work Phone: 05-08-2016 14:31-0500 BP Systolic 157 mm[Hg] Gus Roof HOPPER OPERATOR [facility] Work Phone: 05-08-2016 14:31-0500 BSA (Body Surface Area) 2.02 m2 Gus Beckett HOPPER OPERATOR [facility] Work Phone: 05-08-2016 14:31-0500 Height 147.32 cm Gus Beckett HOPPER OPERATOR [facility] Work Phone: 05-08-2016 14:31-0500 Pulse (Heart Rate) 61 /min Gus Beckett HOPPER OPERATOR [facility] Work Phone: 05-08-2016 14:31-0500 Respiratory Rate 24 /min Gus Beckett HOPPER OPERATOR [facility] Work Phone: 05-08-2016 14:31-0500 Weight 115.55 kg Gus Beckett HOPPER OPERATOR [facility] Work Phone: 05-08-2016 14:31-0500 Weight 115.31 kg Gus Beckett HOPPER OPERATOR [facility] Work Phone: 12-19-2015 11:07-0400 Height 147.32 cm Gus Beckett HOPPER OPERATOR [facility] Work Phone: Encounters Encounter Date Encounter Type Care Provider Facility Start: 09-07-2024 ambulatory Javid Siska Facility:[facility] Start: 09-06-2024 ambulatory Duong Chi Jonh Facility:[facility] Start: 08-24-2024 ambulatory Duong Chi Jonh [facility] Start: 08-19-2024 ambulatory Duong Chi Jonh [facility] Start: 08-19-2024 End: 08-19-2024 ambulatory Duong Chi Jonh Facility:[facility] Start: 08-16-2024 End: 08-16-2024 ambulatory Duong Chi Jonh Facility:[facility] Start: 07-26-2024 End: 07-26-2024 ambulatory Duong Chi Jonh Facility:[facility] Start: 07-20-2024 ambulatory Duong Chi Jonh Facility:[facility] Start: 07-20-2024 End: 07-20-2024 ambulatory Duong Chi Jonh Facility:[facility] Start: 07-15-2024 End: 07-15-2024 ambulatory Duong Chi Jonh Facility:[facility] Start: 07-14-2024 End: 07-14-2024 ambulatory Duong Chi Jonh Facility:[facility] Start: 07-10-2024 End: 07-10-2024 Emergency department patient visit Duong Chi Jonh Facility:[facility] Start: 07-07-2024 End: 07-07-2024 Emergency department patient visit Duong Chi Jonh Facility:[facility] Start: 07-07-2024 End: 07-07-2024 ambulatory [facility] Facility:[facility] Start: 07-06-2024 End: 07-06-2024 ambulatory Duong Chi Jonh Facility:[facility] Start: 06-25-2024 End: 06-25-2024 ambulatory [facility] Facility:[facility] Start: 06-17-2024 End: 06-17-2024 ambulatory [facility] Facility:[facility] Start: 05-17-2024 End: 05-17-2024 ambulatory Duong Chi Jonh Facility:[facility] Start: 04-30-2024 End: 04-30-2024 ambulatory Duong [facility] Facility:[facility] Start: 04-07-2024 End: 04-07-2024 ambulatory Duong Chi Jonh Facility:[facility] Start: 01-20-2024 End: 01-20-2024 ambulatory Duong Chi Jonh Facility:[facility] Start: 11-06-2023 End: 11-06-2023 ambulatory Duong Chi Jonh Facility:[facility] Start: 10-21-2023 End: 10-21-2023 ambulatory Duong Chi Jonh Facility:[facility] Start: 01-23-2022 End: 01-23-2022 ambulatory [facility] Work Phone: Start: 01-23-2022 End: 01-23-2022 Patient encounter procedure [facility] Office 3rd Flr Start: 01-03-2022 End: 01-03-2022 ambulatory [facility] Work Phone: Start: 01-03-2022 End: 01-03-2022 Patient encounter procedure [facility] Start: 10-24-2021 End: 10-24-2021 Patient encounter procedure [facility] Office 3rd Flr Start: 07-23-2021 End: 07-23-2021 [facility] Start: 04-16-2021 End: 04-16-2021 [facility] Start: 07-01-2018 Patient encounter procedure Facility:UNKNOWN Procedures Date Procedure Procedure Detail Performing Clinician Start: 10-29-2016 End: 10-29-2016 Dietary management education, guidance, and counseling Lindsaychaitanya Kang Start: 10-29-2016 End: 10-29-2016 NIVIA Beckett HOPPER OPERATOR Work Phone: Start: 10-29-2016 End: 10-29-2016 Follow Up Appt 6 months Gus Beckett HOPPER OPERATOR Work Phone: Start: 05-09-2016 End: 05-14-2016 *MISC [...] of colon Screening, colon ca Gus Beckett HOPPER OPERATOR Influenza Types A,B Direct FA ([facility]) Respiratory syncytia l virus antigen assay Plan of Treatment Date Care Activity Detail Author Start: 05-06-2017 End: 05-06-2017 Appointment Appointment [facility] Work Phone: Start: 10-29-2016 End: 10-29-2016 Appointment Appointment [facility] Work Phone: Start: 10-29-2016 End: 10-29-2016 DJN DJN [facility] Work Phone: Start: 10-29-2016 End: 10-30-2016 Echocardiography Echocardiogram (complete) [facility] Work Phone: Start: 10-29-2016 End: 10-29-2016 Follow Up Appt 6 months Follow Up Appt 6 months Smart Plate [facility] [employer] Work Phone: Start: 05-09-2016 End: 05-14-2016 *MISC - Miscellaneous Lab Test #1 *MISC - Miscellaneous Lab Test #1 [facility] Work Phone: Start: 05-09-2016 End: 05-14-2016 F2 gene mutations found [Identifier] in Blood or Tissue by Molecular genetics method Nominal *FACIID - Clotting Factor II [facility] Work Phone: Start: 05-09-2016 End: 05-14-2016 Factor V (Leiden) Mutation Analysis Factor V (Leiden) Mutation Analysis [facility] Work Phone: Start: 05-09-2016 End: 05-14-2016 Prostate specific Ag [Presence] in Tissue by Immune stain *PROS Protein S Antigen [id number] [facility] Work Phone: Start: 05-09-2016 End: 05-14-2016 Protein C actual/normal in Platelet poor plasma by Coagulation assay *PRCF Anticoag Proten C Activity [facility] Work Phone: Start: 05-09-2016 End: 05-14-2016 Protein C Ag actual/normal in Platelet poor plasma by Immunoassay *PRC Anticoag Proten C Antigen [facility] Work Phone: Start: 05-08-2016 End: 05-14-2016 *CBC w/Diff - oncology ONLY *CBC w/Diff - oncology ONLY [facility] Work Phone: Start: 05-08-2016 End: 05-14-2016 *CMP Complete Metabolic Panel *CMP Complete Metabolic Panel [facility] Work Phone: Start: 05-08-2016 End: 05-14-2016 aPTT *PTT-Partial Thromboplastin Time [facility] Work Phone: Start: 05-08-2016 End: 05-14-2016 aPTT Coag time (PPP) *PTT-Partial Thromboplastin Time [facility] Work Phone: Start: 05-08-2016 End: 05-14-2016 Coagulation factor induced.INR assay in platelet poor plasma *Prothrombin Time (PT) [facility] Work Phone: Start: 05-08-2016 End: 05-14-2016 Homocysteine *Homocystine [facility] Work Phone: Start: 05-08-2016 End: 05-10-2016 Office/outpatient visit, new, level 4 [id number] Ofc Vst, New Level IV [facility] Work Phone: Start: 12-19-2015 End: 12-19-2015 Diagnostic colonoscopy Colonoscopy [facility] Work Phone: Start: 12-19-2015 End: 12-19-2015 Follow-up visit Follow Up as needed [facility] Work Phone: Start: 12-19-2015 End: 01-02-2016 Primary Care Physician Primary Care Physician Duong Costa Borja, [address], [address], [place], [address] [facility] Work Phone: Immunizations Immunization Date Immunization Notes Care Provider Fa cility 07-31-2020 tetanus toxoid, redu elicia diphtheria toxoid, and acellular pertussis vaccine, adsorbed [facility] Work Phone: 01-12-2017 influenza, seasonal, injectable [facility] Work Phone: 12-11-2015 influenza, seasonal, injectable [facility] Work Phone: Payers Date Payer Category Payer Self-pay [id number] 2015 Medicare [id number] Unknown [id number] 2.16.8 [id number] Unknown [id number] 2.16.8 40.1.098657.3.579.2.462 Unknown [id number] 2.16.8 40.1.587275.3.579.2.462 Unknown [id number] 2.16.8 40.1.500259.3.579.2.462 Unknown [id number] 2.16.8 40.1.824417.3.579.2.462 Unknown [id number] 2.16.8 40.1.150075.3.579.2.462 Unknown [id number] 2.16.8 40.1.827113.3.579.2.462 Unknown [id number] 2.16.8 40.1.305808.3.579.2.462 Unknown [id number] 2.16.8 40.1.276216.3.579.2.462 Unknown [id number] 2.16.8 40.1.969482.3.579.2.462 Unknown [id number] 2.16.8 40.1.093128.3.579.2.462 Unknown [id number] 2.16.8 40.1.314409.3.579.2.462 Unknown [id number] 2.16.8 40.1.447742.3.579.2.462 Unknown [id number] 2.16.8 40.1.861998.3.579.2.462 Unknown [id number] 2.16.8 40.1.346451.3.579.2.462 Unknown [id number] 2.16.8 40.1.448751.3.579.2.462 Unknown [id number] 2.16.8 40.1.051038.3.579.2.462 Unknown [id number] 2.16.8 40.1.460776.3.579.2.462 Unknown [id number] 2.16.8 40.1.403034.3.579.2.462 Unknown [id number] 2.16.8 40.1.336369.3.579.2.462 Unknown [id number] 2.16.8 40.1.711581.3.579.2.462 Unknown [id number] 2.16.8 40.1.987760.3.579.2.462 Unknown [id number] 2.16.8 40.1.528982.3.579.2.462 Unknown [id number] 2.16.8 40.1.425126.3.579.2.462 Social History Date Type Detail Facility Start: 07-31-2020 End: 07-31-2020 Tobacco smoking status [facility] Unknown if ever smoked [facility] Work Phone: Start: 01-09-2019 None [facility] Work Phone: Start: 07-31-2020 Cigarettes [facility] Work Phone: Start: 1950 Sex Assigned At Female [facility] Work Phone: Evaluation note Note Date & Type Note Facility Evaluation note No assessment information availa anurag [facility] Work Phone: Summary Purpose Family History No Family History Records Found Relationship Condition Age at Onset Recorded Date/T ana maria mother Hypertension Unknown Cardiac disease Unknown Diabetes mellitus Unknown father Malignant neoplasm Unknown sister Malignant neoplasm Unknown Disorder of thyroid Unknown Advance Directives No Advanced Directives Records Found Advance Directive Response Recorded Date/ Time Living Will No July 31, 2020 3 :17pm Power of Real Estate Marketing Coordinator No July 31, 2020 3:17pm Advance Directive Response Recorded Date/ Time Living Will No July 31, 2020 2 :17pm Power of Real Estate Marketing Coordinator No July 31, 2020 2:17pm Chief Complaint and Reason for Visit Chief Complaint CHILLS Additional Source Comments INFORMATION SOURCE (unrecogn ized section and content) DATE CREATED AUTHOR 07/02/2018 [email or web address] DATE CREATED AUTHOR AUTHOR'S ORGANIZ ATION 01/30/2019 [facility] DATE CREATED AUTHOR AUTHOR'S ORGANIZ ATION 09/06/2024 [facility] Goals (unrecognized section and content) Goals may be documented in a n alternate sectionGoals may be documented in an alternate sectionGoals may be documented in an alternate sectionGoals may be documented in an alternate section FOR RECORDS PERTAINING TO PATIENTS WHO ARE [...] BE BASED ON THE PRIMARY CLINICAL RECORDS. [facility] [employer] provides no warranty or guarantee of the accuracy or completeness of information in this document.
[2024-09-07 07:30] VITALS: BP 153/59; PULSE 62; RESP 18; TEMP 36.3; O2SAT 99; BMI 44.6
--- NOTE | 2024-09-07 09:00 | CYST_PTH ---
PATIENT: CLARENCE CONNOR LOC: [facility] U#:[id number] AGE/SX: 74/F ROOM: RE09/07/[address]: Dr. Javid Byrd MD : [id number] BED: DIS: 09/07/2024 SPEC #: [id number] RECD: 09/07/24 10:24 STATUS: MICHELINE FLORIAN #: [id number] STEPHANIE: 09/07/24 09:[address]: Javid Byrd DEPT: SURGICAL PATHOLOGY RECD BY: Estiven Shultz ENTERED: 09/07/24 12:07 SP TYPE: Cyst OTHR DR: Dr. Duong Borja MD Tissues: A - CYST Procedures: Surgery Specimen Level III HEADER OPERATION: Excision scalp cyst PRE-OP DIAGNOSIS: Scalp cyst TISSUE SUBMITTED: A- Scalp cyst MICROSCOPIC DIAGNOSIS A. Scalp, cyst, excision: - Benign trichilemmal cyst, ruptured and inflamed. MICROSCOPIC DESCRIPTION Slides are reviewed. GROSS DESCRIPTION A. Received in formalin labeled with the patient's name and date of . Designated as scalp cyst is a 1.6 x 0.9 cm clifton-pink to red focally disrupted and irregular hairbearing portion of skin, devoid of orientation. Matted to the hair is a 1.4 x 1.0 x 0.2 cm apparent scab in multiple irregular pieces. Also within the container is a 1.7 x 1.3 x 0.4 cm clifton-white fibrotic and disrupted cyst devoid of contents. Chicken Buyer sections are submitted in 2 cassettes as follows: A1: Skin and apparent scabA2: Cyst SC 09/07/2024 CPT:87351
--- NOTE | 2024-09-07 09:05 | PCM.OPRPT ---
Operative Report (Standard) Operative Information RN Documented Start/Stop Times: Operation Date: 09/07/24 09:00 Case Time Into Pre-Op 09/07/24 07:30
--- NOTE | 2024-09-07 09:05 | PCM.HP.STD ---
HPI - General HPI Narrative Joyce Bernard is a delightful 74-year-old female with type 2 diabetes (A1c of 8) and a history of blood clots/pulmonary emboli (currently on Coumadin) who presents for a posterior left vertex scalp cyst. It has been there for several months but recently started bothering her and draining and scabbed over. It is currently inflamed and she was referred here. 25 June 2024: Improved pain on the doxycycline. No significant drainage. Doing well overall. Current Encounter (DATE OF SURGERY H&P UPDATE): I saw and examined the patient this morning in pre-operative holding. We discussed risks and benefits of today's surgery and they would like to proceed. NO CHANGE in health history since last seen and evaluated. Ready to proceed with surgery. [facility] Medical History Hernia Nausea and vomiting Sinus bradycardia by electrocardiogram BPPV (benign paroxysmal positional vertigo) Stage 3a chronic kidney disease (CKD) Chronic deep vein thrombosis (DVT) Diabetes mellitus, type II Bradycardia MDD (major depressive disorder) Generalized anxiety disorder GERD (gastroesophageal reflux disease) Factor V deficiency Obstructive sleep apnea Morbid obesity Hypertension Hyperlipidemia Atherosclerosis of coronary artery of robinson heart without angina pectoris (10/04/16) Incarcerated hernia Pulmonary embolism LBBB (left bundle branch block) Heterozygous factor V Leiden mutation Home Medications ?Medication ?Instructions ?Recorded ?Last Taken ?Type amlodipine 10 mg tablet 10 mg PO DAILY 01/09/19 07/09/24 History atorvastatin 40 mg tablet 40 mg PO QHS 01/09/19 07/09/24 History losartan 50 mg tablet 50 mg PO BID 01/09/19 07/09/24 History hydrochlorothiazide 25 mg tablet 25 mg PO DAILY #90 tabs 01/15/19 07/09/24 Rx cholecalciferol (vitamin D3) 25 25 mcg PO DAILY 07/07/24 07/09/24 History mcg (1,000 unit) tablet pantoprazole 40 mg tablet,delayed 40 mg PO DAILY 07/07/24 09/07/24 History release bupropion HCl 300 mg 24 hr tablet, 300 mg PO DAILY 07/09/24 07/09/24 History extended release metformin 500 mg tablet 500 mg PO BID DIABETES 07/09/24 Unknown History ropinirole 0.25 mg tablet 0.25 mg PO DAILY PRN restless 07/09/24 Unknown History leg(s) warfarin 3 mg tablet 3 mg PO DAILY 07/09/24 09/05/24 History escitalopram oxalate 5 mg tablet 5 mg PO DAILY 07/10/24 07/09/24 History Allergy/AdvReac Type Severity Reaction Status Date / Time No Known Allergies Allergy Verified 09/07/24 07:24 Family History Mother Hypertension Heart disease Diabetes Myocardial infarction CHF (congestive heart failure) Father Cancer Sister Cancer Diabetes Thyroid disorder Surgical History H/O umbilical hernia repair (~03/2017) History of Hx of cholecystectomy History of left heart catheterization (10/04/16) Social History Smoking Status: Former smoker alcohol intake: never substance use type: does not use additional social history: denies aspirin and ibuprofen use Vital Signs Vital Signs Vital Signs: 09/07/24 07:30 09/07/24 07:30 Temperature 97.3 F L Temperature Source Temporal Pulse Rate 62 Respiratory Rate 18 Respiratory Pattern Normal Blood Pressure 153/59 H Blood Pressure Mean 90 Blood Pressure Source Monitor Blood Pressure Position Sitting Blood Pressure Location Right Forearm Pulse Ox 99 Oxygen Delivery Method Room Air Weight Weight: 213 lb 13.574 oz Body Mass Index (BMI) 44.6 Physical Exam Narrative No neck lymphadenopathy Less inflammation and drainage since last week, and area of concern is still consistent with a mobile epidermal inclusion cyst. Scab is gone. The cyst is approximately 2 x 2 cm. Assessment & Plan Assessment/Plan (1) Epidermal inclusion cyst: PLAN: Plan Scalp cyst is indurated and appears to be slightly infected. We are going to place her on doxycycline 100 mg twice daily for 1 week to get the cyst to quiet down and then we will excise it. The area of scabbing also needs to heal. I am worried if we excise it right now the skin will breakdown and she will have a larger wound especially with her A1c of 8. I think getting the area to quiet down this week, and asking Dr. Daly her primary care doctor about taking her off of Coumadin in anticipation for cyst excision, is reasonable (would likely need a bridge). Plan for follow-up in 1 week. Patient happy with the plan Plan from 25 June 2024: Discussed with her improvement in the cyst appearance (less inflamed and does not appear infected at this time status post 1 week of doxycycline). I believe I can excise it and close it primarily at this point as the open wound portion of it has healed. I talked her about the risks, benefits, and alternatives to cyst excision, as well as the risks, benefits, and alternatives to stopping Coumadin before the procedure. After our discussion, our plan will be excision in the operating room in a controlled environment where we have a Bovie to stop bleeding, but we will plan for continuing her Coumadin. She understands the risk of bleeding. She understands the risk of wound healing complications especially in the setting of her high hemoglobin A1c/diabetes. She understands the risk of infection. Plan for excision of scalp cyst under local with primary closure. CPT codes for insurance prior authorization are as follows: 79076, [id number] INTERVAL H&P PLAN, DATE OF SURGERY: I talked to the patient extensively about the risks of surgery, including bleeding, infection, damage to surrounding structures, poor scaring, surgical site dehiscence and wound formation, need for wound care, need for repeat operations, failure to obtain the desired result, DVT/PE, and the risks of anesthesia including , including stroke (from low blood pressure/ischemia or clot). The benefits and alternatives of this surgery were also discussed. All of their questions were answered, and they agreed to proceed with surgery. We will proceed with surgery today. I marked the cyst and patient was in agreement.
[2024-09-07 09:25] VITALS: BP 117/44; BP 121/42; BP 122/49; BP 125/44; BP 133/39; BP 136/42; O2SAT 100; O2SAT 98
[2024-09-07] MEDS: Lidocaine 1% /Epi 1:100 (20ml) 20 ML Vial (09:36)
[2024-09-07] MEDS: Bupiv/Epi 0.25% 30 ML Vial (09:36)
[2024-09-07] MEDS: Bacitracin 500 UNITS/GM PACKET (09:46)
--- NOTE | 2024-09-07 10:43 | OP.PCM_ITS ---
Operative Report (Standard) Operative Information Date of Procedure: 09/07/24 Pre-Operative Diagnosis: 1) inclusion cyst posterior scalp Post-Operative Diagnosis: Same Surgery/Procedure Performed: 1) Excision of scalp inclusion cyst, 1.1 x 1.2 cm (CPT: 41886) 2) Intermediate closure, scalp, 2 cm (CPT: 17942) addiction professional: No Type of Anesthesia: Local (5 cc of 50/50 mixture of 1% lidocaine with 1:200,000 epinephrine and 0.25% Marcaine with 1:200,000 epinephrine ) RN Documented Start/Stop Times: Operation Date: 09/07/24 09:00 Case Time Into Pre-Op 09/07/24 07:30 Out of Pre-Op 09/07/24 09:17 Into Room 09/07/24 09:20 Procedure Start 09/07/24 09:36 Procedure End 09/07/24 09:49 Into Phase II Recovery 09/07/24 09:53 Out of Room 09/07/24 09:53 Procedure Start Time: 09:36 Procedure Stop Time: 09:49 Select all DRAINS/GRAFTS/IMPLANTS that apply: None Estimated Blood Loss: minimal Specimen collected: Yes Description of specimen(s) removed: Scalp inclusion cyst Description of surgery: Indications: Patient has a posterior scalp cyst and understands the risk benefits and alternatives to excision. She elected to proceed. Procedure details: Patient was correctly identified in preoperative holding and the cyst was marked with the patient in agreement with the site marking. She is taken back to the operating room where she was administered local anesthesia as noted above and it was given time to take effect. She was prepped and draped in sterile fashion. A timeout was performed and a 15 blade scalpel was used to excise the opening of the skin around the cyst and dissected carefully with tenotomy scissors around the cyst for complete removal, including the cyst wall. The cyst measured 1.1 x 1.2 cm and was sent to pathology. The wound was irrigated with copious amounts normal saline and hemostasis was obtained with Bovie electrocautery. The wound was closed in layers using a 3-0 PDS deep suture for the scalp followed by chip. The total closure was 2 cm. Patient tolerated the procedure well. Postoperative plan: Patient will follow-up in 1 week to review pathology and for wound check. Surgical Findings: Consistent with scalp epidermal inclusion cyst Complications Complications: No Admit VTE Documentation VTE Mechan Device Prophylaxis: SCD's
[2024-09-07 10:55] VITALS: BP 140/61; BP 153/59; PULSE 54; RESP 16; TEMP 36.7; O2SAT 99
== END 2024-09-07 10:57 | disposition home or self-care (01) ==
LOC: SDC 07:13 → AC 07:16
PROVIDERS: PCP Family Medicine Geriatric Medicine; Referring Provider Surgery Plastic and Reconstructive Surgery; Visit Provider Surgery Plastic and Reconstructive Surgery
PROC: (CPT 11422; principal; 2024-09-07 08:45)
DX: L72.12 Trichodermal cyst (principal); D68.2 Hereditary deficiency of other clotting factors; I11.0 Hypertensive heart disease with heart failure; E66.01 Morbid (severe) obesity due to excess calories; Z68.41 Body mass index [BMI] 40.0-44.9, adult; E11.22 Type 2 diabetes mellitus with diabetic chronic kidney disease; N18.31 Chronic kidney disease, stage 3a; L72.11 Pilar cyst; F41.1 Generalized anxiety disorder; F32.9 Major depressive disorder, single episode, unspecified; K21.9 Gastro-esophageal reflux disease without esophagitis; E78.5 Hyperlipidemia, unspecified; I25.10 Atherosclerotic heart disease of native coronary artery without angina pectoris; G47.33 Obstructive sleep apnea (adult) (pediatric); Z79.01 Long term (current) use of anticoagulants; Z79.84 Long term (current) use of oral hypoglycemic drugs; Z86.718 Personal history of other venous thrombosis and embolism; Z86.711 Personal history of pulmonary embolism; Z79.899 Other long term (current) drug therapy
CPT/HCPCS: 11422; 12031; 88304

== ENCOUNTER → 2024-10-25 | Outpatient (CLI) | payer MEDICARE, SELFPAY ==
[2024-10-25 13:36] LABS: Hematocrit 39.0 % (37-47); Hemoglobin 13.2 g/dL (12.0-15.0); Immature Granulocytes Count 0.020 X10^3/uL (0.0-0.0); Mean Corp Hgb Conc 33.8 g/dL (32-36); Mean Corpuscular Volume 89.9 fL (81-99); Mean Platelet Vol. 12.3 fl (6.2-12.0); NRBC Flagged by Analyzer 0 % (0-5); Platelet Count 257 K/mm3 (150-450); RBC Distribution Width CV 12.7 % (11.6-14.6); RBC Distribution Width SD 41.8 fl (35.1-43.9); Red Blood Count 4.34 M/mm3 (4.2-5.4); White Blood Count 8.8 K/mm3 (4.4-11.0)
[2024-10-25 14:16] LABS: Vitamin D,25 Hydroxy 32.5 ng/mL (30-100)
[2024-10-25 14:20] LABS: AST(SGOT) 31 U/L (<=31); Alanine Aminotransfer ALT/SGPT 22 U/L (<=34); Albumin, Serum 4.0 g/dL (3.4-4.8); Alkaline Phosphatase 108 U/L (35-104); Anion Gap 15 (5-15); BUN 15 mg/dL (4-19); BUN/Creat Ratio 13.5 RATIO (10-20); Calcium,Total 9.5 mg/dL (7.6-11.0); Carbon Dioxide 22.3 mmol/L (21.0-32.0); Chloride 104 mmol/L (98-108); Globulin 3.0 g/dL (2.2-4.2); Glucose 167 mg/dL (70-99); Potassium 3.9 mmol/L (3.3-5.1)
[2024-10-25 21:16] LABS: Xtra Tube Kwok EXTRA TUBE
== END | disposition home or self-care (01) ==
LOC: POLAB3 13:14
PROVIDERS: PCP Family Medicine Geriatric Medicine; Visit Provider Family Medicine Geriatric Medicine
DX: E11.65 Type 2 diabetes mellitus with hyperglycemia (principal); I10 Essential (primary) hypertension; E55.9 Vitamin D deficiency, unspecified
CPT/HCPCS: 36415; 80053; 82306; 84443; 85025

== ENCOUNTER → 2025-02-01 | Outpatient (CLI) | payer MEDICARE, SELFPAY ==
[2025-02-01 15:17] LABS: Hematocrit 40.3 % (37-47); Hemoglobin 13.1 g/dL (12.0-15.0); Immature Granulocytes Count 0.020 X10^3/uL (0.0-0.0); Mean Corp Hgb Conc 32.5 g/dL (32-36); Mean Corpuscular Volume 90.4 fL (81-99); Mean Platelet Vol. 11.5 fl (6.2-12.0); NRBC Flagged by Analyzer 0 % (0-5); Platelet Count 283 K/mm3 (150-450); RBC Distribution Width CV 12.7 % (11.6-14.6); RBC Distribution Width SD 41.5 fl (35.1-43.9); Red Blood Count 4.46 M/mm3 (4.2-5.4); White Blood Count 6.0 K/mm3 (4.4-11.0)
[2025-02-01 16:14] LABS: Vitamin D,25 Hydroxy 37.7 ng/mL (30-100)
[2025-02-01 16:16] LABS: AST(SGOT) 34 U/L (<=31); Alanine Aminotransfer ALT/SGPT 27 U/L (<=34); Albumin, Serum 4.0 g/dL (3.4-4.8); Alkaline Phosphatase 113 U/L (35-104); Anion Gap 13 (5-15); BUN 16 mg/dL (4-19); BUN/Creat Ratio 14.1 RATIO (10-20); Calcium,Total 9.8 mg/dL (7.6-11.0); Carbon Dioxide 27.9 mmol/L (21.0-32.0); Chloride 103 mmol/L (98-108); Globulin 3.3 g/dL (2.2-4.2); Glucose 121 mg/dL (70-99); Potassium 3.3 mmol/L (3.3-5.1)
[2025-02-01 23:08] LABS: Xtra Tube Kwok EXTRA TUBE
== END | disposition home or self-care (01) ==
LOC: LAB 15:03
PROVIDERS: PCP Family Medicine Geriatric Medicine; Referring Provider Family Medicine Geriatric Medicine; Visit Provider Family Medicine Geriatric Medicine
DX: I10 Essential (primary) hypertension (principal); E55.9 Vitamin D deficiency, unspecified
CPT/HCPCS: 36415; 80053; 82306; 84443; 85025